=== PATIENT | male | born 1960 | race Caucasian/White ===

== ENCOUNTER → 2017-03-10 | Outpatient (CLI) | payer OTHER ==
--- NOTE | 2017-03-10 09:05 | MR ---
EXAMINATION TYPE: MR shoulder RT wo con DATE OF EXAM: 03/10/2017 COMPARISON: Outside right shoulder x-ray February 19, 2017. HISTORY: Pain in right shoulder per order. Pain with difficulty raising overhead, rotator cuff issues for 3 years per patient. TECHNIQUE: Multiplanar, multisequence imaging of the right shoulder is performed without contrast. FINDINGS: Rotator Cuff: There is high-grade bursal tear of distal supraspinatus tendon seen best paracoronal im age 11 . On paracoronal images appears there appears could be full-thickness defect at this level but this is not confirmed on sagittal images. Infraspinatus tendon remains intact. There is increased si gnal and distal thickening with surrounding fluid noted in subscapularis tendon. Though few fibers ap pear possibly intact on axial image 11 there is suspected full-thickness tear. Atrophy of muscle bulk is noted. There is presumed full-thickness defect as noted definitive attachment and lesser tuberosi ty is seen on parasagittal images. Acromioclavicular Joint: There is joint space loss and capsular hypertrophy. Distal acromion morpholo gy is unremarkable. Underlying fat plane is maintained. Glenohumeral Joint: There is moderate to large glenohumeral joint effusion. Joint space loss is prese nt. Mild inferior spurring is noted. Labrum: Degenerative signal superior labrum is present. No labral cyst is noted. Biceps Tendon: The long head of biceps is slightly perched within bicipital groove. There is focus of central increased signal extra-articular portion seen best on axial image 9. Intermediate signal and thickening is noted intra-articular portion parasagittal image 15. Tendon remains intact to the labr al anchor. Bone marrow signal: Subchondral cystic change superior lateral humeral head is present. Other: No additional significant abnormality is appreciated. IMPRESSION: 1. Chronic full-thickness tear subscapularis tendon as detailed above. 2. High-grade bursal tear supraspinatus tendon. 3. Background moderate degenerative changes acromioclavicular and glenohumeral joints. 4. Moderate to severe tendinosis long head of biceps tendon.
== END | disposition home or self-care (01) ==
LOC: RADMRIMAIN 07:03
PROVIDERS: ATTEND Orthopaedic Surgery
DX: M75.121 Complete rotator cuff tear or rupture of right shoulder, not specified as traumatic (principal); M25.811 Other specified joint disorders, right shoulder

== ENCOUNTER 2017-11-16 19:51 | Inpatient (IN) | payer OTHER ==
[2017-11-16] MEDS ORDERED: SODIUM CHLORIDE 0.9% 2,000 ML IV ONE (20:00)
[2017-11-16] MEDS ORDERED: PIPERACILLIN-TAZOBACTAM 3.375 GM in DEXTROSE/WATER 1 50ML.BAG IVPB STA (20:08)
[2017-11-16] MEDS ORDERED: VANCOMYCIN IV PER PHARMACY 1 EACH MISC MISCELLANE PRN (20:09)
[2017-11-16] MEDS ORDERED: VANCOMYCIN 2,000 MG in SODIUM CHLORIDE 0.9% 500 ML IVPB STA (20:11)
[2017-11-16] MEDS ORDERED: ACETAMINOPHEN TAB 325 MG TAB PO STA (20:26)
--- NOTE | 2017-11-16 20:27 | ED ---
Wound/Laceration HPI - General Source: patient, RN notes reviewed Mode of arrival: ambulatory Limitations: no limitations <Alex Grove - Last Filed: 11/16/17 21:28> <Boubacar Webber - Last Filed: 11/16/17 22:31> - General Chief Complaint: Wound/Laceration Stated Complaint: Cellulitis Time Seen by Provider: 11/16/17 19:59 - History of Present Illness Initial Comments: This a 57-year-old male presents emergency Department chief complaint infection to his left foot, leg. Patient states he stepped on a nail last week he did see his primary care physician who placed him on Bactrim. Patient states that it has been getting worse she states there is open sores, drainage, redness. 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 Patient states that he does go the wound center regular basis. Patient has chronic wounds to his leg, right foot. Patient reports no fever at home. Though patient is febrile in the emergency department. (Alex Grove) - Related Data Home Medications Medication Instructions Recorded Confirmed Gabapentin [Neurontin] 900 mg PO TID 03/13/14 11/27/16 Lisinopril 5 mg PO DAILY 03/13/14 11/27/16 Simvastatin [Zocor] 40 mg PO HS 03/13/14 11/27/16 Ascorbic Acid [Vitamin C] 500 mg PO DAILY 02/03/15 11/27/16 Cholecalciferol [Vitamin D3] 1,000 unit PO DAILY 02/03/15 11/27/16 HYDROcodone/APAP 10-325MG [[place] 1 each PO Q4HR PRN 02/03/15 11/27/16 10] Mirtazapine 30 mg PO HS 02/03/15 11/27/16 Multivitamin [Men's Multi-Vitamin] 1 each PO DAILY 02/03/15 11/27/16 Phentermine HCl 37.5 mg PO DAILY 02/03/15 11/27/16 Vitamin B Complex 1 each PO DAILY 02/03/15 11/27/16 metFORMIN HCL [Glucophage] 1,000 mg PO BID 02/03/15 11/27/16 Aspirin [Adult Low Dose Aspirin EC] 81 mg PO DAILY 11/27/16 11/27/16 Repaglinide [Prandin] 1 mg PO AC-TID 11/27/16 11/27/16 Allergies Allergy/AdvReac Type Severity Reaction Status Date / Time cefuroxime [From Ceftin] Allergy Rash/Hives Verified 11/16/17 19:56 Review of Systems ROS Other: All systems not noted in ROS Statement are negative. <Alex Grove - Last Filed: 11/16/17 21:28> ROS Other: All systems not noted in ROS Statement are negative. <Boubacar Webber - Last Filed: 11/16/17 22:31> ROS Statement: Those systems with pertinent positive or pertinent negative responses have been documented in the HPI. Past Medical History Past Medical History: Diabetes Mellitus, Hyperlipidemia, Hypertension Additional Past Medical History / Comment(s): wound L Leg History of Any Multi-Drug Resistant Organisms: None Reported, MRSA Date of last positivie culture/infection: 2012 MDRO Source:: L Leg Past Surgical History: Orthopedic Surgery Additional Past Surgical History / Comment(s): carpel tunnel Past Anesthesia/Blood Transfusion Reactions: No Reported Reaction Past Psychological History: No Psychological Hx Reported Smoking Status: Former smoker Past Alcohol Use History: None Reported Past Drug Use History: None Reported - Past Family History Mother Family Medical History: No Reported History <Alex Grove - Last Filed: 11/16/17 21:28> General Exam Limitations: no limitations General appearance: alert, in no apparent distress Head exam: Present: atraumatic, normocephalic, normal inspection Respiratory exam: Present: normal lung sounds bilaterally. Absent: respiratory distress, wheezes, rales, rhonchi, stridor Cardiovascular Exam: Present: normal rhythm, tachycardia, normal heart sounds. Absent: systolic murmur, diastolic murmur, rubs, gallop, clicks Extremities exam: Present: other (Left lower extremity, there is no open wound which is bruising on his left anterior vila with erythema, left foot there is sloughing of the skin noted to the lateral portion over the third through fifth digit there is a puncture wound on the ball of the foot there is severe erythema , warmth pulses are faint in the left foot) Skin exam: Present: warm, dry <Alex Grove - Last Filed: 11/16/17 21:28> Vital Signs 11/16/17 11/16/1711/16/18 19:52 21:11 21:45 Temperature 101.6 F H 102.2 F H Pulse Rate 139 H 120 H Pulse Rate [ 119 H Pulse Oximetery ] Respiratory 18 15 16 Rate Blood Pressure 128/88 143/86 Blood Pressure 144/85 [Right Arm] O2 Sat by Pulse 94 L 93 L Oximetry 11/16/17 22:10 Temperature 101.1 F H Pulse Rate 89 Pulse Rate [ Pulse Oximetery ] Respiratory 16 Rate Blood Pressure 136/93 Blood Pressure [Right Arm] O2 Sat by Pulse 93 L Oximetry Medical Decision Making - Lab Data Result diagrams: 11/16/17 20:13 11/16/17 20:13 <Alex Grove - Last Filed: 11/16/17 21:28> - Lab Data Result diagrams: 11/16/17 20:13 11/16/17 20:13 <Boubacar Webber - Last Filed: 11/16/17 22:31> - Medical Decision Making I saw this patient in conjunction with the physician [employer] assistant manager. I performed independent history and physical exam. Agree with case management. (Boubacar Webber) - Lab Data Lab Results 11/16/17 11/16/17 11/16/17 Range/Units 20:13 20:13 20:13 WBC 13.5 H (3.8-10.6) k/uL RBC 4.64 (4.30-5.90) m/uL Hgb 14.2 (13.0-17.5) gm/dL Hct 42.0 (39.0-53.0) % MCV 90.4 (80.0-100.0) fL MCH 30.5 (25.0-35.0) pg MCHC 33.8 (31.0-37.0) g/dL RDW 12.4 (11.5-15.5) % Plt Count 265 (150-450) k/uL Neutrophils % 84 % Lymphocytes % 7 % Monocytes % 6 % Eosinophils % 1 % Basophils % 0 % Neutrophils # 11.3 H (1.3-7.7) k/uL Lymphocytes # 1.0 (1.0-4.8) k/uL Monocytes # 0.8 (0-1.0) k/uL Eosinophils # 0.1 (0-0.7) k/uL Basophils # 0.0 (0-0.2) k/uL PT (9.0-12.0) sec INR (<1.2) APTT (22.0-30.0) sec Sodium 135 L (137-145) mmol/L Potassium 4.6 (3.5-5.1) mmol/L Chloride 101 (98-107) mmol/L Carbon Dioxide 19 L (22-30) mmol/L Anion Gap 15 mmol/L BUN 22 H (9-20) mg/dL Creatinine 0.90 (0.66-1.25) mg/dL Est GFR (CKD-EPI)AfAm >90 (>60 ml/min/1.73 sqM) Est GFR (CKD-EPI)NonAf >90 (>60 ml/min/1.73 sqM) Glucose 353 H (74-99) mg/dL Plasma Lactic Acid Miky 1.8 (0.7-2.0) mmol/L Calcium 9.0 (8.4-10.2) mg/dL Total Bilirubin 1.1 (0.2-1.3) mg/dL AST 120 H (17-59) U/L ALT 108 H (21-72) U/L Alkaline Phosphatase 278 H (38-126) U/L Total Protein 6.2 L (6.3-8.2) g/dL Albumin 3.3 L (3.5-5.0) g/dL 11/16/17 Range/Units 20:13 WBC (3.8-10.6) k/uL RBC (4.30-5.90) m/uL Hgb (13.0-17.5) gm/dL Hct (39.0-53.0) % MCV (80.0-100.0) fL MCH (25.0-35.0) pg MCHC (31.0-37.0) g/dL RDW (11.5-15.5) % Plt Count (150-450) k/uL Neutrophils % % Lymphocytes % % Monocytes % % Eosinophils % % Basophils % % Neutrophils # (1.3-7.7) k/uL Lymphocytes # (1.0-4.8) k/uL Monocytes # (0-1.0) k/uL Eosinophils # (0-0.7) k/uL Basophils # (0-0.2) k/uL PT 10.7 (9.0-12.0) sec INR 1.1 (<1.2) APTT 26.8 (22.0-30.0) sec Sodium (137-145) mmol/L Potassium (3.5-5.1) mmol/L Chloride (98-107) mmol/L Carbon Dioxide (22-30) mmol/L Anion Gap mmol/L BUN (9-20) mg/dL Creatinine (0.66-1.25) mg/dL Est GFR (CKD-EPI)AfAm (>60 ml/min/1.73 sqM) Est GFR (CKD-EPI)NonAf (>60 ml/min/1.73 sqM) Glucose (74-99) mg/dL Plasma Lactic Acid Miky (0.7-2.0) mmol/L Calcium (8.4-10.2) mg/dL Total Bilirubin (0.2-1.3) mg/dL AST (17-59) U/L ALT (21-72) U/L Alkaline Phosphatase (38-126) U/L Total Protein (6.3-8.2) g/dL Albumin (3.5-5.0) g/dL 11/16/17 21:29 EKG performed at 21:06 sinus tachycardia with a rate of 119. Her 154 QRS 102 QT /QTC 3:30/469 (Alex Grove) Disposition <Alex Grove - Last Filed: 11/16/17 21:28> <Boubacar Webber - Last Filed: 11/16/17 22:31> Clinical Impression: Cellulitis of left foot, Gangrene of foot, Leg ulcer, left, Sepsis, Uncontrolled diabetes mellitus Disposition: ADMITTED IP TO THIS HOSP Condition: Fair Referrals: Tre Garrido MD [Primary Care Provider] - 1-2 days Addendum entered and electronically signed by Alex Grove, PAMarieC 11/16/17 22: 05: Patient was admitted medically with antibiotic treatment, consultation to orthopedics and infectious disease rather than to orthopedics as this is not a new trauma. Trauma the patient's foot happened over a week old. Patient was started on Zosyn, vancomycin.
[2017-11-16] MEDS ORDERED: HYDROcodone/APAP 10-325MG 1 EACH TAB PO ONE (20:29)
[2017-11-16 21:05] LABS: ALT 108 U/L (21-72); AST 120 U/L (17-59); Albumin 3.3 g/dL (3.5-5.0); Alkaline Phosphatase 278 U/L (38-126); Anion Gap 15 mmol/L; Blood Urea Nitrogen 22 mg/dL (9-20); Carbon Dioxide 19 mmol/L (22-30); Chloride 101 mmol/L (98-107); Glucose 353 mg/dL (74-99); Potassium 4.6 mmol/L (3.5-5.1); Sodium 135 mmol/L (137-145); Total Bilirubin 1.1 mg/dL (0.2-1.3); Total Protein 6.2 g/dL (6.3-8.2)
--- NOTE | 2017-11-16 21:08 | XR ---
EXAMINATION TYPE: XR foot complete LT DATE OF EXAM: 11/16/2017 COMPARISON: NONE HISTORY: 57-year-old male with left foot pain/cellulitis, nonhealing wound TECHNIQUE: 3 views FINDINGS: Soft tissue swelling along the lateral aspect of the forefoot. There is soft tissue air/along the duy mary aspect in this region. No osseous erosions are identified. Small plantar calcaneal spur. No acute fracture or dislocation. IMPRESSION: Soft tissue swelling and dorsal medial sided forefoot soft tissue wound. There is soft tissue air her e suggesting infection with gas-forming organism. No underlying acute osseous abnormality seen.
[2017-11-16 21:10] LABS: Basophils % (A) 0 %; Eosinophils # (A) 0.1 k/uL (0-0.7); Eosinophils % (A) 1 %; HGB 14.2 gm/dL (13.0-17.5); INR 1.1 (<1.2); Lymphocytes % (A) 7 %; MCH 30.5 pg (25.0-35.0); MCHC 33.8 g/dL (31.0-37.0); MCV 90.4 fL (80.0-100.0); Mean Platelet Volume 7.9; Monocytes # (A) 0.8 k/uL (0-1.0); Monocytes % (A) 6 %; Neutrophils # (A) 11.3 k/uL (1.3-7.7); Neutrophils % (A) 84 %; Partial Thromboplastin Time 26.8 sec (22.0-30.0); Platelet Count 265 k/uL (150-450); Prothrombin Time 10.7 sec (9.0-12.0); RBC 4.64 m/uL (4.30-5.90); RDW 12.4 % (11.5-15.5); WBC 13.5 k/uL (3.8-10.6)
[2017-11-16] MEDS ORDERED: MORPHINE SULFATE 4 MG/ML SYRINGE IV PRN (21:37)
[2017-11-16] MEDS ORDERED: NALOXONE 0.4 MG/ML 1 ML VIAL IV PRN (21:37)
[2017-11-16] MEDS ORDERED: ONDANSETRON 4 MG/2 ML VIAL IVP PRN (21:37)
[2017-11-16 23:31] VITALS: BMI 36.3
[2017-11-16] MEDS: SODIUM CHLORIDE 0.9% 1,000 ML IV SCH (23:40)
[2017-11-16] MEDS: GABAPENTIN 300 MG CAP PO SCH (23:40)
[2017-11-16] MEDS: MIRTAZAPINE 15 MG TAB PO SCH (23:41)
[2017-11-17] MEDS: HYDROcodone/APAP 10-325MG 1 EACH TAB PO PRN ×4 (04:09→21:07)
[2017-11-17 07:07] LABS: Glucose,Whole Blood 192 mg/dL (75-99)
[2017-11-17] MEDS: PHENTERMINE HCL 37.5 MG PO SCH (07:45)
[2017-11-17] MEDS: ASPIRIN 81 MG PO SCH (07:45)
[2017-11-17] MEDS: GABAPENTIN 300 MG CAP PO SCH ×3 (07:45→21:06)
[2017-11-17] MEDS: LISINOPRIL 5 MG TAB PO SCH (07:45)
[2017-11-17] MEDS: INSULIN ASPART 100 UNIT/ML 1 ML 10 ML VIAL SQ SCH ×4 (07:46→21:07)
[2017-11-17] MEDS: SODIUM CHLORIDE 0.9% 1,000 ML IV SCH ×2 (07:47→15:21)
[2017-11-17] MEDS: VANCOMYCIN 2,000 MG in SODIUM CHLORIDE 0.9% 500 ML IVPB SCH ×2 (08:23→21:05)
[2017-11-17] MEDS ORDERED: NON-FORMULARY DRUG (Vitamin B Complex [Vitamin B Complex] 1 EACH) PO SCH (09:00)
[2017-11-17] MEDS ORDERED: DIPH,PERTUS(ACELL)TETVAC-LF 0.5 ML VIAL IM ONE (10:19)
--- NOTE | 2017-11-17 10:45 | P.CONS ---
History of Present Illness - Reason for Consult Consult date: 11/17/17 Diabetic foot wound, gangrenous foot - History of Present Illness This is a 57-year-old male who is known to ID service as [facility] to the left lower extremity. He was discharged in February 2015 and was under the care of Dr. Santana at that time. Patient states that he has most recently at the wound Center at [facility] under the care of Dr. Leyva. Patient is requesting care with Dr. Das. Last week he stepped on a drywall screw while working and later saw his primary care doctor on Friday and he was told he had cellulitis. He had IM antibiotics given and started on Bactrim. Patient denies having any fever or chills although he had a temperature 102.2. He does complain of nausea. He also complains of pain in the left foot with increased redness, swelling and drainage. Patient also has a wound to the mid pretibial which is the ulcer he is currently under care at [facility]. There is also a small wound on the left heel, posterior tibial area and distal tip of the right great toe. He is not sure if he had a tetanus updated at Dr. Garrido's office. Patient presented with temperature 102.2, elevated heart rate, pulse ox 94% on room air, leukocytosis of 13.5. Blood sugar was 353 and patient states that blood sugars have been running high at home. Creatinine 0.9. AST 120, ALT 102 and alkaline phosphatase 278. Lactic acid was 1.8 and albumin 3.3. He does have blood culture obtained that is showing gram-positive cocci. X-ray of the left foot shows soft tissue swelling and dorsal medial soft tissue wound. Soft tissue air suggesting gas-forming organism. No associated osseous abnormality. Patient was given 1 dose of Zosyn and started on vancom[facility] There is a consult in place with orthopedics. Patient did have laser surgery with Dr. Brian in May for his left lower leg. Review of Systems All systems: negative Constitutional: Reports fatigue, Reports poor appetite, Reports weakness, Denies chills, Denies fever Eyes: denies blurred vision, denies pain Ears, nose, mouth and throat: Denies dental pain, Denies headache, Denies mouth pain, Denies sore throat, Denies vertigo Cardiovascular: Reports leg edema, Denies chest pain, Denies lightheadedness, Denies shortness of breath, Denies syncope Respiratory: Denies cough, Denies cough with sputum, Denies dyspnea, Denies excessive sputum, Denies hemoptysis, Denies home oxygen, Denies wheezing Gastrointestinal: Reports nausea, Denies abdominal pain, Denies diarrhea, Denies vomiting Genitourinary: Denies dysuria Musculoskeletal: Denies myalgias Integumentary: Reports as per HPI, Reports color changes, Reports foot/leg ulcers, Reports onychomycosis, Reports wounds, Denies pruritus, Denies rash Neurological: Denies numbness, Denies weakness Psychiatric: Denies anxiety, Denies depression Endocrine: Denies fatigue, Denies weight change Past Medical History Past Medical History: Diabetes Mellitus, Hyperlipidemia, Hypertension Additional Past Medical History / Comment(s): wound L Leg History of Any Multi-Drug Resistant Organisms: MRSA Year Discovered:: 2012 MDRO Source:: L Leg Past Surgical History: Orthopedic Surgery Additional Past Surgical History / Comment(s): carpel tunnel Past Anesthesia/Blood Transfusion Reactions: No Reported Reaction Past Psychological History: No Psychological Hx Reported Smoking Status: Former smoker Past Alcohol Use History: None Reported Additional Past Alcohol Use History / Comment(s): Patient was a smoker 3 packs per day on and off for 20 years and quit 15 years ago. He denies any recent marijuana or street drug use. 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 Past Drug Use History: None Reported Additional Drug Use History / Comment(s): rare - Past Family History Mother Family Medical History: No Reported History Medications and Allergies Home Medications Medication Instructions Recorded Confirmed Type Gabapentin [Neurontin] 300 mg PO TID 03/13/14 11/17/17 History Lisinopril 5 mg PO HS 03/13/14 11/17/17 History Simvastatin [Zocor] 40 mg PO PC-SUPPER 03/13/14 11/17/17 History Ascorbic Acid [Vitamin C] 1,000 mg PO PC-LUNCH 02/03/15 11/17/17 History Cholecalciferol [Vitamin D3] 5,000 unit PO PC-LUNCH 02/03/15 11/17/17 History HYDROcodone/APAP 10-325MG [[facility] 1 tab PO QID 02/03/15 11/17/17 History 10] Multivitamin [Men's Multi-Vitamin] 1 tab PO PC-LUNCH 02/03/15 11/17/17 History Phentermine HCl 37.5 mg PO DAILY 02/03/15 11/17/17 History Vitamin B Complex 1 cap PO PC-LUNCH 02/03/15 11/17/17 History Aspirin [Adult Low Dose Aspirin EC] 81 mg PO HS 11/27/16 11/17/17 History Repaglinide [Prandin] 1 mg PO AC-TID 11/27/16 11/17/17 History Canagliflozin [Invokana] 300 mg PO DAILY 11/17/17 11/17/17 History Mirtazapine 45 mg PO HS 11/17/17 11/17/17 History metFORMIN HCL 1,000 mg PO AC-BID 11/17/17 11/17/17 History Allergies Allergy/AdvReac Type Severity Reaction Status Date / Time cefuroxime [From Ceftin] Allergy Rash/Hives Verified 11/17/17 08:34 Physical Exam Vitals: Vital Signs Temp Pulse Pulse Resp BP BP Pulse Ox 11/17/17 05:00 100.7 F H 98 16 130/77 94 L 11/17/17 00:00 107 H 17 11/16/17 23:01 100.4 F H 11/16/17 23:00 100.4 F H 107 H 17 116/71 96 11/16/17 22:10 101.1 F H 89 16 136/93 93 L 11/16/17 21:45 120 H 16 143/86 93 L 11/16/17 21:11 102.2 F H 119 H 15 144/85 11/16/17 19:52 101.6 F H 139 H 18 128/88 94 L Intake and Output 11/16/17 11/17/17 11/17/17 22:59 06:59 14:59 Intake Total 1630 Output Total 1375 Balance 255 Intake: Intake, IV Titration 1150 Amount Piperacillin-Tazobactam 3 50 .375 gm In Dextrose/Water 1 50ml.bag @ 12.5 mls/hr IVPB ONCE STA Rx#: [id number] Sodium Chloride 0.9% 1, 600 000 ml @ 100 mls/hr IV . Q10H KASSY Rx#:[id number] Vancomycin 2,000 mg In 500 Sodium Chloride 0.9% 500 ml @ 167 mls/hr IVPB 0800 ,2000 KASSY Rx#:[id number] Oral 480 Output: Urine 1375 Other: Voiding Method Urinal # Voids 750 Weight 128.367 kg 128.367 kg Gen: This is a 57-year-old male. He is sitting up in bed and appears to be comfortable. He appears to be in no acute distress. He is complaining of pain in the left leg. HEENT: Head is atraumatic, normocephalic. Pupils equal, round. Sclerae is anicteric. Patient is edentulous. Mucous members of the mouth are moist. NECK: Supple. No JVD. No lymphadenopathy. No thyromegaly. LUNGS: Clear to auscultation. No wheezes or rhonchi. No intercostal retractions. HEART: Regular rate and rhythm. No murmur. ABDOMEN: Obese. Soft. Bowel sounds are present. No masses. No tenderness. EXTREMITIES: The left lower extremity there is significant redness surrounding the ulcer in the mid pretibial area along with edema. There is ulcer actively draining with serous fluid to the dorsal surface over the fourth and fifth digits. Patient is a puncture wound on the plantar surface at the mid fifth metatarsal. There is a small wound on the posterior left calf and left heel. On the right foot patient has a black eschar ulcer on the distal great toe. Dorsalis pedis is +2 bilaterally. NEUROLOGICAL: Patient is awake, alert and oriented x3. Cranial nerves 2 through 12 are grossly intact. Results Results: Laboratory Results WBC 13.5 k/uL (3.8-10.6) H 11/16/17 20:13 RBC 4.64 m/uL (4.30-5.90) 11/16/17 20:13 Hgb 14.2 gm/dL (13.0-17.5) 11/16/17 20:13 Hct 42.0 % (39.0-53.0) 11/16/17 20:13 MCV 90.4 fL (80.0-100.0) 11/16/17 20:13 MCH 30.5 pg (25.0-35.0) 11/16/17 20:13 MCHC 33.8 g/dL (31.0-37.0) 11/16/17 20:13 RDW 12.4 % (11.5-15.5) 11/16/17 20:13 Plt Count 265 k/uL (150-450) 11/16/17 20:13 Neutrophils % 84 % 11/16/17 20:13 Lymphocytes % 7 % 11/16/17 20:13 Monocytes % 6 % 11/16/17 20:13 Eosinophils % 1 % 11/16/17 20:13 Basophils % 0 % 11/16/17 20:13 Neutrophils # 11.3 k/uL (1.3-7.7) H 11/16/17 20:13 Lymphocytes # 1.0 k/uL (1.0-4.8) 11/16/17 20:13 Monocytes # 0.8 k/uL (0-1.0) 11/16/17 20:13 Eosinophils # 0.1 k/uL (0-0.7) 11/16/17 20:13 Basophils # 0.0 k/uL (0-0.2) 11/16/17 20:13 PT 10.7 sec (9.0-12.0) 11/16/17 20:13 INR 1.1 (<1.2) 11/16/17 20:13 APTT 26.8 sec (22.0-30.0) 11/16/17 20:13 Sodium 135 mmol/L (137-145) L 11/16/17 20:13 Potassium 4.6 mmol/L (3.5-5.1) 11/16/17 20:13 Chloride 101 mmol/L (98-107) 11/16/17 20:13 Carbon Dioxide 19 mmol/L (22-30) L 11/16/17 20:13 Anion Gap 15 mmol/L 11/16/17 20:13 BUN 22 mg/dL (9-20) H 11/16/17 20:13 Creatinine 0.90 mg/dL (0.66-1.25) 11/16/17 20:13 Est GFR (CKD-EPI)AfAm >90 (>60 ml/min/1.73 sqM) 11/16/17 20:13 Est GFR (CKD-EPI)NonAf >90 (>60 ml/min/1.73 sqM) 11/16/17 20:13 Glucose 353 mg/dL (74-99) H 11/16/17 20:13 POC Glucose (mg/dL) 172 mg/dL (75-99) H 11/17/17 11:56 POC Glu Chyron Operator ID Femi Ventura 11/17/17 11:56 Plasma Lactic Acid Miky 1.8 mmol/L (0.7-2.0) 11/16/17 20:13 Calcium 9.0 mg/dL (8.4-10.2) 11/16/17 20:13 Total Bilirubin 1.1 mg/dL (0.2-1.3) 11/16/17 20:13 AST 120 U/L (17-59) H 11/16/17 20:13 ALT 108 U/L (21-72) H 11/16/17 20:13 Alkaline Phosphatase 278 U/L (38-126) H 11/16/17 20:13 Total Protein 6.2 g/dL (6.3-8.2) L 11/16/17 20:13 Albumin 3.3 g/dL (3.5-5.0) L 11/16/17 20:13 CBC & Chem 7: 11/16/17 20:13 11/16/17 20:13 Labs: Abnormal Lab Results - Last 24 Hours (Table) 11/16/17 11/16/17 11/17/17 Range/Units 20:13 20:13 07:06 WBC 13.5 H (3.8-10.6) k/uL Neutrophils # 11.3 H (1.3-7.7) k/uL Sodium 135 L (137-145) mmol/L Carbon Dioxide 19 L (22-30) mmol/L BUN 22 H (9-20) mg/dL Glucose 353 H (74-99) mg/dL POC Glucose (mg/dL) 192 H (75-99) mg/dL AST 120 H (17-59) U/L ALT 108 H (21-72) U/L Alkaline Phosphatase 278 H (38-126) U/L Total Protein 6.2 L (6.3-8.2) g/dL Albumin 3.3 L (3.5-5.0) g/dL Microbiology - Last 24 Hours (Table) 11/16/17 20:13 Blood Culture Gram Stain - Preliminary Blood 11/16/17 20:13 Blood Culture - Final Blood Assessment and Plan Plan: This is a 57-year-old male patient who presents to the hospital with signs of sepsis with fever, tachycardia and leukocytosis secondary to the left lower extremity ulcers and wounds. Patient is currently on vancomycin and Zosyn will be added. Bone scan will be ordered. Wound culture ordered. Tetanus status will be updated this was not done a Dr. Garrido's office on Friday. The patient has been seen by Dr. Bacon with plan for debridement tomorrow. Noted the patient's liver enzymes are elevated and hepatitis panel ordered. Blood sugars have been elevated and patient will require tight glucose control to aid in healing. Multivitamin ordered. Continue supportive care. Further recommendations as patient progresses. The above dictated assessment and findings were discussed with Dr. Das. The impression and plan of care have been directed as dictated. Janice Lindo nurse practitioner acting as scribe for Dr. Das.
[2017-11-17 11:57] LABS: Glucose,Whole Blood 172 mg/dL (75-99)
[2017-11-17] MEDS: PIPERACILLIN-TAZOBACTAM 3.375 GM in DEXTROSE/WATER 1 50ML.BAG IVPB SCH ×2 (12:35→17:15)
[2017-11-17] MEDS: metFORMIN 500 MG TAB PO SCH ×2 (12:35→17:39)
[2017-11-17] MEDS: REPAGLINIDE 1 MG TAB PO SCH ×3 (12:36→17:39)
[2017-11-17] MEDS: ENOXAPARIN 40 MG/0.4 ML SYRINGE SQ SCH (12:36)
--- NOTE | 2017-11-17 13:22 | P.CNOR ---
History of Present Illness - [facility] Consult date: 11/17/17 Consult reason: joint pain History of present illness: This 57-year-old male who was recently admitted to [facility] with regards to her left foot infection. Patient is a uncontrolled diabetic and has had many wounds involving the left lower extremity. He has been evaluated and does follow up in the wound care center, he has also had some vascular surgery done on the left lower extremity. Patient states that last week he stepped on a nail which punctured the bottom of his foot. Patient was unaware that he had punctured the foot due to the neuropathy in his foot. Later in the week she started noticing increasing swelling and pain. He states the pain and swelling along with drainage over the dorsum of the left foot has gotten worse yesterday, he reported to the hospital. Upon arrival to the hospital, imaging and labs were taken on the patient. Patient was admitted under internal medicine, consults were placed for infectious disease and orthopedics. Patient was evaluated today at bedside, he is resting comfortably. He notes some discomfort on the dorsum of the foot. He denies any fevers or chills at this time. Review of Systems Constitutional: Reports as per HPI Past Medical History Past Medical History: Diabetes Mellitus, Hyperlipidemia, Hypertension Additional Past Medical History / Comment(s): wound L Leg History of Any Multi-Drug Resistant Organisms: MRSA Year Discovered:: 2012 MDRO Source:: L Leg Past Surgical History: Orthopedic Surgery Additional Past Surgical History / Comment(s): carpel tunnel Past Anesthesia/Blood Transfusion Reactions: No Reported Reaction Past Psychological History: No Psychological Hx Reported Smoking Status: Former smoker Past Alcohol Use History: None Reported Additional Past Alcohol Use History / Comment(s): Patient was a smoker 3 packs per day on and off for 20 years and quit 15 years ago. He denies any recent marijuana or street drug use. 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 Past Drug Use History: None Reported Additional Drug Use History / Comment(s): rare - Past Family History Mother Family Medical History: No Reported History Medications and Allergies Home Medications Medication Instructions Recorded Confirmed Type Gabapentin [Neurontin] 300 mg PO TID 03/13/14 11/17/17 History Lisinopril 5 mg PO HS 03/13/14 11/17/17 History Simvastatin [Zocor] 40 mg PO PC-SUPPER 03/13/14 11/17/17 History Ascorbic Acid [Vitamin C] 1,000 mg PO PC-LUNCH 02/03/15 11/17/17 History Cholecalciferol [Vitamin D3] 5,000 unit PO PC-LUNCH 02/03/15 11/17/17 History HYDROcodone/APAP 10-325MG [[place] 1 tab PO QID 02/03/15 11/17/17 History 10] Multivitamin [Men's Multi-Vitamin] 1 tab PO PC-LUNCH 02/03/15 11/17/17 History Phentermine HCl 37.5 mg PO DAILY 02/03/15 11/17/17 History Vitamin B Complex 1 cap PO PC-LUNCH 02/03/15 11/17/17 History Aspirin [Adult Low Dose Aspirin EC] 81 mg PO HS 11/27/16 11/17/17 History Repaglinide [Prandin] 1 mg PO AC-TID 11/27/16 11/17/17 History Canagliflozin [Invokana] 300 mg PO DAILY 11/17/17 11/17/17 History Mirtazapine 45 mg PO HS 11/17/17 11/17/17 History metFORMIN HCL 1,000 mg PO AC-BID 11/17/17 11/17/17 History Allergies Allergy/AdvReac Type Severity Reaction Status Date / Time cefuroxime [From Ceftin] Allergy Rash/Hives Verified 11/17/17 08:34 Physical Examination Left lower extremity: Significant soft tissue swelling and erythema noted over the dorsum of the foot , mainly located between the fourth and fifth digit. There is serosanguineous drainage present throughout most of the area, the skin is excoriated and most of the region also. There are a few separate lesions in between the fourth and fifth digit in the webspace. Erythema also noted throughout most of the foot and vila. Mid tibia region, there is a healing ulcer present. Dorsal pedis pulses 2+ Sensation to light touch on the dorsum of the foot is intact, on the plantar aspect many areas of decrease sensation to light touch He is able to plantarflex and dorsiflex the ankle minimal discomfort Calf is soft no tenderness with palpation Results - Labs Labs: Abnormal Lab Results - Last 24 Hours (Table) 11/16/17 11/16/17 11/17/17 Range/Units 20:13 20:13 07:06 WBC 13.5 H (3.8-10.6) k/uL Neutrophils # 11.3 H (1.3-7.7) k/uL Sodium 135 L (137-145) mmol/L Carbon Dioxide 19 L (22-30) mmol/L BUN 22 H (9-20) mg/dL Glucose 353 H (74-99) mg/dL POC Glucose (mg/dL) 192 H (75-99) mg/dL AST 120 H (17-59) U/L ALT 108 H (21-72) U/L Alkaline Phosphatase 278 H (38-126) U/L Total Protein 6.2 L (6.3-8.2) g/dL Albumin 3.3 L (3.5-5.0) g/dL 11/17/17 Range/Units 11:56 WBC (3.8-10.6) k/uL Neutrophils # (1.3-7.7) k/uL Sodium (137-145) mmol/L Carbon Dioxide (22-30) mmol/L BUN (9-20) mg/dL Glucose (74-99) mg/dL POC Glucose (mg/dL) 172 H (75-99) mg/dL AST (17-59) U/L ALT (21-72) U/L Alkaline Phosphatase (38-126) U/L Total Protein (6.3-8.2) g/dL Albumin (3.5-5.0) g/dL Microbiology - Last 24 Hours (Table) 11/16/17 20:13 Blood Culture Gram Stain - Preliminary Blood 11/16/17 20:13 Blood Culture - Final Blood H & H 11/16/17 Range/Units 20:13 Hgb 14.2 (13.0-17.5) gm/dL Hct 42.0 (39.0-53.0) % Coagulation 11/16/17 Range/Units 20:13 INR 1.1 (<1.2) Result Diagrams: 11/16/17 20:13 11/16/17 20:13 - Diagnostic results Ankle/Foot x-ray: report reviewed, image reviewed Assessment and Plan Plan: Imaging: Multiple views left foot were obtained. Images demonstrated no acute fractures or dislocations. Obvious soft tissue injury present. Assessment: 1. Left foot abscess 2. Left foot puncture wound 3. Uncontrolled diabetes 4. Other medical comorbidities Plan: I was able to discuss the case, including physical exam findings and imaging studies with my attending Dr. Bacon. This patient will need surgical intervention, more specifically incision and drainage along with irrigation and debridement of the foot. This will be scheduled for 11/18/2014. Obtain consent Nothing by mouth after midnight pain control other medical collections representative recommendations Further recommendations to follow Time with Patient: Less than 30
--- NOTE | 2017-11-17 15:08 | NM ---
EXAMINATION TYPE: NM bone 3 phase DATE OF EXAM: 11/17/2017 COMPARISON: 11/16/2017 HISTORY: Left foot pain for one week. Osteomyelitis. Triple phase bone scintigraphy was performed following the injection of 25.9 mCi Tc 99m MDP. Immedia te images and 3.25 hours post injection images acquired. FINDINGS: There is diffusely abnormal perfusion and blood pool to the left lower extremity involving the ankle and foot. On delayed imaging there is multifocal abnormal uptake within the tibiotalar join t, midfoot, and multifocally with the forefoot involving the first metatarsophalangeal joint, fourth phalanx and fifth phalanx. IMPRESSION: Diffuse abnormal perfusion and blood pool to the left lower extremity with focal delayed uptake of the tibiotalar joint, midfoot, first metatarsal phalangeal joint, fourth phalanx and fifth phalanx. Findings can be seen in multifocal osteomyelitis, reflex sympathetic dystrophy, or less like ly neoplasm. Considering the air seen on the prior radiographs of 11/16/2017 consideration should also again be given to gas forming organism.
[2017-11-17 16:29] LABS: Glucose,Whole Blood 266 mg/dL (75-99)
[2017-11-17 16:48] LABS: Hepatitis A Antibody IgM Non-Reactive (Non-Reactive); Hepatitis B Core IgM Non-Reactive (Non-Reactive)
--- NOTE | 2017-11-17 16:50 | HP ---
HISTORY AND PHYSICAL DATE OF ADMISSION: 11/16/17. DATE OF SERVICE: 11/17/17. PRESENTING COMPLAINT: Abscess, right foot. HISTORY OF PRESENTING COMPLAINT: This is a pleasant 57-year-old patient of Dr. Eloy Garrido. Chronic stable medical conditions include diabetes, hypertension, hyperlipidemia, and peripheral neuropathy. The patient about 8 days ago stepped on a nail on a piece of drywall and did not notice that until yesterday. It progressed to get worse and started hurting. The patient has decreased sensation in the feet, started draining pus and decided to come down to the ER. Consultation from the ER was made to Orthopedics and Infectious Disease and the patient was started on IV vancomycin and Zosyn. Denies pain. The patient does feel weak and tired and also had a fever up to 102.2. REVIEW OF SYSTEMS: CONSTITUTIONAL: Tired. HEENT: None. RESPIRATORY: None. CARDIOVASCULAR: None. GASTROINTESTINAL: None. GENITOURINARY: None. MUSCULOSKELETAL: As above. DERMATOLOGICAL: As above. LYMPHATICS: None. PSYCHIATRY: None. NEUROLOGICAL: Numbness and tingling in the feet. PAST MEDICAL HISTORY: Diabetes mellitus type 2, hyperlipidemia, hypertension, wound of the left leg with MRSA. PAST SURGICAL HISTORY: Orthopedic surgery, carpal tunnel. SOCIAL HISTORY: The patient has smoked 3 packs on and off for 20 years and stopped 15 years ago. He did work in the past as a operator and truck driver, was currently working doing [employer]. FAMILY HISTORY: Reviewed noncontributory to presentation. HOME MEDICATIONS: 1. Invokana 300 mg a day. 2. Vitamin C 1000 mg with lunch. 3. Mirtazapine 45 mg q.h.s. 4. Aspirin 81 mg q.h.s. 5. Vitamin B complex. 6. Multivitamin 1 tablet p.o. after lunch. 7. Lisinopril 5 mg q.h.s. 8. Vitamin D3 5000 units p.c. lunch. 9. Zocor 40 mg p.c. supper. 10.Phentermine 37.5 p.o. daily. 11.Metformin 1000 mg p.o. a.c. b.i.d. 12.Neurontin 300 mg p.o. t.i.d. 13.Prandin 1 mg p.o. a.c. t.i.d. 14.[place] 10 1 tablet p.o. q.i.d. ALLERGIES: To CEFTIN. PHYSICAL EXAMINATION: Vital signs on presentation: Temp 102.2, pulse 139, respiration 15, blood pressure 120/88, pulse ox 94% on room air. GENERAL APPEARANCE: Well built, BMI 36.3. Sitting up, not in distress. EYES: Pupils equal. Conjunctivae normal. HEENT: External appearance of nose and ears normal. Oral cavity normal. NECK: JVD not raised. Mass not palpable. RESPIRATORY: Effort normal. Lungs, slightly decreased breath sounds. CARDIOVASCULAR: 1st and 2nd sounds normal. No edema. ABDOMEN: Soft, nontender. Liver and spleen not palpable. LYMPHATIC: No lymph nodes palpable in neck or axillae. PSYCHIATRY: Alert and oriented x3. Mood and affect normal. NEUROLOGICAL: Decreased sensation in the feet. MUSCULOSKELETAL: Patient has got a wound on the right foot. Picture in the chart. INVESTIGATIONS: Labs and radiology were reviewed in context of the assessment and plan below. White count 13.5, hemoglobin 14.2, potassium 4.6, BUN 22, creatinine 0.90. Accu-Cheks 353, 192, 172. Foot x-ray: Soft tissue swelling in dorsal medial forefoot. There is some gas- forming organism. EKG tracing interpreted by me shows sinus tachycardia. Nuclear bone scan shows diffuse abnormal perfusion, blood pool to the lower extremity. It is nonspecific for osteomyelitis but that remains in the differential. ASSESSMENT: 1. Acute severe right foot abscess in a patient who has got poor sensation from diabetes resulting in abscess of the foot following a nail driven from the drywall about a week ago and patient has formed an abscess. 2. Diabetes mellitus type 2, uncontrolled with hyperglycemia on oral hypoglycemic. 3. Metabolic acidosis. Bicarb is 19. 4. Acute right foot abscess causing severe sepsis, present on admission. 5. Essential hypertension. 6. Hyperlipidemia. PLAN: The patient is on IV vancomycin, Zosyn. Orthopedic and Infectious Disease was consulted. The patient will be probably need to go down to the OR. Blood cultures were ordered and growing Gram-positive cocci. Care was discussed in detail with the patient. MMODL / IJN: [id number] /
--- NOTE | 2017-11-17 19:19 | P.CON ---
Consult Note - . Consult date: 11/17/17 Assessment/Plan:: This is a 57-year-old male who is known to ID service as [facility] to the left lower extremity. He was discharged in February 2015 and was under the care of Dr. Santana at that time. Patient states that he has most recently at the wound Center at [facility] under the care of Dr. Leyva. Patient is requesting care with Dr. Das. Last week he stepped on a drywall screw while working and later saw his primary care doctor on Friday and he was told he had cellulitis. He had IM antibiotics given and started on Bactrim. Patient denies having any fever or chills although he had a temperature 102.2. He does complain of nausea. He also complains of pain in the left foot with increased redness, swelling and drainage. Patient also has a wound to the mid pretibial which is the ulcer he is currently under care at [facility]. There is also a small wound on the left heel, posterior tibial area and distal tip of the right great toe. He is not sure if he had a tetanus updated at Dr. Garrido's office. Patient presented with temperature 102.2, elevated heart rate, pulse ox 94% on room air, leukocytosis of 13.5. Blood sugar was 353 and patient states that blood sugars have been running high at home. Creatinine 0.9. AST 120, ALT 102 and alkaline phosphatase 278. Lactic acid was 1.8 and albumin 3.3. He does have blood culture obtained that is showing gram-positive cocci. X-ray of the left foot shows soft tissue swelling and dorsal medial soft tissue wound. Soft tissue air suggesting gas-forming organism. No associated osseous abnormality. Patient was given 1 dose of Zosyn and started on vancomycin and admitted to the [facility] floor. There is a consult in place with orthopedics. Patient did have laser surgery with Dr. Brian in May for his left lower leg. Please see the consult note as dictated by CHEMISTRY PHYSICS TEACHER Krista Janice Lindo. Physical the patient relates that he was at a job site and apparently stepped on a drywall screw. He was quite unaware this was occurring, but after he noticed some swelling and drainage from his foot he examined his shoe and the drywall screw was still present through the sole of the shoe penetrating into the fifth metatarsal area. The patient now presents with the extensive swelling and infection to the dorsum of the foot and will have incision and drainage from orthopedics soon. We'll continue antibiotic therapy with Zosyn and vancomycin until we have further data. It is unclear if he'll require any surgical amputation the near future regarding the extensive nature of this infection. Goals establishes much of the foot as possible. Tetanus is updated and local wound care as a nonstick dressing until surgical intervention has occurred. Cultures were further help direct antibiotic therapy and he could require outpatient antibiotic therapy depending on the findings at surgery. Despite specific difficulties he is wondering when he gets to go back to work. I agree with the evaluation assessment and plan as dictated by CHEMISTRY PHYSICS TEACHER Mrs. Janice Lindo.
[2017-11-17 20:12] LABS: Glucose,Whole Blood 299 mg/dL (75-99)
[2017-11-17] MEDS: MIRTAZAPINE 15 MG TAB PO SCH (21:06)
[2017-11-17] MEDS: ATORVASTATIN 20 MG TAB PO SCH (21:07)
[2017-11-18] MEDS: PIPERACILLIN-TAZOBACTAM 3.375 GM in DEXTROSE/WATER 1 50ML.BAG IVPB SCH ×3 (00:58→17:16)
[2017-11-18] MEDS: SODIUM CHLORIDE 0.9% 1,000 ML IV SCH ×2 (06:16→12:58)
[2017-11-18 06:53] LABS: Glucose,Whole Blood 274 mg/dL (75-99)
[2017-11-18] MEDS: metFORMIN 500 MG TAB PO SCH ×2 (07:38→17:53)
[2017-11-18] MEDS: REPAGLINIDE 1 MG TAB PO SCH ×3 (07:38→17:53)
[2017-11-18] MEDS: VANCOMYCIN 2,000 MG in SODIUM CHLORIDE 0.9% 500 ML IVPB SCH ×2 (07:47→19:57)
[2017-11-18] MEDS: INSULIN ASPART 100 UNIT/ML 1 ML 10 ML VIAL SQ SCH ×4 (07:48→20:20)
[2017-11-18] MEDS: GABAPENTIN 300 MG CAP PO SCH ×3 (07:48→21:54)
[2017-11-18] MEDS: ASPIRIN 81 MG PO SCH (07:48)
[2017-11-18] MEDS: PHENTERMINE HCL 37.5 MG PO SCH (07:53)
[2017-11-18 07:59] LABS: Anion Gap 10 mmol/L; Blood Urea Nitrogen 21 mg/dL (9-20); Calcium 8.8 mg/dL (8.4-10.2); Carbon Dioxide 24 mmol/L (22-30); Chloride 102 mmol/L (98-107); Glucose 247 mg/dL (74-99); Sodium 136 mmol/L (137-145)
[2017-11-18] MEDS ORDERED: MIDAZOLAM 2 MG/2 ML VIAL ONE ×2 (09:22→10:24)
[2017-11-18] MEDS ORDERED: IV FLUID CONTINUATION 900 ML IV ONE (09:31)
[2017-11-18 09:49] LABS: Glucose,Whole Blood 210 mg/dL (75-99)
[2017-11-18] MEDS ORDERED: LACTATED RINGERS 1,000 ML IV ONE (10:20)
[2017-11-18] MEDS ORDERED: ePHEDrine SULFATE/0.9% NACL/PF 50 MG/5 ML SYRINGE IV ONE (10:24)
[2017-11-18] MEDS ORDERED: SUCCINYLCHOLINE CHLORIDE 100 MG/5 ML SYR IV ONE (10:24)
[2017-11-18] MEDS ORDERED: fentaNYL (PF) 50 MCG/ML 2 ML AMP ONE (10:24)
[2017-11-18] MEDS ORDERED: PROPOFOL 10 MG/ML 20 ML VIAL IV ONE (10:24)
[2017-11-18] MEDS ORDERED: LIDOCAINE 1% INJ 10MG/ML (20 ML MDV) ONE (10:24)
[2017-11-18] MEDS ORDERED: ceFAZolin 1,000 MG in SODIUM CHLORIDE 0.9% 1,000 ML IRRIGATION ONE (10:26)
[2017-11-18] MEDS ORDERED: ceFAZolin 3,000 MG in SODIUM CHLORIDE 0.9% IRRIGATIO 3,000 ML IRRIGATION ONE (10:54)
--- NOTE | 2017-11-18 11:28 | P.OP ---
Date of Procedure: 11/18/17 Preoperative Diagnosis: Left foot cellulitis/abscess, left grade 1 heel cubitus ulcer Postoperative Diagnosis: Same Procedure(s) Performed: Incision and drainage with irrigation and debridement left forefoot abscess/ debridement left stage I heel ulcer Anesthesia: JERRI Surgeon: Tear Bacon Plasterer Apprentice #1: Immanuel Lamas Estimated Blood Loss (ml): 10 Pathology: other (Deep cultures) Condition: stable Disposition: PACU Indications for Procedure: The patient is a 57-year-old male who presents after stepping on a wall screw through his shoe last week with progressive left foot swelling, erythema, and drainage. Clinically he was noted to have evidence of an abscess with possible gas forming bacteria. He discussion of the risks and benefits of operative intervention was made with the patient. He opted to proceed. Operative risks to include persistence of infection, and possible need for subsequent surgery to include amputation was discussed. Informed consent was obtained. Operative Findings: As below Description of Procedure: The patient was brought to the operating room, and after induction of general anesthesia the left lower extremity was prepped and draped in normal fashion. The tourniquet was inflated to 270 mmHg. The left forefoot was then examined. A plantar puncture wound was noted proximal to the fifth metatarsal head. This wound was opened to approximately 1/2 cm. The wound edges were sharply debrided with a scalpel and the necrotic tissue removed. Blunt dissection was then made to the dorsal aspect of the foot. There was significant necrosis of the dorsal skin in the fourth interspace. This was extended approximately 3 cm with a scalpel. The wound edges were sharply debrided with a scalpel. Significant necrotic tissue to include the extensor tendon to the fourth digit was present. This was debrided sharply with a scalpel down to a bony surface. There was loss of skin tissue in the fourth webspace. The wound was then copiously irrigated with saline. Prior to this deep cultures were obtained. The dorsal wound edges were loosely reapproximated with simple 3-0 nylon suture. A plantar wound was reapproximated in a similar fashion. A grade 1 decubitus ulcer over the heel was noted measuring 2 x 2 centimeters. This was debrided back to a bleeding tissue base with a scalpel. A sterile dressing was applied. The tourniquet was deflated less than 45 minutes total tourniquet time. The patient was then awoken from general anesthesia and transferred to recovery room in fair condition. Blood loss was estimated at 10 mL. No complications were incurred. Sponge and needle counts were correct at the end the case. My senior sales assistant, Kj OLSEN, assisted during the major components of this case due to its complexity.
[2017-11-18 11:32] LABS: Glucose,Whole Blood 198 mg/dL (75-99)
--- NOTE | 2017-11-18 11:35 | CDI ---
Last Revision, March 2017 Documentation Clarification Form Date: 11/18/17 From: Rachael Brownlee RN Admit Date: 11/16/2017 10:00:00 PM Patient Name: Maynor Jain Visit Number: [id number] ATTENTION: The Clinical Documentation Specialists (CDI) and [facility] Coding Staff appreciate your assistance in clarifying documentation. Please respond to the clarification below the line at the bottom and electronically sign. The CDI & [facility] Coding staff will review the response and follow-up if needed. Please note: Queries are made part of the Legal Health Record. If you have any questions, please contact the author of this message via ITS. Dr. Gideon Mclean MD, Clarification is sought regarding laterality of wound, due to conflicting documentation. Left foot wound is documented by the ED, foot x-ray, consult 11/17, and bone scan. H&P states it is the right foot. History/Risk Factors: DM 2, HTN, hyperlipidemia, peripheral neuropathy, MRSA, smoker Clinical Indicators: Bone Scan preformed on left foot 11/17, finding suggestive of multifocal osteomyelitis Foot x-ray Left: soft tissue swelling, soft tissue air suggesting infection with gas forming organism. Wound culture: rare gram positive cocci, rare polymorphonuclear leukocytes Treatment: I&D preformed on 11/18 Antibiotics: Cefazolin IVPB, Vanco. IVPB, Piperacillian IVPB In your opinion what is the most clinically appropriate diagnosis for this patient? Left foot wound/abscess Right foot wound/abscess Right and Left wound/abscess Other explanation of clinical findings Unable to determine (no explanation for clinical findings) Please continue to document in your progress notes, under the line below and/or in the discharge summary in order to capture severity of illness and risk of mortality. Include clinical findings that support your diagnosis. __ see progress notes MTDD
[2017-11-18] MEDS: ENOXAPARIN 40 MG/0.4 ML SYRINGE SQ SCH (12:45)
[2017-11-18] MEDS: MULTIVITAMINS, THERA 1 EACH TAB PO SCH (12:50)
[2017-11-18] MEDS: LISINOPRIL 5 MG TAB PO SCH (12:50)
[2017-11-18 16:49] LABS: Glucose,Whole Blood 281 mg/dL (75-99)
[2017-11-18] MEDS: HYDROcodone/APAP 10-325MG 1 EACH TAB PO PRN (20:01)
[2017-11-18 20:05] LABS: Glucose,Whole Blood 214 mg/dL (75-99)
[2017-11-18] MEDS: ATORVASTATIN 20 MG TAB PO SCH (20:20)
[2017-11-18] MEDS: MIRTAZAPINE 15 MG TAB PO SCH (20:20)
--- NOTE | 2017-11-18 22:43 | P.PN ---
Subjective Progress Note Date: 11/18/17 This is a 57-year-old male who is known to ID service as [facility] to the left lower extremity. He was discharged in February 2015 and was under the care of Dr. Santana at that time. Patient states that he has most recently at the wound Center at [facility] under the care of Dr. Leyva. Patient is requesting care with Dr. Das. Last week he stepped on a drywall screw while working and later saw his primary care doctor on Friday and he was told he had cellulitis. He had IM antibiotics given and started on Bactrim. Patient denies having any fever or chills although he had a temperature 102.2. He does complain of nausea. He also complains of pain in the left foot with increased redness, swelling and drainage. Patient also has a wound to the mid pretibial which is the ulcer he is currently under care at [facility]. There is also a small wound on the left heel, posterior tibial area and distal tip of the right great toe. He is not sure if he had a tetanus updated at Dr. Garrido's office. Patient presented with temperature 102.2, elevated heart rate, pulse ox 94% on room air, leukocytosis of 13.5. Blood sugar was 353 and patient states that blood sugars have been running high at home. Creatinine 0.9. AST 120, ALT 102 and alkaline phosphatase 278. Lactic acid was 1.8 and albumin 3.3. He does have blood culture obtained that is showing gram-positive cocci. X-ray of the left foot shows soft tissue swelling and dorsal medial soft tissue wound. Soft tissue air suggesting gas-forming organism. No associated osseous abnormality. Patient was given 1 dose of Zosyn and started on vancomycin and admitted to the [facility] floor. There is a consult in place with orthopedics. Patient did have laser surgery with Dr. Brian in May for his left lower leg. the patient will go to operating room today for debridement and potential amputation Objective - Vital Signs Vital signs: Vital Signs Temp 98 F 11/18/17 20:00 Pulse 96 11/18/17 20:00 Resp 18 11/18/17 20:00 BP 123/65 11/18/17 20:00 Pulse Ox 95 11/18/17 20:00 Intake & Output 11/18/17 11/18/17 11/19/17 06:59 18:59 06:59 Intake Total 725 195 50 Output Total 10 Balance 725 194 50 Intake: IV 725 1951 50 Piperacillin-Tazobactam 3 25 50 50 .375 gm In Dextrose/Water 1 50ml.bag @ 12.5 mls/hr IVPB Q8HR [facility] Rx#: [id number] Sodium Chloride 0.9% 1, 200 800 000 ml @ 100 mls/hr IV . Q10H [facility] Rx#:[id number] Vancomycin 2,000 mg In 500 500 Sodium Chloride 0.9% 500 ml @ 167 mls/hr IVPB 0800 ,2000 [facility]Y Rx#:[id number] Output: Estimated Blood Loss 10 Other: Voiding Method Toilet Urinal # Voids 2 3 - Exam Gen: This is a 57-year-old male. He is sitting up in bed and appears to be comfortable. He appears to be in no acute distress. He is complaining of pain in the left leg. HEENT: Head is atraumatic, normocephalic. Pupils equal, round. Sclerae is anicteric. Patient is edentulous. Mucous members of the mouth are moist. NECK: Supple. No JVD. No lymphadenopathy. No thyromegaly. LUNGS: Clear to auscultation. No wheezes or rhonchi. No intercostal retractions. HEART: Regular rate and rhythm. No murmur. ABDOMEN: Obese. Soft. Bowel sounds are present. No masses. No tenderness. EXTREMITIES: The left lower extremity there is significant redness surrounding the ulcer in the mid pretibial area along with edema. There is ulcer actively draining with serous fluid to the dorsal surface over the fourth and fifth digits. Patient is a puncture wound on the plantar surface at the mid fifth metatarsal. There is a small wound on the posterior left calf and left heel. On the right foot patient has a black eschar ulcer on the distal great toe. Dorsalis pedis is +2 bilaterally. NEUROLOGICAL: Patient is awake, alert and oriented x3. - Labs CBC & Chem 7: 11/16/17 20:13 11/18/17 06:53 Labs: Abnormal Lab Results - Last 24 Hours (Table) 08/10/2911/18/17 11/18/17 Range/Units 06:52 06:53 09:22 Sodium 136 L (137-145) mmol/L BUN 21 H (9-20) mg/dL Glucose 247 H (74-99) mg/dL POC Glucose (mg/dL) 274 H 210 H (75-99) mg/dL 11/18/17 11/18/17 11/18/17 Range/Units 11:30 16:47 20:03 Sodium (137-145) mmol/L BUN (9-20) mg/dL Glucose (74-99) mg/dL POC Glucose (mg/dL) 198 H 281 H 214 H (75-99) mg/dL Microbiology - Last 24 Hours (Table) 11/18/17 10:48 Gram Stain - Preliminary Foot - Left Wound Culture - Preliminary 11/18/17 10:48 Anaerobic Culture - Preliminary Foot - Left 11/17/17 10:39 Blood Culture - Preliminary Blood No Growth after 24 hours 11/17/17 11:10 Gram Stain - Preliminary Foot - Left Wound Culture - Preliminary Laboratory Results WBC 13.5 k/uL (3.8-10.6) H 11/16/17 20:13 RBC 4.64 m/uL (4.30-5.90) 11/16/17 20:13 Hgb 14.2 gm/dL (13.0-17.5) 11/16/17 20:13 Hct 42.0 % (39.0-53.0) 11/16/17 20:13 MCV 90.4 fL (80.0-100.0) 11/16/17 20:13 MCH 30.5 pg (25.0-35.0) 11/16/17 20:13 MCHC 33.8 g/dL (31.0-37.0) 11/16/17 20:13 RDW 12.4 % (11.5-15.5) 11/16/17 20:13 Plt Count 265 k/uL (150-450) 11/16/17 20:13 Neutrophils % 84 % 11/16/17 20:13 Lymphocytes % 7 % 11/16/17 20:13 Monocytes % 6 % 11/16/17 20:13 Eosinophils % 1 % 11/16/17 20:13 Basophils % 0 % 11/16/17 20:13 Neutrophils # 11.3 k/uL (1.3-7.7) H 11/16/17 20:13 Lymphocytes # 1.0 k/uL (1.0-4.8) 11/16/17 20:13 Monocytes # 0.8 k/uL (0-1.0) 11/16/17 20:13 Eosinophils # 0.1 k/uL (0-0.7) 11/16/17 20:13 Basophils # 0.0 k/uL (0-0.2) 11/16/17 20:13 PT 10.7 sec (9.0-12.0) 11/16/17 20:13 INR 1.1 (<1.2) 11/16/17 20:13 APTT 26.8 sec (22.0-30.0) 11/16/17 20:13 Sodium 136 mmol/L (137-145) L 11/18/17 06:53 Potassium 4.0 mmol/L (3.5-5.1) 11/18/17 06:53 Chloride 102 mmol/L (98-107) 11/18/17 06:53 Carbon Dioxide 24 mmol/L (22-30) 11/18/17 06:53 Anion Gap 10 mmol/L 11/18/17 06:53 BUN 21 mg/dL (9-20) H 11/18/17 06:53 Creatinine 0.98 mg/dL (0.66-1.25) 11/18/17 06:53 Est GFR (CKD-EPI)AfAm >90 (>60 ml/min/1.73 sqM) 11/18/17 06:53 Est GFR (CKD-EPI)NonAf 85 (>60 ml/min/1.73 sqM) 11/18/17 06:53 Glucose 247 mg/dL (74-99) H 11/18/17 06:53 POC Glucose (mg/dL) 214 mg/dL (75-99) H 11/18/17 20:03 POC Glu [employer] Adjuster ID Caryn Cho 11/18/17 20:03 Plasma Lactic Acid Miky 1.8 mmol/L (0.7-2.0) 11/16/17 20:13 Calcium 8.8 mg/dL (8.4-10.2) 11/18/17 06:53 Total Bilirubin 1.1 mg/dL (0.2-1.3) 11/16/17 20:13 AST 120 U/L (17-59) H 11/16/17 20:13 ALT 108 U/L (21-72) H 11/16/17 20:13 Alkaline Phosphatase 278 U/L (38-126) H 11/16/17 20:13 Total Protein 6.2 g/dL (6.3-8.2) L 11/16/17 20:13 Albumin 3.3 g/dL (3.5-5.0) L 11/16/17 20:13 Hepatitis A IgM Ab Non-Reactive (Non-Reactive) 11/17/17 10:39 Hep Bs Antigen Non-Reactive (Non-Reactive) 11/17/17 10:39 Hep B Core IgM Ab Non-Reactive (Non-Reactive) 11/17/17 10:39 Hep C IgG Ab Non-Reactive (Non-Reactive) 11/17/17 10:39 Microbiology 11/18/17 10:48 Foot - Left Gram Stain - Preliminary 11/18/17 10:48 Foot - Left Wound Culture - Preliminary 11/18/17 10:48 Foot - Left Anaerobic Culture - Preliminary 11/17/17 10:39 Blood Blood Culture - Preliminary No Growth after 24 hours 11/17/17 11:10 Foot - Left Gram Stain - Preliminary 11/17/17 11:10 Foot - Left Wound Culture - Preliminary 11/16/17 20:13 Blood Blood Culture - Final 11/16/17 20:13 Blood Blood Culture Gram Stain - Preliminary Assessment and Plan (1) Cellulitis of left foot Narrative/Plan: the patient relates that he was at a job site and apparently stepped on a drywall screw. He was quite unaware this was occurring, but after he noticed some swelling and drainage from his foot he examined his shoe and the drywall screw was still present through the sole of the shoe penetrating into the fifth metatarsal area. The patient now presents with the extensive swelling and infection to the dorsum of the foot and will have incision and drainage from orthopedics soon. We'll continue antibiotic therapy with Zosyn and vancomycin until we have further data. It is unclear if he'll require any surgical amputation the near future regarding the extensive nature of this infection. Goals establishes much of the foot as possible. Tetanus is updated and local wound care as a nonstick dressing until surgical intervention has occurred. Cultures were further help direct antibiotic therapy and he could require outpatient antibiotic therapy depending on the findings at surgery , the patient is to go to the operating room today for debridement and potential amputation of toes Surgical cultures will direct antibiotic therapy. Current Visit: Yes Status: Acute Code(s): L03.116 - CELLULITIS OF LEFT LOWER LIMB SNOMED Code(s): 786770077 (2) Uncontrolled diabetes mellitus Current Visit: Yes Status: Acute Code(s): E11.65 - TYPE 2 DIABETES MELLITUS WITH HYPERGLYCEMIA SNOMED Code(s): 047045516 (3) Sepsis Current Visit: Yes Status: Acute Code(s): A41.9 - SEPSIS, UNSPECIFIED ORGANISM SNOMED Code(s): 30137128
--- NOTE | 2017-11-19 00:06 | PN ---
PROGRESS NOTE DATE OF SERVICE: 11/18/2017 PRESENTING COMPLAINT: Abscess of the left foot. INTERVAL HISTORY: This is a patient who presented with stepping on a nail 8 days ago. Now presented with abscess of the left foot. This morning he went to the OR and I and D was carried out. Dressing in place. Some pain is present postoperatively. The patient is on antibiotics. REVIEW OF SYSTEMS: Done for constitutional, cardiovascular, GI, pulmonary; relevant findings as above. CURRENT MEDICATIONS: Reviewed that include IV Zosyn and vancomycin. PHYSICAL EXAMINATION: VITAL SIGNS: Temperature 97.3, pulse 72, respiratory rate 22, blood pressure 143/75, pulse 97% on 3 L. GENERAL APPEARANCE: Sitting at the edge of the bed, awake. EYES: Pupils equal. Conjunctivae normal. HEENT: External appearance of nose and ears normal. Oral cavity normal. NECK: JVD not raised. Mass not palpable. RESPIRATORY: Effort normal. LUNGS: Slightly decreased breath sounds. CARDIOVASCULAR: 1st and 2nd sounds normal. No edema. ABDOMEN: Soft, nontender. Liver and spleen not palpable. MUSCULOSKELETAL: Dressing over the left foot. INVESTIGATIONS: Potassium 4, BUN 21, creatinine 0.98. Accu-Cheks are noted. Wound cultures pending. ASSESSMENT: 1. Acute severe left foot abscess in a patient who has got peripheral neuropathy, forming an abscess, status post I and D today. 2. Diabetes mellitus type 2, uncontrolled with hyperglycemia on oral hypoglycemics. 3. Metabolic acidosis. 4. Acute left foot abscess causing sepsis present on admission. 5. Essential hypertension. 6. Hyperlipidemia. PLAN: Continue current antibiotics. Await cultures. Per the patient, Dr. Bacon did tell him he may have to go back to the OR again. The patient also being followed by Infectious Disease. The repeat blood culture report came back showing there was no organisms were seen. MMODL / IJN: [id number] /
--- NOTE | 2017-11-19 00:15 | HP ---
HISTORY AND PHYSICAL ADDENDUM: Date of history and physical and date of service 11/18/2027. CORRECTION: My whole H and P whenever it says, right foot abscess, should be corrected to indicate left foot abscess/wound. MMODL / IJN: [id number] /
[2017-11-19] MEDS: SODIUM CHLORIDE 0.9% 1,000 ML IV SCH ×2 (00:39→14:27)
[2017-11-19] MEDS: PIPERACILLIN-TAZOBACTAM 3.375 GM in DEXTROSE/WATER 1 50ML.BAG IVPB SCH ×3 (00:39→17:07)
[2017-11-19 06:52] LABS: Glucose,Whole Blood 185 mg/dL (75-99)
[2017-11-19] MEDS ORDERED: VANCOMYCIN TROUGH DUE 1 EACH MISC MISCELLANE ONE (07:00)
[2017-11-19 07:56] LABS: Basophils % (A) 1 %; Eosinophils # (A) 0.2 k/uL (0-0.7); Eosinophils % (A) 3 %; HCT 35.4 % (39.0-53.0); HGB 11.6 gm/dL (13.0-17.5); Lymphocytes # (A) 0.8 k/uL (1.0-4.8); Lymphocytes % (A) 12 %; MCH 30.7 pg (25.0-35.0); MCHC 32.7 g/dL (31.0-37.0); MCV 93.7 fL (80.0-100.0); Mean Platelet Volume 7.1; Monocytes # (A) 0.4 k/uL (0-1.0); Monocytes % (A) 6 %; Neutrophils # (A) 4.8 k/uL (1.3-7.7); Neutrophils % (A) 76 %; Platelet Count 220 k/uL (150-450); RBC 3.77 m/uL (4.30-5.90); RDW 12.7 % (11.5-15.5); WBC 6.4 k/uL (3.8-10.6)
[2017-11-19 08:03] LABS: Anion Gap 7 mmol/L; Blood Urea Nitrogen 17 mg/dL (9-20); Calcium 8.3 mg/dL (8.4-10.2); Carbon Dioxide 26 mmol/L (22-30); Chloride 107 mmol/L (98-107); Glucose 195 mg/dL (74-99); Potassium 4.2 mmol/L (3.5-5.1); Sodium 140 mmol/L (137-145)
[2017-11-19] MEDS: metFORMIN 500 MG TAB PO SCH ×2 (08:31→17:42)
[2017-11-19] MEDS: VANCOMYCIN 2,000 MG in SODIUM CHLORIDE 0.9% 500 ML IVPB SCH ×3 (08:31→21:01)
[2017-11-19] MEDS: REPAGLINIDE 1 MG TAB PO SCH ×3 (08:32→17:42)
[2017-11-19] MEDS: ENOXAPARIN 40 MG/0.4 ML SYRINGE SQ SCH (08:32)
[2017-11-19] MEDS: ASPIRIN 81 MG PO SCH (08:32)
[2017-11-19] MEDS: GABAPENTIN 300 MG CAP PO SCH ×3 (08:32→21:01)
[2017-11-19] MEDS: LISINOPRIL 5 MG TAB PO SCH (08:33)
[2017-11-19] MEDS: INSULIN ASPART 100 UNIT/ML 1 ML 10 ML VIAL SQ SCH ×4 (08:33→20:43)
[2017-11-19] MEDS: PHENTERMINE HCL 37.5 MG PO SCH (08:33)
[2017-11-19 11:09] LABS: Glucose,Whole Blood 312 mg/dL (75-99)
[2017-11-19] MEDS: MULTIVITAMINS, THERA 1 EACH TAB PO SCH (12:28)
[2017-11-19] MEDS: HYDROcodone/APAP 10-325MG 1 EACH TAB PO PRN ×2 (14:35→20:42)
[2017-11-19 17:03] LABS: Glucose,Whole Blood 154 mg/dL (75-99)
[2017-11-19 20:39] LABS: Glucose,Whole Blood 155 mg/dL (75-99)
[2017-11-19] MEDS: MIRTAZAPINE 15 MG TAB PO SCH (20:43)
[2017-11-19] MEDS: ATORVASTATIN 20 MG TAB PO SCH (20:43)
--- NOTE | 2017-11-19 22:07 | PN ---
PROGRESS NOTE DATE OF SERVICE: 11/19/2017 PRESENTING COMPLAINT: Abscess of left foot. INTERVAL HISTORY: Patient who stepped on nail. No present abscess in left foot, status post I and D x1. Dressing in place. Slight pain is present. No nausea, vomiting, tolerating his diet. Cultures are pending. REVIEW OF SYSTEMS: Done for constitutional, cardiovascular, GI, pulmonary; relevant findings as above. CURRENT MEDICATIONS: Reviewed that include: 1. IV Zosyn and. 2. Vancomycin. EXAMINATION: Temperature 98.5, pulse 94, respirations 18, blood pressure 168/93, pulse ox 97% on room air. GENERAL APPEARANCE: Sitting up, awake. EYES: Pupils equal. Conjunctivae normal. HEENT: External nose and ears normal. Oral cavity normal. NECK: JVD not raised. Mass not palpable. RESPIRATORY: Effort normal. LUNGS: Slightly decreased breath sounds. CARDIOVASCULAR: First and second sounds normal. No edema. ABDOMEN: Soft, nontender. Liver and spleen not palpable. MUSCULOSKELETAL: Dressing on the left foot. INVESTIGATIONS: White count 6.2, hemoglobin 11.6. Potassium 4.2. Accu-Cheks noted 195, 312, 154, 155. Wound cultures growing group B enterococcus and presumptive Staph aureus. Blood cultures until now have been negative. ASSESSMENT: 1. Acute severe left foot abscess in a patient who had a peripheral neuropathy forming an abscess secondary to a nail, status post I and D, cultures growing enterococcus and Staphylococcus aureus. 2. Diabetes mellitus type 2, uncontrolled, with hyperglycemia on oral hypoglycemics. 3. Metabolic acidosis. 4. Acute left foot abscess causing sepsis, present on admission, status post I and D. 5. Essential hypertension. 6. Hyperlipidemia. PLAN: Continue with current antibiotics which is coordinated by Dr. Das. Care was discussed with the patient. The patient may need to go back to the OR. Will await further input from Orthopedics and go from there. We will also add Amaryl because of the high sugars. MMODL / IJN: [id number] /
[2017-11-19] MEDS: GLIMEPIRIDE 2 MG TAB PO SCH (22:42)
--- NOTE | 2017-11-19 23:27 | P.PN ---
Subjective Progress Note Date: 11/19/17 This is a 57-year-old male who is known to ID service as [facility] ulcer to the left lower extremity. He was discharged in February 2015 and was under the care of Dr. Santana at that time. Patient states that he has most recently at the wound Center at [facility] under the care of Dr. Leyva. Patient is requesting care with Dr. Das. Last week he stepped on a drywall screw while working and later saw his primary care doctor on Friday and he was told he had cellulitis. He had IM antibiotics given and started on Bactrim. Patient denies having any fever or chills although he had a temperature 102.2. He does complain of nausea. He also complains of pain in the left foot with increased redness, swelling and drainage. Patient also has a wound to the mid pretibial which is the ulcer he is currently under care at [facility]. There is also a small wound on the left heel, posterior tibial area and distal tip of the right great toe. He is not sure if he had a tetanus updated at Dr. Garrido's office. Patient presented with temperature 102.2, elevated heart rate, pulse ox 94% on room air, leukocytosis of 13.5. Blood sugar was 353 and patient states that blood sugars have been running high at home. Creatinine 0.9. AST 120, ALT 102 and alkaline phosphatase 278. Lactic acid was 1.8 and albumin 3.3. He does have blood culture obtained that is showing gram-positive cocci. X-ray of the left foot shows soft tissue swelling and dorsal medial soft tissue wound. Soft tissue air suggesting gas-forming organism. No associated osseous abnormality. Patient was given 1 dose of Zosyn and started on vancomycin and admitted to the [facility] floor. There is a consult in place with orthopedics. Patient did have laser surgery with Dr. Brian in May for his left lower leg. the patient will go to operating room today for debridement and potential amputation 11/19/2017 the patient is now status post a surgical incision and drainage, at least one suture is coming loose and surgery is following with possible need for further debridement to the foot given a significant infectious process. The patient does have evidence of the positive bone scan with multifocal osteomyelitis. The patient's pain is under better control today Objective - Vital Signs Vital signs: Vital Signs Temp 99.3 F 11/19/17 23:00 Pulse 83 11/19/17 23:00 Resp 16 11/19/17 23:00 BP 145/70 11/19/17 23:00 Pulse Ox 95 11/19/17 23:00 Intake & Output 11/19/17 11/19/17 11/20/17 06:59 18:59 06:59 Intake Total 1400 1150 Output Total 1200 Balance 1400 -50 Intake: IV 1400 1150 Piperacillin-Tazobactam 3 50 50 .375 gm In Dextrose/Water 1 50ml.bag @ 12.5 mls/hr IVPB Q8HR [facility] Rx#: [id number] Sodium Chloride 0.9% 1, 850 600 000 ml @ 100 mls/hr IV . Q10H [facility] Rx#:[id number] Vancomycin 2,000 mg In 500 500 Sodium Chloride 0.9% 500 ml @ 167 mls/hr IVPB 0800 ,2000 [facility] Rx#:[id number] Output: Urine 1200 Other: Voiding Method Toilet Urinal - Exam Gen: This is a 57-year-old male. He is sitting up in bed and appears to be comfortable. He appears to be in no acute distress. He is complaining of pain in the left leg. HEENT: Head is atraumatic, normocephalic. Pupils equal, round. Sclerae is anicteric. Patient is edentulous. Mucous members of the mouth are moist. NECK: Supple. No JVD. No lymphadenopathy. No thyromegaly. LUNGS: Clear to auscultation. No wheezes or rhonchi. No intercostal retractions. HEART: Regular rate and rhythm. No murmur. ABDOMEN: Obese. Soft. Bowel sounds are present. No masses. No tenderness. EXTREMITIES: The left lower extremity there is significant redness surrounding the ulcer in the mid pretibial area along with edema. There is ulcer actively draining with serous fluid to the dorsal surface over the fourth and fifth digits. Patient is a puncture wound on the plantar surface at the mid fifth metatarsal. There is a small wound on the posterior left calf and left heel. The right foot ulceration status post surgery if improved but there is still significant swelling and some drainage. NEUROLOGICAL: Patient is awake, alert and oriented x3. - Labs CBC & Chem 7: 11/19/17 07:00 11/19/17 07:00 Labs: Abnormal Lab Results - Last 24 Hours (Table) 11/19/17 11/19/17 11/19/17 Range/Units 06:50 07:00 07:00 RBC 3.77 L (4.30-5.90) m/uL Hgb 11.6 L (13.0-17.5) gm/dL Hct 35.4 L (39.0-53.0) % Lymphocytes # 0.8 L (1.0-4.8) k/uL Glucose 195 H (74-99) mg/dL POC Glucose (mg/dL) 185 H (75-99) mg/dL Calcium 8.3 L (8.4-10.2) mg/dL 11/19/17 11/19/17 11/19/17 Range/Units 11:07 17:01 20:19 RBC (4.30-5.90) m/uL Hgb (13.0-17.5) gm/dL Hct (39.0-53.0) % Lymphocytes # (1.0-4.8) k/uL Glucose (74-99) mg/dL POC Glucose (mg/dL) 312 H 154 H 155 H (75-99) mg/dL Calcium (8.4-10.2) mg/dL Microbiology - Last 24 Hours (Table) 11/17/17 10:39 Blood Culture - Preliminary Blood No Growth after 48 hours 11/17/17 11:10 Gram Stain - Preliminary Foot - Left Wound Culture - Preliminary Presumptive Staph aureus Group D Enterococcus 11/18/17 10:48 Gram Stain - Preliminary Foot - Left Wound Culture - Preliminary Group D Enterococcus Laboratory Results WBC 6.4 k/uL (3.8-10.6) 11/19/17 07:00 RBC 3.77 m/uL (4.30-5.90) L 11/19/17 07:00 Hgb 11.6 gm/dL (13.0-17.5) L 11/19/17 07:00 Hct 35.4 % (39.0-53.0) L 11/19/17 07:00 MCV 93.7 fL (80.0-100.0) 11/19/17 07:00 MCH 30.7 pg (25.0-35.0) 11/19/17 07:00 MCHC 32.7 g/dL (31.0-37.0) 11/19/17 07:00 RDW 12.7 % (11.5-15.5) 11/19/17 07:00 Plt Count 220 k/uL (150-450) 11/19/17 07:00 Neutrophils % 76 % 11/19/17 07:00 Lymphocytes % 12 % 11/19/17 07:00 Monocytes % 6 % 11/19/17 07:00 Eosinophils % 3 % 11/19/17 07:00 Basophils % 1 % 11/19/17 07:00 Neutrophils # 4.8 k/uL (1.3-7.7) 11/19/17 07:00 Lymphocytes # 0.8 k/uL (1.0-4.8) L 11/19/17 07:00 Monocytes # 0.4 k/uL (0-1.0) 11/19/17 07:00 Eosinophils # 0.2 k/uL (0-0.7) 11/19/17 07:00 Basophils # 0.0 k/uL (0-0.2) 11/19/17 07:00 PT 10.7 sec (9.0-12.0) 11/16/17 20:13 INR 1.1 (<1.2) 11/16/17 20:13 APTT 26.8 sec (22.0-30.0) 11/16/17 20:13 Sodium 140 mmol/L (137-145) 11/19/17 07:00 Potassium 4.2 mmol/L (3.5-5.1) 11/19/17 07:00 Chloride 107 mmol/L (98-107) 11/19/17 07:00 Carbon Dioxide 26 mmol/L (22-30) 11/19/17 07:00 Anion Gap 7 mmol/L 11/19/17 07:00 BUN 17 mg/dL (9-20) 11/19/17 07:00 Creatinine 0.93 mg/dL (0.66-1.25) 11/19/17 07:00 Est GFR (CKD-EPI)AfAm >90 (>60 ml/min/1.73 sqM) 11/19/17 07:00 Est GFR (CKD-EPI)NonAf >90 (>60 ml/min/1.73 sqM) 11/19/17 07:00 Glucose 195 mg/dL (74-99) H 11/19/17 07:00 POC Glucose (mg/dL) 155 mg/dL (75-99) H 11/19/17 20:19 POC Glu [employer] Specialist ID 11/19/17 20:19 Plasma Lactic Acid Miky 1.8 mmol/L (0.7-2.0) 11/16/17 20:13 Calcium 8.3 mg/dL (8.4-10.2) L 11/19/17 07:00 Total Bilirubin 1.1 mg/dL (0.2-1.3) 11/16/17 20:13 AST 120 U/L (17-59) H 11/16/17 20:13 ALT 108 U/L (21-72) H 11/16/17 20:13 Alkaline Phosphatase 278 U/L (38-126) H 11/16/17 20:13 Total Protein 6.2 g/dL (6.3-8.2) L 11/16/17 20:13 Albumin 3.3 g/dL (3.5-5.0) L 11/16/17 20:13 Vancomycin Trough 13.6 ug/mL 11/19/17 07:00 Hepatitis A IgM Ab Non-Reactive (Non-Reactive) 11/17/17 10:39 Hep Bs Antigen Non-Reactive (Non-Reactive) 11/17/17 10:39 Hep B Core IgM Ab Non-Reactive (Non-Reactive) 11/17/17 10:39 Hep C IgG Ab Non-Reactive (Non-Reactive) 11/17/17 10:39 Microbiology 11/17/17 10:39 Blood Blood Culture - Preliminary No Growth after 48 hours 11/17/17 11:10 Foot - Left Gram Stain - Preliminary 11/17/17 11:10 Foot - Left Wound Culture - Preliminary Presumptive Staph aureus Group D Enterococcus 11/18/17 10:48 Foot - Left Gram Stain - Preliminary 11/18/17 10:48 Foot - Left Wound Culture - Preliminary Group D Enterococcus 11/18/17 10:48 Foot - Left Anaerobic Culture - Preliminary 11/16/17 20:13 Blood Blood Culture - Final 11/16/17 20:13 Blood Blood Culture Gram Stain - Preliminary Assessment and Plan (1) Cellulitis of left foot Narrative/Plan: the patient relates that he was at a job site and apparently stepped on a drywall screw. He was quite unaware this was occurring, but after he noticed some swelling and drainage from his foot he examined his shoe and the drywall screw was still present through the sole of the shoe penetrating into the fifth metatarsal area. The patient now presents with the extensive swelling and infection to the dorsum of the foot and will have incision and drainage from orthopedics soon. We'll continue antibiotic therapy with Zosyn and vancomycin until we have further data. It is unclear if he'll require any surgical amputation the near future regarding the extensive nature of this infection. Goals establishes much of the foot as possible. Tetanus is updated and local wound care as a nonstick dressing until surgical intervention has occurred. Cultures were further help direct antibiotic therapy and he could require outpatient antibiotic therapy depending on the findings at surgery , the patient is to go to the operating room today for debridement and potential amputation of toes Surgical cultures will direct antibiotic therapy. 11/19/2017 the patient is status post surgery and does seem to be more comfortable. May need further debridement. Cultures are in process and fortunately no significant resistant gram negatives are being seen so far. We' ll continue Zosyn and vancomycin for now and likely will be discharged on vancomycin therapy and has had further improvement. With surgical plans have completed with a be able to further address wound care also for the outpatient setting. Once the patient is more stable will need IV access for long-term antibiotic therapy. Current Visit: Yes Status: Acute Code(s): L03.116 - CELLULITIS OF LEFT LOWER LIMB SNOMED Code(s): 462243288 (2) Uncontrolled diabetes mellitus Current Visit: Yes Status: Acute Code(s): E11.65 - TYPE 2 DIABETES MELLITUS WITH HYPERGLYCEMIA SNOMED Code(s): 073612732 (3) Sepsis Current Visit: Yes Status: Acute Code(s): A41.9 - SEPSIS, UNSPECIFIED ORGANISM SNOMED Code(s): 21110231
[2017-11-20] MEDS: PIPERACILLIN-TAZOBACTAM 3.375 GM in DEXTROSE/WATER 1 50ML.BAG IVPB SCH ×3 (00:07→17:18)
[2017-11-20] MEDS: SODIUM CHLORIDE 0.9% 1,000 ML IV SCH ×4 (05:59→20:09)
[2017-11-20 06:50] LABS: Glucose,Whole Blood 219 mg/dL (75-99)
[2017-11-20 07:55] LABS: Anion Gap 4 mmol/L; Blood Urea Nitrogen 13 mg/dL (9-20); Calcium 8.2 mg/dL (8.4-10.2); Carbon Dioxide 26 mmol/L (22-30); Chloride 108 mmol/L (98-107); Glucose 214 mg/dL (74-99); Sodium 138 mmol/L (137-145)
[2017-11-20] MEDS: VANCOMYCIN 2,000 MG in SODIUM CHLORIDE 0.9% 500 ML IVPB SCH ×2 (07:59→20:09)
[2017-11-20] MEDS: INSULIN ASPART 100 UNIT/ML 1 ML 10 ML VIAL SQ SCH ×4 (08:00→21:14)
[2017-11-20] MEDS: GLIMEPIRIDE 2 MG TAB PO SCH (08:01)
[2017-11-20] MEDS: REPAGLINIDE 1 MG TAB PO SCH ×3 (08:01→18:05)
[2017-11-20] MEDS: LISINOPRIL 5 MG TAB PO SCH (08:01)
[2017-11-20] MEDS: PHENTERMINE HCL 37.5 MG PO SCH (08:02)
[2017-11-20] MEDS: metFORMIN 500 MG TAB PO SCH ×2 (08:02→18:05)
[2017-11-20] MEDS: ENOXAPARIN 40 MG/0.4 ML SYRINGE SQ SCH (08:02)
[2017-11-20] MEDS: GABAPENTIN 300 MG CAP PO SCH ×3 (08:02→21:14)
[2017-11-20] MEDS: ASPIRIN 81 MG PO SCH (08:02)
[2017-11-20 11:38] LABS: Glucose,Whole Blood 194 mg/dL (75-99)
--- NOTE | 2017-11-20 12:40 | P.PN ---
Subjective Progress Note Date: 11/20/17 Principal diagnosis: s/p I&D left foot Patient resting in hospital bed, he is no acute distress. Pain is controlled. Denies fever or chills Objective - Vital Signs Vital signs: Vital Signs Temp 98.6 F 11/20/17 05:00 Pulse 82 11/20/17 05:00 Resp 16 11/20/17 05:00 BP 140/80 11/20/17 05:00 Pulse Ox 96 11/20/17 05:00 Intake & Output 11/19/17 11/20/17 11/20/17 18:59 06:59 18:59 Intake Total 1150 1350 Output Total 1200 Balance -50 1350 Intake: IV 1150 1350 Piperacillin-Tazobactam 3 50 50 .375 gm In Dextrose/Water 1 50ml.bag @ 12.5 mls/hr IVPB Q8HR [facility] Rx#: [id number] Sodium Chloride 0.9% 1, 600 800 000 ml @ 100 mls/hr IV . Q10H [facility] Rx#:[id number] Vancomycin 2,000 mg In 500 500 Sodium Chloride 0.9% 500 ml @ 167 mls/hr IVPB 0800 ,2000 [facility] Rx#:[id number] Output: Urine 1200 Other: Voiding Method Toilet Urinal - Exam Left foot: Bandage removed at bedside. 2 stitches remain intact, others were removed. Serosanginus drainage present. Granulation tissue present over wound. Erythema hasn't worsened over dorsal hindfoot and midfoot. Wound on heel and anterior vila are unchanged, no worsening of skin breakdown - Labs CBC & Chem 7: 11/19/17 07:00 11/20/17 07:00 Labs: Abnormal Lab Results - Last 24 Hours (Table) 11/19/17 11/19/17 11/20/17 Range/Units 17:01 20:19 06:48 Chloride (98-107) mmol/L Glucose (74-99) mg/dL POC Glucose (mg/dL) 154 H 155 H 219 H (75-99) mg/dL Calcium (8.4-10.2) mg/dL 11/20/17 11/20/17 Range/Units 07:00 11:36 Chloride 108 H (98-107) mmol/L Glucose 214 H (74-99) mg/dL POC Glucose (mg/dL) 194 H (75-99) mg/dL Calcium 8.2 L (8.4-10.2) mg/dL Microbiology - Last 24 Hours (Table) 11/16/17 20:13 Blood Culture Gram Stain - Preliminary Blood Blood Culture - Preliminary 11/18/17 10:48 Gram Stain - Preliminary Foot - Left Wound Culture - Preliminary Group D Enterococcus Presumptive Staph aureus 11/17/17 10:39 Blood Culture - Preliminary Blood No Growth after 48 hours 11/17/17 11:10 Gram Stain - Preliminary Foot - Left Wound Culture - Preliminary Presumptive Staph aureus Group D Enterococcus Assessment and Plan Plan: Assessment: 1. Post op day #2 s/p I&D left foot Plan: Awaiting culture and sensitivity results, patient will have PICC line and IV antibiotics Pain control Daily dressing changes Other medical specialty recommendations Patient will need home wound care for daily dressing changes Continue to follow while patient is inpatient Time with Patient: Less than 30
[2017-11-20] MEDS: MULTIVITAMINS, THERA 1 EACH TAB PO SCH (13:07)
[2017-11-20 16:48] LABS: Glucose,Whole Blood 154 mg/dL (75-99)
[2017-11-20 20:06] LABS: Glucose,Whole Blood 196 mg/dL (75-99)
[2017-11-20] MEDS: HYDROcodone/APAP 10-325MG 1 EACH TAB PO PRN (20:12)
[2017-11-20] MEDS: ATORVASTATIN 20 MG TAB PO SCH (20:12)
[2017-11-20] MEDS: MIRTAZAPINE 15 MG TAB PO SCH (20:12)
--- NOTE | 2017-11-20 22:14 | PN ---
PROGRESS NOTE DATE OF SERVICE: 11/20/2017 PRESENTING COMPLAINT: Abscess, left foot. INTERVAL HISTORY: This patient stepped on a nail, now has abscess on the left foot, status post I and D. Cultures are growing multiple organisms. Pain is controlled. Tolerating his diet. No nausea, vomiting. REVIEW OF SYSTEMS: Done for constitutional, cardiovascular, GI, pulmonary, dermatological; relevant findings as above. CURRENT MEDICATIONS: Reviewed that include: 1. IV Zosyn and. 2. Vancomycin. EXAMINATION: Temperature 98.5, pulse 92, respirations 16, blood pressure 113/78, pulse 96% on room air. GENERAL APPEARANCE: Sitting up, comfortable. EYES: Pupils equal. Conjunctivae normal. HEENT: External nose and ears normal. Oral cavity normal. NECK: JVD not raised. Mass not palpable. RESPIRATORY: Effort normal. LUNGS: Slightly decreased breath sounds. CARDIOVASCULAR: First and second sounds normal. No edema. ABDOMEN: Soft, nontender. Liver and spleen not palpable. MUSCULOSKELETAL: Left foot wound. INVESTIGATIONS: Potassium 4, BUN and creatinine are normal. Accu-Cheks are noted. ASSESSMENT: 1. Acute severe left foot abscess in a patient who has had peripheral neuropathy, forming an abscess secondary to nail status, post I and D, cultures growing enterococcus and Staphylococcus aureus. 2. Diabetes mellitus type 2, uncontrolled with hypoglycemia on oral hypoglycemics. 3. Metabolic acidosis. 4. Sepsis due to #1. 5. Essential hypertension. 6. Hyperlipidemia. PLAN: Care was discussed with the patient. At this point, it does not look like Orthopedics will plan to take him back to the OR. Antibiotics are to be coordinated by Dr. Das. The patient was started on Amaryl last night. Sugars are starting to come down. MMODL / IJN: [id number] /
--- NOTE | 2017-11-20 23:15 | P.PN ---
Subjective Progress Note Date: 11/20/17 This is a 57-year-old male who is known to ID service as [facility] ulcer to the left lower extremity. He was discharged in February 2015 and was under the care of Dr. Santana at that time. Patient states that he has most recently at the wound Center at [facility] under the care of Dr. Leyva. Patient is requesting care with Dr. Das. Last week he stepped on a drywall screw while working and later saw his primary care doctor on Friday and he was told he had cellulitis. He had IM antibiotics given and started on Bactrim. Patient denies having any fever or chills although he had a temperature 102.2. He does complain of nausea. He also complains of pain in the left foot with increased redness, swelling and drainage. Patient also has a wound to the mid pretibial which is the ulcer he is currently under care at [facility]. There is also a small wound on the left heel, posterior tibial area and distal tip of the right great toe. He is not sure if he had a tetanus updated at Dr. Garrido's office. Patient presented with temperature 102.2, elevated heart rate, pulse ox 94% on room air, leukocytosis of 13.5. Blood sugar was 353 and patient states that blood sugars have been running high at home. Creatinine 0.9. AST 120, ALT 102 and alkaline phosphatase 278. Lactic acid was 1.8 and albumin 3.3. He does have blood culture obtained that is showing gram-positive cocci. X-ray of the left foot shows soft tissue swelling and dorsal medial soft tissue wound. Soft tissue air suggesting gas-forming organism. No associated osseous abnormality. Patient was given 1 dose of Zosyn and started on vancomycin and admitted to the [facility] floor. There is a consult in place with orthopedics. Patient did have laser surgery with Dr. Brian in May for his left lower leg. the patient will go to operating room today for debridement and potential amputation 11/19/2017 the patient is now status post a surgical incision and drainage, at least one suture is coming loose and surgery is following with possible need for further debridement to the foot given a significant infectious process. The patient does have evidence of the positive bone scan with multifocal osteomyelitis. The patient's pain is under better control today. 12/21/2017 patient is feeling somewhat better today. Has been evaluated by orthopedics and await further vascular surgery evaluation for the need for further debridement or even amputation. The patient is tolerating antibiotic therapy well. Is complaining of significant discomfort to his buttocks and back. Objective - Vital Signs Vital signs: Vital Signs Temp 98.5 F 11/20/17 15:23 Pulse 92 11/20/17 16:00 Resp 16 11/20/17 16:00 BP 131/78 11/20/17 15:23 Pulse Ox 96 11/20/17 15:23 Intake & Output 11/20/17 11/20/17 11/21/17 06:59 18:59 06:59 Intake Total 1350 360 Balance 1350 360 Intake: IV 1350 Piperacillin-Tazobactam 3 50 .375 gm In Dextrose/Water 1 50ml.bag @ 12.5 mls/hr IVPB Q8HR [facility] Rx#: [id number] Sodium Chloride 0.9% 1, 800 000 ml @ 100 mls/hr IV . Q10H [facility] Rx#:[id number] Vancomycin 2,000 mg In 500 Sodium Chloride 0.9% 500 ml @ 167 mls/hr IVPB 0800 ,2000 [facility] Rx#:[id number] Oral 360 Other: Voiding Method Toilet Toilet Urinal Urinal # Voids 3 - Exam Gen: This is a 57-year-old male. He is sitting up in bed and appears to be comfortable. He appears to be in no acute distress. He is complaining of pain in the left leg. HEENT: Head is atraumatic, normocephalic. Pupils equal, round. Sclerae is anicteric. Patient is edentulous. Mucous members of the mouth are moist. NECK: Supple. No JVD. No lymphadenopathy. No thyromegaly. LUNGS: Clear to auscultation. No wheezes or rhonchi. No intercostal retractions. HEART: Regular rate and rhythm. No murmur. ABDOMEN: Obese. Soft. Bowel sounds are present. No masses. No tenderness. EXTREMITIES: The left lower extremity there is significant redness surrounding the ulcer in the mid pretibial area along with edema. There is ulcer actively draining with serous fluid to the dorsal surface over the fourth and fifth digits. Patient is a puncture wound on the plantar surface at the mid fifth metatarsal. There is a small wound on the posterior left calf and left heel. The right foot ulceration status post surgery if improved but there is still significant swelling and some drainage. NEUROLOGICAL: Patient is awake, alert and oriented x3. - Labs CBC & Chem 7: 11/19/17 07:00 11/20/17 07:00 Labs: Abnormal Lab Results - Last 24 Hours (Table) 11/20/17 11/20/17 11/20/17 Range/Units 06:48 07:00 11:36 Chloride 108 H (98-107) mmol/L Glucose 214 H (74-99) mg/dL POC Glucose (mg/dL) 219 H 194 H (75-99) mg/dL Calcium 8.2 L (8.4-10.2) mg/dL 11/20/17 11/20/17 Range/Units 16:46 20:05 Chloride (98-107) mmol/L Glucose (74-99) mg/dL POC Glucose (mg/dL) 154 H 196 H (75-99) mg/dL Calcium (8.4-10.2) mg/dL Microbiology - Last 24 Hours (Table) 11/17/17 11:10 Gram Stain - Preliminary Foot - Left Wound Culture - Final Staphylococcus aureus Enterococcus faecalis 11/17/17 10:39 Blood Culture - Preliminary Blood No Growth after 72 hours 11/16/17 20:13 Blood Culture Gram Stain - Preliminary Blood Blood Culture - Preliminary 11/18/17 10:48 Gram Stain - Preliminary Foot - Left Wound Culture - Preliminary Group D Enterococcus Presumptive Staph aureus Laboratory Results WBC 6.4 k/uL (3.8-10.6) 11/19/17 07:00 RBC 3.77 m/uL (4.30-5.90) L 11/19/17 07:00 Hgb 11.6 gm/dL (13.0-17.5) L 11/19/17 07:00 Hct 35.4 % (39.0-53.0) L 11/19/17 07:00 MCV 93.7 fL (80.0-100.0) 11/19/17 07:00 MCH 30.7 pg (25.0-35.0) 11/19/17 07:00 MCHC 32.7 g/dL (31.0-37.0) 11/19/17 07:00 RDW 12.7 % (11.5-15.5) 11/19/17 07:00 Plt Count 220 k/uL (150-450) 11/19/17 07:00 Neutrophils % 76 % 11/19/17 07:00 Lymphocytes % 12 % 11/19/17 07:00 Monocytes % 6 % 11/19/17 07:00 Eosinophils % 3 % 11/19/17 07:00 Basophils % 1 % 11/19/17 07:00 Neutrophils # 4.8 k/uL (1.3-7.7) 11/19/17 07:00 Lymphocytes # 0.8 k/uL (1.0-4.8) L 11/19/17 07:00 Monocytes # 0.4 k/uL (0-1.0) 11/19/17 07:00 Eosinophils # 0.2 k/uL (0-0.7) 11/19/17 07:00 Basophils # 0.0 k/uL (0-0.2) 11/19/17 07:00 PT 10.7 sec (9.0-12.0) 11/16/17 20:13 INR 1.1 (<1.2) 11/16/17 20:13 APTT 26.8 sec (22.0-30.0) 11/16/17 20:13 Sodium 138 mmol/L (137-145) 11/20/17 07:00 Potassium 4.0 mmol/L (3.5-5.1) 11/20/17 07:00 Chloride 108 mmol/L (98-107) H 11/20/17 07:00 Carbon Dioxide 26 mmol/L (22-30) 11/20/17 07:00 Anion Gap 4 mmol/L 11/20/17 07:00 BUN 13 mg/dL (9-20) 11/20/17 07:00 Creatinine 0.76 mg/dL (0.66-1.25) 11/20/17 07:00 Est GFR (CKD-EPI)AfAm >90 (>60 ml/min/1.73 sqM) 11/20/17 07:00 Est GFR (CKD-EPI)NonAf >90 (>60 ml/min/1.73 sqM) 11/20/17 07:00 Glucose 214 mg/dL (74-99) H 11/20/17 07:00 POC Glucose (mg/dL) 196 mg/dL (75-99) H 11/20/17 20:05 POC Glu Trim Carpenter ID Daysi He 11/20/17 20:05 Plasma Lactic Acid Miky 1.8 mmol/L (0.7-2.0) 11/16/17 20:13 Calcium 8.2 mg/dL (8.4-10.2) L 11/20/17 07:00 Total Bilirubin 1.1 mg/dL (0.2-1.3) 11/16/17 20:13 AST 120 U/L (17-59) H 11/16/17 20:13 ALT 108 U/L (21-72) H 11/16/17 20:13 Alkaline Phosphatase 278 U/L (38-126) H 11/16/17 20:13 Total Protein 6.2 g/dL (6.3-8.2) L 11/16/17 20:13 Albumin 3.3 g/dL (3.5-5.0) L 11/16/17 20:13 Vancomycin Trough 13.6 ug/mL 11/19/17 07:00 Hepatitis A IgM Ab Non-Reactive (Non-Reactive) 11/17/17 10:39 Hep Bs Antigen Non-Reactive (Non-Reactive) 11/17/17 10:39 Hep B Core IgM Ab Non-Reactive (Non-Reactive) 11/17/17 10:39 Hep C IgG Ab Non-Reactive (Non-Reactive) 11/17/17 10:39 Microbiology 11/17/17 11:10 Foot - Left Gram Stain - Preliminary 11/17/17 11:10 Foot - Left Wound Culture - Final Staphylococcus aureus Enterococcus faecalis 11/17/17 10:39 Blood Blood Culture - Preliminary No Growth after 72 hours 11/16/17 20:13 Blood Blood Culture Gram Stain - Preliminary 11/16/17 20:13 Blood Blood Culture - Preliminary 11/18/17 10:48 Foot - Left Gram Stain - Preliminary 11/18/17 10:48 Foot - Left Wound Culture - Preliminary Group D Enterococcus Presumptive Staph aureus 11/18/17 10:48 Foot - Left Anaerobic Culture - Preliminary 11/16/17 20:13 Blood Blood Culture - Final Assessment and Plan (1) Cellulitis of left foot Narrative/Plan: the patient relates that he was at a job site and apparently stepped on a drywall screw. He was quite unaware this was occurring, but after he noticed some swelling and drainage from his foot he examined his shoe and the drywall screw was still present through the sole of the shoe penetrating into the fifth metatarsal area. The patient now presents with the extensive swelling and infection to the dorsum of the foot and will have incision and drainage from orthopedics soon. We'll continue antibiotic therapy with Zosyn and vancomycin until we have further data. It is unclear if he'll require any surgical amputation the near future regarding the extensive nature of this infection. Goals establishes much of the foot as possible. Tetanus is updated and local wound care as a nonstick dressing until surgical intervention has occurred. Cultures were further help direct antibiotic therapy and he could require outpatient antibiotic therapy depending on the findings at surgery , the patient is to go to the operating room today for debridement and potential amputation of toes Surgical cultures will direct antibiotic therapy. 11/19/2017 the patient is status post surgery and does seem to be more comfortable. May need further debridement. Cultures are in process and fortunately no significant resistant gram negatives are being seen so far. We' ll continue Zosyn and vancomycin for now and likely will be discharged on vancomycin therapy and has had further improvement. With surgical plans have completed with a be able to further address wound care also for the outpatient setting. Once the patient is more stable will need IV access for long-term antibiotic therapy. 11/20/2017 patient is more comfortable today [employer] as a stabbing discomfort to his buttocks area. The observer goes to the store room and does find a air cushion it is placed beneath him which gives him significant relief of his discomforts. Current antibiotic therapy continues with current Zosyn and Vanco until cultures are finalized, however preliminarily the staff is not MRSA. Current Visit: Yes Status: Acute Code(s): L03.116 - CELLULITIS OF LEFT LOWER LIMB SNOMED Code(s): 026154792 (2) Uncontrolled diabetes mellitus Current Visit: Yes Status: Acute Code(s): E11.65 - TYPE 2 DIABETES MELLITUS WITH HYPERGLYCEMIA SNOMED Code(s): 521539884 (3) Sepsis Current Visit: Yes Status: Acute Code(s): A41.9 - SEPSIS, UNSPECIFIED ORGANISM SNOMED Code(s): 37267514
[2017-11-21] MEDS: PIPERACILLIN-TAZOBACTAM 3.375 GM in DEXTROSE/WATER 1 50ML.BAG IVPB SCH ×3 (00:50→15:20)
[2017-11-21 06:56] LABS: Glucose,Whole Blood 207 mg/dL (75-99)
[2017-11-21] MEDS ORDERED: LIDOCAINE 1% INJ 10MG/ML (20 ML MDV) SQ ONE (07:30)
[2017-11-21 08:19] LABS: Anion Gap 4 mmol/L; Blood Urea Nitrogen 12 mg/dL (9-20); Calcium 8.4 mg/dL (8.4-10.2); Carbon Dioxide 30 mmol/L (22-30); Chloride 106 mmol/L (98-107); Glucose 178 mg/dL (74-99); Potassium 4.5 mmol/L (3.5-5.1); Sodium 140 mmol/L (137-145)
[2017-11-21] MEDS: INSULIN ASPART 100 UNIT/ML 1 ML 10 ML VIAL SQ SCH ×4 (08:26→21:48)
[2017-11-21] MEDS: ASPIRIN 81 MG PO SCH (08:26)
[2017-11-21] MEDS: GABAPENTIN 300 MG CAP PO SCH ×3 (08:26→21:47)
[2017-11-21] MEDS: ENOXAPARIN 40 MG/0.4 ML SYRINGE SQ SCH (08:26)
[2017-11-21] MEDS: LISINOPRIL 5 MG TAB PO SCH (08:26)
[2017-11-21] MEDS: GLIMEPIRIDE 2 MG TAB PO SCH (08:26)
[2017-11-21] MEDS: REPAGLINIDE 1 MG TAB PO SCH ×3 (08:26→17:29)
[2017-11-21] MEDS: metFORMIN 500 MG TAB PO SCH ×2 (08:26→17:28)
[2017-11-21] MEDS: VANCOMYCIN 2,000 MG in SODIUM CHLORIDE 0.9% 500 ML IVPB SCH ×2 (08:30→19:49)
[2017-11-21] MEDS: PHENTERMINE HCL 37.5 MG PO SCH (08:32)
--- NOTE | 2017-11-21 09:00 | CONS ---
CONSULTATION This is a 57-year-old diabetic male who I was consulted for infected wound left foot between the 4th and 5th toe web space. This patient has a history of stepping on a wall screw through his shoes last week with progressive left foot swelling, erythema and drainage. The patient was seen by orthopedic, Dr. Bacon and patient was taken to the operating room and under anesthesia patient wound was debrided down to subcutaneous fat and all the devitalized tissue was removed and wound was approximated with nylon. The patient is under care of Infectious Disease with IV antibiotic. MEDICAL HISTORY: History of diabetes, hyperlipidemia, hypertension. PHYSICAL EXAMINATION: Patient was seen in his room. NECK: Supple. Trachea central. Chest: Clear on auscultation. ABDOMEN: Soft. Femoral pulses present. Left foot wrapped 4th and 5th toe web space. There is a wound dehiscence after the surgical intervention as there is devitalized tissue present between the 4th and 5th web space. There is some redness noted on the dorsal aspect of the foot. PLAN: Debridement of the wound. Risks and complications discussed. Prognosis guarded. MMODL / IJN: [id number] /
--- NOTE | 2017-11-21 09:33 | OP ---
OPERATIVE REPORT SURGEON: Roberto Brian MD. PREOPERATIVE DIAGNOSIS: Infected wound left foot between 4th and 5th toe web space. PROCEDURE: Debridement of the wound and excision of the devitalized tissue. PROCEDURE: This patient's left foot was prepped and draped in the usual sterile manner and 1% lidocaine . This patient had wound debridement done previously and developed the wound dehiscence. The skin edges were necrotic and subcutaneous tissue there was fat necrosis and devitalized tissue noted. Using a sharp knife, we excised all the necrotic and devitalized tissue. No active bleeding was noted. The wound was irrigated with saline and Aquacel were applied. We keep the wound open. We will continue with local wound care and continue with the same antibiotic. We may use VAC therapy or I have discussed in case he may need some toe amputation. We will follow with you. The length of the wound is 3 x 2 x 1 cm. MMODL / IJN: [id number] /
[2017-11-21 11:05] LABS: Glucose,Whole Blood 245 mg/dL (75-99)
[2017-11-21] MEDS: MULTIVITAMINS, THERA 1 EACH TAB PO SCH (12:45)
[2017-11-21] MEDS: SODIUM CHLORIDE 0.9% 1,000 ML IV SCH (12:45)
--- NOTE | 2017-11-21 14:15 | PN ---
PROGRESS NOTE DATE OF SERVICE: 11/21/17. PRESENTING COMPLAINT: Abscess, left foot. INTERVAL HISTORY: This is a patient stepped on a nail and developed an abscess of the left foot with peripheral neuropathy. Had some pain. Patient was taken to the OR by Dr. Bacon, I and D was carried out. The wound is growing multiple organisms. There is no fever and chills. The patient's wound care was continuing but the wound dehisced. The patient is taken to the OR today by Dr. Roberto Brian from vascular surgery and further intervention was carried out. No fever. No chills. Pain is limited to the foot. The patient is growing enterococcus faecalis and possibly MSSA. REVIEW OF SYSTEMS: Done for constitutional, cardiovascular, GI, pulmonary, dermatological; relevant findings as above. CURRENT MEDICATIONS: Reviewed that include IV Zosyn and vancomycin. PHYSICAL EXAMINATION: Temperature 97.9, pulse 96, respirations 18, blood pressure 140/72, pulse 96% on room air. GENERAL APPEARANCE: Sitting up awake. EYES: Pupils equal. Conjunctivae normal. HEENT: External appearance of nose and ears normal. Oral cavity normal. NECK: JVD not raised. Mass not palpable. RESPIRATORY: Effort normal. Lungs, decreased breath sounds. CARDIOVASCULAR: First and second sounds normal, no edema. ABDOMEN: Soft, nontender. Liver and spleen not palpable. PSYCHIATRY: Alert and oriented x3. Mood and affect normal. MUSCULOSKELETAL: Left foot wound is present. INVESTIGATIONS: Potassium 4.5, BUN and creatinine are normal. Accu-Cheks are noted. ASSESSMENT: 1. Acute severe left foot abscess in a patient who has peripheral neuropathy and growing enterococcus and what appears to be MSSA. Has had I and D x1 by Dr. Bacon and then had a wound dehiscence and Dr. Brian took him back to the operating room today. He is definitely slow to respond. 2. Diabetes mellitus type 2 uncontrolled with hyperglycemia. 3. Metabolic acidosis. 4. Sepsis due to #1, currently stable. 5. Essential hypertension. 6. Hyperlipidemia. PLAN: Did have a long talk with Dr. Brian. Will continue with daily wound changes and follow and decide if patient needs to go back to the OR. Discussed with the patient. Antibiotics are to continue per Dr. Das. Total time spent today was about 40 minutes with over 25 minutes of discussion. MMODL / IJN: [id number] /
[2017-11-21 17:11] LABS: Glucose,Whole Blood 267 mg/dL (75-99)
[2017-11-21 19:51] LABS: Glucose,Whole Blood 276 mg/dL (75-99)
[2017-11-21] MEDS: HYDROcodone/APAP 10-325MG 1 EACH TAB PO PRN (19:53)
[2017-11-21] MEDS: ATORVASTATIN 20 MG TAB PO SCH (21:47)
[2017-11-21] MEDS: MIRTAZAPINE 15 MG TAB PO SCH (21:47)
--- NOTE | 2017-11-21 22:52 | P.PN ---
Subjective Progress Note Date: 11/21/17 This is a 57-year-old male who is known to ID service as [facility] to the left lower extremity. He was discharged in February 2015 and was under the care of Dr. Santana at that time. Patient states that he has most recently at the wound Center at [facility] under the care of Dr. Leyva. Patient is requesting care with Dr. Das. Last week he stepped on a drywall screw while working and later saw his primary care doctor on Friday and he was told he had cellulitis. He had IM antibiotics given and started on Bactrim. Patient denies having any fever or chills although he had a temperature 102.2. He does complain of nausea. He also complains of pain in the left foot with increased redness, swelling and drainage. Patient also has a wound to the mid pretibial which is the ulcer he is currently under care at [facility]. There is also a small wound on the left heel, posterior tibial area and distal tip of the right great toe. He is not sure if he had a tetanus updated at Dr. Garrido's office. Patient presented with temperature 102.2, elevated heart rate, pulse ox 94% on room air, leukocytosis of 13.5. Blood sugar was 353 and patient states that blood sugars have been running high at home. Creatinine 0.9. AST 120, ALT 102 and alkaline phosphatase 278. Lactic acid was 1.8 and albumin 3.3. He does have blood culture obtained that is showing gram-positive cocci. X-ray of the left foot shows soft tissue swelling and dorsal medial soft tissue wound. Soft tissue air suggesting gas-forming organism. No associated osseous abnormality. Patient was given 1 dose of Zosyn and started on vancomycin and admitted to the [facility] floor. There is a consult in place with orthopedics. Patient did have laser surgery with Dr. Brian in May for his left lower leg. the patient will go to operating room today for debridement and potential amputation 11/19/2017 the patient is now status post a surgical incision and drainage, at least one suture is coming loose and surgery is following with possible need for further debridement to the foot given a significant infectious process. The patient does have evidence of the positive bone scan with multifocal osteomyelitis. The patient's pain is under better control today. 11/20/2017 patient is feeling somewhat better today. Has been evaluated by orthopedics and await further vascular surgery evaluation for the need for further debridement or even amputation. The patient is tolerating antibiotic therapy well. Is complaining of significant discomfort to his buttocks and back. 11/21/2017 the patient has had further surgery debridement to the toes earlier today. Dressings are in place. There are some drainage on the dressing. With his neuropathy is not having much pain into the foot. In with a cushion his buttocks pain is markedly improved. He is denying fevers or chills. We discussed further surgical plans and he understands that evaluation by the surgeon the morning will help determine if further surgery or amputations might be needed. Objective - Vital Signs Vital signs: Vital Signs Temp 97.1 F L 11/21/17 22:00 Pulse 88 11/21/17 22:00 Resp 16 11/21/17 22:00 BP 136/66 11/21/17 22:00 Pulse Ox 97 11/21/17 22:00 Intake & Output 11/21/17 11/21/17 11/22/17 06:59 18:59 06:59 Intake Total 3050 3510 590 Balance 3050 3510 590 Weight 128.367 kg 128.367 kg Intake: IV 1800 1350 Piperacillin-Tazobactam 3 100 50 .375 gm In Dextrose/Water 1 50ml.bag @ 12.5 mls/hr IVPB Q8HR [facility] Rx#: [id number] Sodium Chloride 0.9% 1, 1200 800 000 ml @ 100 mls/hr IV . Q10H [facility] Rx#:[id number] Vancomycin 2,000 mg In 500 500 Sodium Chloride 0.9% 500 ml @ 167 mls/hr IVPB 0800 ,2000 [facility] Rx#:[id number] Oral 1250 2160 590 Other: Voiding Method Toilet Toilet Urinal Urinal # Voids 3 4 2 - Exam Gen: This is a 57-year-old male. He is sitting up in bed and appears to be comfortable. He appears to be in no acute distress. He is complaining of pain in the left leg. HEENT: Head is atraumatic, normocephalic. Pupils equal, round. Sclerae is anicteric. Patient is edentulous. Mucous members of the mouth are moist. NECK: Supple. No JVD. No lymphadenopathy. No thyromegaly. LUNGS: Clear to auscultation. No wheezes or rhonchi. No intercostal retractions. HEART: Regular rate and rhythm. No murmur. ABDOMEN: Obese. Soft. Bowel sounds are present. No masses. No tenderness. EXTREMITIES: The left lower extremity there is significant redness surrounding the ulcer in the mid pretibial area along with edema. There is ulcer actively draining with serous fluid to the dorsal surface over the fourth and fifth digits. wound on the plantar surface at the mid fifth metatarsal. There is a small wound on the anterior left calf much improved and left heel. The right foot ulceration status post surgery if improved but there is still significant swelling and some drainage. NEUROLOGICAL: Patient is awake, alert and oriented x3. - Labs CBC & Chem 7: 11/19/17 07:00 11/21/17 06:47 Labs: Abnormal Lab Results - Last 24 Hours (Table) 11/21/17 11/21/17 11/21/17 Range/Units 06:47 06:54 11:03 Glucose 178 H (74-99) mg/dL POC Glucose (mg/dL) 207 H 245 H (75-99) mg/dL 11/21/17 11/21/17 Range/Units 17:06 19:50 Glucose (74-99) mg/dL POC Glucose (mg/dL) 267 H 276 H (75-99) mg/dL Microbiology - Last 24 Hours (Table) 11/18/17 10:48 Gram Stain - Final Foot - Left Wound Culture - Final Enterococcus faecalis Staphylococcus aureus 11/17/17 10:39 Blood Culture - Preliminary Blood No Growth after 96 hours 11/16/17 20:13 Blood Culture Gram Stain - Preliminary Blood Blood Culture - Preliminary Laboratory Results WBC 6.4 k/uL (3.8-10.6) 11/19/17 07:00 RBC 3.77 m/uL (4.30-5.90) L 11/19/17 07:00 Hgb 11.6 gm/dL (13.0-17.5) L 11/19/17 07:00 Hct 35.4 % (39.0-53.0) L 11/19/17 07:00 MCV 93.7 fL (80.0-100.0) 11/19/17 07:00 MCH 30.7 pg (25.0-35.0) 11/19/17 07:00 MCHC 32.7 g/dL (31.0-37.0) 11/19/17 07:00 RDW 12.7 % (11.5-15.5) 11/19/17 07:00 Plt Count 220 k/uL (150-450) 11/19/17 07:00 Neutrophils % 76 % 11/19/17 07:00 Lymphocytes % 12 % 11/19/17 07:00 Monocytes % 6 % 11/19/17 07:00 Eosinophils % 3 % 11/19/17 07:00 Basophils % 1 % 11/19/17 07:00 Neutrophils # 4.8 k/uL (1.3-7.7) 11/19/17 07:00 Lymphocytes # 0.8 k/uL (1.0-4.8) L 11/19/17 07:00 Monocytes # 0.4 k/uL (0-1.0) 11/19/17 07:00 Eosinophils # 0.2 k/uL (0-0.7) 11/19/17 07:00 Basophils # 0.0 k/uL (0-0.2) 11/19/17 07:00 PT 10.7 sec (9.0-12.0) 11/16/17 20:13 INR 1.1 (<1.2) 11/16/17 20:13 APTT 26.8 sec (22.0-30.0) 11/16/17 20:13 Sodium 140 mmol/L (137-145) 11/21/17 06:47 Potassium 4.5 mmol/L (3.5-5.1) 11/21/17 06:47 Chloride 106 mmol/L (98-107) 11/21/17 06:47 Carbon Dioxide 30 mmol/L (22-30) 11/21/17 06:47 Anion Gap 4 mmol/L 11/21/17 06:47 BUN 12 mg/dL (9-20) 11/21/17 06:47 Creatinine 0.91 mg/dL (0.66-1.25) 11/21/17 06:47 Est GFR (CKD-EPI)AfAm >90 (>60 ml/min/1.73 sqM) 11/21/17 06:47 Est GFR (CKD-EPI)NonAf >90 (>60 ml/min/1.73 sqM) 11/21/17 06:47 Glucose 178 mg/dL (74-99) H 11/21/17 06:47 POC Glucose (mg/dL) 276 mg/dL (75-99) H 11/21/17 19:50 POC Glu [employer] Daysi Landry 11/21/17 19:50 Plasma Lactic Acid Miky 1.8 mmol/L (0.7-2.0) 11/16/17 20:13 Calcium 8.4 mg/dL (8.4-10.2) 11/21/17 06:47 Total Bilirubin 1.1 mg/dL (0.2-1.3) 11/16/17 20:13 AST 120 U/L (17-59) H 11/16/17 20:13 ALT 108 U/L (21-72) H 11/16/17 20:13 Alkaline Phosphatase 278 U/L (38-126) H 11/16/17 20:13 Total Protein 6.2 g/dL (6.3-8.2) L 11/16/17 20:13 Albumin 3.3 g/dL (3.5-5.0) L 11/16/17 20:13 Vancomycin Trough 14.3 ug/mL 11/21/17 19:22 Hepatitis A IgM Ab Non-Reactive (Non-Reactive) 11/17/17 10:39 Hep Bs Antigen Non-Reactive (Non-Reactive) 11/17/17 10:39 Hep B Core IgM Ab Non-Reactive (Non-Reactive) 11/17/17 10:39 Hep C IgG Ab Non-Reactive (Non-Reactive) 11/17/17 10:39 Microbiology 11/18/17 10:48 Foot - Left Gram Stain - Final 11/18/17 10:48 Foot - Left Wound Culture - Final Enterococcus faecalis Staphylococcus aureus 11/17/17 10:39 Blood Blood Culture - Preliminary No Growth after 96 hours 11/16/17 20:13 Blood Blood Culture Gram Stain - Preliminary 11/16/17 20:13 Blood Blood Culture - Preliminary 11/17/17 11:10 Foot - Left Gram Stain - Preliminary 11/17/17 11:10 Foot - Left Wound Culture - Final Staphylococcus aureus Enterococcus faecalis 11/18/17 10:48 Foot - Left Anaerobic Culture - Preliminary 11/16/17 20:13 Blood Blood Culture - Final Assessment and Plan (1) Cellulitis of left foot Narrative/Plan: the patient relates that he was at a job site and apparently stepped on a drywall screw. He was quite unaware this was occurring, but after he noticed some swelling and drainage from his foot he examined his shoe and the drywall screw was still present through the sole of the shoe penetrating into the fifth metatarsal area. The patient now presents with the extensive swelling and infection to the dorsum of the foot and will have incision and drainage from orthopedics soon. We'll continue antibiotic therapy with Zosyn and vancomycin until we have further data. It is unclear if he'll require any surgical amputation the near future regarding the extensive nature of this infection. Goals establishes much of the foot as possible. Tetanus is updated and local wound care as a nonstick dressing until surgical intervention has occurred. Cultures were further help direct antibiotic therapy and he could require outpatient antibiotic therapy depending on the findings at surgery , the patient is to go to the operating room today for debridement and potential amputation of toes Surgical cultures will direct antibiotic therapy. 11/19/2017 the patient is status post surgery and does seem to be more comfortable. May need further debridement. Cultures are in process and fortunately no significant resistant gram negatives are being seen so far. We' ll continue Zosyn and vancomycin for now and likely will be discharged on vancomycin therapy and has had further improvement. With surgical plans have completed with a be able to further address wound care also for the outpatient setting. Once the patient is more stable will need IV access for long-term antibiotic therapy. 11/20/2017 patient is more comfortable today has ongoing discomfort to his buttocks area. The observer goes to the store room and does find a air cushion it is placed beneath him which gives him significant relief of his discomforts. Current antibiotic therapy continues with current Zosyn and Vanco until cultures are finalized, however preliminarily the staff is not MRSA. 11/21/2017 patient is status post surgical debridement of the foot. Surgery will be following the morning to determine response to this intervention and potential need for amputation of some toes. The blood culture appears to be contamination in counseling vancomycin can be discontinued. The enterococcus and staph aureus are susceptible to several agents we can continue Zosyn for now until further data is surgical plans have been made. Current Visit: Yes Status: Acute Code(s): L03.116 - CELLULITIS OF LEFT LOWER LIMB SNOMED Code(s): 891384999 (2) Uncontrolled diabetes mellitus Current Visit: Yes Status: Acute Code(s): E11.65 - TYPE 2 DIABETES MELLITUS WITH HYPERGLYCEMIA SNOMED Code(s): 500587133 (3) Sepsis Current Visit: Yes Status: Acute Code(s): A41.9 - SEPSIS, UNSPECIFIED ORGANISM SNOMED Code(s): 81947377
[2017-11-22] MEDS: PIPERACILLIN-TAZOBACTAM 3.375 GM in DEXTROSE/WATER 1 50ML.BAG IVPB SCH ×4 (00:26→23:35)
[2017-11-22] MEDS: SODIUM CHLORIDE 0.9% 1,000 ML IV SCH ×4 (00:27→20:27)
[2017-11-22] MEDS: HYDROcodone/APAP 10-325MG 1 EACH TAB PO PRN ×2 (05:26→20:16)
[2017-11-22] MEDS: metFORMIN 500 MG TAB PO SCH ×2 (07:22→16:56)
[2017-11-22] MEDS: REPAGLINIDE 1 MG TAB PO SCH ×3 (07:23→16:57)
[2017-11-22] MEDS: GLIMEPIRIDE 2 MG TAB PO SCH (07:23)
[2017-11-22 07:25] LABS: Anion Gap 4 mmol/L; Blood Urea Nitrogen 11 mg/dL (9-20); Calcium 8.4 mg/dL (8.4-10.2); Carbon Dioxide 28 mmol/L (22-30); Chloride 106 mmol/L (98-107); Glucose 194 mg/dL (74-99); Potassium 4.2 mmol/L (3.5-5.1); Sodium 138 mmol/L (137-145)
[2017-11-22 07:26] LABS: Glucose,Whole Blood 191 mg/dL (75-99)
[2017-11-22] MEDS: INSULIN ASPART 100 UNIT/ML 1 ML 10 ML VIAL SQ SCH ×4 (07:37→20:25)
[2017-11-22] MEDS ORDERED: VANCOMYCIN 2,250 MG in SODIUM CHLORIDE 0.9% 500 ML IVPB SCH (08:00)
[2017-11-22] MEDS: ENOXAPARIN 40 MG/0.4 ML SYRINGE SQ SCH (08:37)
[2017-11-22] MEDS: ASPIRIN 81 MG PO SCH (08:37)
[2017-11-22] MEDS: LISINOPRIL 5 MG TAB PO SCH (08:38)
[2017-11-22] MEDS: GABAPENTIN 300 MG CAP PO SCH ×3 (08:38→21:48)
[2017-11-22] MEDS: PHENTERMINE HCL 37.5 MG PO SCH (08:42)
--- NOTE | 2017-11-22 10:46 | PN ---
PROGRESS NOTE This gentleman had an abscess and wound in the left foot. The patient had his surgical intervention by Orthopedic and closed the wound. Patient developed wound dehiscence, we did the debridement yesterday. Today I have changed the dressing. No discharge noted. Aquacel silver rope was applied and we will continue with local wound care and IV antibiotic. MMODL / IJN: [id number] /
[2017-11-22 11:52] LABS: Glucose,Whole Blood 169 mg/dL (75-99)
[2017-11-22] MEDS: MULTIVITAMINS, THERA 1 EACH TAB PO SCH (12:11)
[2017-11-22 17:24] LABS: Glucose,Whole Blood 222 mg/dL (75-99)
[2017-11-22 20:12] LABS: Glucose,Whole Blood 236 mg/dL (75-99)
[2017-11-22] MEDS: MIRTAZAPINE 15 MG TAB PO SCH (20:25)
[2017-11-22] MEDS: ATORVASTATIN 20 MG TAB PO SCH (20:25)
--- NOTE | 2017-11-22 21:09 | P.PN ---
Subjective EMMONAK: This is a 57-year-old male with pmh of nonhealing ulcer to the left lower extremity., DM , HLP , HTN, , He was discharged in February 2015 and was under the care of Dr. Santana at that time. Patient states that he has most recently at the wound Center at [facility] under the care of Dr. Leyva. Patient is requesting care with Dr. Das. Last week he stepped on a drywall screw while working and later saw his primary care doctor on Friday and he was told he had cellulitis. He had IM antibiotics given and started on Bactrim. Patient denies having any fever or chills although he had a temperature 102.2. He does complain of nausea. He also complains of pain in the left foot with increased redness, swelling and drainage. Patient also has a wound to the mid pretibial which is the ulcer he is currently under care at [facility]. There is also a small wound on the left heel, posterior tibial area and distal tip of the right great toe. He is not sure if he had a tetanus updated at Dr. Garrido's office. Patient presented with temperature 102.2, elevated heart rate, pulse ox 94% on room air, leukocytosis of 13.5. Blood sugar was 353 and patient states that blood sugars have been running high at home. Creatinine 0.9. AST 120, ALT 102 and alkaline phosphatase 278. Lactic acid was 1.8 and albumin 3.3. He does have blood culture obtained that is showing gram-positive cocci. X-ray of the left foot shows soft tissue swelling and dorsal medial soft tissue wound. Soft tissue air suggesting gas-forming organism. No associated osseous abnormality. Patient was given 1 dose of Zosyn and started on vancomycin and admitted to the [facility] floor. There is a consult in place with orthopedics. Patient did have laser surgery with Dr. Brian in May for his left lower leg. the patient will go to operating room today for debridement and potential amputation subjective : pt was lying in bed not in distress, pt was telling me he got tetanus shot at his pcp office, ID are following the pt on antibiotic , he is s/p wound debridement on , pt refused me examined his leg wound. Objective - Vital Signs Vital signs: Vital Signs Temp 99.2 F 11/22/17 15:47 Pulse 81 11/22/17 15:47 Resp 16 11/22/17 15:47 BP 143/86 11/22/17 15:47 Pulse Ox 96 11/22/17 15:47 Intake & Output 11/21/17 11/22/17 11/22/17 18:59 06:59 18:59 Intake Total 3510 2240 2840 Balance 3510 2240 2840 Weight 128.367 kg 128.367 kg Intake: IV 1350 1650 1250 Piperacillin-Tazobactam 3 50 50 50 .375 gm In Dextrose/Water 1 50ml.bag @ 12.5 mls/hr IVPB Q8HR [facility] Rx#: [id number] Sodium Chloride 0.9% 1, 800 1100 700 000 ml @ 100 mls/hr IV . Q10H [facility] Rx#:[id number] Vancomycin 2,000 mg In 500 500 500 Sodium Chloride 0.9% 500 ml @ 167 mls/hr IVPB 0800 ,2000 [facility] Rx#:[id number] Oral 2160 590 1590 Other: Voiding Method Toilet Toilet Toilet Urinal Urinal # Voids 4 2 - Labs CBC & Chem 7: 11/19/17 07:00 11/22/17 06:30 Labs: Abnormal Lab Results - Last 24 Hours (Table) 11/21/17 11/22/17 11/22/17 Range/Units 19:50 06:30 07:25 Glucose 194 H (74-99) mg/dL POC Glucose (mg/dL) 276 H 191 H (75-99) mg/dL 11/22/17 11/22/17 Range/Units 11:51 17:23 Glucose (74-99) mg/dL POC Glucose (mg/dL) 169 H 222 H (75-99) mg/dL Microbiology - Last 24 Hours (Table) 11/18/17 10:48 Anaerobic Culture - Final Foot - Left Anaerobic Gm Negative Bacilli 11/17/17 10:39 Blood Culture - Preliminary Blood No Growth after 120 hours 11/16/17 20:13 Blood Culture Gram Stain - Preliminary Blood Blood Culture - Final 11/18/17 10:48 Gram Stain - Final Foot - Left Wound Culture - Final Enterococcus faecalis Staphylococcus aureus Assessment and Plan Assessment: acute left foot abscess, secondary to trauma and stepping on a screw, on antibiotic and ID on the case Diabetes Mellitus , type 2 Hypertension Hyperlipidemia Plan: continue with the same treatment , continue with symptomatic treatment , resume home medication , monitor lytes and vitals including glucose , c/w iv, infectious disease consult is appreciated . c/w same antibioitc . GI and DVT prophylaxis , further recommendation based upon pt progress
--- NOTE | 2017-11-22 23:08 | P.PN ---
Subjective Progress Note Date: 11/22/17 This is a 57-year-old male who is known to ID service as [facility] to the left lower extremity. He was discharged in February 2015 and was under the care of Dr. Santana at that time. Patient states that he has most recently at the wound Center at [facility] under the care of Dr. Leyva. Patient is requesting care with Dr. Das. Last week he stepped on a drywall screw while working and later saw his primary care doctor on Friday and he was told he had cellulitis. He had IM antibiotics given and started on Bactrim. Patient denies having any fever or chills although he had a temperature 102.2. He does complain of nausea. He also complains of pain in the left foot with increased redness, swelling and drainage. Patient also has a wound to the mid pretibial which is the ulcer he is currently under care at [facility]. There is also a small wound on the left heel, posterior tibial area and distal tip of the right great toe. He is not sure if he had a tetanus updated at Dr. Garrido's office. Patient presented with temperature 102.2, elevated heart rate, pulse ox 94% on room air, leukocytosis of 13.5. Blood sugar was 353 and patient states that blood sugars have been running high at home. Creatinine 0.9. AST 120, ALT 102 and alkaline phosphatase 278. Lactic acid was 1.8 and albumin 3.3. He does have blood culture obtained that is showing gram-positive cocci. X-ray of the left foot shows soft tissue swelling and dorsal medial soft tissue wound. Soft tissue air suggesting gas-forming organism. No associated osseous abnormality. Patient was given 1 dose of Zosyn and started on vancomycin and admitted to the [facility] floor. There is a consult in place with orthopedics. Patient did have laser surgery with Dr. Brian in May for his left lower leg. the patient will go to operating room today for debridement and potential amputation 11/19/2017 the patient is now status post a surgical incision and drainage, at least one suture is coming loose and surgery is following with possible need for further debridement to the foot given a significant infectious process. The patient does have evidence of the positive bone scan with multifocal osteomyelitis. The patient's pain is under better control today. 11/20/2017 patient is feeling somewhat better today. Has been evaluated by orthopedics and await further vascular surgery evaluation for the need for further debridement or even amputation. The patient is tolerating antibiotic therapy well. Is complaining of significant discomfort to his buttocks and back. 11/21/2017 the patient has had further surgery debridement to the toes earlier today. Dressings are in place. There are some drainage on the dressing. With his neuropathy is not having much pain into the foot. In with a cushion his buttocks pain is markedly improved. He is denying fevers or chills. We discussed further surgical plans and he understands that evaluation by the surgeon the morning will help determine if further surgery or amputations might be needed. 11/22/2017 cases been discussed with the vascular surgeon. There are no plans for amputation at this time, we'll continue with local wound care with the silver product the surgeon is content with current level of improvement. Objective - Vital Signs Vital signs: Vital Signs Temp 99.2 F 11/22/17 20:46 Pulse 101 H 11/22/17 20:46 Resp 18 11/22/17 20:46 BP 157/84 11/22/17 20:46 Pulse Ox 97 11/22/17 20:46 Intake & Output 11/22/17 11/22/17 11/23/17 06:59 18:59 06:59 Intake Total 2240 2840 Balance 2240 2840 Weight 128.367 kg Intake: IV 1650 1250 Piperacillin-Tazobactam 3 50 50 .375 gm In Dextrose/Water 1 50ml.bag @ 12.5 mls/hr IVPB Q8HR [facility] Rx#: [id number] Sodium Chloride 0.9% 1, 1100 700 000 ml @ 100 mls/hr IV . Q10H [facility] Rx#:[id number] Vancomycin 2,000 mg In 500 500 Sodium Chloride 0.9% 500 ml @ 167 mls/hr IVPB 0800 ,2000 [facility] Rx#:[id number] Oral 590 1590 Other: Voiding Method Toilet Toilet Toilet Urinal # Voids 2 1 - Exam Gen: This is a 57-year-old male. He is sitting up in bed and appears to be comfortable. He appears to be in no acute distress. He is complaining of pain in the left leg. HEENT: Head is atraumatic, normocephalic. Pupils equal, round. Sclerae is anicteric. Patient is edentulous. Mucous members of the mouth are moist. NECK: Supple. No JVD. No lymphadenopathy. No thyromegaly. LUNGS: Clear to auscultation. No wheezes or rhonchi. No intercostal retractions. HEART: Regular rate and rhythm. No murmur. ABDOMEN: Obese. Soft. Bowel sounds are present. No masses. No tenderness. EXTREMITIES: The left lower extremity there is significant redness surrounding the ulcer in the mid pretibial area along with edema. There is ulcer actively draining with serous fluid to the dorsal surface over the fourth and fifth digits. wound on the plantar surface at the mid fifth metatarsal. There is a small wound on the anterior left calf much improved and left heel. The right foot ulceration status post surgery if improved but there is still significant swelling and some drainage. NEUROLOGICAL: Patient is awake, alert and oriented x3. - Labs CBC & Chem 7: 11/19/17 07:00 11/22/17 06:30 Labs: Abnormal Lab Results - Last 24 Hours (Table) 11/22/17 11/22/17 11/22/17 Range/Units 06:30 07:25 11:51 Glucose 194 H (74-99) mg/dL POC Glucose (mg/dL) 191 H 169 H (75-99) mg/dL 11/22/17 11/22/17 Range/Units 17:23 20:11 Glucose (74-99) mg/dL POC Glucose (mg/dL) 222 H 236 H (75-99) mg/dL Microbiology - Last 24 Hours (Table) 11/18/17 10:48 Anaerobic Culture - Final Foot - Left Anaerobic Gm Negative Bacilli 11/17/17 10:39 Blood Culture - Preliminary Blood No Growth after 120 hours 11/16/17 20:13 Blood Culture Gram Stain - Preliminary Blood Blood Culture - Final Laboratory Results WBC 6.4 k/uL (3.8-10.6) 11/19/17 07:00 RBC 3.77 m/uL (4.30-5.90) L 11/19/17 07:00 Hgb 11.6 gm/dL (13.0-17.5) L 11/19/17 07:00 Hct 35.4 % (39.0-53.0) L 11/19/17 07:00 MCV 93.7 fL (80.0-100.0) 11/19/17 07:00 MCH 30.7 pg (25.0-35.0) 11/19/17 07:00 MCHC 32.7 g/dL (31.0-37.0) 11/19/17 07:00 RDW 12.7 % (11.5-15.5) 11/19/17 07:00 Plt Count 220 k/uL (150-450) 11/19/17 07:00 Neutrophils % 76 % 11/19/17 07:00 Lymphocytes % 12 % 11/19/17 07:00 Monocytes % 6 % 11/19/17 07:00 Eosinophils % 3 % 11/19/17 07:00 Basophils % 1 % 11/19/17 07:00 Neutrophils # 4.8 k/uL (1.3-7.7) 11/19/17 07:00 Lymphocytes # 0.8 k/uL (1.0-4.8) L 11/19/17 07:00 Monocytes # 0.4 k/uL (0-1.0) 11/19/17 07:00 Eosinophils # 0.2 k/uL (0-0.7) 11/19/17 07:00 Basophils # 0.0 k/uL (0-0.2) 11/19/17 07:00 PT 10.7 sec (9.0-12.0) 11/16/17 20:13 INR 1.1 (<1.2) 11/16/17 20:13 APTT 26.8 sec (22.0-30.0) 11/16/17 20:13 Sodium 138 mmol/L (137-145) 11/22/17 06:30 Potassium 4.2 mmol/L (3.5-5.1) 11/22/17 06:30 Chloride 106 mmol/L (98-107) 11/22/17 06:30 Carbon Dioxide 28 mmol/L (22-30) 11/22/17 06:30 Anion Gap 4 mmol/L 11/22/17 06:30 BUN 11 mg/dL (9-20) 11/22/17 06:30 Creatinine 0.78 mg/dL (0.66-1.25) 11/22/17 06:30 Est GFR (CKD-EPI)AfAm >90 (>60 ml/min/1.73 sqM) 11/22/17 06:30 Est GFR (CKD-EPI)NonAf >90 (>60 ml/min/1.73 sqM) 11/22/17 06:30 Glucose 194 mg/dL (74-99) H 11/22/17 06:30 POC Glucose (mg/dL) 236 mg/dL (75-99) H 11/22/17 20:11 POC Glu Machine Presser ID Caryn Cho 11/22/17 20:11 Plasma Lactic Acid Miky 1.8 mmol/L (0.7-2.0) 11/16/17 20:13 Calcium 8.4 mg/dL (8.4-10.2) 11/22/17 06:30 Total Bilirubin 1.1 mg/dL (0.2-1.3) 11/16/17 20:13 AST 120 U/L (17-59) H 11/16/17 20:13 ALT 108 U/L (21-72) H 11/16/17 20:13 Alkaline Phosphatase 278 U/L (38-126) H 11/16/17 20:13 Total Protein 6.2 g/dL (6.3-8.2) L 11/16/17 20:13 Albumin 3.3 g/dL (3.5-5.0) L 11/16/17 20:13 Vancomycin Trough 14.3 ug/mL 11/21/17 19:22 Hepatitis A IgM Ab Non-Reactive (Non-Reactive) 11/17/17 10:39 Hep Bs Antigen Non-Reactive (Non-Reactive) 11/17/17 10:39 Hep B Core IgM Ab Non-Reactive (Non-Reactive) 11/17/17 10:39 Hep C IgG Ab Non-Reactive (Non-Reactive) 11/17/17 10:39 Microbiology 11/18/17 10:48 Foot - Left Anaerobic Culture - Final Anaerobic Gm Negative Bacilli 11/17/17 10:39 Blood Blood Culture - Preliminary No Growth after 120 hours 11/16/17 20:13 Blood Blood Culture Gram Stain - Preliminary 11/16/17 20:13 Blood Blood Culture - Final 11/18/17 10:48 Foot - Left Gram Stain - Final 11/18/17 10:48 Foot - Left Wound Culture - Final Enterococcus faecalis Staphylococcus aureus 11/17/17 11:10 Foot - Left Gram Stain - Preliminary 11/17/17 11:10 Foot - Left Wound Culture - Final Staphylococcus aureus Enterococcus faecalis 11/16/17 20:13 Blood Blood Culture - Final Assessment and Plan (1) Cellulitis of left foot Narrative/Plan: the patient relates that he was at a job site and apparently stepped on a drywall screw. He was quite unaware this was occurring, but after he noticed some swelling and drainage from his foot he examined his shoe and the drywall screw was still present through the sole of the shoe penetrating into the fifth metatarsal area. The patient now presents with the extensive swelling and infection to the dorsum of the foot and will have incision and drainage from orthopedics soon. We'll continue antibiotic therapy with Zosyn and vancomycin until we have further data. It is unclear if he'll require any surgical amputation the near future regarding the extensive nature of this infection. Goals establishes much of the foot as possible. Tetanus is updated and local wound care as a nonstick dressing until surgical intervention has occurred. Cultures were further help direct antibiotic therapy and he could require outpatient antibiotic therapy depending on the findings at surgery , the patient is to go to the operating room today for debridement and potential amputation of toes Surgical cultures will direct antibiotic therapy. 11/19/2017 the patient is status post surgery and does seem to be more comfortable. May need further debridement. Cultures are in process and fortunately no significant resistant gram negatives are being seen so far. We' ll continue Zosyn and vancomycin for now and likely will be discharged on vancomycin therapy and has had further improvement. With surgical plans have completed with a be able to further address wound care also for the outpatient setting. Once the patient is more stable will need IV access for long-term antibiotic therapy. 11/20/2017 patient is more comfortable today has ongoing discomfort to his buttocks area. The observer goes to the store room and does find a air cushion it is placed beneath him which gives him significant relief of his discomforts. Current antibiotic therapy continues with current Zosyn and Vanco until cultures are finalized, however preliminarily the staff is not MRSA. 11/21/2017 patient is status post surgical debridement of the foot. Surgery will be following the morning to determine response to this intervention and potential need for amputation of some toes. The blood culture appears to be contamination in counseling vancomycin can be discontinued. The enterococcus and staph aureus are susceptible to several agents we can continue Zosyn for now until further data is surgical plans have been made. 11/22/2017 patient is content this morning after seen by the surgeon with no plans for amputation at this time. We'll continue antibiotic therapy and working to see what our options will be with antibiotic at discharge Current Visit: Yes Status: Acute Code(s): L03.116 - CELLULITIS OF LEFT LOWER LIMB SNOMED Code(s): 757324484 (2) Uncontrolled diabetes mellitus Current Visit: Yes Status: Acute Code(s): E11.65 - TYPE 2 DIABETES MELLITUS WITH HYPERGLYCEMIA SNOMED Code(s): 425610432 (3) Sepsis Current Visit: Yes Status: Acute Code(s): A41.9 - SEPSIS, UNSPECIFIED ORGANISM SNOMED Code(s): 32831552
[2017-11-23 07:10] LABS: Glucose,Whole Blood 201 mg/dL (75-99)
[2017-11-23] MEDS: GLIMEPIRIDE 2 MG TAB PO SCH (07:21)
[2017-11-23] MEDS: REPAGLINIDE 1 MG TAB PO SCH ×3 (07:22→17:19)
[2017-11-23] MEDS: metFORMIN 500 MG TAB PO SCH ×2 (07:22→17:18)
[2017-11-23] MEDS: GABAPENTIN 300 MG CAP PO SCH ×3 (07:23→21:03)
[2017-11-23] MEDS: LISINOPRIL 5 MG TAB PO SCH (07:23)
[2017-11-23] MEDS: ASPIRIN 81 MG PO SCH (07:24)
[2017-11-23] MEDS: ENOXAPARIN 40 MG/0.4 ML SYRINGE SQ SCH (07:24)
[2017-11-23] MEDS: INSULIN ASPART 100 UNIT/ML 1 ML 10 ML VIAL SQ SCH ×4 (07:24→21:03)
[2017-11-23] MEDS: PIPERACILLIN-TAZOBACTAM 3.375 GM in DEXTROSE/WATER 1 50ML.BAG IVPB SCH ×3 (07:24→23:39)
[2017-11-23] MEDS: PHENTERMINE HCL 37.5 MG PO SCH (07:25)
[2017-11-23 08:04] LABS: Anion Gap 5 mmol/L; Blood Urea Nitrogen 12 mg/dL (9-20); Calcium 8.3 mg/dL (8.4-10.2); Carbon Dioxide 29 mmol/L (22-30); Chloride 104 mmol/L (98-107); Glucose 224 mg/dL (74-99); Potassium 4.4 mmol/L (3.5-5.1); Sodium 138 mmol/L (137-145)
[2017-11-23 11:59] LABS: Glucose,Whole Blood 239 mg/dL (75-99)
[2017-11-23] MEDS: MULTIVITAMINS, THERA 1 EACH TAB PO SCH (12:12)
--- NOTE | 2017-11-23 13:24 | P.PN ---
Subjective KLAMATH: This is a 57-year-old male with pmh of nonhealing ulcer to the left lower extremity., DM , HLP , HTN, , He was discharged in February 2015 and was under the care of Dr. Santana at that time. Patient states that he has most recently at the wound Center at [facility] under the care of Dr. Leyva. Patient is requesting care with Dr. Das. Last week he stepped on a drywall screw while working and later saw his primary care doctor on Friday and he was told he had cellulitis. He had IM antibiotics given and started on Bactrim. Patient denies having any fever or chills although he had a temperature 102.2. He does complain of nausea. He also complains of pain in the left foot with increased redness, swelling and drainage. Patient also has a wound to the mid pretibial which is the ulcer he is currently under care at [facility]. There is also a small wound on the left heel, posterior tibial area and distal tip of the right great toe. He is not sure if he had a tetanus updated at Dr. Garrido's office. Patient presented with temperature 102.2, elevated heart rate, pulse ox 94% on room air, leukocytosis of 13.5. Blood sugar was 353 and patient states that blood sugars have been running high at home. Creatinine 0.9. AST 120, ALT 102 and alkaline phosphatase 278. Lactic acid was 1.8 and albumin 3.3. He does have blood culture obtained that is showing gram-positive cocci. X-ray of the left foot shows soft tissue swelling and dorsal medial soft tissue wound. Soft tissue air suggesting gas-forming organism. No associated osseous abnormality. Patient was given 1 dose of Zosyn and started on vancomycin and admitted to the [facility] floor. There is a consult in place with orthopedics. Patient did have laser surgery with Dr. Brian in May for his left lower leg. the patient will go to operating room today for debridement and potential amputation subjective : 11/22/2017 pt was lying in bed not in distress, pt was telling me he got tetanus shot at his pcp office, ID are following the pt on antibiotic , he is s/p wound debridement on , pt refused me examined his leg wound. 11/23/2017 Patient was lying in bed not in distress. He had a fever of 100.9 on 11/22. Patient is still on broad-spectrum antibiotics as per ID recommendation. Sugar is running high, increase glimepiride from 2, to 3 mg daily Wound culture is growing staph aureus, enterococcus. With gram-negative bacilli in the unaerobic culture Objective - Vital Signs Vital signs: Vital Signs Temp 98.5 F 11/23/17 05:27 Pulse 81 11/23/17 08:24 Resp 18 11/23/17 08:24 BP 136/79 11/23/17 05:27 Pulse Ox 95 11/23/17 05:27 Intake & Output 11/22/17 11/23/17 11/23/17 18:59 06:59 18:59 Intake Total 2840 1180 Balance 2840 1180 Weight 128.367 kg Intake: IV 1250 700 Piperacillin-Tazobactam 3 50 .375 gm In Dextrose/Water 1 50ml.bag @ 12.5 mls/hr IVPB Q8HR [facility] Rx#: [id number] Sodium Chloride 0.9% 1, 700 700 000 ml @ 100 mls/hr IV . Q10H [facility] Rx#:[id number] Vancomycin 2,000 mg In 500 Sodium Chloride 0.9% 500 ml @ 167 mls/hr IVPB 0800 ,2000 [facility] Rx#:[id number] Oral 1590 480 Other: Voiding Method Toilet Toilet Toilet # Voids 1 - Exam GENERAL: The patient is alert and oriented x3, not in any acute distress. Well developed, well nourished. HEENT: Pupils are round and equally reacting to light. EOMI. No scleral icterus. No conjunctival pallor. Normocephalic, atraumatic. No pharyngeal erythema. No thyromegaly. CARDIOVASCULAR: S1 and S2 present. No murmurs, rubs, or gallops. PULMONARY: Chest is clear to auscultation, no wheezing or crackles. ABDOMEN: Soft, nontender, nondistended, normoactive bowel sounds. No palpable organomegaly. MUSCULOSKELETAL: No joint swelling or deformity. EXTREMITIES: No cyanosis, clubbing, or pedal edema. NEUROLOGICAL: Gross neurological examination did not reveal any focal deficits. SKIN: No rashes. - Labs CBC & Chem 7: 11/19/17 07:00 11/23/17 06:54 Labs: Abnormal Lab Results - Last 24 Hours (Table) 11/22/17 11/22/17 11/23/17 Range/Units 17:23 20:11 06:54 Glucose 224 H (74-99) mg/dL POC Glucose (mg/dL) 222 H 236 H (75-99) mg/dL Calcium 8.3 L (8.4-10.2) mg/dL 11/23/17 11/23/17 Range/Units 07:09 11:58 Glucose (74-99) mg/dL POC Glucose (mg/dL) 201 H 239 H (75-99) mg/dL Calcium (8.4-10.2) mg/dL Microbiology - Last 24 Hours (Table) 11/16/17 20:13 Blood Culture Gram Stain - Final Blood Blood Culture - Final 11/18/17 10:48 Anaerobic Culture - Final Foot - Left Anaerobic Gm Negative Bacilli 11/17/17 10:39 Blood Culture - Preliminary Blood No Growth after 120 hours Assessment and Plan Assessment: acute left foot abscess, secondary to trauma and stepping on a screw, on antibiotic and ID on the case Diabetes Mellitus , type 2 Hypertension Hyperlipidemia Plan: continue with the same treatment , continue with symptomatic treatment , resume home medication , monitor lytes and vitals including glucose , c/w iv fluids , infectious disease consult is appreciated . Patient status post debridement by the surgical team, no plans for application currently. Orthopedic consult is appreciated. c/w same antibioitc . GI and DVT prophylaxis , further recommendation based upon pt progress and clinical course DVT prophylaxis, Lovenox 40 mg daily GI prophylaxis: Pepcid Patient is less mobile currently Prognosis is guarded
[2017-11-23] MEDS: SODIUM CHLORIDE 0.9% 1,000 ML IV SCH ×2 (15:41→21:02)
--- NOTE | 2017-11-23 17:03 | P.PN ---
Subjective Progress Note Date: 11/23/17 This is a 57-year-old male who is known to ID service as [facility] to the left lower extremity. He was discharged in February 2015 and was under the care of Dr. Santana at that time. Patient states that he has most recently at the wound Center at [facility] under the care of Dr. Leyva. Patient is requesting care with Dr. Das. Last week he stepped on a drywall screw while working and later saw his primary care doctor on Friday and he was told he had cellulitis. He had IM antibiotics given and started on Bactrim. Patient denies having any fever or chills although he had a temperature 102.2. He does complain of nausea. He also complains of pain in the left foot with increased redness, swelling and drainage. Patient also has a wound to the mid pretibial which is the ulcer he is currently under care at [facility]. There is also a small wound on the left heel, posterior tibial area and distal tip of the right great toe. He is not sure if he had a tetanus updated at Dr. Garrido's office. Patient presented with temperature 102.2, elevated heart rate, pulse ox 94% on room air, leukocytosis of 13.5. Blood sugar was 353 and patient states that blood sugars have been running high at home. Creatinine 0.9. AST 120, ALT 102 and alkaline phosphatase 278. Lactic acid was 1.8 and albumin 3.3. He does have blood culture obtained that is showing gram-positive cocci. X-ray of the left foot shows soft tissue swelling and dorsal medial soft tissue wound. Soft tissue air suggesting gas-forming organism. No associated osseous abnormality. Patient was given 1 dose of Zosyn and started on vancomycin and admitted to the [facility] floor. There is a consult in place with orthopedics. Patient did have laser surgery with Dr. Brian in May for his left lower leg. the patient will go to operating room today for debridement and potential amputation 11/19/2017 the patient is now status post a surgical incision and drainage, at least one suture is coming loose and surgery is following with possible need for further debridement to the foot given a significant infectious process. The patient does have evidence of the positive bone scan with multifocal osteomyelitis. The patient's pain is under better control today. 11/20/2017 patient is feeling somewhat better today. Has been evaluated by orthopedics and await further vascular surgery evaluation for the need for further debridement or even amputation. The patient is tolerating antibiotic therapy well. Is complaining of significant discomfort to his buttocks and back. 11/21/2017 the patient has had further surgery debridement to the toes earlier today. Dressings are in place. There are some drainage on the dressing. With his neuropathy is not having much pain into the foot. In with a cushion his buttocks pain is markedly improved. He is denying fevers or chills. We discussed further surgical plans and he understands that evaluation by the surgeon the morning will help determine if further surgery or amputations might be needed. 11/22/2017 cases been discussed with the vascular surgeon. There are no plans for amputation at this time, we'll continue with local wound care with the silver product the surgeon is content with current level of improvement. 11/23/2017 the patient has been seen by the surgeons morning and photography is available the evidence of the improvement to the swelling to the foot and recovery of some of the tissue, surgeon has no plans for amputation. Objective - Vital Signs Vital signs: Vital Signs Temp 99.4 F 11/23/17 15:00 Pulse 81 11/23/17 16:00 Resp 18 11/23/17 16:00 BP 125/71 11/23/17 15:00 Pulse Ox 95 11/23/17 15:00 Intake & Output 11/22/17 11/23/17 11/23/17 18:59 06:59 18:59 Intake Total 2840 1180 Output Total 1200 Balance 2840 -20 Weight 128.367 kg 128.367 kg Intake: IV 1250 700 Piperacillin-Tazobactam 3 50 .375 gm In Dextrose/Water 1 50ml.bag @ 12.5 mls/hr IVPB Q8HR KASSY Rx#: [id number] Sodium Chloride 0.9% 1, 700 700 000 ml @ 100 mls/hr IV . Q10H KASSY Rx#:[id number] Vancomycin 2,000 mg In 500 Sodium Chloride 0.9% 500 ml @ 167 mls/hr IVPB 0800 ,2000 KASSY Rx#:[id number] Oral 1590 480 Output: Urine 1200 Other: Voiding Method Toilet Toilet Toilet # Voids 1 1 - Exam Gen: This is a 57-year-old male. He is sitting up in bed and appears to be comfortable. He appears to be in no acute distress. He is complaining of pain in the left leg. HEENT: Head is atraumatic, normocephalic. Pupils equal, round. Sclerae is anicteric. Patient is edentulous. Mucous members of the mouth are moist. NECK: Supple. No JVD. No lymphadenopathy. No thyromegaly. LUNGS: Clear to auscultation. No wheezes or rhonchi. No intercostal retractions. HEART: Regular rate and rhythm. No murmur. ABDOMEN: Obese. Soft. Bowel sounds are present. No masses. No tenderness. EXTREMITIES: The left lower extremity there is significant redness surrounding the ulcer in the mid pretibial area along with edema. There is ulcer actively draining with serous fluid to the dorsal surface over the fourth and fifth digits. wound on the plantar surface at the mid fifth metatarsal. There is a small wound on the anterior left calf much improved and left heel. The right foot ulceration status post surgery if improved but there is still some swelling drainage has improved and is noted the necrosis has been debrided away and there is now some granulation forming. Swelling to the foot is improved. NEUROLOGICAL: Patient is awake, alert and oriented x3. - Labs CBC & Chem 7: 11/19/17 07:00 11/23/17 06:54 Labs: Abnormal Lab Results - Last 24 Hours (Table) 11/22/17 11/22/17 11/23/17 Range/Units 17:23 20:11 06:54 Glucose 224 H (74-99) mg/dL POC Glucose (mg/dL) 222 H 236 H (75-99) mg/dL Calcium 8.3 L (8.4-10.2) mg/dL 11/23/17 11/23/17 Range/Units 07:09 11:58 Glucose (74-99) mg/dL POC Glucose (mg/dL) 201 H 239 H (75-99) mg/dL Calcium (8.4-10.2) mg/dL Microbiology - Last 24 Hours (Table) 11/17/17 10:39 Blood Culture - Final Blood No Growth after 144 hours 11/16/17 20:13 Blood Culture Gram Stain - Final Blood Blood Culture - Final 11/18/17 10:48 Anaerobic Culture - Final Foot - Left Anaerobic Gm Negative Bacilli Laboratory Results WBC 6.4 k/uL (3.8-10.6) 11/19/17 07:00 RBC 3.77 m/uL (4.30-5.90) L 11/19/17 07:00 Hgb 11.6 gm/dL (13.0-17.5) L 11/19/17 07:00 Hct 35.4 % (39.0-53.0) L 11/19/17 07:00 MCV 93.7 fL (80.0-100.0) 11/19/17 07:00 MCH 30.7 pg (25.0-35.0) 11/19/17 07:00 MCHC 32.7 g/dL (31.0-37.0) 11/19/17 07:00 RDW 12.7 % (11.5-15.5) 11/19/17 07:00 Plt Count 220 k/uL (150-450) 11/19/17 07:00 Neutrophils % 76 % 11/19/17 07:00 Lymphocytes % 12 % 11/19/17 07:00 Monocytes % 6 % 11/19/17 07:00 Eosinophils % 3 % 11/19/17 07:00 Basophils % 1 % 11/19/17 07:00 Neutrophils # 4.8 k/uL (1.3-7.7) 11/19/17 07:00 Lymphocytes # 0.8 k/uL (1.0-4.8) L 11/19/17 07:00 Monocytes # 0.4 k/uL (0-1.0) 11/19/17 07:00 Eosinophils # 0.2 k/uL (0-0.7) 11/19/17 07:00 Basophils # 0.0 k/uL (0-0.2) 11/19/17 07:00 PT 10.7 sec (9.0-12.0) 11/16/17 20:13 INR 1.1 (<1.2) 11/16/17 20:13 APTT 26.8 sec (22.0-30.0) 11/16/17 20:13 Sodium 138 mmol/L (137-145) 11/23/17 06:54 Potassium 4.4 mmol/L (3.5-5.1) 11/23/17 06:54 Chloride 104 mmol/L (98-107) 11/23/17 06:54 Carbon Dioxide 29 mmol/L (22-30) 11/23/17 06:54 Anion Gap 5 mmol/L 11/23/17 06:54 BUN 12 mg/dL (9-20) 11/23/17 06:54 Creatinine 0.84 mg/dL (0.66-1.25) 11/23/17 06:54 Est GFR (CKD-EPI)AfAm >90 (>60 ml/min/1.73 sqM) 11/23/17 06:54 Est GFR (CKD-EPI)NonAf >90 (>60 ml/min/1.73 sqM) 11/23/17 06:54 Glucose 224 mg/dL (74-99) H 11/23/17 06:54 POC Glucose (mg/dL) 239 mg/dL (75-99) H 11/23/17 11:58 POC Glu Labor Relations Consultant ID Malinda Das 11/23/17 11:58 Plasma Lactic Acid Miky 1.8 mmol/L (0.7-2.0) 11/16/17 20:13 Calcium 8.3 mg/dL (8.4-10.2) L 11/23/17 06:54 Total Bilirubin 1.1 mg/dL (0.2-1.3) 11/16/17 20:13 AST 120 U/L (17-59) H 11/16/17 20:13 ALT 108 U/L (21-72) H 11/16/17 20:13 Alkaline Phosphatase 278 U/L (38-126) H 11/16/17 20:13 Total Protein 6.2 g/dL (6.3-8.2) L 11/16/17 20:13 Albumin 3.3 g/dL (3.5-5.0) L 11/16/17 20:13 Vancomycin Trough 14.3 ug/mL 11/21/17 19:22 Hepatitis A IgM Ab Non-Reactive (Non-Reactive) 11/17/17 10:39 Hep Bs Antigen Non-Reactive (Non-Reactive) 11/17/17 10:39 Hep B Core IgM Ab Non-Reactive (Non-Reactive) 11/17/17 10:39 Hep C IgG Ab Non-Reactive (Non-Reactive) 11/17/17 10:39 Microbiology 11/17/17 10:39 Blood Blood Culture - Final No Growth after 144 hours 11/16/17 20:13 Blood Blood Culture Gram Stain - Final 11/16/17 20:13 Blood Blood Culture - Final 11/18/17 10:48 Foot - Left Anaerobic Culture - Final Anaerobic Gm Negative Bacilli 11/18/17 10:48 Foot - Left Gram Stain - Final 11/18/17 10:48 Foot - Left Wound Culture - Final Enterococcus faecalis Staphylococcus aureus 11/17/17 11:10 Foot - Left Gram Stain - Preliminary 11/17/17 11:10 Foot - Left Wound Culture - Final Staphylococcus aureus Enterococcus faecalis 11/16/17 20:13 Blood Blood Culture - Final Assessment and Plan (1) Cellulitis of left foot Narrative/Plan: the patient relates that he was at a job site and apparently stepped on a drywall screw. He was quite unaware this was occurring, but after he noticed some swelling and drainage from his foot he examined his shoe and the drywall screw was still present through the sole of the shoe penetrating into the fifth metatarsal area. The patient now presents with the extensive swelling and infection to the dorsum of the foot and will have incision and drainage from orthopedics soon. We'll continue antibiotic therapy with Zosyn and vancomycin until we have further data. It is unclear if he'll require any surgical amputation the near future regarding the extensive nature of this infection. Goals establishes much of the foot as possible. Tetanus is updated and local wound care as a nonstick dressing until surgical intervention has occurred. Cultures were further help direct antibiotic therapy and he could require outpatient antibiotic therapy depending on the findings at surgery , the patient is to go to the operating room today for debridement and potential amputation of toes Surgical cultures will direct antibiotic therapy. 11/19/2017 the patient is status post surgery and does seem to be more comfortable. May need further debridement. Cultures are in process and fortunately no significant resistant gram negatives are being seen so far. We' ll continue Zosyn and vancomycin for now and likely will be discharged on vancomycin therapy and has had further improvement. With surgical plans have completed with a be able to further address wound care also for the outpatient setting. Once the patient is more stable will need IV access for long-term antibiotic therapy. 11/20/2017 patient is more comfortable today has ongoing discomfort to his buttocks area. The observer goes to the store room and does find a air cushion it is placed beneath him which gives him significant relief of his discomforts. Current antibiotic therapy continues with current Zosyn and Vanco until cultures are finalized, however preliminarily the staff is not MRSA. 11/21/2017 patient is status post surgical debridement of the foot. Surgery will be following the morning to determine response to this intervention and potential need for amputation of some toes. The blood culture appears to be contamination in counseling vancomycin can be discontinued. The enterococcus and staph aureus are susceptible to several agents we can continue Zosyn for now until further data is surgical plans have been made. 11/22/2017 patient is content this morning after seen by the surgeon with no plans for amputation at this time. We'll continue antibiotic therapy and working to see what our options will be with antibiotic at discharge 11/23/2017 there is further improvement we'll ask for a PICC line for outpatient intravenous antibiotic therapy for this complex infection to his foot. We'll work with the discharge planners as far as his options. Needs enhance glucose control. Current Visit: Yes Status: Acute Code(s): L03.116 - CELLULITIS OF LEFT LOWER LIMB SNOMED Code(s): 691561597 (2) Uncontrolled diabetes mellitus Current Visit: Yes Status: Acute Code(s): E11.65 - TYPE 2 DIABETES MELLITUS WITH HYPERGLYCEMIA SNOMED Code(s): 205560456 (3) Sepsis Current Visit: Yes Status: Acute Code(s): A41.9 - SEPSIS, UNSPECIFIED ORGANISM SNOMED Code(s): 81081971
[2017-11-23 17:19] LABS: Glucose,Whole Blood 164 mg/dL (75-99)
[2017-11-23 20:48] LABS: Glucose,Whole Blood 181 mg/dL (75-99)
[2017-11-23] MEDS: ATORVASTATIN 20 MG TAB PO SCH (21:01)
[2017-11-23] MEDS: FAMOTIDINE 20 MG TAB PO SCH (21:02)
[2017-11-23] MEDS: MIRTAZAPINE 15 MG TAB PO SCH (21:03)
[2017-11-23] MEDS: HYDROcodone/APAP 10-325MG 1 EACH TAB PO PRN (23:39)
[2017-11-24 06:51] LABS: Glucose,Whole Blood 212 mg/dL (75-99)
[2017-11-24] MEDS: PHENTERMINE HCL 37.5 MG PO SCH (07:59)
[2017-11-24] MEDS: GABAPENTIN 300 MG CAP PO SCH ×2 (08:01→16:04)
[2017-11-24] MEDS: REPAGLINIDE 1 MG TAB PO SCH ×3 (08:01→18:08)
[2017-11-24] MEDS: LISINOPRIL 5 MG TAB PO SCH (08:01)
[2017-11-24] MEDS: FAMOTIDINE 20 MG TAB PO SCH ×2 (08:01→20:25)
[2017-11-24] MEDS: metFORMIN 500 MG TAB PO SCH ×2 (08:02→18:08)
[2017-11-24] MEDS: GLIMEPIRIDE 2 MG TAB PO SCH (08:02)
[2017-11-24] MEDS: INSULIN ASPART 100 UNIT/ML 1 ML 10 ML VIAL SQ SCH ×4 (08:02→20:26)
[2017-11-24] MEDS: PIPERACILLIN-TAZOBACTAM 3.375 GM in DEXTROSE/WATER 1 50ML.BAG IVPB SCH ×2 (08:03→16:04)
[2017-11-24 08:30] LABS: ALT 39 U/L (21-72); AST 20 U/L (17-59); Albumin 2.6 g/dL (3.5-5.0); Alkaline Phosphatase 143 U/L (38-126); Anion Gap 4 mmol/L; Bilirubin, Delta 0.1 mg/dL (0.0-0.2); Bilirubin,Unconjugated 0.3 mg/dL (0.0-1.1); Blood Urea Nitrogen 15 mg/dL (9-20); Calcium 8.5 mg/dL (8.4-10.2); Carbon Dioxide 30 mmol/L (22-30); Chloride 105 mmol/L (98-107); Glucose 205 mg/dL (74-99); Potassium 4.6 mmol/L (3.5-5.1); Sodium 139 mmol/L (137-145); Total Bilirubin 0.4 mg/dL (0.2-1.3); Total Protein 5.4 g/dL (6.3-8.2)
[2017-11-24 09:13] LABS: Basophils % (A) 1 %; Eosinophils # (A) 0.1 k/uL (0-0.7); Eosinophils % (A) 3 %; HCT 36.9 % (39.0-53.0); HGB 12.4 gm/dL (13.0-17.5); Lymphocytes % (A) 22 %; MCH 30.9 pg (25.0-35.0); MCHC 33.6 g/dL (31.0-37.0); MCV 91.9 fL (80.0-100.0); Mean Platelet Volume 6.9; Monocytes # (A) 0.4 k/uL (0-1.0); Monocytes % (A) 9 %; Neutrophils # (A) 2.9 k/uL (1.3-7.7); Neutrophils % (A) 64 %; Platelet Count 287 k/uL (150-450); Poikilocytosis Slight; RBC 4.02 m/uL (4.30-5.90); WBC 4.5 k/uL (3.8-10.6)
[2017-11-24] MEDS ORDERED: LIDOCAINE 2% SYG (PF) 100 MG/5 ML MISCELLANE ONE (09:32)
--- NOTE | 2017-11-24 10:12 | IR ---
PICC LINE PLACEMENT: HISTORY: Infection requiring long-term antibiotic therapy PROCEDURE: Ultrasound and fluoroscopic guidance of PICC line placement. COMPLICATIONS: None ANESTHESIA: 1. 1% Lidocaine locally. FINDINGS/TECHNIQUE: The procedure was explained to the patient. The risks, complications, benefits and alternatives were discussed and any questions were answered. Informed consent was obtained. The patient was placed supine on the fluoroscopic table and prepped and draped in the usual sterile formerly [facility] ion. Utilizing a 21 gauge needle and sonographic and fluoroscopic guidance, access in the vein was achieved and there is placement of a 0.018 guidewire. The vein is patent. A 4-F sheath was placed o kayley the guidewire. The guidewire and dilator were removed and a 4-F. PICC line was placed through th e sheath with the tip at the level of the SVC. The sheath was removed, the catheter was flushed and sutured into position. The patient was stable throughout the procedure and remained stable upon disc harge from the Department of Radiology. The vein puncture was patent under ultrasound. A nj scale image was obtained to document patency of the vein punctured. All elements of the maximal barrier technique were utilized. FLUOROSCOPY TIME: 0.1 minute, one image submitted IMPRESSION: Successful PICC line placement under ultrasound and fluoroscopic guidance.
[2017-11-24 11:00] LABS: Glucose,Whole Blood 259 mg/dL (75-99)
[2017-11-24] MEDS: SODIUM CHLORIDE 0.9% 1,000 ML IV SCH ×2 (12:30→18:08)
[2017-11-24] MEDS: ASPIRIN 81 MG PO SCH (12:31)
[2017-11-24] MEDS: MULTIVITAMINS, THERA 1 EACH TAB PO SCH (12:31)
[2017-11-24] MEDS: ENOXAPARIN 40 MG/0.4 ML SYRINGE SQ SCH (12:31)
--- NOTE | 2017-11-24 14:06 | PN ---
PROGRESS NOTE This gentleman had a wound dehiscence post surgical surgery for infected wound. I did the debridement. We have been treating with local wound care with Aquacel silver. Today we examined the wound. No discharge noted. No redness noted. PLAN: Patient going home. The patient had a PICC line for long-term antibiotic. We will follow in my wound clinic next week. Continue with Aquacel Silver and local wound care. MMODL / IJN: [id number] /
[2017-11-24 17:10] LABS: Glucose,Whole Blood 202 mg/dL (75-99)
--- NOTE | 2017-11-24 19:33 | P.PN ---
Subjective [place]: This is a 57-year-old male with pmh of nonhealing ulcer to the left lower extremity., DM , HLP , HTN, , He was discharged in February 2015 and was under the care of Dr. Santana at that time. Patient states that he has most recently at the wound Center at [facility] under the care of Dr. Leyva. Patient is requesting care with Dr. Das. Last week he stepped on a drywall screw while working and later saw his primary care doctor on Friday and he was told he had cellulitis. He had IM antibiotics given and started on Bactrim. Patient denies having any fever or chills although he had a temperature 102.2. He does complain of nausea. He also complains of pain in the left foot with increased redness, swelling and drainage. Patient also has a wound to the mid pretibial which is the ulcer he is currently under care at [facility]. There is also a small wound on the left heel, posterior tibial area and distal tip of the right great toe. He is not sure if he had a tetanus updated at Dr. Garrido's office. Patient presented with temperature 102.2, elevated heart rate, pulse ox 94% on room air, leukocytosis of 13.5. Blood sugar was 353 and patient states that blood sugars have been running high at home. Creatinine 0.9. AST 120, ALT 102 and alkaline phosphatase 278. Lactic acid was 1.8 and albumin 3.3. He does have blood culture obtained that is showing gram-positive cocci. X-ray of the left foot shows soft tissue swelling and dorsal medial soft tissue wound. Soft tissue air suggesting gas-forming organism. No associated osseous abnormality. Patient was given 1 dose of Zosyn and started on vancomycin and admitted to the [facility] floor. There is a consult in place with orthopedics. Patient did have laser surgery with Dr. Brian in May for his left lower leg. the patient will go to operating room today for debridement and potential amputation subjective : 11/22/2017 pt was lying in bed not in distress, pt was telling me he got tetanus shot at his pcp office, ID are following the pt on antibiotic , he is s/p wound debridement on , pt refused me examined his leg wound. 11/23/2017 Patient was lying in bed not in distress. He had a fever of 100.9 on 11/22 and 100.3 on 11/24. Patient is still on broad-spectrum antibiotics as per ID recommendation. Sugar is running high, increase glimepiride from 2, to 3 mg daily Wound culture is growing staph aureus, enterococcus. With gram-negative bacilli in the unaerobic culture wound is examined: s/p amputation in the forefote between the first and second twos, wound is open with no surrounding cellulitis , and no abnormal discharge pt has picc line today discussed the case with Dr. Brian today, he is cleared for discharge from his perspective and to f/u with him as outpt Objective - Vital Signs Vital signs: Vital Signs Temp 99.0 F 11/24/17 14:12 Pulse 94 11/24/17 14:12 Resp 18 11/24/17 14:12 BP 146/79 11/24/17 14:12 Pulse Ox 96 11/24/17 14:12 Intake & Output 11/24/17 11/24/17 11/25/17 06:59 18:59 06:59 Intake Total 1540 480 Balance 1540 480 Weight 128.367 kg Intake: Oral 1540 480 Other: Voiding Method Toilet # Voids 2 3 - Exam GENERAL: The patient is alert and oriented x3, not in any acute distress. Well developed, well nourished. HEENT: Pupils are round and equally reacting to light. EOMI. No scleral icterus. No conjunctival pallor. Normocephalic, atraumatic. No pharyngeal erythema. No thyromegaly. CARDIOVASCULAR: S1 and S2 present. No murmurs, rubs, or gallops. PULMONARY: Chest is clear to auscultation, no wheezing or crackles. ABDOMEN: Soft, nontender, nondistended, normoactive bowel sounds. No palpable organomegaly. MUSCULOSKELETAL: No joint swelling or deformity. EXTREMITIES: No cyanosis, clubbing, or pedal edema. -s/p amputation in the forefote between the first and second twos, wound is open with no surrounding cellulitis , and no abnormal discharge NEUROLOGICAL: Gross neurological examination did not reveal any focal deficits. SKIN: No rashes. - Labs CBC & Chem 7: 11/24/17 07:21 11/24/17 07:21 Labs: Abnormal Lab Results - Last 24 Hours (Table) 11/23/17 11/24/17 11/24/17 Range/Units 20:41 06:49 07:21 RBC 4.02 L (4.30-5.90) m/uL Hgb 12.4 L (13.0-17.5) gm/dL Hct 36.9 L (39.0-53.0) % Glucose (74-99) mg/dL POC Glucose (mg/dL) 181 H 212 H (75-99) mg/dL Alkaline Phosphatase (38-126) U/L Total Protein (6.3-8.2) g/dL Albumin (3.5-5.0) g/dL 11/24/17 11/24/17 11/24/17 Range/Units 07:21 10:56 17:08 RBC (4.30-5.90) m/uL Hgb (13.0-17.5) gm/dL Hct (39.0-53.0) % Glucose 205 H (74-99) mg/dL POC Glucose (mg/dL) 259 H 202 H (75-99) mg/dL Alkaline Phosphatase 143 H (38-126) U/L Total Protein 5.4 L (6.3-8.2) g/dL Albumin 2.6 L (3.5-5.0) g/dL Assessment and Plan Assessment: acute left foot abscess, secondary to trauma and stepping on a screw, on antibiotic and ID on the case Diabetes Mellitus , type 2 Hypertension Hyperlipidemia Plan: continue with the same treatment , continue with symptomatic treatment , resume home medication , monitor lytes and vitals including glucose , c/w iv fluids , infectious disease consult is appreciated . Patient status post debridement by the surgical team, no plans for application currently. Orthopedic consult is appreciated. c/w same antibioitc . GI and DVT prophylaxis , further recommendation based upon pt progress and clinical course DVT prophylaxis, Lovenox 40 mg daily GI prophylaxis: Pepcid Patient is less mobile currently Prognosis is guarded
[2017-11-24 19:53] LABS: Glucose,Whole Blood 222 mg/dL (75-99)
[2017-11-24] MEDS: MIRTAZAPINE 15 MG TAB PO SCH (20:25)
[2017-11-24] MEDS: ATORVASTATIN 20 MG TAB PO SCH (20:25)
[2017-11-24] MEDS: HYDROcodone/APAP 10-325MG 1 EACH TAB PO PRN (20:27)
--- NOTE | 2017-11-24 22:43 | P.PN ---
Subjective Progress Note Date: 11/24/17 This is a 57-year-old male who is known to ID service as [facility] to the left lower extremity. He was discharged in February 2015 and was under the care of Dr. Santana at that time. Patient states that he has most recently at the wound Center at [facility] under the care of Dr. Leyva. Patient is requesting care with Dr. Das. Last week he stepped on a drywall screw while working and later saw his primary care doctor on Friday and he was told he had cellulitis. He had IM antibiotics given and started on Bactrim. Patient denies having any fever or chills although he had a temperature 102.2. He does complain of nausea. He also complains of pain in the left foot with increased redness, swelling and drainage. Patient also has a wound to the mid pretibial which is the ulcer he is currently under care at [facility]. There is also a small wound on the left heel, posterior tibial area and distal tip of the right great toe. He is not sure if he had a tetanus updated at Dr. Garrido's office. Patient presented with temperature 102.2, elevated heart rate, pulse ox 94% on room air, leukocytosis of 13.5. Blood sugar was 353 and patient states that blood sugars have been running high at home. Creatinine 0.9. AST 120, ALT 102 and alkaline phosphatase 278. Lactic acid was 1.8 and albumin 3.3. He does have blood culture obtained that is showing gram-positive cocci. X-ray of the left foot shows soft tissue swelling and dorsal medial soft tissue wound. Soft tissue air suggesting gas-forming organism. No associated osseous abnormality. Patient was given 1 dose of Zosyn and started on vancomycin and admitted to the [facility] floor. There is a consult in place with orthopedics. Patient did have laser surgery with Dr. Brian in May for his left lower leg. the patient will go to operating room today for debridement and potential amputation 11/19/2017 the patient is now status post a surgical incision and drainage, at least one suture is coming loose and surgery is following with possible need for further debridement to the foot given a significant infectious process. The patient does have evidence of the positive bone scan with multifocal osteomyelitis. The patient's pain is under better control today. 11/20/2017 patient is feeling somewhat better today. Has been evaluated by orthopedics and await further vascular surgery evaluation for the need for further debridement or even amputation. The patient is tolerating antibiotic therapy well. Is complaining of significant discomfort to his buttocks and back. 11/21/2017 the patient has had further surgery debridement to the toes earlier today. Dressings are in place. There are some drainage on the dressing. With his neuropathy is not having much pain into the foot. In with a cushion his buttocks pain is markedly improved. He is denying fevers or chills. We discussed further surgical plans and he understands that evaluation by the surgeon the morning will help determine if further surgery or amputations might be needed. 11/22/2017 cases been discussed with the vascular surgeon. There are no plans for amputation at this time, we'll continue with local wound care with the silver product the surgeon is content with current level of improvement. 11/23/2017 the patient has been seen by the surgeons morning and photography is available the evidence of the improvement to the swelling to the foot and recovery of some of the tissue, surgeon has no plans for amputation. 11/24/2017 no other significant changes are noted. The foot is continuing to improve. The case is discussed with the vascular surgeon there are no plans for further debridement or amputation at this time. Objective - Vital Signs Vital signs: Vital Signs Temp 99.0 F 11/24/17 14:12 Pulse 94 11/24/17 14:12 Resp 18 11/24/17 14:12 BP 146/79 11/24/17 14:12 Pulse Ox 96 11/24/17 14:12 Intake & Output 11/24/17 11/24/17 11/25/17 06:59 18:59 06:59 Intake Total 1540 480 Balance 1540 480 Weight 128.367 kg Intake: Oral 1540 480 Other: Voiding Method Toilet # Voids 2 3 - Exam Gen: This is a 57-year-old male. He is sitting up in bed and appears to be comfortable. He appears to be in no acute distress. He is complaining of pain in the left leg. HEENT: Head is atraumatic, normocephalic. Pupils equal, round. Sclerae is anicteric. Patient is edentulous. Mucous members of the mouth are moist. NECK: Supple. No JVD. No lymphadenopathy. No thyromegaly. LUNGS: Clear to auscultation. No wheezes or rhonchi. No intercostal retractions. HEART: Regular rate and rhythm. No murmur. ABDOMEN: Obese. Soft. Bowel sounds are present. No masses. No tenderness. EXTREMITIES: The left lower extremity there is significant redness surrounding the ulcer in the mid pretibial area along with edema. There is ulcer actively draining with serous fluid to the dorsal surface over the fourth and fifth digits. wound on the plantar surface at the mid fifth metatarsal. There is a small wound on the anterior left calf much improved and left heel. The right foot ulceration status post surgery if improved but there is still some swelling drainage has improved and is noted the necrosis has been debrided away and there is now some granulation forming. Swelling to the foot is improved. NEUROLOGICAL: Patient is awake, alert and oriented x3. - Labs CBC & Chem 7: 11/24/17 07:21 11/24/17 07:21 Labs: Abnormal Lab Results - Last 24 Hours (Table) 11/24/17 11/24/17 11/24/17 Range/Units 06:49 07:21 07:21 RBC 4.02 L (4.30-5.90) m/uL Hgb 12.4 L (13.0-17.5) gm/dL Hct 36.9 L (39.0-53.0) % Glucose 205 H (74-99) mg/dL POC Glucose (mg/dL) 212 H (75-99) mg/dL Alkaline Phosphatase 143 H (38-126) U/L Total Protein 5.4 L (6.3-8.2) g/dL Albumin 2.6 L (3.5-5.0) g/dL 11/24/17 11/24/17 11/24/17 Range/Units 10:56 17:08 19:51 RBC (4.30-5.90) m/uL Hgb (13.0-17.5) gm/dL Hct (39.0-53.0) % Glucose (74-99) mg/dL POC Glucose (mg/dL) 259 H 202 H 222 H (75-99) mg/dL Alkaline Phosphatase (38-126) U/L Total Protein (6.3-8.2) g/dL Albumin (3.5-5.0) g/dL Laboratory Results WBC 4.5 k/uL (3.8-10.6) 11/24/17 07:21 RBC 4.02 m/uL (4.30-5.90) L 11/24/17 07:21 Hgb 12.4 gm/dL (13.0-17.5) L 11/24/17 07:21 Hct 36.9 % (39.0-53.0) L 11/24/17 07:21 MCV 91.9 fL (80.0-100.0) 11/24/17 07:21 MCH 30.9 pg (25.0-35.0) 11/24/17 07: MCHC 33.6 g/dL (31.0-37.0) 11/24/17 07: RDW 13.0 % (11.5-15.5) 11/24/17 07:21 Plt Count 287 k/uL (150-450) 11/24/17 07:21 Neutrophils % 64 % 11/24/17 07:21 Lymphocytes % 22 % 11/24/17 07:21 Monocytes % 9 % 11/24/17 07:21 Eosinophils % 3 % 11/24/17 07: Basophils % 1 % 11/24/17 07:21 Neutrophils # 2.9 k/uL (1.3-7.7) 11/24/17 07:21 Lymphocytes # 1.0 k/uL (1.0-4.8) 11/24/17 07:21 Monocytes # 0.4 k/uL (0-1.0) 11/24/17 07:21 Eosinophils # 0.1 k/uL (0-0.7) 11/24/17 07:21 Basophils # 0.0 k/uL (0-0.2) 11/24/17 07:21 Poikilocytosis Slight 11/24/17 07:21 PT 10.7 sec (9.0-12.0) 11/16/17 20:13 INR 1.1 (<1.2) 11/16/17 20:13 APTT 26.8 sec (22.0-30.0) 11/16/17 20:13 Sodium 139 mmol/L (137-145) 11/24/17 07:21 Potassium 4.6 mmol/L (3.5-5.1) 11/24/17 07:21 Chloride 105 mmol/L (98-107) 11/24/17 07:21 Carbon Dioxide 30 mmol/L (22-30) 11/24/17 07:21 Anion Gap 4 mmol/L 11/24/17 07:21 BUN 15 mg/dL (9-20) 11/24/17 07:21 Creatinine 0.91 mg/dL (0.66-1.25) 11/24/17 07:21 Est GFR (CKD-EPI)AfAm >90 (>60 ml/min/1.73 sqM) 11/24/17 07:21 Est GFR (CKD-EPI)NonAf >90 (>60 ml/min/1.73 sqM) 11/24/17 07:21 Glucose 205 mg/dL (74-99) H 11/24/17 07:21 POC Glucose (mg/dL) 222 mg/dL (75-99) H 11/24/17 19:51 POC Glu Content Analyst OLIVIA Daysi He 11/24/17 19:51 Plasma Lactic Acid Miky 1.8 mmol/L (0.7-2.0) 11/16/17 20:13 Calcium 8.5 mg/dL (8.4-10.2) 11/24/17 07:21 Total Bilirubin 0.4 mg/dL (0.2-1.3) 11/24/17 07:21 Conjugated Bilirubin 0.0 mg/dL (0.0-0.3) 11/24/17 07:21 Unconjugated Bilirubin 0.3 mg/dL (0.0-1.1) 11/24/17 07:21 Delta Bilirubin 0.1 mg/dL (0.0-0.2) 11/24/17 07:21 AST 20 U/L (17-59) 11/24/17 07:21 ALT 39 U/L (21-72) 11/24/17 07:21 Alkaline Phosphatase 143 U/L (38-126) H 11/24/17 07:21 Total Protein 5.4 g/dL (6.3-8.2) L 11/24/17 07:21 Albumin 2.6 g/dL (3.5-5.0) L 11/24/17 07:21 Vancomycin Trough 14.3 ug/mL 11/21/17 19:22 Hepatitis A IgM Ab Non-Reactive (Non-Reactive) 11/17/17 10:39 Hep Bs Antigen Non-Reactive (Non-Reactive) 11/17/17 10:39 Hep B Core IgM Ab Non-Reactive (Non-Reactive) 11/17/17 10:39 Hep C IgG Ab Non-Reactive (Non-Reactive) 11/17/17 10:39 Microbiology 11/17/17 10:39 Blood Blood Culture - Final No Growth after 144 hours 11/16/17 20:13 Blood Blood Culture Gram Stain - Final 11/16/17 20:13 Blood Blood Culture - Final 11/18/17 10:48 Foot - Left Anaerobic Culture - Final Anaerobic Gm Negative Bacilli 11/18/17 10:48 Foot - Left Gram Stain - Final 11/18/17 10:48 Foot - Left Wound Culture - Final Enterococcus faecalis Staphylococcus aureus 11/17/17 11:10 Foot - Left Gram Stain - Preliminary 11/17/17 11:10 Foot - Left Wound Culture - Final Staphylococcus aureus Enterococcus faecalis 11/16/17 20:13 Blood Blood Culture - Final Assessment and Plan (1) Cellulitis of left foot Narrative/Plan: the patient relates that he was at a job site and apparently stepped on a drywall screw. He was quite unaware this was occurring, but after he noticed some swelling and drainage from his foot he examined his shoe and the drywall screw was still present through the sole of the shoe penetrating into the fifth metatarsal area. The patient now presents with the extensive swelling and infection to the dorsum of the foot and will have incision and drainage from orthopedics soon. We'll continue antibiotic therapy with Zosyn and vancomycin until we have further data. It is unclear if he'll require any surgical amputation the near future regarding the extensive nature of this infection. Goals establishes much of the foot as possible. Tetanus is updated and local wound care as a nonstick dressing until surgical intervention has occurred. Cultures were further help direct antibiotic therapy and he could require outpatient antibiotic therapy depending on the findings at surgery , the patient is to go to the operating room today for debridement and potential amputation of toes Surgical cultures will direct antibiotic therapy. 11/19/2017 the patient is status post surgery and does seem to be more comfortable. May need further debridement. Cultures are in process and fortunately no significant resistant gram negatives are being seen so far. We' ll continue Zosyn and vancomycin for now and likely will be discharged on vancomycin therapy and has had further improvement. With surgical plans have completed with a be able to further address wound care also for the outpatient setting. Once the patient is more stable will need IV access for long-term antibiotic therapy. 11/20/2017 patient is more comfortable today has ongoing discomfort to his buttocks area. The observer goes to the store room and does find a air cushion it is placed beneath him which gives him significant relief of his discomforts. Current antibiotic therapy continues with current Zosyn and Vanco until cultures are finalized, however preliminarily the staff is not MRSA. 11/21/2017 patient is status post surgical debridement of the foot. Surgery will be following the morning to determine response to this intervention and potential need for amputation of some toes. The blood culture appears to be contamination in counseling vancomycin can be discontinued. The enterococcus and staph aureus are susceptible to several agents we can continue Zosyn for now until further data is surgical plans have been made. 11/22/2017 patient is content this morning after seen by the surgeon with no plans for amputation at this time. We'll continue antibiotic therapy and working to see what our options will be with antibiotic at discharge 11/23/2017 there is further improvement we'll ask for a PICC line for outpatient intravenous antibiotic therapy for this complex infection to his foot. We'll work with the discharge planners as far as his options. Needs enhance glucose control. 11/24/2017 there is been some further improvement. The cultures are available and currently working on a transition plan to the outpatient setting. With the MSSA, anaerobic gram-negative bacilli and enterococcus ertapenem should be an adequate choice and will be arranged for the outpatient setting. Current Visit: Yes Status: Acute Code(s): L03.116 - CELLULITIS OF LEFT LOWER LIMB SNOMED Code(s): 420639718 (2) Uncontrolled diabetes mellitus Current Visit: Yes Status: Acute Code(s): E11.65 - TYPE 2 DIABETES MELLITUS WITH HYPERGLYCEMIA SNOMED Code(s): 784529521 (3) Sepsis Current Visit: Yes Status: Acute Code(s): A41.9 - SEPSIS, UNSPECIFIED ORGANISM SNOMED Code(s): 24124530
[2017-11-25] MEDS: PIPERACILLIN-TAZOBACTAM 3.375 GM in DEXTROSE/WATER 1 50ML.BAG IVPB SCH ×2 (00:28→07:52)
[2017-11-25] MEDS: GABAPENTIN 300 MG CAP PO SCH ×4 (00:28→21:07)
[2017-11-25 06:56] LABS: Glucose,Whole Blood 204 mg/dL (75-99)
[2017-11-25] MEDS: SODIUM CHLORIDE 0.9% 1,000 ML IV SCH ×2 (07:44→15:36)
[2017-11-25 07:45] LABS: Basophils # (A) 0.1 k/uL (0-0.2); Basophils % (A) 1 %; Eosinophils # (A) 0.2 k/uL (0-0.7); Eosinophils % (A) 3 %; HCT 38.9 % (39.0-53.0); HGB 12.6 gm/dL (13.0-17.5); Lymphocytes # (A) 1.2 k/uL (1.0-4.8); Lymphocytes % (A) 22 %; MCH 29.5 pg (25.0-35.0); MCHC 32.5 g/dL (31.0-37.0); MCV 90.8 fL (80.0-100.0); Mean Platelet Volume 7.5; Monocytes # (A) 0.4 k/uL (0-1.0); Monocytes % (A) 8 %; Neutrophils # (A) 3.5 k/uL (1.3-7.7); Neutrophils % (A) 64 %; Platelet Count 358 k/uL (150-450); Poikilocytosis Slight; RBC 4.29 m/uL (4.30-5.90); RDW 13.1 % (11.5-15.5); WBC 5.4 k/uL (3.8-10.6)
[2017-11-25] MEDS: PHENTERMINE HCL 37.5 MG PO SCH (07:48)
[2017-11-25] MEDS: GLIMEPIRIDE 2 MG TAB PO SCH (07:50)
[2017-11-25] MEDS: INSULIN ASPART 100 UNIT/ML 1 ML 10 ML VIAL SQ SCH ×4 (07:51→21:06)
[2017-11-25] MEDS: REPAGLINIDE 1 MG TAB PO SCH ×3 (07:51→17:07)
[2017-11-25] MEDS: ENOXAPARIN 40 MG/0.4 ML SYRINGE SQ SCH (07:52)
[2017-11-25] MEDS: ASPIRIN 81 MG PO SCH (07:52)
[2017-11-25] MEDS: LISINOPRIL 5 MG TAB PO SCH (07:53)
[2017-11-25] MEDS: FAMOTIDINE 20 MG TAB PO SCH ×2 (07:53→21:06)
[2017-11-25 07:56] LABS: ALT 36 U/L (21-72); AST 21 U/L (17-59); Alkaline Phosphatase 148 U/L (38-126); Anion Gap 6 mmol/L; Bilirubin, Delta 0.2 mg/dL (0.0-0.2); Bilirubin,Unconjugated 0.4 mg/dL (0.0-1.1); Blood Urea Nitrogen 17 mg/dL (9-20); Calcium 8.8 mg/dL (8.4-10.2); Carbon Dioxide 30 mmol/L (22-30); Chloride 103 mmol/L (98-107); Glucose 218 mg/dL (74-99); Potassium 4.5 mmol/L (3.5-5.1); Sodium 139 mmol/L (137-145); Total Bilirubin 0.6 mg/dL (0.2-1.3); Total Protein 6.1 g/dL (6.3-8.2)
[2017-11-25] MEDS: metFORMIN 500 MG TAB PO SCH ×2 (08:26→17:07)
[2017-11-25 11:53] LABS: Glucose,Whole Blood 230 mg/dL (75-99)
[2017-11-25] MEDS: MULTIVITAMINS, THERA 1 EACH TAB PO SCH (12:54)
--- NOTE | 2017-11-25 15:47 | P.PN ---
Subjective KENAITZE: This is a 57-year-old male with pmh of nonhealing ulcer to the left lower extremity., DM , HLP , HTN, , He was discharged in February 2015 and was under the care of Dr. Santana at that time. Patient states that he has most recently at the wound Center at [facility] under the care of Dr. Leyva. Patient is requesting care with Dr. Das. Last week he stepped on a drywall screw while working and later saw his primary care doctor on Friday and he was told he had cellulitis. He had IM antibiotics given and started on Bactrim. Patient denies having any fever or chills although he had a temperature 102.2. He does complain of nausea. He also complains of pain in the left foot with increased redness, swelling and drainage. Patient also has a wound to the mid pretibial which is the ulcer he is currently under care at [facility]. There is also a small wound on the left heel, posterior tibial area and distal tip of the right great toe. He is not sure if he had a tetanus updated at Dr. Garrido's office. Patient presented with temperature 102.2, elevated heart rate, pulse ox 94% on room air, leukocytosis of 13.5. Blood sugar was 353 and patient states that blood sugars have been running high at home. Creatinine 0.9. AST 120, ALT 102 and alkaline phosphatase 278. Lactic acid was 1.8 and albumin 3.3. He does have blood culture obtained that is showing gram-positive cocci. X-ray of the left foot shows soft tissue swelling and dorsal medial soft tissue wound. Soft tissue air suggesting gas-forming organism. No associated osseous abnormality. Patient was given 1 dose of Zosyn and started on vancomycin and admitted to the [facility] floor. There is a consult in place with orthopedics. Patient did have laser surgery with Dr. Brian in May for his left lower leg. the patient will go to operating room today for debridement and potential amputation subjective : 11/22/2017 pt was lying in bed not in distress, pt was telling me he got tetanus shot at his pcp office, ID are following the pt on antibiotic , he is s/p wound debridement on , pt refused me examined his leg wound. 11/23/2017 Patient was lying in bed not in distress. He had a fever of 100.9 on 11/22 and 100.3 on 11/24. Patient is still on broad-spectrum antibiotics as per ID recommendation. Sugar is running high, increase glimepiride from 2, to 3 mg daily Wound culture is growing staph aureus, enterococcus. With gram-negative bacilli in the unaerobic culture wound is examined: s/p amputation in the forefote between the first and second twos, wound is open with no surrounding cellulitis , and no abnormal discharge pt has picc line today discussed the case with Dr. Brian today, he is cleared for discharge from his perspective and to f/u with him as outpt 11/24/2017 pt is with no distress. no more fever in the last 24 hrs. last fever was on at 100.3. Patient did well with physical therapy. Patient was cleared by surgery and ID team for discharge. Patient is pending prior authorization for his IV antibiotics. Discussed with the liaison planner/case manager specialist: No authorization until tomorrow. Possible discharge tomorrow. Patient informed and he agrees Objective - Vital Signs Vital signs: Vital Signs Temp 97.1 F L 11/25/17 15:06 Pulse 94 11/25/17 15:06 Resp 15 11/25/17 15:06 BP 159/98 11/25/17 15:06 Pulse Ox 97 11/25/17 15:06 Intake & Output 11/24/17 11/25/17 11/25/17 18:59 06:59 18:59 Intake Total 480 1700 Balance 480 1700 Intake: IV 100 Piperacillin-Tazobactam 3 100 .375 gm In Dextrose/Water 1 50ml.bag @ 12.5 mls/hr IVPB Q8HR [facility] Rx#: [id number] Oral 480 1600 Other: Voiding Method Toilet Toilet # Voids 3 3 2 - Exam GENERAL: The patient is alert and oriented x3, not in any acute distress. Well developed, well nourished. HEENT: Pupils are round and equally reacting to light. EOMI. No scleral icterus. No conjunctival pallor. Normocephalic, atraumatic. No pharyngeal erythema. No thyromegaly. CARDIOVASCULAR: S1 and S2 present. No murmurs, rubs, or gallops. PULMONARY: Chest is clear to auscultation, no wheezing or crackles. ABDOMEN: Soft, nontender, nondistended, normoactive bowel sounds. No palpable organomegaly. MUSCULOSKELETAL: No joint swelling or deformity. EXTREMITIES: No cyanosis, clubbing, or pedal edema. -s/p amputation in the forefote between the first and second twos, wound is open with no surrounding cellulitis , and no abnormal discharge NEUROLOGICAL: Gross neurological examination did not reveal any focal deficits. SKIN: No rashes. - Labs CBC & Chem 7: 11/25/17 07:21 11/25/17 07:21 Labs: Abnormal Lab Results - Last 24 Hours (Table) 11/24/17 11/24/17 11/25/17 Range/Units 17:08 19:51 06:55 RBC (4.30-5.90) m/uL Hgb (13.0-17.5) gm/dL Hct (39.0-53.0) % Glucose (74-99) mg/dL POC Glucose (mg/dL) 202 H 222 H 204 H (75-99) mg/dL Alkaline Phosphatase (38-126) U/L Total Protein (6.3-8.2) g/dL Albumin (3.5-5.0) g/dL 11/25/17 11/25/17 11/25/17 Range/Units 07:21 07:21 11:51 RBC 4.29 L (4.30-5.90) m/uL Hgb 12.6 L (13.0-17.5) gm/dL Hct 38.9 L (39.0-53.0) % Glucose 218 H (74-99) mg/dL POC Glucose (mg/dL) 230 H (75-99) mg/dL Alkaline Phosphatase 148 H (38-126) U/L Total Protein 6.1 L (6.3-8.2) g/dL Albumin 3.0 L (3.5-5.0) g/dL Assessment and Plan Assessment: acute left foot abscess, secondary to trauma and stepping on a screw, on antibiotic and ID on the case Diabetes Mellitus , type 2 Hypertension Hyperlipidemia Plan: continue with the same treatment , continue with symptomatic treatment , resume home medication , monitor lytes and vitals including glucose , c/w iv fluids , infectious disease consult is appreciated . Patient status post debridement by the surgical team, no plans for application currently. Orthopedic consult is appreciated. c/w same antibioitc . GI and DVT prophylaxis , further recommendation based upon pt progress and clinical course DVT prophylaxis, Lovenox 40 mg daily GI prophylaxis: Pepcid Patient is less mobile currently Prognosis is guarded Discharge planning and progress
[2017-11-25 16:46] LABS: Glucose,Whole Blood 188 mg/dL (75-99)
[2017-11-25] MEDS: HYDROcodone/APAP 10-325MG 1 EACH TAB PO PRN (19:35)
[2017-11-25 20:29] LABS: Glucose,Whole Blood 252 mg/dL (75-99)
[2017-11-25] MEDS: ATORVASTATIN 20 MG TAB PO SCH (21:06)
[2017-11-25] MEDS: ERTAPENEM 1 GM in SODIUM CHLORIDE 0.9% 50 ML IVPB SCH (21:06)
[2017-11-25] MEDS: MIRTAZAPINE 15 MG TAB PO SCH (21:07)
--- NOTE | 2017-11-25 23:23 | P.PN ---
Subjective Progress Note Date: 11/25/17 This is a 57-year-old male who is known to ID service as [facility] to the left lower extremity. He was discharged in February 2015 and was under the care of Dr. Santana at that time. Patient states that he has most recently at the wound Center at [facility] under the care of Dr. Leyva. Patient is requesting care with Dr. Das. Last week he stepped on a drywall screw while working and later saw his primary care doctor on Friday and he was told he had cellulitis. He had IM antibiotics given and started on Bactrim. Patient denies having any fever or chills although he had a temperature 102.2. He does complain of nausea. He also complains of pain in the left foot with increased redness, swelling and drainage. Patient also has a wound to the mid pretibial which is the ulcer he is currently under care at [facility]. There is also a small wound on the left heel, posterior tibial area and distal tip of the right great toe. He is not sure if he had a tetanus updated at Dr. Garrido's office. Patient presented with temperature 102.2, elevated heart rate, pulse ox 94% on room air, leukocytosis of 13.5. Blood sugar was 353 and patient states that blood sugars have been running high at home. Creatinine 0.9. AST 120, ALT 102 and alkaline phosphatase 278. Lactic acid was 1.8 and albumin 3.3. He does have blood culture obtained that is showing gram-positive cocci. X-ray of the left foot shows soft tissue swelling and dorsal medial soft tissue wound. Soft tissue air suggesting gas-forming organism. No associated osseous abnormality. Patient was given 1 dose of Zosyn and started on vancomycin and admitted to the [facility] floor. There is a consult in place with orthopedics. Patient did have laser surgery with Dr. Brian in May for his left lower leg. the patient will go to operating room today for debridement and potential amputation 11/19/2017 the patient is now status post a surgical incision and drainage, at least one suture is coming loose and surgery is following with possible need for further debridement to the foot given a significant infectious process. The patient does have evidence of the positive bone scan with multifocal osteomyelitis. The patient's pain is under better control today. 11/20/2017 patient is feeling somewhat better today. Has been evaluated by orthopedics and await further vascular surgery evaluation for the need for further debridement or even amputation. The patient is tolerating antibiotic therapy well. Is complaining of significant discomfort to his buttocks and back. 11/21/2017 the patient has had further surgery debridement to the toes earlier today. Dressings are in place. There are some drainage on the dressing. With his neuropathy is not having much pain into the foot. In with a cushion his buttocks pain is markedly improved. He is denying fevers or chills. We discussed further surgical plans and he understands that evaluation by the surgeon the morning will help determine if further surgery or amputations might be needed. 11/22/2017 cases been discussed with the vascular surgeon. There are no plans for amputation at this time, we'll continue with local wound care with the silver product the surgeon is content with current level of improvement. 11/23/2017 the patient has been seen by the surgeons morning and photography is available the evidence of the improvement to the swelling to the foot and recovery of some of the tissue, surgeon has no plans for amputation. 11/24/2017 no other significant changes are noted. The foot is continuing to improve. The case is discussed with the vascular surgeon there are no plans for further debridement or amputation at this time. 11/25/2017 the patient has had further improvement. The ulceration is reviewed personally and repacked with the Aquac[employer] silver rope. There is marked improvement since last evaluation. Responding to antibiotic therapy. Plans for outpatient intravenous antibiotic in place. Objective - Vital Signs Vital signs: Vital Signs Temp 97.1 F L 11/25/17 15:06 Pulse 94 11/25/17 15:06 Resp 15 11/25/17 15:06 BP 159/98 11/25/17 15:06 Pulse Ox 97 11/25/17 15:06 Intake & Output 11/25/17 11/25/17 11/26/17 06:59 18:59 06:59 Intake Total 1700 Balance 1700 Intake: IV 100 Piperacillin-Tazobactam 3 100 .375 gm In Dextrose/Water 1 50ml.bag @ 12.5 mls/hr IVPB Q8HR [facility] Rx#: [id number] Oral 1600 Other: Voiding Method Toilet Toilet # Voids 3 2 - Exam Gen: This is a 57-year-old male. He is sitting up in bed and appears to be comfortable. He appears to be in no acute distress. He is complaining of pain in the left leg. HEENT: Head is atraumatic, normocephalic. Pupils equal, round. Sclerae is anicteric. Patient is edentulous. Mucous members of the mouth are moist. NECK: Supple. No JVD. No lymphadenopathy. No thyromegaly. LUNGS: Clear to auscultation. No wheezes or rhonchi. No intercostal retractions. HEART: Regular rate and rhythm. No murmur. ABDOMEN: Obese. Soft. Bowel sounds are present. No masses. No tenderness. EXTREMITIES: The left lower extremity there is significant redness surrounding the ulcer in the mid pretibial area along with edema. There is ulcer actively draining with serous fluid to the dorsal surface over the fourth and fifth digits. wound on the plantar surface at the mid fifth metatarsal. There is a small wound on the anterior left calf much improved and left heel. The right foot ulceration status post surgery if improved but there is still some swelling drainage has improved and is noted the necrosis has been debrided away and there is now some granulation forming. Swelling to the foot is improved. NEUROLOGICAL: Patient is awake, alert and oriented x3. - Labs CBC & Chem 7: 11/25/17 07:21 11/25/17 07:21 Labs: Abnormal Lab Results - Last 24 Hours (Table) 11/25/17 11/25/17 11/25/17 Range/Units 06:55 07:21 07:21 RBC 4.29 L (4.30-5.90) m/uL Hgb 12.6 L (13.0-17.5) gm/dL Hct 38.9 L (39.0-53.0) % Glucose 218 H (74-99) mg/dL POC Glucose (mg/dL) 204 H (75-99) mg/dL Alkaline Phosphatase 148 H (38-126) U/L Total Protein 6.1 L (6.3-8.2) g/dL Albumin 3.0 L (3.5-5.0) g/dL 11/25/17 11/25/17 11/25/17 Range/Units 11:51 16:44 20:26 RBC (4.30-5.90) m/uL Hgb (13.0-17.5) gm/dL Hct (39.0-53.0) % Glucose (74-99) mg/dL POC Glucose (mg/dL) 230 H 188 H 252 H (75-99) mg/dL Alkaline Phosphatase (38-126) U/L Total Protein (6.3-8.2) g/dL Albumin (3.5-5.0) g/dL Laboratory Results WBC 5.4 k/uL (3.8-10.6) 11/25/17 07:21 RBC 4.29 m/uL (4.30-5.90) L 11/25/17 07:21 Hgb 12.6 gm/dL (13.0-17.5) L 11/25/17 07:21 Hct 38.9 % (39.0-53.0) L 11/25/17 07:21 MCV 90.8 fL (80.0-100.0) 11/25/17 07:21 MCH 29.5 pg (25.0-35.0) 11/25/17 07:21 MCHC 32.5 g/dL (31.0-37.0) 11/25/17 07:21 RDW 13.1 % (11.5-15.5) 11/25/17 07:21 Plt Count 358 k/uL (150-450) 11/25/17 07:21 Neutrophils % 64 % 11/25/17 07:21 Lymphocytes % 22 % 11/25/17 07:21 Monocytes % 8 % 11/25/17 07:21 Eosinophils % 3 % 11/25/17 07:21 Basophils % 1 % 11/25/17 07:21 Neutrophils # 3.5 k/uL (1.3-7.7) 11/25/17 07:21 Lymphocytes # 1.2 k/uL (1.0-4.8) 11/25/17 07:21 Monocytes # 0.4 k/uL (0-1.0) 11/25/17 07:21 Eosinophils # 0.2 k/uL (0-0.7) 11/25/17 07:21 Basophils # 0.1 k/uL (0-0.2) 11/25/17 07:21 Poikilocytosis Slight 11/25/17 07:21 PT 10.7 sec (9.0-12.0) 11/16/17 20:13 INR 1.1 (<1.2) 11/16/17 20:13 APTT 26.8 sec (22.0-30.0) 11/16/17 20:13 Sodium 139 mmol/L (137-145) 11/25/17 07:21 Potassium 4.5 mmol/L (3.5-5.1) 11/25/17 07:21 Chloride 103 mmol/L (98-107) 11/25/17 07:21 Carbon Dioxide 30 mmol/L (22-30) 11/25/17 07:21 Anion Gap 6 mmol/L 11/25/17 07:21 BUN 17 mg/dL (9-20) 11/25/17 07:21 Creatinine 0.90 mg/dL (0.66-1.25) 11/25/17 07:21 Est GFR (CKD-EPI)AfAm >90 (>60 ml/min/1.73 sqM) 11/25/17 07:21 Est GFR (CKD-EPI)NonAf >90 (>60 ml/min/1.73 sqM) 11/25/17 07:21 Glucose 218 mg/dL (74-99) H 11/25/17 07:21 POC Glucose (mg/dL) 252 mg/dL (75-99) H 11/25/17 20:26 POC Glu Facilitator ID Peggy Morrow 11/25/17 20:26 Plasma Lactic Acid Miky 1.8 mmol/L (0.7-2.0) 11/16/17 20:13 Calcium 8.8 mg/dL (8.4-10.2) 11/25/17 07:21 Total Bilirubin 0.6 mg/dL (0.2-1.3) 11/25/17 07:21 Conjugated Bilirubin 0.0 mg/dL (0.0-0.3) 11/25/17 07:21 Unconjugated Bilirubin 0.4 mg/dL (0.0-1.1) 11/25/17 07:21 Delta Bilirubin 0.2 mg/dL (0.0-0.2) 11/25/17 07:21 AST 21 U/L (17-59) 11/25/17 07:21 ALT 36 U/L (21-72) 11/25/17 07:21 Alkaline Phosphatase 148 U/L (38-126) H 11/25/17 07:21 Total Protein 6.1 g/dL (6.3-8.2) L 11/25/17 07:21 Albumin 3.0 g/dL (3.5-5.0) L 11/25/17 07:21 Vancomycin Trough 14.3 ug/mL 11/21/17 19:22 Hepatitis A IgM Ab Non-Reactive (Non-Reactive) 11/17/17 10:39 Hep Bs Antigen Non-Reactive (Non-Reactive) 11/17/17 10:39 Hep B Core IgM Ab Non-Reactive (Non-Reactive) 11/17/17 10:39 Hep C IgG Ab Non-Reactive (Non-Reactive) 11/17/17 10:39 Microbiology 11/17/17 10:39 Blood Blood Culture - Final No Growth after 144 hours 11/16/17 20:13 Blood Blood Culture Gram Stain - Final 11/16/17 20:13 Blood Blood Culture - Final 11/18/17 10:48 Foot - Left Anaerobic Culture - Final Anaerobic Gm Negative Bacilli 11/18/17 10:48 Foot - Left Gram Stain - Final 11/18/17 10:48 Foot - Left Wound Culture - Final Enterococcus faecalis Staphylococcus aureus 11/17/17 11:10 Foot - Left Gram Stain - Preliminary 11/17/17 11:10 Foot - Left Wound Culture - Final Staphylococcus aureus Enterococcus faecalis 11/16/17 20:13 Blood Blood Culture - Final Assessment and Plan (1) Cellulitis of left foot Narrative/Plan: the patient relates that he was at a job site and apparently stepped on a drywall screw. He was quite unaware this was occurring, but after he noticed some swelling and drainage from his foot he examined his shoe and the drywall screw was still present through the sole of the shoe penetrating into the fifth metatarsal area. The patient now presents with the extensive swelling and infection to the dorsum of the foot and will have incision and drainage from orthopedics soon. We'll continue antibiotic therapy with Zosyn and vancomycin until we have further data. It is unclear if he'll require any surgical amputation the near future regarding the extensive nature of this infection. Goals establishes much of the foot as possible. Tetanus is updated and local wound care as a nonstick dressing until surgical intervention has occurred. Cultures were further help direct antibiotic therapy and he could require outpatient antibiotic therapy depending on the findings at surgery , the patient is to go to the operating room today for debridement and potential amputation of toes Surgical cultures will direct antibiotic therapy. 11/19/2017 the patient is status post surgery and does seem to be more comfortable. May need further debridement. Cultures are in process and fortunately no significant resistant gram negatives are being seen so far. We' ll continue Zosyn and vancomycin for now and likely will be discharged on vancomycin therapy and has had further improvement. With surgical plans have completed with a be able to further address wound care also for the outpatient setting. Once the patient is more stable will need IV access for long-term antibiotic therapy. 11/20/2017 patient is more comfortable today has ongoing discomfort to his buttocks area. The observer goes to the store room and does find a air cushion it is placed beneath him which gives him significant relief of his discomforts. Current antibiotic therapy continues with current Zosyn and Vanco until cultures are finalized, however preliminarily the staff is not MRSA. 11/21/2017 patient is status post surgical debridement of the foot. Surgery will be following the morning to determine response to this intervention and potential need for amputation of some toes. The blood culture appears to be contamination in counseling vancomycin can be discontinued. The enterococcus and staph aureus are susceptible to several agents we can continue Zosyn for now until further data is surgical plans have been made. 11/22/2017 patient is content this morning after seen by the surgeon with no plans for amputation at this time. We'll continue antibiotic therapy and working to see what our options will be with antibiotic at discharge 11/23/2017 there is further improvement we'll ask for a PICC line for outpatient intravenous antibiotic therapy for this complex infection to his foot. We'll work with the discharge planners as far as his options. Needs enhance glucose control. 11/24/2017 there is been some further improvement. The cultures are available and currently working on a transition plan to the outpatient setting. With the MSSA, anaerobic gram-negative bacilli and enterococcus ertapenem should be an adequate choice and will be arranged for the outpatient setting. 11/25/2017 patient has further improvement. No plans for further surgical intervention. Pain is under excellent control. No fevers or chills. Antibiotics with Invanz have been requested in the outpatient setting awaiting authorization and then is discharged to home. Current Visit: Yes Status: Acute Code(s): L03.116 - CELLULITIS OF LEFT LOWER LIMB SNOMED Code(s): 007198582 (2) Uncontrolled diabetes mellitus Current Visit: Yes Status: Acute Code(s): E11.65 - TYPE 2 DIABETES MELLITUS WITH HYPERGLYCEMIA SNOMED Code(s): 979542672 (3) Sepsis Current Visit: Yes Status: Acute Code(s): A41.9 - SEPSIS, UNSPECIFIED ORGANISM SNOMED Code(s): 13982397
[2017-11-26 07:04] LABS: Glucose,Whole Blood 201 mg/dL (75-99)
[2017-11-26] MEDS: SODIUM CHLORIDE 0.9% 1,000 ML IV SCH ×3 (07:34→21:50)
[2017-11-26] MEDS: PHENTERMINE HCL 37.5 MG PO SCH (07:34)
[2017-11-26] MEDS: INSULIN ASPART 100 UNIT/ML 1 ML 10 ML VIAL SQ SCH ×4 (07:35→21:49)
[2017-11-26] MEDS: metFORMIN 500 MG TAB PO SCH ×2 (07:35→17:23)
[2017-11-26] MEDS: GLIMEPIRIDE 2 MG TAB PO SCH (07:36)
[2017-11-26] MEDS: GABAPENTIN 300 MG CAP PO SCH ×3 (07:36→21:50)
[2017-11-26] MEDS: REPAGLINIDE 1 MG TAB PO SCH ×3 (07:36→17:23)
[2017-11-26] MEDS: FAMOTIDINE 20 MG TAB PO SCH ×2 (07:36→21:49)
[2017-11-26] MEDS: LISINOPRIL 5 MG TAB PO SCH (07:36)
[2017-11-26] MEDS: ASPIRIN 81 MG PO SCH (07:37)
[2017-11-26] MEDS: ENOXAPARIN 40 MG/0.4 ML SYRINGE SQ SCH (07:37)
[2017-11-26 11:51] LABS: Glucose,Whole Blood 193 mg/dL (75-99)
[2017-11-26] MEDS: MULTIVITAMINS, THERA 1 EACH TAB PO SCH (12:48)
[2017-11-26 16:52] LABS: Glucose,Whole Blood 220 mg/dL (75-99)
[2017-11-26] MEDS: HYDROcodone/APAP 10-325MG 1 EACH TAB PO PRN ×2 (19:17→23:29)
--- NOTE | 2017-11-26 19:40 | P.PN ---
Subjective TETLIN: This is a 57-year-old male with pmh of nonhealing ulcer to the left lower extremity., DM , HLP , HTN, , He was discharged in February 2015 and was under the care of Dr. Santana at that time. Patient states that he has most recently at the wound Center at [facility] under the care of Dr. Leyva. Patient is requesting care with Dr. Das. Last week he stepped on a drywall screw while working and later saw his primary care doctor on Friday and he was told he had cellulitis. He had IM antibiotics given and started on Bactrim. Patient denies having any fever or chills although he had a temperature 102.2. He does complain of nausea. He also complains of pain in the left foot with increased redness, swelling and drainage. Patient also has a wound to the mid pretibial which is the ulcer he is currently under care at [facility]. There is also a small wound on the left heel, posterior tibial area and distal tip of the right great toe. He is not sure if he had a tetanus updated at Dr. Garrido's office. Patient presented with temperature 102.2, elevated heart rate, pulse ox 94% on room air, leukocytosis of 13.5. Blood sugar was 353 and patient states that blood sugars have been running high at home. Creatinine 0.9. AST 120, ALT 102 and alkaline phosphatase 278. Lactic acid was 1.8 and albumin 3.3. He does have blood culture obtained that is showing gram-positive cocci. X-ray of the left foot shows soft tissue swelling and dorsal medial soft tissue wound. Soft tissue air suggesting gas-forming organism. No associated osseous abnormality. Patient was given 1 dose of Zosyn and started on vancomycin and admitted to the [facility] floor. There is a consult in place with orthopedics. Patient did have laser surgery with Dr. Brian in May for his left lower leg. the patient will go to operating room today for debridement and potential amputation subjective : 11/22/2017 pt was lying in bed not in distress, pt was telling me he got tetanus shot at his pcp office, ID are following the pt on antibiotic , he is s/p wound debridement on , pt refused me examined his leg wound. 11/23/2017 Patient was lying in bed not in distress. He had a fever of 100.9 on 11/22 and 100.3 on 11/24. Patient is still on broad-spectrum antibiotics as per ID recommendation. Sugar is running high, increase glimepiride from 2, to 3 mg daily Wound culture is growing staph aureus, enterococcus. With gram-negative bacilli in the unaerobic culture wound is examined: s/p amputation in the forefote between the first and second twos, wound is open with no surrounding cellulitis , and no abnormal discharge pt has picc line today discussed the case with Dr. Brian today, he is cleared for discharge from his perspective and to f/u with him as outpt 11/24/2017 pt is with no distress. no more fever in the last 24 hrs. last fever was on at 100.3. Patient did well with physical therapy. Patient was cleared by surgery and ID team for discharge. Patient is pending prior authorization for his IV Discussed with the neighborhood planner/telephonic case manager: No authorization until tomorrow. Possible discharge tomorrow. Patient informed and he agrees 11/26/2017 pt is clinically stable for discharge from the medical stand point, pending authorization for his outpt antibiotic since yesterday Objective - Vital Signs Vital signs: Vital Signs Temp 97.7 F 11/26/17 15:16 Pulse 83 11/26/17 16:13 Resp 16 11/26/17 16:13 BP 136/80 11/26/17 15:16 Pulse Ox 95 11/26/17 15:16 Intake & Output 11/26/17 11/26/17 11/27/17 06:59 18:59 06:59 Intake Total 1300 1080 Balance 1300 1080 Weight 128.367 kg Intake: Intake, IV Titration 100 Amount Ertapenem 1 gm In Sodium 100 Chloride 0.9% 50 ml @ 100 mls/hr IVPB [facility] Rx#: [id number] Oral 1200 1080 Other: Voiding Method Toilet Toilet # Voids 2 - Exam GENERAL: The patient is alert and oriented x3, not in any acute distress. Well developed, well nourished. HEENT: Pupils are round and equally reacting to light. EOMI. No scleral icterus. No conjunctival pallor. Normocephalic, atraumatic. No pharyngeal erythema. No thyromegaly. CARDIOVASCULAR: S1 and S2 present. No murmurs, rubs, or gallops. PULMONARY: Chest is clear to auscultation, no wheezing or crackles. ABDOMEN: Soft, nontender, nondistended, normoactive bowel sounds. No palpable organomegaly. MUSCULOSKELETAL: No joint swelling or deformity. EXTREMITIES: No cyanosis, clubbing, or pedal edema. -s/p amputation in the forefote between the first and second twos, wound is open with no surrounding cellulitis , and no abnormal discharge NEUROLOGICAL: Gross neurological examination did not reveal any focal deficits. SKIN: No rashes. - Labs CBC & Chem 7: 11/25/17 07:21 11/25/17 07:21 Labs: Abnormal Lab Results - Last 24 Hours (Table) 11/25/17 11/26/17 11/26/17 Range/Units 20:26 07:03 11:50 POC Glucose (mg/dL) 252 H 201 H 193 H (75-99) mg/dL 11/26/17 Range/Units 16:48 POC Glucose (mg/dL) 220 H (75-99) mg/dL Assessment and Plan Assessment: acute left foot abscess, secondary to trauma and stepping on a screw, on antibiotic and ID on the case Diabetes Mellitus , type 2 Hypertension Hyperlipidemia Plan: continue with the same treatment , continue with symptomatic treatment , resume home medication , monitor lytes and vitals including glucose , c/w iv fluids , infectious disease consult is appreciated . Patient status post debridement by the surgical team, no plans for application currently. Orthopedic consult is appreciated. c/w same antibioitc . GI and DVT prophylaxis , further recommendation based upon pt progress and clinical course DVT prophylaxis, Lovenox 40 mg daily GI prophylaxis: Pepcid Patient is less mobile currently Prognosis is guarded Discharge planning and progress
[2017-11-26 20:10] LABS: Glucose,Whole Blood 183 mg/dL (75-99)
[2017-11-26] MEDS: ERTAPENEM 1 GM in SODIUM CHLORIDE 0.9% 50 ML IVPB SCH (21:49)
[2017-11-26] MEDS: ATORVASTATIN 20 MG TAB PO SCH (21:49)
[2017-11-26] MEDS: MIRTAZAPINE 15 MG TAB PO SCH (21:50)
[2017-11-27 06:53] LABS: Glucose,Whole Blood 168 mg/dL (75-99)
[2017-11-27] MEDS: INSULIN ASPART 100 UNIT/ML 1 ML 10 ML VIAL SQ SCH ×2 (07:25→12:05)
[2017-11-27] MEDS: LISINOPRIL 5 MG TAB PO SCH (07:31)
[2017-11-27] MEDS: REPAGLINIDE 1 MG TAB PO SCH ×3 (07:31→15:56)
[2017-11-27] MEDS: metFORMIN 500 MG TAB PO SCH ×2 (07:31→15:56)
[2017-11-27] MEDS: GLIMEPIRIDE 2 MG TAB PO SCH (07:32)
[2017-11-27] MEDS: FAMOTIDINE 20 MG TAB PO SCH (07:32)
[2017-11-27] MEDS: ASPIRIN 81 MG PO SCH (07:32)
[2017-11-27] MEDS: ENOXAPARIN 40 MG/0.4 ML SYRINGE SQ SCH (07:36)
[2017-11-27] MEDS: GABAPENTIN 300 MG CAP PO SCH ×2 (08:07→15:55)
[2017-11-27] MEDS: PHENTERMINE HCL 37.5 MG PO SCH (08:08)
[2017-11-27] MEDS: SODIUM CHLORIDE 0.9% 1,000 ML IV SCH (08:10)
[2017-11-27 10:59] LABS: Glucose,Whole Blood 225 mg/dL (75-99)
[2017-11-27] MEDS: MULTIVITAMINS, THERA 1 EACH TAB PO SCH (12:06)
[2017-11-27 15:00] VITALS: BP 134/80; PULSE 78; RESP 18; TEMP 98
[2017-11-27] MEDS: ERTAPENEM 1 GM in SODIUM CHLORIDE 0.9% 50 ML IVPB SCH (15:49)
--- NOTE | 2017-11-27 22:40 | P.DS ---
Providers Date of admission: 11/16/17 22:00 Attending physician: Gideon Mclean Consults: 11/16/17 21:37 Consult Physician Stat Consulting Provider: Tim Das Consult Reason/Comments: Diabetic foot wound, gangrenous foot Do you want consulting provider notified?: Yes 11/16/17 22:57 Consult Physician Routine Consulting Provider: Tera Bacon Consult Reason/Comments: left foot infection Do you want consulting provider notified?: Yes 11/20/17 13:39 Consult Physician Routine Consulting Provider: Roberto Brian Consult Reason/Comments: Re-do radical debridement of left foot vs. amputation Do you want consulting provider notified?: Yes Primary care physician: [facility] Course: This is a 57-year-old male with pmh of nonhealing ulcer to the left lower extremity., DM , HLP , HTN, , He was discharged in February 2015 and was under the care of Dr. Santana at that time. Patient states that he has most recently at the wound Center at [facility] under the care of Dr. Leyva. Patient is requesting care with Dr. Das. one week prior to admission he stepped on a drywall screw while working and later saw his primary care doctor on Friday and he was told he had cellulitis. He had IM antibiotics given and started on Bactrim. Patient denies having any fever or chills although he had a temperature 102.2. He does complain of nausea. He also complains of pain in the left foot with increased redness, swelling and drainage. Patient also has a wound to the mid pretibial which is the ulcer he is currently under care at [facility]. There is also a small wound on the left heel, posterior tibial area and distal tip of the right great toe. He does have blood culture obtained that is showing gram-positive cocci. X -ray of the left foot shows soft tissue swelling and dorsal medial soft tissue wound. Patient has been evaluated by the surgical team for local infection, he underwent surgical debridement. Also patient's seen infectious diseases specialist while in house, he was treated with antibiotics and local wound care. Patient showed interval improvement. He was cleared by surgery and infectious disease for discharge. Prescription for Invanz was provided for the patient and the wound center, the patient informed me today that the wound center called him and asked him to follow up with their office tomorrow which she agrees with for the revision of IV antibiotics. Patient already had a PICC line inserted in house. Patient was cleared by surgery and ID team for discharge, problems and management plan were discussed with the patient, patient was found stable and can be discharged home however he needs follow-up as an outpatient. Patient was discharged with home health care. GENERAL: The patient is alert and oriented x3, not in any acute distress. Well developed, well nourished. CARDIOVASCULAR: S1 and S2 present. No murmurs, rubs, or gallops. PULMONARY: Chest is clear to auscultation, no wheezing or crackles. ABDOMEN: Soft, nontender, nondistended, normoactive bowel sounds. No palpable organomegaly. EXTREMITIES: No cyanosis, clubbing, or pedal edema. -s/p wound debridement in the forefoot between the first and second toes, wound is open with no surrounding cellulitis , and no abnormal discharge NEUROLOGICAL: Gross neurological examination did not reveal any focal deficits. SKIN: No rashes. Time spent more than 35 minutes Patient Condition at Discharge: Fair Plan - Discharge Summary Discharge Rx Participant: No New Discharge Prescriptions: New Ertapenem [INVanz] 1 gm IM DAILY #42 vial Famotidine [Pepcid] 20 mg PO BID 15 Days #30 tab Glimepiride [Amaryl] 3 mg PO W/BRKFST #30 tab metFORMIN HCL [Glucophage] 1,000 mg PO BID-W/MEALS #60 tab Continue Gabapentin [Neurontin] 300 mg PO TID Simvastatin [Zocor] 40 mg PO PC-SUPPER Lisinopril 5 mg PO HS Ascorbic Acid [Vitamin C] 1,000 mg PO PC-LUNCH HYDROcodone/APAP 10-325MG [Alverda 10-325] 1 tab PO QID Cholecalciferol [Vitamin D3] 5,000 unit PO PC-LUNCH Phentermine HCl 37.5 mg PO DAILY Vitamin B Complex 1 cap PO PC-LUNCH Multivitamin [Men's Multi-Vitamin] 1 tab PO PC-LUNCH Repaglinide [Prandin] 1 mg PO AC-TID Aspirin [Adult Low Dose Aspirin EC] 81 mg PO HS Mirtazapine 45 mg PO HS metFORMIN HCL 1,000 mg PO AC-BID Canagliflozin [Invokana] 300 mg PO DAILY Discharge Medication List Gabapentin [Neurontin] 300 mg PO TID 03/13/14 [History] Lisinopril 5 mg PO HS 03/13/14 [History] Simvastatin [Zocor] 40 mg PO PC-SUPPER 03/13/14 [History] Ascorbic Acid [Vitamin C] 1,000 mg PO PC-LUNCH 02/03/15 [History] Cholecalciferol [Vitamin D3] 5,000 unit PO PC-LUNCH 02/03/15 [History] HYDROcodone/APAP 10-325MG [Alverda 10-325] 1 tab PO QID 02/03/15 [History] Multivitamin [Men's Multi-Vitamin] 1 tab PO PC-LUNCH 02/03/15 [History] Phentermine HCl 37.5 mg PO DAILY 02/03/15 [History] Vitamin B Complex 1 cap PO PC-LUNCH 02/03/15 [History] Aspirin [Adult Low Dose Aspirin EC] 81 mg PO HS 11/27/16 [History] Repaglinide [Prandin] 1 mg PO AC-TID 11/27/16 [History] Canagliflozin [Invokana] 300 mg PO DAILY 11/17/17 [History] Mirtazapine 45 mg PO HS 11/17/17 [History] metFORMIN HCL 1,000 mg PO AC-BID 11/17/17 [History] Ertapenem [INVanz] 1 gm IM DAILY #42 vial 11/24/17 [Rx] Famotidine [Pepcid] 20 mg PO BID 15 Days #30 tab 11/27/17 [Rx] Glimepiride [Amaryl] 3 mg PO W/BRKFST #30 tab 11/27/17 [Rx] metFORMIN HCL [Glucophage] 1,000 mg PO BID-W/MEALS #60 tab 11/27/17 [Rx] Follow up Appointment(s)/Referral(s): David Chino MD [REFERRING] - 12/11/17 9:00 am (please bring drivers license and ins card for first visit) Tim Das MD [STAFF PHYSICIAN] - 12/02/17 12:45 pm (patient will see in the wound center) [facility], [NON-STAFF] - 1 Week Tre Garrido MD [Primary Care Provider] - 12/04/17 3:00 pm Roberto Brian MD [STAFF PHYSICIAN] - 12/04/17 9:30 am Tera Bacon MD [STAFF PHYSICIAN] - 1 Week (follow up if needed) Ambulatory/Diagnostic Orders: Basic Metabolic Panel [LAB.AMB] Location: None Selected Complete Blood Count w/diff [LAB.AMB] Location: None Selected C Reactive Protein [LAB.AMB] Location: None Selected Erythrocyte Sedimentation Rate [LAB.AMB] Location: None Selected Patient Instructions/Handouts: Ertapenem (By injection), Cellulitis (DC), Foot Care for People with Diabetes (DC), Sepsis (GEN), Diabetic Foot Ulcers (DC) Activity/Diet/Wound Care/Special Instructions: Healthy Living for diabetic supplies - your supplies were shipped out on Friday in the mail - you should be getting them Friday or . [facility] infusion office phone number - you can show up at dr das office anytime between 8:30-4pm tomorrow. diet: diabetic diet , 1800 Kcal per day -activity is limited till you see your doctor Discharge Disposition: HOME WITH HOME HEALTH SERVICES
--- NOTE | 2017-11-28 13:46 | P.PN ---
Subjective Progress Note Date: 11/27/17 This is a 57-year-old male who is known to ID service as he has been previously seen at [facility] for nonhealing ulcer to the left lower extremity. He was discharged in February 2015 and was under the care of Dr. Santana at that time. Patient states that he has most recently at the wound Center at [facility] under the care of Dr. Leyva. Patient is requesting care with Dr. Das. Last week he stepped on a drywall screw while working and later saw his primary care doctor on Friday and he was told he had cellulitis. He had IM antibiotics given and started on Bactrim. Patient denies having any fever or chills although he had a temperature 102.2. He does complain of nausea. He also complains of pain in the left foot with increased redness, swelling and drainage. Patient also has a wound to the mid pretibial which is the ulcer he is currently under care at [facility]. There is also a small wound on the left heel, posterior tibial area and distal tip of the right great toe. He is not sure if he had a tetanus updated at Dr. Garrido's office. Patient presented with temperature 102.2, elevated heart rate, pulse ox 94% on room air, leukocytosis of 13.5. Blood sugar was 353 and patient states that blood sugars have been running high at home. Creatinine 0.9. AST 120, ALT 102 and alkaline phosphatase 278. Lactic acid was 1.8 and albumin 3.3. He does have blood culture obtained that is showing gram-positive cocci. X-ray of the left foot shows soft tissue swelling and dorsal medial soft tissue wound. Soft tissue air suggesting gas-forming organism. No associated osseous abnormality. Patient was given 1 dose of Zosyn and started on vancomycin and admitted to the [facility] floor. There is a consult in place with orthopedics. Patient did have laser surgery with Dr. Brian in May for his left lower leg. the patient will go to operating room today for debridement and potential amputation 11/19/2017 the patient is now status post a surgical incision and drainage, at least one suture is coming loose and surgery is following with possible need for further debridement to the foot given a significant infectious process. The patient does have evidence of the positive bone scan with multifocal osteomyelitis. The patient's pain is under better control today. 11/20/2017 patient is feeling somewhat better today. Has been evaluated by orthopedics and await further vascular surgery evaluation for the need for further debridement or even amputation. The patient is tolerating antibiotic therapy well. Is complaining of significant discomfort to his buttocks and back. 11/21/2017 the patient has had further surgery debridement to the toes earlier today. Dressings are in place. There are some drainage on the dressing. With his neuropathy is not having much pain into the foot. In with a cushion his buttocks pain is markedly improved. He is denying fevers or chills. We discussed further surgical plans and he understands that evaluation by the surgeon the morning will help determine if further surgery or amputations might be needed. 11/22/2017 cases been discussed with the vascular surgeon. There are no plans for amputation at this time, we'll continue with local wound care with the silver product the surgeon is content with current level of improvement. 11/23/2017 the patient has been seen by the surgeons morning and photography is available the evidence of the improvement to the swelling to the foot and recovery of some of the tissue, surgeon has no plans for amputation. 11/24/2017 no other significant changes are noted. The foot is continuing to improve. The case is discussed with the vascular surgeon there are no plans for further debridement or amputation at this time. 11/25/2017 the patient has had further improvement. The ulceration is reviewed personally and repacked with the Aquacel silver rope. There is marked improvement since last evaluation. Responding to antibiotic therapy. Plans for outpatient intravenous antibiotic in place. November 27, 2017 patient is feeling considerably better looks forward to discharge home. Objective - Vital Signs Vital signs: Vital Signs Temp 98.0 F 11/27/17 14:51 Pulse 78 11/27/17 14:51 Resp 18 11/27/17 14:51 BP 134/80 11/27/17 14:51 Pulse Ox 96 11/27/17 14:51 Intake & Output 11/27/17 11/28/17 11/28/17 18:59 06:59 18:59 Weight 128.367 kg Other: # Voids 3 - Exam Gen: This is a 57-year-old male. He is sitting up in bed and appears to be comfortable. He appears to be in no acute distress. He is complaining of pain in the left leg. HEENT: Head is atraumatic, normocephalic. Pupils equal, round. Sclerae is anicteric. Patient is edentulous. Mucous members of the mouth are moist. NECK: Supple. No JVD. No lymphadenopathy. No thyromegaly. LUNGS: Clear to auscultation. No wheezes or rhonchi. No intercostal retractions. HEART: Regular rate and rhythm. No murmur. ABDOMEN: Obese. Soft. Bowel sounds are present. No masses. No tenderness. EXTREMITIES: The left lower extremity there is significant redness surrounding the ulcer in the mid pretibial area along with edema. There is ulcer actively draining with serous fluid to the dorsal surface over the fourth and fifth digits. wound on the plantar surface at the mid fifth metatarsal. There is a small wound on the anterior left calf much improved and left heel. The right foot ulceration status post surgery if improved but there is still some swelling drainage has improved and is noted the necrosis has been debrided away and there is now some granulation forming. Swelling to the foot is improved. NEUROLOGICAL: Patient is awake, alert and oriented x3. - Labs CBC & Chem 7: 11/25/17 07:21 11/25/17 07:21 Labs: Laboratory Results WBC 5.4 k/uL (3.8-10.6) 11/25/17 07:21 RBC 4.29 m/uL (4.30-5.90) L 11/25/17 07:21 Hgb 12.6 gm/dL (13.0-17.5) L 11/25/17 07:21 Hct 38.9 % (39.0-53.0) L 11/25/17 07:21 MCV 90.8 fL (80.0-100.0) 11/25/17 07:21 MCH 29.5 pg (25.0-35.0) 11/25/17 07:21 MCHC 32.5 g/dL (31.0-37.0) 11/25/17 07:21 RDW 13.1 % (11.5-15.5) 11/25/17 07:21 Plt Count 358 k/uL (150-450) 11/25/17 07:21 Neutrophils % 64 % 11/25/17 07:21 Lymphocytes % 22 % 11/25/17 07:21 Monocytes % 8 % 11/25/17 07:21 Eosinophils % 3 % 11/25/17 07:21 Basophils % 1 % 11/25/17 07:21 Neutrophils # 3.5 k/uL (1.3-7.7) 11/25/17 07:21 Lymphocytes # 1.2 k/uL (1.0-4.8) 11/25/17 07:21 Monocytes # 0.4 k/uL (0-1.0) 11/25/17 07:21 Eosinophils # 0.2 k/uL (0-0.7) 11/25/17 07:21 Basophils # 0.1 k/uL (0-0.2) 11/25/17 07:21 Poikilocytosis Slight 11/25/17 07:21 PT 10.7 sec (9.0-12.0) 11/16/17 20:13 INR 1.1 (<1.2) 11/16/17 20:13 APTT 26.8 sec (22.0-30.0) 11/16/17 20:13 Sodium 139 mmol/L (137-145) 11/25/17 07:21 Potassium 4.5 mmol/L (3.5-5.1) 11/25/17 07:21 Chloride 103 mmol/L (98-107) 11/25/17 07:21 Carbon Dioxide 30 mmol/L (22-30) 11/25/17 07:21 Anion Gap 6 mmol/L 11/25/17 07:21 BUN 17 mg/dL (9-20) 11/25/17 07:21 Creatinine 0.90 mg/dL (0.66-1.25) 11/25/17 07:21 Est GFR (CKD-EPI)AfAm >90 (>60 ml/min/1.73 sqM) 11/25/17 07:21 Est GFR (CKD-EPI)NonAf >90 (>60 ml/min/1.73 sqM) 11/25/17 07:21 Glucose 218 mg/dL (74-99) H 11/25/17 07:21 POC Glucose (mg/dL) 225 mg/dL (75-99) H 11/27/17 10:58 POC Glu [place] Clerk Kaela Lindquist 11/27/17 10:58 Plasma Lactic Acid Miky 1.8 mmol/L (0.7-2.0) 11/16/17 20:13 Calcium 8.8 mg/dL (8.4-10.2) 11/25/17 07:21 Total Bilirubin 0.6 mg/dL (0.2-1.3) 11/25/17 07:21 Conjugated Bilirubin 0.0 mg/dL (0.0-0.3) 11/25/17 07:21 Unconjugated Bilirubin 0.4 mg/dL (0.0-1.1) 11/25/17 07:21 Delta Bilirubin 0.2 mg/dL (0.0-0.2) 11/25/17 07:21 AST 21 U/L (17-59) 11/25/17 07:21 ALT 36 U/L (21-72) 11/25/17 07:21 Alkaline Phosphatase 148 U/L (38-126) H 11/25/17 07:21 Total Protein 6.1 g/dL (6.3-8.2) L 11/25/17 07:21 Albumin 3.0 g/dL (3.5-5.0) L 11/25/17 07:21 Vancomycin Trough 14.3 ug/mL 11/21/17 19:22 Hepatitis A IgM Ab Non-Reactive (Non-Reactive) 11/17/17 10:39 Hep Bs Antigen Non-Reactive (Non-Reactive) 11/17/17 10:39 Hep B Core IgM Ab Non-Reactive (Non-Reactive) 11/17/17 10:39 Hep C IgG Ab Non-Reactive (Non-Reactive) 11/17/17 10:39 Assessment and Plan (1) Cellulitis of left foot Narrative/Plan: the patient relates that he was at a job site and apparently stepped on a drywall screw. He was quite unaware this was occurring, but after he noticed some swelling and drainage from his foot he examined his shoe and the drywall screw was still present through the sole of the shoe penetrating into the fifth metatarsal area. The patient now presents with the extensive swelling and infection to the dorsum of the foot and will have incision and drainage from orthopedics soon. We'll continue antibiotic therapy with Zosyn and vancomycin until we have further data. It is unclear if he'll require any surgical amputation the near future regarding the extensive nature of this infection. Goals establishes much of the foot as possible. Tetanus is updated and local wound care as a nonstick dressing until surgical intervention has occurred. Cultures were further help direct antibiotic therapy and he could require outpatient antibiotic therapy depending on the findings at surgery , the patient is to go to the operating room today for debridement and potential amputation of toes Surgical cultures will direct antibiotic therapy. 11/19/2017 the patient is status post surgery and does seem to be more comfortable. May need further debridement. Cultures are in process and fortunately no significant resistant gram negatives are being seen so far. We' ll continue Zosyn and vancomycin for now and likely will be discharged on vancomycin therapy and has had further improvement. With surgical plans have completed with a be able to further address wound care also for the outpatient setting. Once the patient is more stable will need IV access for long-term antibiotic therapy. 11/20/2017 patient is more comfortable today has ongoing discomfort to his buttocks area. The observer goes to the store room and does find a air cushion it is placed beneath him which gives him significant relief of his discomforts. Current antibiotic therapy continues with current Zosyn and Vanco until cultures are finalized, however preliminarily the staff is not MRSA. 11/21/2017 patient is status post surgical debridement of the foot. Surgery will be following the morning to determine response to this intervention and potential need for amputation of some toes. The blood culture appears to be contamination in counseling vancomycin can be discontinued. The enterococcus and staph aureus are susceptible to several agents we can continue Zosyn for now until further data is surgical plans have been made. 11/22/2017 patient is content this morning after seen by the surgeon with no plans for amputation at this time. We'll continue antibiotic therapy and working to see what our options will be with antibiotic at discharge 11/23/2017 there is further improvement we'll ask for a PICC line for outpatient intravenous antibiotic therapy for this complex infection to his foot. We'll work with the discharge planners as far as his options. Needs enhance glucose control. 11/24/2017 there is been some further improvement. The cultures are available and currently working on a transition plan to the outpatient setting. With the MSSA, anaerobic gram-negative bacilli and enterococcus ertapenem should be an adequate choice and will be arranged for the outpatient setting. 11/25/2017 patient has further improvement. No plans for further surgical intervention. Pain is under excellent control. No fevers or chills. Antibiotics with Invanz have been requested in the outpatient setting awaiting authorization and then is discharged to home. November 27, 2017 reveals further improvement. Patient has received authorization will be discharged home today on his outpatient intravenous antibiotic therapy. Follow-up in office. Status: Acute Code(s): L03.116 - CELLULITIS OF LEFT LOWER LIMB SNOMED Code(s ): 573940173 (2) Uncontrolled diabetes mellitus Status: Acute Code(s): E11.65 - TYPE 2 DIABETES MELLITUS WITH HYPERGLYCEMIA SNOMED Code(s): 656120454 (3) Sepsis Status: Acute Code(s): A41.9 - SEPSIS, UNSPECIFIED ORGANISM SNOMED Code(s): 33958534
--- NOTE | 2017-12-01 10:21 | CDI ---
Last Revision, March 2017 Documentation Clarification Form Date: 12/01/17 From: China Vladimir Phone: Admit Date: 11/16/2017 10:00:00 PM Patient Name: Maynor Jain Visit Number: [id number] Discharge Date: 11/27/17 ATTENTION: The Clinical Documentation Specialists (CDI) and [facility] Coding Staff appreciate your assistance in clarifying documentation. Please respond to the clarification below the line at the bottom and electronically sign. The CDI & [facility] Coding staff will review the response and follow-up if needed. Please note: Queries are made part of the Legal Health Record. If you have any questions, please contact the author of this message via ITS. Dr. Barajas, Sepsis was documented in the ED note, H&P, consult and multiple progress notes. However,The discharge summary does not include the diagnosis of sepsis. History/Risk Factors: DM with left foot abscess, neuropathy, hyperglycemia WBC/Left Shift: 13.5/11.3 Lactic acid: 1.8 Blood cultures: no growth Vitals signs on admission: T-101.6, P-139, R-18, bp-128/88 ID Consult: confirms sepsis Antibiotics: IV Vancomycin, IV Zosyn, IV Invanz; IV Bolus: yes In your professional opinion, please clarify if these findings signify one of the following conditions, whether the condition is POA, and cause, if known: Sepsis ruled out SIRS, without underlying infectious process Sepsis Severe Sepsis Other, please specify Unable to determine MTDD
== END 2017-11-27 17:36 | disposition home health service (06) | DRG 854 ==
LOC: EC 19:51 → 5MS5E 22:00
PROVIDERS: ADMIT Hospitalist; ATTEND Hospitalist
PROC: 3E0234Z Introduction of Serum, Toxoid and Vaccine into Muscle, Percutaneous Approach (ICD-10-PCS; 2017-11-17)
PROC: 0LBW0ZZ Excision of Left Foot Tendon, Open Approach (ICD-10-PCS; 2017-11-18)
PROC: 0JBR0ZZ Excision of Left Foot Subcutaneous Tissue and Fascia, Open Approach (ICD-10-PCS; principal; 2017-11-21)
PROC: 02HV33Z Insertion of Infusion Device into Superior Vena Cava, Percutaneous Approach (ICD-10-PCS; 2017-11-24 09:20)
DX: A41.9 Sepsis, unspecified organism (principal); L02.612 Cutaneous abscess of left foot; E87.2 Acidosis; M86.9 Osteomyelitis, unspecified; L97.421 Non-pressure chronic ulcer of left heel and midfoot limited to breakdown of skin; E11.52 Type 2 diabetes mellitus with diabetic peripheral angiopathy with gangrene; T81.31XA Disruption of external operation (surgical) wound, not elsewhere classified, initial encounter; R65.20 Severe sepsis without septic shock; E11.42 Type 2 diabetes mellitus with diabetic polyneuropathy; E11.622 Type 2 diabetes mellitus with other skin ulcer; E11.621 Type 2 diabetes mellitus with foot ulcer; E11.69 Type 2 diabetes mellitus with other specified complication; E11.65 Type 2 diabetes mellitus with hyperglycemia; S91.332A Puncture wound without foreign body, left foot, initial encounter; Z23 Encounter for immunization; I10 Essential (primary) hypertension; E78.5 Hyperlipidemia, unspecified; Z79.82 Long term (current) use of aspirin; Z79.84 Long term (current) use of oral hypoglycemic drugs; Z79.899 Other long term (current) drug therapy; Z88.1 Allergy status to other antibiotic agents; Z86.14 Personal history of Methicillin resistant Staphylococcus aureus infection; Z87.891 Personal history of nicotine dependence; W45.0XXA Nail entering through skin, initial encounter
CPT/HCPCS: 36415; 36569; 76937; 77001; 78315; 80048; 80053; 80074; 80076; 80202; 83605; 85025; 85610; 85730; 87040; 87070; 87075; 87077; 87186; 87205; 90715; 93005; 96365; 96366; 99284

== ENCOUNTER → 2018-01-27 | Outpatient (CLI) | payer OTHER ==
[2018-01-27 14:33] LABS: Calcium 9.9 mg/dL (8.4-10.2); Potassium 4.9 mmol/L (3.5-5.1); Total Bilirubin 0.8 mg/dL (0.2-1.3); Total Protein 7.2 g/dL (6.3-8.2)
[2018-01-27 23:30] LABS: Hemoglobin A1C 6.4 % (4.0-6.0)
== END | disposition home or self-care (01) ==
LOC: LABWHC1 13:14
PROVIDERS: ATTEND Internal Medicine
DX: E11.65 Type 2 diabetes mellitus with hyperglycemia (principal)
CPT/HCPCS: 36415; 80053; 80061; 82043; 82570; 83036

== ENCOUNTER → 2018-05-08 | Outpatient (CLI) | payer OTHER ==
[2018-05-08 18:46] LABS: Anion Gap 4.8 mmol/L (4.00-12.00); Carbon Dioxide 30.2 mmol/L (21.6-31.8); LDL Cholesterol,Calculated 54.2 mg/dL (0.0-131.0); Potassium 4.6 mmol/L (3.5-5.5); VLDL Calculation 10.8 mg/dL (5.00-40.00)
[2018-05-09 00:02] LABS: Hemoglobin A1C 5.7 % (4.0-6.0)
== END | disposition home or self-care (01) ==
LOC: LABWHC1 10:49
PROVIDERS: ATTEND Internal Medicine
DX: E11.65 Type 2 diabetes mellitus with hyperglycemia (principal)
CPT/HCPCS: 36415; 80048; 80061; 82043; 82570; 83036

== ENCOUNTER 2018-08-03 22:03 | Emergency (ER) | payer OTHER ==
[2018-08-03 22:14] VITALS: RESP 18
[2018-08-03] MEDS ORDERED: CIPROFLOXACIN HCL 250 MG TAB PO STA (22:54)
--- NOTE | 2018-08-03 23:44 | XR ---
EXAM: XR Left Foot Complete, 3 or More Views CLINICAL HISTORY: ITS.REASON XR Reason: Pain TECHNIQUE: Frontal, lateral and oblique views of the left foot. COMPARISON: No relevant prior studies available. FINDINGS: Bones/joints: Unremarkable. No acute fracture. No dislocation. Soft tissues: Unremarkable. No radiopaque foreign body. IMPRESSION: Normal left foot x-rays.
[2018-08-03 23:59] LABS: Basophils # (A) 0.1 k/uL (0-0.2); Basophils % (A) 1 %; Eosinophils # (A) 0.1 k/uL (0-0.7); Eosinophils % (A) 1 %; HCT 42.7 % (39.0-53.0); HGB 14.9 gm/dL (13.0-17.5); Lymphocytes # (A) 1.8 k/uL (1.0-4.8); Lymphocytes % (A) 23 %; MCH 32.3 pg (25.0-35.0); MCHC 34.9 g/dL (31.0-37.0); MCV 92.5 fL (80.0-100.0); Mean Platelet Volume 7.9; Monocytes # (A) 0.6 k/uL (0-1.0); Monocytes % (A) 7 %; Neutrophils # (A) 5.3 k/uL (1.3-7.7); Neutrophils % (A) 66 %; Platelet Count 192 k/uL (150-450); RBC 4.62 m/uL (4.30-5.90); RDW 13.4 % (11.5-15.5); WBC 8.1 k/uL (3.8-10.6)
[2018-08-04 00:09] LABS: Anion Gap 10 mmol/L; Blood Urea Nitrogen 21 mg/dL (9-20); C Reactive Protein 7.1 mg/L (<10.0); Calcium 9.9 mg/dL (8.4-10.2); Carbon Dioxide 25 mmol/L (22-30); Chloride 104 mmol/L (98-107); Glucose 236 mg/dL (74-99); Potassium 4.5 mmol/L (3.5-5.1); Sodium 139 mmol/L (137-145)
--- NOTE | 2018-08-04 00:25 | ED ---
Lower Extremity Injury HPI - General Chief Complaint: Extremity Injury, Lower Stated Complaint: Stepped on a screw Time Seen by Provider: 08/03/18 22:18 Source: patient Mode of arrival: ambulatory - History of Present Illness Initial Comments: The patient is a 58-year-old male who presents to the emergency department with complaint of a puncture wound to his left foot. The patient stepped on a screw and was unaware until several hours later he arrived home and took off his shoe. He did have blood on the bottom of his foot. States that the screw went into his foot for a depth of half a centimeter. He denies any pain at the site as he does have neuropathy. His tetanus was last updated last year. He had a similar episode where he stepped on a nail and had to be hospitalized because he developed gangrene in his foot. States that he did not want to wait that long to start antibiotics and be evaluated therefore he presented today to the emergency room. Upon inspection of the patient's lower extremity it is noted that he has a wound to his left anterior vila. He states that he frequently gets these. States that he has very thin skin and his skin tears easily. He denies pustular drainage from the site. He states that it does look improved from what it looked like several days ago. He denies any calf pain or swelling. He has been performing local dressing changes. He has seen wound care before in the past for his lower extremities. He denies any fevers or chills, nausea or vomiting. He denies any chest pain or shortness of breath. There are no o ther alleviating, precipitating or modifying factors - Related Data Home Medications Medication Instructions Recorded Confirmed Gabapentin [Neurontin] 300 mg PO TID 03/13/14 08/03/18 Lisinopril 5 mg PO HS 03/13/14 08/03/18 Simvastatin [Zocor] 40 mg PO PC-SUPPER 03/13/14 08/03/18 Ascorbic Acid [Vitamin C] 1,000 mg PO PC-LUNCH 02/03/15 08/03/18 Cholecalciferol [Vitamin D3] 5,000 unit PO PC-LUNCH 02/03/15 08/03/18 HYDROcodone/APAP 10-325MG [[place] 1 tab PO QID PRN 02/03/15 08/03/18 10-325] Multivitamin [Men's Multi-Vitamin] 1 tab PO PC-LUNCH 02/03/15 08/03/18 Phentermine HCl 37.5 mg PO DAILY 02/03/15 08/03/18 Vitamin B Complex 1 cap PO PC-LUNCH 02/03/15 08/03/18 Aspirin [Adult Low Dose Aspirin EC] 81 mg PO HS 11/27/16 08/03/18 Repaglinide [Prandin] 1 mg PO AC-TID 11/27/16 08/03/18 Mirtazapine 45 mg PO HS 11/17/17 08/03/18 metFORMIN HCL 1,000 mg PO AC-BID 11/17/17 08/03/18 Insulin Glargine,Hum.rec.anlog 20 units SQ DAILY 12/23/17 08/03/18 [Lantus Solostar] Pioglitazone [Actos] 15 mg PO DAILY 08/03/18 08/03/18 sitaGLIPtin [Januvia] 100 mg PO DAILY 08/03/18 08/03/18 Previous Rx's Medication Instructions Recorded Famotidine [Pepcid] 20 mg PO BID 15 Days #30 tab 11/27/17 Ciprofloxacin HCl [Cipro] 750 mg PO BID 7 Days #14 tablet 08/04/18 Mupirocin 2% Oint [Bactroban 2% 1 applic TOPICAL TID #60 gm 08/04/18 Oint] Allergies Allergy/AdvReac Type Severity Reaction Status Date / Time cefuroxime [From Ceftin] Allergy Rash/Hives Verified 08/03/18 22:47 Review of Systems ROS Statement: Those systems with pertinent positive or pertinent negative responses have been documented in the HPI. ROS Other: All systems not noted in ROS Statement are negative. Past Medical History Past Medical History: Diabetes Mellitus, Osteoarthritis (OA), Skin Disorder Additional Past Medical History / Comment(s): wound L foot(has wound vac), varicose veins, arthritis left knee, diabetic neuropathy History of Any Multi-Drug Resistant Organisms: MRSA Date of last positivie culture/infection: 2012 MDRO Source:: L Leg Past Surgical History: Orthopedic Surgery Additional Past Surgical History / Comment(s): julio carpel tunnel, left knee arthroscopy, PICC, debridement left foot, laser surgery left leg Past Anesthesia/Blood Transfusion Reactions: No Reported Reaction Past Psychological History: No Psychological Hx Reported Smoking Status: Former smoker Past Alcohol Use History: None Reported Past Drug Use History: Marijuana - Past Family History Mother Family Medical History: No Reported History General Exam General appearance: alert, in no apparent distress Head exam: Present: atraumatic, normocephalic, normal inspection Eye exam: Present: normal appearance, PERRL, EOMI. Absent: scleral icterus, conjunctival injection, periorbital swelling ENT exam: Present: normal exam, mucous membranes moist Neck exam: Present: normal inspection. Absent: tenderness, meningismus, lymphadenopathy Respiratory exam: Present: normal lung sounds bilaterally. Absent: respiratory distress, wheezes, rales, rhonchi, stridor Cardiovascular Exam: Present: regular rate, normal rhythm, normal heart sounds. Absent: systolic murmur, diastolic murmur, rubs, gallop, clicks GI/Abdominal exam: Present: soft, normal bowel sounds. Absent: distended, tenderness, guarding, rebound, rigid Extremities exam: Present: other (Examination of the patient's left foot does reveal a puncture site on his left heel. There is no active bleeding at this time. No retained foreign bodies. He continues to have full normal range of motion his bilateral lower extremity's. Examination of the patient's left anterior vila reveals a 3 x 2 cm open area of ulceration. No pustular drainage noted. There is red chronic discoloration to his extremity. No active signs of cellulitis. Negative Homans sign. No calf swelling). Absent: tenderness, pedal edema, joint swelling, calf tenderness Back exam: Present: normal inspection Neurological exam: Present: alert, oriented X3, CN II-XII intact Psychiatric exam: Present: normal affect, normal mood Skin exam: Present: warm, dry, intact, normal color. Absent: rash Course Vital Signs 08/03/18 08/04/18 22:08 00:48 Temperature 97.4 F L 97.8 F Pulse Rate 113 H 96 Respiratory 18 18 Rate Blood Pressure 138/84 124/85 O2 Sat by Pulse 97 Oximetry Medical Decision Making - Medical Decision Making The patient was placed into room 19 upon arrival. I did discuss the diagnosis, differential and treatment options. I did recommend laboratory studies to evaluate for cellulitis of the patient's left anterior vila. The patient did agree to this. He is also sent over for an x-ray of his left foot because of his puncture wound. I did provide him with Cipro 750 mg by mouth. His tetanus is up to date. On return of the results I did discuss them with the patient. The patient has no leukocytosis or elevation in his inflammatory markers at this time. At this time he will be discharged home and is to follow up with his primary care physician within 2 days. He will be prescribed Cipro to take for 7 days. I also prescribed bacitracin to apply locally to his left anterior vila. He must perform frequent inspections of his feet and shins. I did recommend that he follow up with wound care. If the patient has any worsening symptoms to include increase drainage, fevers or worsening pain that he return to the emergency department. The patient was in agreement with the treatment plan and discharged home in stable condition. - Differential Diagnosis Puncture wound, diabetic ulcer, chronic venous insufficiency - Lab Data Result diagrams: 08/03/18 23:15 08/03/18 23:15 Lab Results 08/03/18 08/03/18 Range/Units 23:15 23:15 WBC 8.1 (3.8-10.6) k/uL RBC 4.62 (4.30-5.90) m/uL Hgb 14.9 (13.0-17.5) gm/dL Hct 42.7 (39.0-53.0) % MCV 92.5 (80.0-100.0) fL MCH 32.3 (25.0-35.0) pg MCHC 34.9 (31.0-37.0) g/dL RDW 13.4 (11.5-15.5) % Plt Count 192 (150-450) k/uL Neutrophils % 66 % Lymphocytes % 23 % Monocytes % 7 % Eosinophils % 1 % Basophils % 1 % Neutrophils # 5.3 (1.3-7.7) k/uL Lymphocytes # 1.8 (1.0-4.8) k/uL Monocytes # 0.6 (0-1.0) k/uL Eosinophils # 0.1 (0-0.7) k/uL Basophils # 0.1 (0-0.2) k/uL ESR 11 (0-15) mm/hr Sodium 139 (137-145) mmol/L Potassium 4.5 (3.5-5.1) mmol/L Chloride 104 (98-107) mmol/L Carbon Dioxide 25 (22-30) mmol/L Anion Gap 10 mmol/L BUN 21 H (9-20) mg/dL Creatinine 0.96 (0.66-1.25) mg/dL Est GFR (CKD-EPI)AfAm >90 (>60 ml/min/1.73 sqM) Est GFR (CKD-EPI)NonAf 87 (>60 ml/min/1.73 sqM) Glucose 236 H (74-99) mg/dL Calcium 9.9 (8.4-10.2) mg/dL C-Reactive Protein 7.1 (<10.0) mg/L - Radiology Data Radiology results: report reviewed Left foot x-ray demonstrates no acute findings. No retained foreign bodies Disposition Clinical Impression: Puncture wound of foot, Cellulitis and abscess of left leg Disposition: HOME SELF-CARE Condition: Stable Instructions (If sedation given, give patient instructions): Puncture Wound (ED), Cellulitis (ED) Prescriptions: Mupirocin 2% Oint [Bactroban 2% Oint] 1 applic TOPICAL TID #60 gm Ciprofloxacin HCl [Cipro] 750 mg PO BID 7 Days #14 tablet Is patient prescribed a controlled substance at d/c from ED?: No Referrals: Tre Garrido MD [Primary Care Provider] - 1-2 days Time of Disposition: 00:24
[2018-08-04 00:49] VITALS: BP 124/85; PULSE 96; TEMP 97.8
[2018-08-04 00:50] LABS: Erythrocyte Sedimentation Rate 11 mm/hr (0-15)
== END 2018-08-04 00:48 | disposition home or self-care (01) ==
LOC: EC 22:03
DX: S91.332A Puncture wound without foreign body, left foot, initial encounter (principal); E11.622 Type 2 diabetes mellitus with other skin ulcer; L97.229 Non-pressure chronic ulcer of left calf with unspecified severity; L03.116 Cellulitis of left lower limb; L02.416 Cutaneous abscess of left lower limb; E11.40 Type 2 diabetes mellitus with diabetic neuropathy, unspecified; Z79.4 Long term (current) use of insulin; Z79.82 Long term (current) use of aspirin; Z79.899 Other long term (current) drug therapy; Z88.1 Allergy status to other antibiotic agents; Z87.891 Personal history of nicotine dependence; W45.0XXA Nail entering through skin, initial encounter; Y92.69 Other specified industrial and construction area as the place of occurrence of the external cause; Y99.0 Civilian activity done for income or pay
CPT/HCPCS: 36415; 80048; 85025; 85652; 86140; 99283

== ENCOUNTER → 2018-08-21 | Outpatient (CLI) | payer OTHER ==
[2018-08-21 19:49] LABS: Hemoglobin A1C 6.8 % (4.0-6.0)
== END ==
LOC: LABWHC1 08:35
PROVIDERS: ATTEND Internal Medicine
DX: E11.65 Type 2 diabetes mellitus with hyperglycemia (principal)
CPT/HCPCS: 36415; 83036

== ENCOUNTER 2018-10-28 23:42 | Emergency (ER) | payer OTHER ==
[2018-10-28 23:51] VITALS: TEMP 97.8
--- NOTE | 2018-10-28 23:58 | ED ---
General Adult HPI - General Chief complaint: Extremity Injury, Upper Stated complaint: RT hand injury Time Seen by Provider: 10/28/18 23:52 Source: patient Mode of arrival: ambulatory - History of Present Illness Initial comments: Dictation was produced using Yext dictation software. please excuse any grammatical, word or spelling errors. Chief Complaint: 58-year-old male presents with right wrist pain. History of Present Illness: Is 58-year-old male he has past history of diabetes arthritis. He presents today with right wrist pain. Patient was using a pulsatile daycare. States that his machine got stuck in the ground however the head SPINNING. Patient states his right hand was repeatedly struck by the handlebar of a spinning machine. Patient states the event happened approximately 3-4 hours prior to arrival. Patient complains of significant tenderness over the base of the right thumb, the dorsal aspect of the metacarpals and the wrist. Patient denies any numbness or paresthesias. The ROS documented in this emergency department record has been reviewed and confirmed by me. Those systems with pertinent positive or negative responses have been documented in the HPI. All other systems are other negative and/or noncontributory. PHYSICAL EXAM: General Impression: Alert and oriented x3, not in acute distress HEENT: Normocephalic atraumatic, extra-ocular movements intact, pupils equal and reactive to light bilaterally, mucous membranes moist. Cardiovascular: Heart regular rate and rhythm, S1&S2 audible, no murmurs, rubs or gallops Chest: Lungs clear to auscultation bilaterally, no rhonchi, no wheeze, no rales Abdomen: Bowel sounds present, abdomen soft, non-tender, non-distended, no organomegaly Musculoskeletal: Pulses present and equal in all extremities, no peripheral edema Motor: no focal deficits noted Neurological: CN II-XII grossly intact, no focal motor or sensory deficits noted Skin: Intact with no visualized rashes Psych: Normal affect and mood Right hand: No gross deformities, pain over the snuffbox, diffuse tenderness to palpation over the dorsum of the hand. There is significant pain with flexion and extension of the wrist.X-ray obtained showing a nondisplaced fracture of the medial aspect of the base of the right first proximal phalanx intra-articular extension. Patient placed in a thumb spica splint. Patient given referral to hand surgery. Told to follow-up tomorrow or early next week. ED course: 58-year-old male presents with right hand pain and right wrist pain status post trauma to the right hand. Vital signs upon arrival are within acceptable limits. - Related Data Home Medications Medication Instructions Recorded Confirmed Gabapentin [Neurontin] 300 mg PO TID 03/13/14 08/03/18 Lisinopril 5 mg PO HS 03/13/14 08/03/18 Simvastatin [Zocor] 40 mg PO PC-SUPPER 03/13/14 08/03/18 Ascorbic Acid [Vitamin C] 1,000 mg PO PC-LUNCH 02/03/15 08/03/18 Cholecalciferol [Vitamin D3 (25 5,000 unit PO PC-LUNCH 02/03/15 08/03/18 Mcg = 1000 Iu)] HYDROcodone/APAP 10-325MG [[place] 1 tab PO QID PRN 02/03/15 08/03/18 10-325] Multivitamin [Men's Multi-Vitamin] 1 tab PO PC-LUNCH 02/03/15 08/03/18 Phentermine HCl 37.5 mg PO DAILY 02/03/15 08/03/18 Vitamin B Complex 1 cap PO PC-LUNCH 02/03/15 08/03/18 Aspirin [Adult Low Dose Aspirin EC] 81 mg PO HS 11/27/16 08/03/18 Repaglinide [Prandin] 1 mg PO AC-TID 11/27/16 08/03/18 Mirtazapine 45 mg PO HS 11/17/17 08/03/18 metFORMIN HCL 1,000 mg PO AC-BID 11/17/17 08/03/18 Insulin Glargine,Hum.rec.anlog 20 units SQ DAILY 12/23/17 08/03/18 [Lantus Solostar] Pioglitazone [Actos] 15 mg PO DAILY 08/03/18 08/03/18 sitaGLIPtin [Januvia] 100 mg PO DAILY 08/03/18 08/03/18 Previous Rx's Medication Instructions Recorded Famotidine [Pepcid] 20 mg PO BID 15 Days #30 tab 11/27/17 Ciprofloxacin HCl [Cipro] 750 mg PO BID 7 Days #14 tablet 08/04/18 Mupirocin 2% Oint [Bactroban 2% 1 applic TOPICAL TID #60 gm 08/04/18 Oint] HYDROcodone/APAP 5-325MG [[place] 1 tab PO Q6HR PRN 3 Days #12 tab 10/29/18 5-325] Allergies Allergy/AdvReac Type Severity Reaction Status Date / Time cefuroxime [From Ceftin] Allergy Rash/Hives Verified 08/03/18 22:47 Review of Systems ROS Statement: Those systems with pertinent positive or pertinent negative responses have been documented in the HPI. ROS Other: All systems not noted in ROS Statement are negative. Past Medical History Past Medical History: Diabetes Mellitus, Osteoarthritis (OA), Skin Disorder Additional Past Medical History / Comment(s): wound L foot(has wound vac), varicose veins, arthritis left knee, diabetic neuropathy History of Any Multi-Drug Resistant Organisms: MRSA Date of last positivie culture/infection: 2012 MDRO Source:: L Leg Past Surgical History: Orthopedic Surgery Additional Past Surgical History / Comment(s): julio carpel tunnel, left knee arthroscopy, PICC, debridement left foot, laser surgery left leg Past Anesthesia/Blood Transfusion Reactions: No Reported Reaction Past Psychological History: No Psychological Hx Reported Smoking Status: Former smoker Past Alcohol Use History: None Reported Past Drug Use History: Marijuana - Past Family History Mother Family Medical History: No Reported History Course Vital Signs 10/28/18 23:46 Temperature 97.8 F Pulse Rate 87 Respiratory 18 Rate Blood Pressure 169/98 O2 Sat by Pulse 98 Oximetry Procedures - Orthopedic Splinting/Casting Injury #1 Side: right Upper Extremity Injury Location: hand Upper Extremity Immobilizer: thumb spica Disposition Clinical Impression: Thumb fracture Disposition: HOME SELF-CARE Condition: Good Instructions (If sedation given, give patient instructions): Hand Fracture (ED) Prescriptions: HYDROcodone/APAP 5-325MG [[place] 5-325] 1 tab PO Q6HR PRN 3 Days #12 tab PRN Reason: Severe Pain Is patient prescribed a controlled substance at d/c from ED?: Yes If prescribed controlled substance>3 days was MAPS reviewed?: Prescribed <3 Days Referrals: Kamari Rios DO [Medical Doctor] - 1-2 days Time of Disposition: 01:09
--- NOTE | 2018-10-29 00:39 | XR ---
EXAM: XR Right Hand Complete, 3 or More Views CLINICAL HISTORY: ITS.REASON XR Reason: Pain TECHNIQUE: Frontal, lateral and oblique views of the right hand. COMPARISON: None FINDINGS: Bones/joints: Nondisplaced fracture of the medial aspect of the base of the right first proximal phalanx. Intra-articular extension. No dislocation. Soft tissues: Vascular calcifications. Mild soft tissue swelling in the dorsal right hand. IMPRESSION: Nondisplaced fracture of the medial aspect of the base of the right first proximal phalanx.
--- NOTE | 2018-10-29 00:40 | XR ---
EXAM: XR Right Wrist, 2 Views CLINICAL HISTORY: ITS.REASON XR Reason: Pain TECHNIQUE: Frontal and lateral views of the right wrist. COMPARISON: None FINDINGS: Bones/joints: Nondisplaced fracture of the medial aspect of the base of the right first proximal phalanx intra-articular extension. No dislocation. No other fracture identified. Soft tissues: Vascular calcifications. Mild soft tissue swelling about the wrist and in the dorsal right hand. IMPRESSION: Nondisplaced fracture of the medial aspect of the base of the right first proximal phalanx intra-articular extension.
[2018-10-29 01:32] VITALS: BP 136/92; PULSE 70; RESP 16
== END 2018-10-29 01:32 | disposition home or self-care (01) ==
LOC: EC 23:42
DX: S62.514A Nondisplaced fracture of proximal phalanx of right thumb, initial encounter for closed fracture (principal); E11.40 Type 2 diabetes mellitus with diabetic neuropathy, unspecified; M17.12 Unilateral primary osteoarthritis, left knee; Z87.891 Personal history of nicotine dependence; Z88.1 Allergy status to other antibiotic agents; Z79.4 Long term (current) use of insulin; Z79.82 Long term (current) use of aspirin; Z79.899 Other long term (current) drug therapy; Z86.14 Personal history of Methicillin resistant Staphylococcus aureus infection; Z87.2 Personal history of diseases of the skin and subcutaneous tissue; Z98.890 Other specified postprocedural states; W22.8XXA Striking against or struck by other objects, initial encounter; Y93.89 Activity, other specified
CPT/HCPCS: 29125; 99283

== ENCOUNTER → 2019-01-23 | Outpatient (CLI) | payer OTHER ==
[2019-01-23 16:49] LABS: Chol/HDL Ratio 2.82; LDL Cholesterol,Calculated 51.8 mg/dL (0.0-131.0); VLDL Calculation 17.2 mg/dL (5.00-40.00)
[2019-01-23 18:10] LABS: Hemoglobin A1C 7.1 % (4.0-6.0)
== END | disposition home or self-care (01) ==
LOC: LABWHC1 08:06
PROVIDERS: ATTEND Internal Medicine
DX: E11.65 Type 2 diabetes mellitus with hyperglycemia (principal)
CPT/HCPCS: 36415; 80061; 82043; 82570; 83036

== ENCOUNTER → 2019-07-07 | Outpatient (CLI) | payer OTHER ==
[2019-07-07 19:23] LABS: Chol/HDL Ratio 2.75; LDL Cholesterol,Calculated 44.2 mg/dL (0.0-131.0); VLDL Calculation 18.8 mg/dL (5.00-40.00)
[2019-07-07 20:15] LABS: Urine Creatinine 70.7 mg/dL
[2019-07-07 23:13] LABS: Hemoglobin A1C 4.9 % (4.0-6.0)
== END | disposition home or self-care (01) ==
LOC: LABWHC1 10:38
PROVIDERS: ATTEND Internal Medicine
DX: E11.65 Type 2 diabetes mellitus with hyperglycemia (principal)
CPT/HCPCS: 36415; 80061; 82043; 82570; 83036

== ENCOUNTER 2019-09-22 21:15 | Emergency (ER) | payer OTHER ==
[2019-09-22 21:37] VITALS: BP 114/74; PULSE 82; RESP 18; TEMP 98.7
--- NOTE | 2019-09-22 22:26 | XR ---
EXAMINATION TYPE: XR foot complete LT DATE OF EXAM: 09/22/2019 COMPARISON: NONE HISTORY: Stepped on glass. Pain. TECHNIQUE: 3 views FINDINGS: I see no definite fracture nor dislocation. There is no evidence of a radiopaque foreign britt dy. There is plantar and Achilles calcaneal spur formation. There is some mild extension deformity of the fourth MP joint. Metatarsals are intact. I see no focal bone destruction. There is varus deformi ty of the fourth MP joint. IMPRESSION: No fracture seen. No sign of a foreign body.
[2019-09-22] MEDS ORDERED: SULFAMETH-TMP DS STARTER PACK 2 TAB BTL PO STA (22:30)
--- NOTE | 2019-09-22 22:38 | ED ---
Lower Extremity Injury HPI - General Chief Complaint: Extremity Injury, Lower Stated Complaint: L Foot Injury Source: patient Mode of arrival: ambulatory Limitations: no limitations - History of Present Illness Initial Comments: 59-year-old male presenting today for chief complaint of laceration to left foot just prior to arrival. Patient states he thinks he stepped on glass he saw it on the ground in his basement and noticed bleeding coming from the left foot. Patient states it is not the glasses in the foot any longer but cannot visualize the laceration to present to the emergency department for further evaluation. States that he has no additional complaints. Tdap up to date. - Related Data Home Medications Medication Instructions Recorded Confirmed Gabapentin [Neurontin] 300 mg PO TID 03/13/14 08/03/18 Lisinopril 5 mg PO HS 03/13/14 08/03/18 Simvastatin [Zocor] 40 mg PO PC-SUPPER 03/13/14 08/03/18 Ascorbic Acid [Vitamin C] 1,000 mg PO PC-LUNCH 02/03/15 08/03/18 Cholecalciferol [Vitamin D3 (25 5,000 unit PO PC-LUNCH 02/03/15 08/03/18 Mcg = 1000 Iu)] HYDROcodone/APAP 10-325MG [[place] 1 tab PO QID PRN 02/03/15 08/03/18 10-325] Multivitamin [Men's Multi-Vitamin] 1 tab PO PC-LUNCH 02/03/15 08/03/18 Phentermine HCl 37.5 mg PO DAILY 02/03/15 08/03/18 Vitamin B Complex 1 cap PO PC-LUNCH 02/03/15 08/03/18 Aspirin [Adult Low Dose Aspirin EC] 81 mg PO HS 11/27/16 08/03/18 Repaglinide [Prandin] 1 mg PO AC-TID 11/27/16 08/03/18 Mirtazapine 45 mg PO HS 11/17/17 08/03/18 metFORMIN HCL 1,000 mg PO AC-BID 11/17/17 08/03/18 Insulin Glargine,Hum.rec.anlog 20 units SQ DAILY 12/23/17 08/03/18 [Lantus Solostar] Pioglitazone [Actos] 15 mg PO DAILY 08/03/18 08/03/18 sitaGLIPtin [Januvia] 100 mg PO DAILY 08/03/18 08/03/18 Previous Rx's Medication Instructions Recorded Famotidine [Pepcid] 20 mg PO BID 15 Days #30 tab 11/27/17 Ciprofloxacin HCl [Cipro] 750 mg PO BID 7 Days #14 tablet 08/04/18 Mupirocin 2% Oint [Bactroban 2% 1 applic TOPICAL TID #60 gm 08/04/18 Oint] HYDROcodone/APAP 5-325MG [[place] 1 tab PO Q6HR PRN 3 Days #12 tab 10/29/18 5-325] Sulfamethox-Tmp 800-160Mg [Bactrim 1 tab PO Q12HR 7 Days #14 tab 09/22/19 DS 800-160 mg] Allergies Allergy/AdvReac Type Severity Reaction Status Date / Time cefuroxime [From Ceftin] Allergy Rash/Hives Verified 09/22/19 22:03 Review of Systems ROS Statement: Those systems with pertinent positive or pertinent negative responses have been documented in the HPI. ROS Other: All systems not noted in ROS Statement are negative. Past Medical History Past Medical History: Diabetes Mellitus, Osteoarthritis (OA), Skin Disorder Additional Past Medical History / Comment(s): wound L foot(has wound vac), varicose veins, arthritis left knee, diabetic neuropathy History of Any Multi-Drug Resistant Organisms: MRSA Date of last positivie culture/infection: 2012 MDRO Source:: L Leg Past Surgical History: Orthopedic Surgery Additional Past Surgical History / Comment(s): julio carpel tunnel, left knee arth roscopy, PICC, debridement left foot, laser surgery left leg Past Anesthesia/Blood Transfusion Reactions: No Reported Reaction Past Psychological History: No Psychological Hx Reported Smoking Status: Former smoker Past Alcohol Use History: Occasional Past Drug Use History: Marijuana - Past Family History Mother Family Medical History: No Reported History General Exam - General Exam Comments Initial Comments: General: The patient is awake and alert, in no distress, and does not appear acutely ill. Eye: +3 mm pupils are equal, round and reactive to light, extra-ocular movements are intact. No nystagmus. There is normal conjunctiva bilaterally. No signs of icterus. Ears, nose, mouth and throat: There are moist mucous membranes and no oral lesions. Neck: The neck is supple, there is no tenderness or JVD. Cardiovascular: There is a regular rate and rhythm. No murmur, rub or gallop is appreciated. Respiratory: Lungs are clear to auscultation, respirations are non-labored, breath sounds are equal. No wheezes, stridor, rales, or rhonchi. Gastrointestinal: Soft, non-distended, non-tender abdomen without masses or organomegaly noted. There is no rebound or guarding present. Musculoskeletal: Normal ROM, no tenderness. Strength 5/5. Sensation intact. Radial and DP pulses equal bilaterally 2+. Neurological: A&O x 3. CN II-XII intact grossly, There are no obvious motor or sensory deficits. Coordination appears grossly intact. Speech is normal. Skin: Skin is warm and dry and no rashes. Measured with ruler 1.5 cm superficial laceration that wound edges approximately tightly on the left foot medial aspect. Psychiatric: Cooperative, appropriate mood & affect, normal judgment. Limitations: no limitations Course Vital Signs 09/22/19 21:29 Temperature 98.7 F Pulse Rate 82 Respiratory 18 Rate Blood Pressure 114/74 O2 Sat by Pulse 96 Oximetry Medical Decision Making - Medical Decision Making 59 male presenting for laceration wound edges approximate well superficial. Tetanus is up-to-date. There was cleansed and bandaged. No sutures are needed at this time the patient is diabetic as history of wounds patient is placed on prophylactic antibiotics and instructed to follow-up with primary care physician 2 days for wound check. Patient is agreeable to this care plan as well as discharge at this time. Discussed case with attending Dr. Moreira. Disposition Clinical Impression: Laceration of left foot Disposition: HOME SELF-CARE Condition: Good Instructions (If sedation given, give patient instructions): Laceration (ED) Additional Instructions: Please use medication as discussed. Please follow-up with family doctor in the next 2 days for wound check. Please return to emergency room if the symptoms increase or worsen or for any other concerns. Prescriptions: Sulfamethox-Tmp 800-160Mg [Bactrim DS 800-160 mg] 1 tab PO Q12HR 7 Days #14 tab Is patient prescribed a controlled substance at d/c from ED?: No Referrals: Tre Garrido MD [Primary Care Provider] - 1-2 days Time of Disposition: 22:37
== END 2019-09-22 22:59 | disposition home or self-care (01) ==
LOC: EC 21:15
DX: S91.312A Laceration without foreign body, left foot, initial encounter (principal); E11.40 Type 2 diabetes mellitus with diabetic neuropathy, unspecified; M17.12 Unilateral primary osteoarthritis, left knee; Z79.4 Long term (current) use of insulin; Z79.82 Long term (current) use of aspirin; Z79.899 Other long term (current) drug therapy; Z87.891 Personal history of nicotine dependence; Z88.1 Allergy status to other antibiotic agents; Z86.14 Personal history of Methicillin resistant Staphylococcus aureus infection; W25.XXXA Contact with sharp glass, initial encounter; Y93.01 Activity, walking, marching and hiking
CPT/HCPCS: 99283

== ENCOUNTER → 2019-12-28 | Outpatient (CLI) | payer OTHER ==
[2019-12-28 20:05] LABS: African American GFR (CKD) 75.7 (60.0-200.0); Anion Gap 9.5 mmol/L (4.00-12.00); Calcium 9.5 mg/dL (8.7-10.3); Carbon Dioxide 21.5 mmol/L (21.6-31.8); Non-African American GFR(CKD) 65.3 (60.0-200.0); Potassium 4.3 mmol/L (3.5-5.5)
[2019-12-28 22:19] LABS: Hemoglobin A1C 8.2 % (4.0-6.0)
== END | disposition home or self-care (01) ==
LOC: LABWHC1 11:44
PROVIDERS: ATTEND Internal Medicine
DX: E11.65 Type 2 diabetes mellitus with hyperglycemia (principal)
CPT/HCPCS: 36415; 80048; 83036

== ENCOUNTER → 2020-02-23 | Outpatient (CLI) | payer OTHER | END | disposition home or self-care (01) | LOC: RADUSWWP 12:21 | PROVIDERS: ATTEND Thoracic Surgery (Cardiothoracic Vascular Surgery) | DX: E08.621 Diabetes mellitus due to underlying condition with foot ulcer (principal); L97.422 Non-pressure chronic ulcer of left heel and midfoot with fat layer exposed; L97.522 Non-pressure chronic ulcer of other part of left foot with fat layer exposed; E66.01 Morbid (severe) obesity due to excess calories; Z88.1 Allergy status to other antibiotic agents | CPT/HCPCS: 93922 ==

== ENCOUNTER → 2020-06-08 | Outpatient (CLI) | payer MEDICARE ==
[2020-06-08 21:19] LABS: Hemoglobin A1C 6.7 % (4.0-6.0)
[2020-06-09 00:15] LABS: African American GFR (CKD) 83.5 (60.0-200.0); Anion Gap 7.9 mmol/L (4.00-12.00); BUN/Creat Ratio 13.64 Ratio (12.00-20.00); Calcium 9.7 mg/dL (8.7-10.3); Carbon Dioxide 27.1 mmol/L (21.6-31.8); Non-African American GFR(CKD) 72.1 (60.0-200.0); Potassium 4.3 mmol/L (3.5-5.5)
[2020-06-09 00:16] LABS: Chol/HDL Ratio 2.74; LDL Cholesterol,Calculated 56.2 mg/dL (0.0-131.0); VLDL Calculation 16.8 mg/dL (5.00-40.00)
[2020-06-09 00:44] LABS: Urine Creatinine 107.8 mg/dL
== END | disposition home or self-care (01) ==
LOC: LABWHC1 13:02
PROVIDERS: ATTEND Internal Medicine
DX: E11.65 Type 2 diabetes mellitus with hyperglycemia (principal)
CPT/HCPCS: 36415; 80048; 80061; 82043; 82570; 83036

== ENCOUNTER → 2021-04-13 | Outpatient (CLI) | payer MEDICARE ==
[2021-04-13 14:42] LABS: Basophils # (A) 0.07 X 10*3/uL (0.00-0.10); Eosinophils # (A) 0.18 X 10*3/uL (0.04-0.35); Eosinophils % (A) 2.6 %; HGB 14.7 g/dL (13.0-17.0); Lymphocytes # (A) 2.28 X 10*3/uL (0.90-5.00); Lymphocytes % (A) 32.7 %; MCH 31.1 pg (27.0-32.0); MCHC 32.7 g/dL (32.0-37.0); MCV 95.3 fL (80.0-97.0); Mean Platelet Volume 10.9 fL (9.5-12.2); Monocytes # (A) 0.69 X 10*3/uL (0.20-1.00); Monocytes % (A) 9.9 %; Neutrophils # (A) 3.73 X 10*3/uL (1.80-7.70); Neutrophils % (A) 53.5 %; Platelet Count 204 X 10*3/uL (140-440); RBC 4.72 X 10*6/uL (4.40-5.60); WBC 6.97 X 10*3/uL (4.50-10.00)
[2021-04-13 16:33] LABS: ALT 17 U/L (10-49); AST 13 U/L (14-35); African American GFR (CKD) 87.7 (60.0-200.0); Albumin 4.1 g/dL (3.8-4.9); Alkaline Phosphatase 101 U/L (41-126); Blood Urea Nitrogen 18.8 mg/dL (9.0-27.0); Calcium 9.6 mg/dL (8.7-10.3); Chloride 101 mmol/L (96-109); Chol/HDL Ratio 3.15 Ratio; Globulin 2.5 g/dL (1.6-3.3); Glucose 136 mg/dL (70-110); LDL Cholesterol,Calculated 56.8 mg/dL (0.0-131.0); Non-African American GFR(CKD) 75.7 (60.0-200.0); Potassium 4.3 mmol/L (3.5-5.5); Sodium 141 mmol/L (135-145); Total Protein 6.6 g/dL (6.2-8.2)
[2021-04-13 17:45] LABS: Microalbumin Creatinine Ratio <30 mg/g Creat (0-30); Urine Creatinine 68.2 mg/dL (39.0-259.0)
== END | disposition home or self-care (01) ==
LOC: LABWHC1 11:14
PROVIDERS: ATTEND Family Medicine
DX: Z00.00 Encounter for general adult medical examination without abnormal findings (principal); I10 Essential (primary) hypertension; E11.65 Type 2 diabetes mellitus with hyperglycemia
CPT/HCPCS: 36415; 80053; 80061; 82043; 82306; 82570; 83036; 84153; 84439; 84443; 85025

== ENCOUNTER → 2022-02-05 | Outpatient (CLI) | payer MEDICARE ==
[2022-02-05 23:36] LABS: Basophils # (A) 0.05 X 10*3/uL (0.00-0.10); Basophils % (A) 0.7 %; Eosinophils # (A) 0.09 X 10*3/uL (0.04-0.35); Eosinophils % (A) 1.3 %; HCT 41.9 % (39.6-50.0); HGB 14.3 g/dL (13.0-17.0); Immature Grans, Automated 0.4 %; Lymphocytes # (A) 1.88 X 10*3/uL (0.90-5.00); Lymphocytes % (A) 26.5 %; MCH 32.5 pg (27.0-32.0); MCHC 34.1 g/dL (32.0-37.0); MCV 95.2 fL (80.0-97.0); Mean Platelet Volume 11.4 fL (9.5-12.2); Monocytes # (A) 0.66 X 10*3/uL (0.20-1.00); Monocytes % (A) 9.3 %; NRBC Per 100 WBC 0 /100 WBCS (0.0-0.0); Neutrophils # (A) 4.39 X 10*3/uL (1.80-7.70); Neutrophils % (A) 61.8 %; Platelet Count 182 X 10*3/uL (140-440); RDW 13.1 % (11.5-14.5)
[2022-02-06 04:01] LABS: ALT 15 U/L (10-49); AST 17 U/L (14-35); African American GFR (CKD) 104.2 (60.0-200.0); Albumin 3.9 g/dL (3.8-4.9); Alkaline Phosphatase 92 U/L (41-126); BUN/Creat Ratio 12.07 Ratio (12.00-20.00); Calcium 8.9 mg/dL (8.7-10.3); Carbon Dioxide 25.4 mmol/L (20.0-27.5); Chloride 103 mmol/L (96-109); Chol/HDL Ratio 2.91 Ratio; Globulin 2.4 g/dL (1.6-3.3); Glucose 124 mg/dL (70-110); Non-African American GFR(CKD) 89.9 (60.0-200.0); Potassium 3.9 mmol/L (3.5-5.5); Sodium 141 mmol/L (135-145); Total Protein 6.3 g/dL (6.2-8.2)
== END | disposition home or self-care (01) ==
LOC: LABWHC1 14:24
PROVIDERS: ATTEND Internal Medicine
DX: Z11.59 Encounter for screening for other viral diseases (principal); Z12.5 Encounter for screening for malignant neoplasm of prostate; E11.40 Type 2 diabetes mellitus with diabetic neuropathy, unspecified; E11.65 Type 2 diabetes mellitus with hyperglycemia
CPT/HCPCS: 36415; 80053; 80061; 83036; 84153; 84443; 85025; 86803

== ENCOUNTER 2022-09-12 01:49 | Emergency (ER) | payer MEDICARE ==
[2022-09-12 02:01] VITALS: TEMP 98.9
--- NOTE | 2022-09-12 03:33 | XR ---
EXAM: XR Left Forearm, 2 Views CLINICAL HISTORY: XR Reason: pain TECHNIQUE: Frontal and lateral views of the left forearm. COMPARISON: No relevant prior studies available. FINDINGS: Bones/joints: Unremarkable. No acute fracture. No dislocation. Soft tissues: Unremarkable. IMPRESSION: Normal left forearm x-rays.
--- NOTE | 2022-09-12 03:35 | XR ---
EXAM: XR Left Wrist Complete, 3 or More Views CLINICAL HISTORY: XR Reason: pain TECHNIQUE: Frontal, lateral and oblique views of the left wrist. COMPARISON: No relevant prior studies available. FINDINGS: Bones/joints: Unremarkable. No acute fracture. No dislocation. Soft tissues: Unremarkable. No radiopaque foreign body. Vasculature: Mild diffuse arterial calcification is present. IMPRESSION: No acute findings in the left wrist.
[2022-09-12] MEDS ORDERED: KETOROLAC 15 MG/ML 1 ML VIAL IM STA (04:50)
[2022-09-12] MEDS ORDERED: predniSONE 20 MG TAB PO STA (04:50)
--- NOTE | 2022-09-12 05:13 | ED ---
General Adult HPI - General Chief complaint: Extremity Problem,Nontraumatic Stated complaint: Left wrist pain Time Seen by Provider: 09/12/22 04:27 Source: patient Mode of arrival: ambulatory Limitations: no limitations - History of Present Illness Initial comments: This is a 62-year-old male with a past medical history including diabetes presents emergency department for left wrist swelling and pain. The patient noted that he did fall on his left wrist approximately one and half weeks ago but noted that he had increased swelling of the left wrist with difficulty in clenching his fist. The patient denied any history of gout but stated he did have a history of significant arthritis. The patient denied any other acute pain or complaints at this time and was resting in bed comfortably. - Related Data Home Medications Medication Instructions Recorded Confirmed Gabapentin [Neurontin] 300 mg PO TID 03/13/14 08/03/18 Simvastatin [Zocor] 40 mg PO PC-SUPPER 03/13/14 08/03/18 lisinopriL 5 mg PO HS 03/13/14 08/03/18 Ascorbic Acid [Vitamin C] 1,000 mg PO PC-LUNCH 02/03/15 08/03/18 Cholecalciferol [Vitamin D3 (25 5,000 unit PO PC-LUNCH 02/03/15 08/03/18 Mcg = 1000 Iu)] HYDROcodone/APAP 10-325MG [[place] 1 tab PO QID PRN 02/03/15 08/03/18 10-325] Multivitamin [Men's Multi-Vitamin] 1 tab PO PC-LUNCH 02/03/15 08/03/18 Phentermine HCl 37.5 mg PO DAILY 02/03/15 08/03/18 Vitamin B Complex 1 cap PO PC-LUNCH 02/03/15 08/03/18 Aspirin [Adult Low Dose Aspirin EC] 81 mg PO HS 11/27/16 08/03/18 Repaglinide [Prandin] 1 mg PO AC-TID 11/27/16 08/03/18 Mirtazapine 45 mg PO HS 11/17/17 08/03/18 metFORMIN HCL [Glucophage] 1,000 mg PO AC-BID 11/17/17 08/03/18 Insulin Glargine,Hum.rec.anlog 20 units SQ DAILY 12/23/17 08/03/18 [Lantus Solostar] Pioglitazone [Actos] 15 mg PO DAILY 08/03/18 08/03/18 sitaGLIPtin [Januvia] 100 mg PO DAILY 08/03/18 08/03/18 Previous Rx's Medication Instructions Recorded Famotidine [Pepcid] 20 mg PO BID 15 Days #30 tab 11/27/17 Ciprofloxacin HCl [Cipro] 750 mg PO BID 7 Days #14 tablet 08/04/18 Mupirocin 2% Oint [Bactroban 2% 1 applic TOPICAL TID #60 gm 08/04/18 Oint] HYDROcodone/APAP 5-325MG [[place] 1 tab PO Q6HR PRN 3 Days #12 tab 10/29/18 5-325] Sulfamethox-Tmp 800-160Mg [Bactrim 1 tab PO Q12HR 7 Days #14 tab 09/22/19 DS 800-160 mg] predniSONE [Deltasone] 20 mg PO DAILY #4 tab 09/12/22 Allergies Allergy/AdvReac Type Severity Reaction Status Date / Time cefuroxime [From Ceftin] Allergy Rash/Hives Verified 09/12/22 02:01 Review of Systems ROS Statement: Those systems with pertinent positive or pertinent negative responses have been documented in the HPI. ROS Other: All systems not noted in ROS Statement are negative. Past Medical History Past Medical History: Diabetes Mellitus, Osteoarthritis (OA), Skin Disorder Additional Past Medical History / Comment(s): wound L foot(has wound vac), varicose veins, arthritis left knee, diabetic neuropathy History of Any Multi-Drug Resistant Organisms: MRSA Date of last positivie culture/infection: 2012 MDRO Source:: L Leg Past Surgical History: Orthopedic Surgery Additional Past Surgical History / Comment(s): julio carpel tunnel, left knee ar throscopy, PICC, debridement left foot, laser surgery left leg Past Anesthesia/Blood Transfusion Reactions: No Reported Reaction Past Psychological History: No Psychological Hx Reported Smoking Status: Never smoker Past Alcohol Use History: Occasional Past Drug Use History: Marijuana - Past Family History Mother Family Medical History: No Reported History General Exam Limitations: no limitations General appearance: alert, in no apparent distress Head exam: Present: atraumatic, normocephalic, normal inspection Eye exam: Present: normal appearance, PERRL Pupils: Present: normal accommodation ENT exam: Present: normal exam, normal oropharynx, mucous membranes moist Neck exam: Present: normal inspection, full ROM Respiratory exam: Present: normal lung sounds bilaterally Cardiovascular Exam: Present: regular rate, normal rhythm, normal heart sounds GI/Abdominal exam: Present: soft, normal bowel sounds Extremities exam: Present: normal inspection, joint swelling (Joint swelling noted over the left wrist with erythema and warmth noted. There is decreased range of motion secondary to pain) Back exam: Present: normal inspection, full ROM Neurological exam: Present: alert, oriented X3, CN II-XII intact Psychiatric exam: Present: normal affect, normal mood Skin exam: Present: warm, dry Course Vital Signs 09/12/22 01:56 Temperature 98.9 F Pulse Rate 101 H Respiratory 18 Rate Blood Pressure 136/77 O2 Sat by Pulse 96 Oximetry Medical Decision Making - Medical Decision Making Was pt. sent in by a medical professional or institution (, PA, DEVULCANIZER TENDER, urgent care, hospital, or group home...) When possible be specific @ -No Did you speak to anyone other than the patient for history (EMS, parent, family, police, friend...)? What history was obtained from this source @ -No Did you review nursing and triage notes (agree or disagree)? Why? @ -I reviewed and agree with nursing and triage notes Were old charts reviewed (outside hosp., previous admission, EMS record, old EKG, old radiological studies, urgent care reports/EKG's, group home records)? Report findings @ -No old charts were reviewed Differential Diagnosis (chest pain, altered mental status, abdominal pain women, abdominal pain men, vaginal bleeding, weakness, fever, dyspnea, syncope, headache, dizziness, GI bleed, back pain, seizure, CVA, palpatations, mental health)? @ -Left wrist strain, arthritis, gout EKG interpreted by me (3pts min.). @ -As above X-rays interpreted by me (1pt min.). @ -X-ray of the left wrist and left forearm were obtained and were interpreted by myself showing no acute process. CT interpreted by me (1pt min.). @ -None done U/S interpreted by me (1pt. min.). @ -None done What testing was considered but not performed or refused? (CT, X-rays, U/S, la bs)? Why? @ -None What meds were considered but not given or refused? Why? @ -None Did you discuss the management of the patient with other professionals (professionals i.e. , PA, DEVULCANIZER TENDER, lab, RT, psych nurse, director social service, personal lines agent, teacher, information systems security officer, protective services case worker)? Give summary @ -No Was smoking cessation discussed for >3mins.? @ -No Was critical care preformed (if so, how long)? @ -No Were there social determinants of health that impacted care today? How? (Homelessness, low income, unemployed, alcoholism, drug addiction, transportation, low edu. Level, literacy, decrease access to med. care, nursing home, rehab)? @ -No Was there de-escalation of care discussed even if they declined (Discuss DNR or withdrawal of care, Hospice)? DNR status @ -No What co-morbidities impacted this encounter? (DM, HTN, Smoking, COPD, CAD, Cancer, CVA, ARF, Chemo, Hep., AIDS, mental health diagnosis, sleep apnea, morbid obesity)? @ -Diabetes Was patient admitted / discharged? Hospital course, mention meds given and route, prescriptions, significant lab abnormalities, going to OR and other pertinent info. @ -The patient was seen and evaluated emergency department. On physical exam, the patient was resting in bed without any acute distress. Vital signs admission were stable. Physical exam did demonstrate some swelling and warmth over the left wrist with decreased range of motion. This could likely be secondary to arthritis versus gout. The patient does have arthritis medicine at home and he was advised to continue take this. The patient was given a dose of Toradol in the emergency department as well as initial dose of prednisone. The patient was given a prescription for prednisone to be taken at home for the following 4 days and he was advised to follow-up with his regular physician for further workup and evaluation. The patient was agreeable to this and all dis cretions were answered. The patient was discharged home in stable condition. Undiagnosed new problem with uncertain prognosis? @ -No Drug Therapy requiring intensive monitoring for toxicity (Heparin, Nitro, Insulin, Cardizem)? @ -No Were any procedures done? @ -No Diagnosis/symptom? @ -Left wrist swelling possibly secondary to gout Acute, or Chronic, or Acute on Chronic? @ -Acute Uncomplicated (without systemic symptoms) or Complicated (systemic symptoms)? @ -Uncomplicated Side effects of treatment? @ -No Exacerbation, Progression, or Severe Exacerbation? @ -No Poses a threat to life or bodily function? How? (Chest pain, [place], [place], pneumonia, PE, COPD, DKA, ARF, appy, cholecystitis, CVA, Diverticulitis, Homicidal, Suicidal, threat to staff... and all critical care pts) @ -No Disposition Clinical Impression: Swelling of left wrist, Gout Disposition: HOME SELF-CARE Condition: Stable Instructions (If sedation given, give patient instructions): Swollen Joint (ED) Prescriptions: predniSONE [Deltasone] 20 mg PO DAILY #4 tab Is patient prescribed a controlled substance at d/c from ED?: No Referrals: El Carias MD [Primary Care Provider] - 1-2 days Time of Disposition: 04:30
[2022-09-12 06:10] VITALS: BP 135/89; PULSE 87; RESP 17
== END 2022-09-12 06:10 | disposition home or self-care (01) ==
LOC: EC 01:49
DX: M10.9 Gout, unspecified (principal); M25.432 Effusion, left wrist; E11.40 Type 2 diabetes mellitus with diabetic neuropathy, unspecified; M19.90 Unspecified osteoarthritis, unspecified site; Z79.4 Long term (current) use of insulin; Z79.52 Long term (current) use of systemic steroids; Z79.82 Long term (current) use of aspirin; Z79.84 Long term (current) use of oral hypoglycemic drugs; Z79.899 Other long term (current) drug therapy; Z88.1 Allergy status to other antibiotic agents
CPT/HCPCS: 73090; 73110; 99283; 96372; J1885; J7512

== ENCOUNTER 2022-10-02 10:36 | Inpatient (IN) | payer MEDICARE, OTHER ==
[2022-10-02] MEDS ORDERED: VANCOMYCIN IV PER PHARMACY 1 EACH MISC MISCELLANE PRN ×2 (10:56→16:38)
--- NOTE | 2022-10-02 11:05 | ED ---
General Adult HPI - General Chief complaint: Extremity Problem,Nontraumatic Stated complaint: foot infection Time Seen by Provider: 10/02/22 10:46 Source: patient, RN notes reviewed Mode of arrival: wheelchair Limitations: no limitations - History of Present Illness Initial comments: Patient is a pleasant 62-year-old male presenting to the emergency department with concerns for foot infection. Onset of symptoms was a few weeks ago. Patient did step on a piece of glass. Patient did have some removal of foreign body. Patient did follow-up with wound care today and did see Dr. Conrad. Dr. Conrad was concerned regarding necrotic tissue and recommended patient be admitted with IV antibiotics. Patient denies any pain that he attributes to his history of neuropathy. Patient states he has had fevers. Patient has noticed odor Patient does have history of gangrene in this foot previously - Related Data Home Medications Medication Instructions Recorded Confirmed Gabapentin [Neurontin] 300 mg PO TID 03/13/14 08/03/18 Simvastatin [Zocor] 40 mg PO PC-SUPPER 03/13/14 08/03/18 lisinopriL 5 mg PO HS 03/13/14 08/03/18 Ascorbic Acid [Vitamin C] 1,000 mg PO PC-LUNCH 02/03/15 08/03/18 Cholecalciferol [Vitamin D3 (25 5,000 unit PO PC-LUNCH 02/03/15 08/03/18 Mcg = 1000 Iu)] HYDROcodone/APAP 10-325MG [[place] 1 tab PO QID PRN 02/03/15 08/03/18 10-325] Multivitamin [Men's Multi-Vitamin] 1 tab PO PC-LUNCH 02/03/15 08/03/18 Phentermine HCl 37.5 mg PO DAILY 02/03/15 08/03/18 Vitamin B Complex 1 cap PO PC-LUNCH 02/03/15 08/03/18 Aspirin [Adult Low Dose Aspirin EC] 81 mg PO HS 11/27/16 08/03/18 Repaglinide [Prandin] 1 mg PO AC-TID 11/27/16 08/03/18 Mirtazapine 45 mg PO HS 11/17/17 08/03/18 metFORMIN HCL [Glucophage] 1,000 mg PO AC-BID 11/17/17 08/03/18 Insulin Glargine,Hum.rec.anlog 20 units SQ DAILY 12/23/17 08/03/18 [Lantus Solostar] Pioglitazone [Actos] 15 mg PO DAILY 08/03/18 08/03/18 sitaGLIPtin [Januvia] 100 mg PO DAILY 08/03/18 08/03/18 Previous Rx's Medication Instructions Recorded Famotidine [Pepcid] 20 mg PO BID 15 Days #30 tab 11/27/17 Ciprofloxacin HCl [Cipro] 750 mg PO BID 7 Days #14 tablet 08/04/18 Mupirocin 2% Oint [Bactroban 2% 1 applic TOPICAL TID #60 gm 08/04/18 Oint] HYDROcodone/APAP 5-325MG [[place] 1 tab PO Q6HR PRN 3 Days #12 tab 10/29/18 5-325] Sulfamethox-Tmp 800-160Mg [Bactrim 1 tab PO Q12HR 7 Days #14 tab 09/22/19 DS 800-160 mg] predniSONE [Deltasone] 20 mg PO DAILY #4 tab 09/12/22 Allergies Allergy/AdvReac Type Severity Reaction Status Date / Time cefuroxime [From Ceftin] Allergy Rash/Hives Verified 09/12/22 02:01 Review of Systems ROS Statement: Those systems with pertinent positive or pertinent negative responses have been documented in the HPI. ROS Other: All systems not noted in ROS Statement are negative. Constitutional: Reports: as per HPI, fever Eyes: Denies: eye pain ENT: Denies: ear pain Respiratory: Denies: dyspnea Cardiovascular: Denies: chest pain Endocrine: Denies: fatigue Gastrointestinal: Denies: abdominal pain Skin: Reports: as per HPI, rash Past Medical History Past Medical History: Diabetes Mellitus, Osteoarthritis (OA), Skin Disorder Additional Past Medical History / Comment(s): wound L foot(has wound vac), varicose veins, arthritis left knee, diabetic neuropathy History of Any Multi-Drug Resistant Organisms: MRSA Date of last positivie culture/infection: 2012 MDRO Source:: L Leg Past Surgical History: Orthopedic Surgery Additional Past Surgical History / Comment(s): julio carpel tunnel, left knee arthroscopy, PICC, debridement left foot, laser surgery left leg Past Anesthesia/Blood Transfusion Reactions: No Reported Reaction Past Psychological History: No Psychological Hx Reported Smoking Status: Never smoker Past Alcohol Use History: Occasional Past Drug Use History: Marijuana - Past Family History Mother Family Medical History: No Reported History General Exam Limitations: no limitations General appearance: alert, in no apparent distress Head exam: Present: normocephalic Eye exam: Present: normal appearance Neck exam: Present: normal inspection Respiratory exam: Present: normal lung sounds bilaterally Cardiovascular Exam: Present: regular rate, normal rhythm GI/Abdominal exam: Present: soft. Absent: tenderness Extremities exam: Present: other (Left foot dorsal and plantar with ulcer and necrotic tissue and foul odor. There is cellulitic changes extending to the proximal tib-fib region.) Neurological exam: Present: alert Psychiatric exam: Present: normal affect, normal mood Skin exam: Present: erythema (And necrotic tissue) Course Vital Signs 10/02/22 10:42 Temperature 99 F Pulse Rate 111 H Respiratory 20 Rate Blood Pressure 130/67 O2 Sat by Pulse 95 Oximetry - Reevaluation(s) Reevaluation #1: 10/02/22 12:45 There is concern for sepsis diagnosed at 10:45 AM. Blood culture and lactic acid and IV antibiotics were all ordered. Medical Decision Making - Medical Decision Making Was pt. sent in by a medical professional or institution (, PA, NDT INSPECTOR, urgent care, hospital, or usp...) When possible be specific @ -Patient was sent from wound center Did you speak to anyone other than the patient for history (EMS, parent, family, police, friend...)? What history was obtained from this source @ -I did speak with Dr. Conrad who does help provide history including recent problem with stepping on glass as well as history of diabetes and concern regarding patient's Did you review nursing and triage notes (agree or disagree)? Why? @ -I reviewed and agree with nursing and triage notes Were old charts reviewed (outside hosp., previous admission, EMS record, old EKG, old radiological studies, urgent care reports/EKG's, usp records)? Report findings @ -No old charts were reviewed Differential Diagnosis (chest pain, altered mental status, abdominal pain women, abdominal pain men, vaginal bleeding, weakness, fever, dyspnea, syncope, headache, dizziness, GI bleed, back pain, seizure, CVA, palpatations, mental health)? @ -Differential Fever: Pneumonia, viral URI, endocarditis, myocarditis, pericarditis, otitis, sinusitis, peritonsillar Abscess, retropharyngeal Abscess, epiglottitis, peritonitis, appendicitis, [place] cystitis, diverticulitis, hepatitis, colitis, UTI, PID, TOA, pyelonephritis, prostatitis, epididymitis, meningitis, enceph alitis, pulmonary embolism, CVA, thyroid storm, pancreatitis, adrenal crisis, cavernous sinus thrombosis, this is not meant to be an all-inclusive list. EKG interpreted by me (3pts min.). @ -As above X-rays interpreted by me (1pt min.). @ -X-ray left foot shows soft tissue swelling/ulcer. Chronic deformity. CT interpreted by me (1pt min.). @ -None done U/S interpreted by me (1pt. min.). @ -None done What testing was considered but not performed or refused? (CT, X-rays, U/S, labs)? Why? @ -None What meds were considered but not given or refused? Why? @ -None Did you discuss the management of the patient with other professionals (professionals i.e. , PA, NDT INSPECTOR, lab, RT, psych nurse, social worker assistant, office clerk, teacher, chief sales officer, supervisor case loading)? Give summary @ -No Was smoking cessation discussed for >3mins.? @ -No Was critical care preformed (if so, how long)? @ -31 minutes critical care time Were there social determinants of health that impacted care today? How? (Homelessness, low income, unemployed, alcoholism, drug addiction, transportation, low edu. Level, literacy, decrease access to med. care, [place] [facility], rehab)? @ -No Was there de-escalation of care discussed even if they declined (Discuss DNR or withdrawal of care, Hospice)? DNR status @ -No What co-morbidities impacted this encounter? (DM, HTN, Smoking, COPD, CAD, Cancer, CVA, ARF, Chemo, Hep., AIDS, mental health diagnosis, sleep apnea, morbid obesity)? @ -None Was patient admitted / discharged? Hospital course, mention meds given and route, prescriptions, significant lab abnormalities, going to OR and other pertinent info. @ -Patient is made aware of plan. Case was discussed with Dr. Bah, who will admit covering Dr. Ellsworth. Patient will be admitted with IV antibiotics and consult with vascular surgery. There is concern for sepsis and patient has been provided IV antibiotics. Blood culture and lactic acid were ordered. Undiagnosed new problem with uncertain prognosis? @ -No Drug Therapy requiring intensive monitoring for toxicity (Heparin, Nitro, Insulin, Cardizem)? @ -No Were any procedures done? @ -No Diagnosis/symptom? @ -Sepsis, necrotic foot ulcer Acute, or Chronic, or Acute on Chronic? @ -Acute, acute Uncomplicated (without systemic symptoms) or Complicated (systemic symptoms)? @ -Ulcer complicated with sepsis Side effects of treatment? @ -No Exacerbation, Progression, or Severe Exacerbation? @ -No Poses a threat to life or bodily function? How? (Chest pain, [place], [place], pneumonia, PE, COPD, DKA, ARF, appy, cholecystitis, CVA, Diverticulitis, Homicidal, Suic idal, threat to staff... and all critical care pts) @ -Threat to limb necrotic foot ulcer - Lab Data Result diagrams: 10/02/22 11:00 10/02/22 11:00 Lab Results 10/02/22 10/02/22 10/02/22 Range/Units 10:56 11:00 11:00 WBC 12.3 H (3.8-10.6) k/uL RBC 3.97 L (4.30-5.90) m/uL Hgb 12.6 L (13.0-17.5) gm/dL Hct 37.4 L (39.0-53.0) % MCV 94.1 (80.0-100.0) fL MCH 31.8 (25.0-35.0) pg MCHC 33.8 (31.0-37.0) g/dL RDW 13.2 (11.5-15.5) % Plt Count 266 (150-450) k/uL MPV 7.9 Neutrophils % 89 % Lymphocytes % 5 % Monocytes % 5 % Eosinophils % 1 % Basophils % 0 % Neutrophils # 10.9 H (1.3-7.7) k/uL Lymphocytes # 0.6 L (1.0-4.8) k/uL Monocytes # 0.6 (0-1.0) k/uL Eosinophils # 0.1 (0-0.7) k/uL Basophils # 0.0 (0-0.2) k/uL PT 12.2 H (9.0-12.0) sec INR 1.2 H (<1.2) APTT 29.3 (22.0-30.0) sec Sodium (137-145) mmol/L Potassium (3.5-5.1) mmol/L Chloride (98-107) mmol/L Carbon Dioxide (22-30) mmol/L Anion Gap mmol/L BUN (9-20) mg/dL Creatinine (0.66-1.25) mg/dL Est GFR (CKD-EPI)AfAm (>60 ml/min/1.73 sqM) Est GFR (CKD-EPI)NonAf (>60 ml/min/1.73 sqM) Glucose (74-99) mg/dL Plasma Lactic Acid Miky 1.5 (0.7-2.0) mmol/L Calcium (8.4-10.2) mg/dL Total Bilirubin (0.2-1.3) mg/dL AST (17-59) U/L ALT (4-49) U/L Alkaline Phosphatase (38-126) U/L Total Protein (6.3-8.2) g/dL Albumin (3.5-5.0) g/dL 10/02/22 Range/Units 11:00 WBC (3.8-10.6) k/uL RBC (4.30-5.90) m/uL Hgb (13.0-17.5) gm/dL Hct (39.0-53.0) % MCV (80.0-100.0) fL MCH (25.0-35.0) pg MCHC (31.0-37.0) g/dL RDW (11.5-15.5) % Plt Count (150-450) k/uL MPV Neutrophils % % Lymphocytes % % Monocytes % % Eosinophils % % Basophils % % Neutrophils # (1.3-7.7) k/uL Lymphocytes # (1.0-4.8) k/uL Monocytes # (0-1.0) k/uL Eosinophils # (0-0.7) k/uL Basophils # (0-0.2) k/uL PT (9.0-12.0) sec INR (<1.2) APTT (22.0-30.0) sec Sodium 135 L (137-145) mmol/L Potassium 3.6 (3.5-5.1) mmol/L Chloride 101 (98-107) mmol/L Carbon Dioxide 24 (22-30) mmol/L Anion Gap 10 mmol/L BUN 14 (9-20) mg/dL Creatinine 0.85 (0.66-1.25) mg/dL Est GFR (CKD-EPI)AfAm >90 (>60 ml/min/1.73 sqM) Est GFR (CKD-EPI)NonAf >90 (>60 ml/min/1.73 sqM) Glucose 202 H (74-99) mg/dL Plasma Lactic Acid Miky (0.7-2.0) mmol/L Calcium 8.6 (8.4-10.2) mg/dL Total Bilirubin 1.0 (0.2-1.3) mg/dL AST 26 (17-59) U/L ALT 20 (4-49) U/L Alkaline Phosphatase 140 H (38-126) U/L Total Protein 7.1 (6.3-8.2) g/dL Albumin 3.2 L (3.5-5.0) g/dL Critical Care Time Critical Care Time: Yes Total Critical Care Time: 31 Disposition Clinical Impression: Ulcer of foot with necrosis of muscle, Sepsis Disposition: ADMITTED IP TO THIS [facility] Condition: Serious Is patient prescribed a controlled substance at d/c from ED?: No Referrals: El Carias MD [Primary Care Provider] - 1-2 days Time of Disposition: 12:43
[2022-10-02] MEDS ORDERED: PIPERACILLIN-TAZOBACTAM 3.375 GM in SODIUM CHLORIDE 0.9% 100 ML IVPB STA (11:06)
[2022-10-02] MEDS ORDERED: VANCOMYCIN 2,000 MG in SODIUM CHLORIDE 0.9% 500 ML 500 ML IVPB ONE (11:30)
[2022-10-02 11:34] LABS: Basophils % (A) 0 %; Eosinophils # (A) 0.1 k/uL (0-0.7); Eosinophils % (A) 1 %; HCT 37.4 % (39.0-53.0); HGB 12.6 gm/dL (13.0-17.5); Lymphocytes # (A) 0.6 k/uL (1.0-4.8); Lymphocytes % (A) 5 %; MCH 31.8 pg (25.0-35.0); MCHC 33.8 g/dL (31.0-37.0); MCV 94.1 fL (80.0-100.0); Mean Platelet Volume 7.9; Monocytes # (A) 0.6 k/uL (0-1.0); Monocytes % (A) 5 %; Neutrophils # (A) 10.9 k/uL (1.3-7.7); Neutrophils % (A) 89 %; Platelet Count 266 k/uL (150-450); RBC 3.97 m/uL (4.30-5.90); RDW 13.2 % (11.5-15.5); WBC 12.3 k/uL (3.8-10.6)
[2022-10-02 11:39] LABS: INR 1.2 (<1.2); Partial Thromboplastin Time 29.3 sec (22.0-30.0); Prothrombin Time 12.2 sec (9.0-12.0)
--- NOTE | 2022-10-02 12:12 | XR ---
EXAMINATION TYPE: XR foot complete 3 views LT DATE OF EXAM: 10/02/2022 Comparison: 09/22/2019 Clinical History: 62-year-old male infection distal left foot Findings: Diffuse soft tissue swelling. Soft tissue ulcer along the distal ball of the foot. Prominent bony ove rlap on the lateral view limits evaluation. No discrete lytic destruction is identified. Chronic angu lation deformity fourth MTP joint suggesting prior capsular injury. Impression: Large soft tissue ulcer along the distal ball of the foot. Prominent soft tissue swelling throughout. Lateral view limited due to prominent bony overlap. No convincing radiographic evidence for osteomyel itis at this time. If persistent concern, consider MRI.
[2022-10-02 12:17] LABS: ALT 20 U/L (4-49); AST 26 U/L (17-59); African American GFR (CKD) >90 (>60 ml/min/1.73 sqM); Albumin 3.2 g/dL (3.5-5.0); Alkaline Phosphatase 140 U/L (38-126); Anion Gap 10 mmol/L; Blood Urea Nitrogen 14 mg/dL (9-20); Calcium 8.6 mg/dL (8.4-10.2); Carbon Dioxide 24 mmol/L (22-30); Chloride 101 mmol/L (98-107); Glucose 202 mg/dL (74-99); Non-African American GFR(CKD) >90 (>60 ml/min/1.73 sqM); Potassium 3.6 mmol/L (3.5-5.1); Sodium 135 mmol/L (137-145); Total Protein 7.1 g/dL (6.3-8.2)
[2022-10-02] MEDS ORDERED: NALOXONE 0.4 MG/ML 1 ML VIAL IV PRN ×2 (13:26→16:46)
[2022-10-02] MEDS: SODIUM CHLORIDE 0.9% 1,000 ML IV SCH (13:49)
[2022-10-02] MEDS ORDERED: DEXTROSE 50% SYRINGE 50 ML IVP PRN (16:44)
[2022-10-02] MEDS ORDERED: ACETAMINOPHEN TAB 325 MG TAB PO PRN (16:46)
[2022-10-02] MEDS ORDERED: ONDANSETRON 4 MG/2 ML VIAL IVP PRN (16:46)
[2022-10-02] MEDS ORDERED: MELATONIN 3 MG TABLET PO PRN (16:46)
[2022-10-02] MEDS ORDERED: bisacodyL 5 MG TABLET.DR PO PRN (16:46)
[2022-10-02] MEDS ORDERED: MORPHINE SULFATE 4 MG/ML SYRINGE IVP PRN (16:46)
[2022-10-02] MEDS ORDERED: HYDROcodone/APAP 5-325MG 1 EACH TAB PO PRN (16:46)
--- NOTE | 2022-10-02 16:53 | P.HPIM ---
History of Present Illness H&P Date: 10/02/22 Patient is a 62-year-old male with diabetes mellitus insulin requiring, diabetic neuropathy, and arthritis who was sent in from the wound care center due to severity of the wound. In the emergency department he underwent an extensive evaluation. On arrival he was tachycardic with a pulse of 111. Laboratory analysis was remarkable for white blood cell count of 12.3, hemoglobin 12.6, glucose 202, and alkaline phosphatase of 140. Foot x-ray in the ER showed a large soft tissue ulcer on the along the distal ball of the foot with prominent soft tissue swelling. He was given a dose of Zosyn and vancomycin and arrangements were made for admission. Patient seen and examined at bedside. He reports that he noted a wound starting on his left foot about 2 weeks ago. He enough o'clock in clinic and [facility]. He states they found a piece of glass inside of his foot on x-ray and he was placed on an antibiotic which appears to be Bactrim which he completed the course of. He then noticed that his left foot continued to drain and was malodorous. He had been seen at the wound care center previously for blisters with ulcerations and infection and therefore made an appointment with Dr. Conrad. When he went to be seen today Dr. Conrad immediately directed him to the emergency department for further management. He reports that he has no feeling in his legs secondary to neuropathy. He has noticed a significant amount of drainage from the wound. He states he has felt febrile but has not checked his temperature. He denies any other complaints such as nausea, vomiting, diarrhea, constipation. He does report that he has a history of infections in the past and multiple needs for wound care. His diabetes is well controlled and his last A1c was less than 6. He is indenpendent in all ADL and IADLS, he does his own cooking, cleaning, and yard work. He can easily walk up a flight of stairs and down 2 vity blocks. Denies significant cardiac hx no recent chest pain, SOB or syncope. Vital signs reviewed General: nontoxic, no distress, appears at stated age, obese Derm: warm, dry left foot with necrotic tissue on the dorsal aspect from 2-4th metatarsal, malodorous, exposure to the bone with non viable nj/brown muscle exposed at the base of the 2second metatarsal, the ventral aspect of the foot shows thick white skin surgery in appearance (see picture for further deatils). B/l le vehous statsis changes with 1/2 ised unforred blisted to left mid calf with surrounding erythema. Eyes: EOMI, no lid lag, anicteric sclera, pupils equal round reactive to light ENT: Nose and ears atraumatic, no thrush, no pharyngeal erythema Cardiovascular: S1S2 reg, no murmur, no edema, capillary refill less than 2 seconds, 2+ edema b/l LE Lungs: clear to auscultation bilateral, no rhonchi, no rales, no wheeze, no accessory muscle use Abdominal: soft, nontender to palpation, no guarding, no appreciable organomegaly, normal bowel sounds Ext: no gross muscle atrophy, no contractures Neuro: CN II-XII grossly intact, light touch intact all 4 extremities, finger to nose within normal limits, Psych: Alert, oriented, appropriate affect Assessment/Plan: 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 Brian who graciously promptly saw that patient and plan on a TMA tomorrow - D/W Dr. Leyva and vano and zosyn due to possibility of pseudomonas with foreign body. - Vanoc with close monitor of Cr and vanco trough for toxicity - Zosun 3.375 g q 12 hours IVPB - 0.9 NS at 75 cc/hr Risk stratification: - Able to preform greater than 4 mets - NSQIP: Serious complication, your risk 7.3, average is 9.5 Cardiac complication your risk 0.5, average was 1.2 Surgical site infection nearest 2.1, average is 1.4, urinary tract infection, PT, and renal failure patient is at average risk Patient has below average risk for at 0.1% with average being 0.5% DM 2, well controlled in the out patien setting, with neuropathy - levemir 30 units tonight given NPO after midnight - continue wtih jardiance - hold metofrmin, actos, and ozempic (due next Friday) - SSI - follow BS - check A1C - on lisinopril for proteinuria Gout - recently in left wrist, stop colchicine given need for vanco and monitor pt closely On xerlto - patient is unsure of the indication - will hold with need for sugery tomorrow. Obesity class 3 with BMI 40.3 - outpatient weight loss - outpatient ozempic Imaging: As per HPI Data Review: as per HPI The patient is admitted with an anticipated greater than 2 midnight stay for evaluation of left foot wound. Surrogate decision-maker: brother CODE STATUS:Full DVT prophylaxis: SCDs Anticipated discharge date: Pending Clinical Course Anticipated discharge place: Pending Clinical Course This dictation was prepared using [employer] voice recognition software. Though every attempt is made to correct errors during dictation some may still exist. Past Medical History Past Medical History: Diabetes Mellitus, Osteoarthritis (OA), Skin Disorder Additional Past Medical History / Comment(s): wound L foot(has wound vac), varicose veins, arthritis left knee, diabetic neuropathy History of Any Multi-Drug Resistant Organisms: MRSA Date of last positivie culture/infection: 2012 MDRO Source:: L Leg Past Surgical History: Orthopedic Surgery Additional Past Surgical History / Comment(s): julio carpel tunnel, left knee arthroscopy, PICC, debridement left foot, laser surgery left leg Past Anesthesia/Blood Transfusion Reactions: No Reported Reaction Past Psychological History: No Psychological Hx Reported Smoking Status: Never smoker Past Alcohol Use History: Occasional Past Drug Use History: Marijuana - Past Family History Mother Family Medical History: No Reported History Medications and Allergies Home Medications Medication Instructions Recorded Confirmed Type Simvastatin [Zocor] 40 mg PO HS 03/13/14 10/02/22 History Aspirin [Adult Low Dose Aspirin EC] 81 mg PO HS 11/27/16 10/02/22 History metFORMIN HCL [Glucophage] 1,000 mg PO AC-BID 11/17/17 10/02/22 History Insulin Glargine,Hum.rec.anlog 40 units SQ HS 12/23/17 10/02/22 History [Lantus Solostar] Pioglitazone [Actos] 15 mg PO DAILY 08/03/18 10/02/22 History Acetaminophen [Tylenol Arthritis] 1,300 mg PO BID 10/02/22 10/02/22 History Amitriptyline HCl [Elavil] 10 mg PO HS 10/02/22 10/02/22 History Colchicine [Colcrys] 0.6 mg PO HS 10/02/22 10/02/22 History DULoxetine HCL [Cymbalta] 30 mg PO HS 10/02/22 10/02/22 History Empagliflozin [Jardiance] 10 mg PO HS 10/02/22 10/02/22 History Famotidine [Pepcid] 20 mg PO DAILY 10/02/22 10/02/22 History Furosemide [Lasix] 20 mg PO DAILY 10/02/22 10/02/22 History Rivaroxaban [Xarelto] 2.5 mg PO BID 10/02/22 10/02/22 History Semaglutide [Ozempic] 2 mg SQ MO 10/02/22 10/02/22 History lisinopriL [Zestril] 10 mg PO HS 10/02/22 10/02/22 History Allergies Allergy/AdvReac Type Severity Reaction Status Date / Time cefuroxime [From Ceftin] Allergy Rash/Hives Verified 10/02/22 14:41 Physical Exam Osteopathic Statement: *. No significant issues noted on an osteopathic struct ural exam other than those noted in the History and Physical/Consult. Vitals: Vital Signs Temp Pulse Pulse Resp BP BP Pulse Ox 10/02/22 15:22 98.2 F 87 16 126/76 97 10/02/22 13:48 88 18 114/67 98 10/02/22 10:42 99 F 111 H 20 130/67 95 Intake and Output 10/02/22 10/02/22 10/02/22 06:59 14:59 22:59 Other: Weight 134.717 kg Results CBC & Chem 7: 10/02/22 11:00 10/02/22 11:00 Labs: Abnormal Lab Results - Last 24 Hours (Table) 10/02/22 10/02/22 10/02/22 Range/Units 11:00 11:00 11:00 WBC 12.3 H (3.8-10.6) k/uL RBC 3.97 L (4.30-5.90) m/uL Hgb 12.6 L (13.0-17.5) gm/dL Hct 37.4 L (39.0-53.0) % Neutrophils # 10.9 H (1.3-7.7) k/uL Lymphocytes # 0.6 L (1.0-4.8) k/uL PT 12.2 H (9.0-12.0) sec INR 1.2 H (<1.2) Sodium 135 L (137-145) mmol/L Glucose 202 H (74-99) mg/dL Alkaline Phosphatase 140 H (38-126) U/L Albumin 3.2 L (3.5-5.0) g/dL
[2022-10-02 17:04] LABS: Glucose,Whole Blood 140 mg/dL (70-110)
[2022-10-02] MEDS: INSULIN ASPART (NovoLOG) 100 UNIT/ML VIAL SQ SCH ×2 (17:05→22:04)
[2022-10-02] MEDS: PIPERACILLIN-TAZOBACTAM 3.375 GM in SODIUM CHLORIDE 0.9% 100 ML IVPB SCH (17:32)
[2022-10-02 20:24] LABS: Glucose,Whole Blood 149 mg/dL (70-110)
[2022-10-02] MEDS ORDERED: INSULIN DETEMIR (LEVEMIR) 100 UNIT/ML SYR SQ SCH (21:00)
[2022-10-02] MEDS: VANCOMYCIN 2,000 MG in SODIUM CHLORIDE 0.9% 500 ML 500 ML IVPB SCH (22:01)
[2022-10-02] MEDS: AMITRIPTYLINE HCL 10 MG TAB PO SCH (22:03)
[2022-10-02] MEDS: DULoxetine HCL 30 MG CAPSULE.DR PO SCH (22:03)
[2022-10-02] MEDS: ATORVASTATIN 20 MG TAB PO SCH (22:03)
[2022-10-02] MEDS: DAPAGLIFLOZIN PROPANEDIOL 5 MG TABLET PO SCH (22:03)
--- NOTE | 2022-10-02 22:09 | P.CONS ---
History of Present Illness - Reason for Consult Consult date: 10/02/22 - History of Present Illness Patient is a 62-year-old male with a past medical history significant for insulin every dependent diabetes mellitus apparently stopped on something 2 weeks ago patient subsequent developing a wound and was evaluated by his primary care physician apparently found a piece of glass inside of his foot patient was started on Bactrim however patient subsequently noticed to having worsening of the wound swelling and redness to the left foot area patient did have diabetic neuropathy had denies significant pain patient was referred to the wound care center with the patient was evaluated and subsequently sent to the ER for evaluation of fall left diabetic foot infection patient on arrival to the ER did have a low-grade fever of 99 F patient was tachycardic did have elevated white count of 12.3 with a left shift kidney function was normal 11 symptoms are normal patient did have x-ray of the foot with large soft tissue ulcer along the distal ball of the foot prominent soft tissue swelling no radiographic evidence of osteomyelitis or foreign body MRI was suggested by radiologist patient received dose of vancomycin and Zosyn in the ER subsequently continued on vancomycin infectious disease consulted for further management of antibiotic repeat, vascular surgery has been consulted planning for possible transmetatarsal imitation of the left foot Past Medical History Past Medical History: Diabetes Mellitus, Osteoarthritis (OA), Skin Disorder Additional Past Medical History / Comment(s): wound L foot(has wound vac), varicose veins, arthritis left knee, diabetic neuropathy History of Any Multi-Drug Resistant Organisms: MRSA Year Discovered:: 2012 MDRO Source:: L Leg Past Surgical History: Orthopedic Surgery Additional Past Surgical History / Comment(s): julio carpel tunnel, left knee arthroscopy, PICC, debridement left foot, laser surgery left leg Past Anesthesia/Blood Transfusion Reactions: No Reported Reaction Past Psychological History: No Psychological Hx Reported Smoking Status: Former smoker Past Alcohol Use History: Occasional Additional Past Alcohol Use History / Comment(s): Patient was a smoker 3 packs per day on and off for 20 years and quit 25 years ago. workingas a experienced truck driver Past Drug Use History: Marijuana Additional Drug Use History / Comment(s): rare use, has not smoked marijuana in 3 months - Past Family History Mother Family Medical History: No Reported History Medications and Allergies Home Medications Medication Instructions Recorded Confirmed Type Simvastatin [Zocor] 40 mg PO HS 03/13/14 10/02/22 History Aspirin [Adult Low Dose Aspirin EC] 81 mg PO HS 11/27/16 10/02/22 History metFORMIN HCL [Glucophage] 1,000 mg PO AC-BID 11/17/17 10/02/22 History Insulin Glargine,Hum.rec.anlog 40 units SQ HS 12/23/17 10/02/22 History [Lantus Solostar] Pioglitazone [Actos] 15 mg PO DAILY 08/03/18 10/02/22 History Acetaminophen [Tylenol Arthritis] 1,300 mg PO BID 10/02/22 10/02/22 History Amitriptyline HCl [Elavil] 10 mg PO HS 10/02/22 10/02/22 History Colchicine [Colcrys] 0.6 mg PO HS 10/02/22 10/02/22 History DULoxetine HCL [Cymbalta] 30 mg PO HS 10/02/22 10/02/22 History Empagliflozin [Jardiance] 10 mg PO HS 10/02/22 10/02/22 History Famotidine [Pepcid] 20 mg PO DAILY 10/02/22 10/02/22 History Furosemide [Lasix] 20 mg PO DAILY 10/02/22 10/02/22 History Rivaroxaban [Xarelto] 2.5 mg PO BID 10/02/22 10/02/22 History Semaglutide [Ozempic] 2 mg SQ MO 10/02/22 10/02/22 History lisinopriL [Zestril] 10 mg PO HS 10/02/22 10/02/22 History Allergies Allergy/AdvReac Type Severity Reaction Status Date / Time cefuroxime [From Ceftin] Allergy Rash/Hives Verified 10/02/22 14:41 Physical Exam Vitals: Vital Signs Temp Pulse Pulse Resp BP BP Pulse Ox 10/02/22 18:59 100.4 F H 104 H 20 161/71 95 10/02/22 15:22 98.2 F 87 16 126/76 97 10/02/22 13:48 88 18 114/67 98 10/02/22 10:42 99 F 111 H 20 130/67 95 Intake and Output 10/02/22 10/02/22 10/02/22 06:59 14:59 22:59 Other: Weight 134.717 kg 134.717 kg Results CBC & Chem 7: 10/02/22 11:00 10/02/22 11:00 Labs: Abnormal Lab Results - Last 24 Hours (Table) 10/02/22 10/02/22 10/02/22 Range/Units 11:00 11:00 11:00 WBC 12.3 H (3.8-10.6) k/uL RBC 3.97 L (4.30-5.90) m/uL Hgb 12.6 L (13.0-17.5) gm/dL Hct 37.4 L (39.0-53.0) % Neutrophils # 10.9 H (1.3-7.7) k/uL Lymphocytes # 0.6 L (1.0-4.8) k/uL PT 12.2 H (9.0-12.0) sec INR 1.2 H (<1.2) Sodium 135 L (137-145) mmol/L Glucose 202 H (74-99) mg/dL POC Glucose (mg/dL) (70-110) mg/dL Alkaline Phosphatase 140 H (38-126) U/L Albumin 3.2 L (3.5-5.0) g/dL 10/02/22 10/02/22 Range/Units 17:02 20:17 WBC (3.8-10.6) k/uL RBC (4.30-5.90) m/uL Hgb (13.0-17.5) gm/dL Hct (39.0-53.0) % Neutrophils # (1.3-7.7) k/uL Lymphocytes # (1.0-4.8) k/uL PT (9.0-12.0) sec INR (<1.2) Sodium (137-145) mmol/L Glucose (74-99) mg/dL POC Glucose (mg/dL) 140 H 149 H (70-110) mg/dL Alkaline Phosphatase (38-126) U/L Albumin (3.5-5.0) g/dL Assessment and Plan Plan: 1patient with extensive left diabetic foot infection with evidence of right gangrene and necrotic changes foul-smelling drainage failing outpatient Bactrim DS therapy, we will need to cover for the polymicrobial rayna usually associated diabetic foot infection 2-awaiting possible transmetatarsal amputation in the morning along with deep culture 3-vancomycin and Zosyn will provide broader antibiotic coverage in view of his extensive infection while watching his kidney function closely Plan of care were discussed with the admitting team We will follow on clinical condition and cultures to further adjust medication if needed Thank you for this consultation we will follow the patient along with you
--- NOTE | 2022-10-03 00:58 | CONS ---
CONSULTATION HISTORY OF PRESENT ILLNESS: This is a 62-year-old gentleman who is known to me from the past. The patient came to the emergency room. He has history of wound and gangrene changes, left foot big toe due to a foreign body which has been removed. The patient noticed gangrene changes involving all the toes and plantar aspect of the foot with open wound. The patient has a noted. There is some recurrent necrotic tissue noted also on the plantar aspect of the foot. The patient came to the [facility], was sent to the emergency room. The patient had x-ray of the foot suggestive of osteomyelitis. The patient's WBC is 12.3. MEDICAL HISTORY: History of diabetes, hypertension. MEDICATIONS: The patient is on vancomycin and Zosyn. PAST HISTORY: The patient had an endovenous laser ablation of the greater saphenous vein done by me in the past. PERSONAL HISTORY: No known allergies. PHYSICAL EXAMINATION: NECK: Supple. No bruit appreciated. CHEST: Clear. There is good air entry in both lungs. HEART: First and second sounds present. ABDOMEN: Soft, nontender. EXTREMITIES: Vascular femorals are 2+ bilateral PT, DP by the Doppler. The patient has wet gangrene changes noted on the left foot plantar and dorsal aspect of the toes with open wound and also there is open wound on the anterior aspect of the lower leg with marked cellulitis. PLAN: The patient is scheduled for ray amputation of the transmetatarsal of left foot. He is to keep the patient n.p.o. after midnight. Consent for transplant amputation. Risks and complications discussed with the patient. MMODL / IJN: [id number] /
[2022-10-03] MEDS: PIPERACILLIN-TAZOBACTAM 3.375 GM in SODIUM CHLORIDE 0.9% 100 ML IVPB SCH ×4 (01:24→23:38)
[2022-10-03] MEDS: SODIUM CHLORIDE 0.9% 1,000 ML IV SCH ×2 (04:14→21:55)
[2022-10-03 06:56] LABS: HCT 35.1 % (39.0-53.0); HGB 11.7 gm/dL (13.0-17.5); MCH 30.7 pg (25.0-35.0); MCHC 33.4 g/dL (31.0-37.0); Platelet Count 213 k/uL (150-450); RBC 3.81 m/uL (4.30-5.90); RDW 13.4 % (11.5-15.5); WBC 10.2 k/uL (3.8-10.6)
[2022-10-03 07:28] LABS: ALT 17 U/L (4-49); AST 24 U/L (17-59); African American GFR (CKD) >90 (>60 ml/min/1.73 sqM); Albumin 2.7 g/dL (3.5-5.0); Albumin/Globulin Ratio 0.8; Alkaline Phosphatase 125 U/L (38-126); Anion Gap 7 mmol/L; Blood Urea Nitrogen 12 mg/dL (9-20); Calcium 8.3 mg/dL (8.4-10.2); Carbon Dioxide 25 mmol/L (22-30); Chloride 103 mmol/L (98-107); Globulin 3.6 g/dL; Glucose 50 mg/dL (74-99); Magnesium 1.7 mg/dL (1.6-2.3); Non-African American GFR(CKD) >90 (>60 ml/min/1.73 sqM); Sodium 135 mmol/L (137-145); Total Bilirubin 0.8 mg/dL (0.2-1.3); Total Protein 6.3 g/dL (6.3-8.2)
[2022-10-03 07:53] LABS: Glucose,Whole Blood 51 mg/dL (70-110)
[2022-10-03] MEDS: INSULIN ASPART (NovoLOG) 100 UNIT/ML VIAL SQ SCH ×4 (07:56→20:44)
[2022-10-03] MEDS: FAMOTIDINE 20 MG TAB PO SCH (07:56)
[2022-10-03] MEDS: DEXTROSE 50% SYRINGE 50 ML IVP PRN ×3 (07:57→16:21)
[2022-10-03 08:24] LABS: Glucose,Whole Blood 89 mg/dL (70-110)
[2022-10-03] MEDS: VANCOMYCIN 2,000 MG in SODIUM CHLORIDE 0.9% 500 ML 500 ML IVPB SCH ×2 (08:37→20:45)
[2022-10-03] MEDS ORDERED: POTASSIUM CHLORIDE 20 MEQ in WATER FOR INJECTION 1 100ML.BAG IVPB STA (09:49)
[2022-10-03 09:50] LABS: INR 1.2 (<1.2); Prothrombin Time 12.1 sec (9.0-12.0)
[2022-10-03 10:54] LABS: Glucose,Whole Blood 58 mg/dL (70-110)
[2022-10-03 11:22] LABS: Glucose,Whole Blood 108 mg/dL (70-110)
--- NOTE | 2022-10-03 13:30 | CDI ---
Documentation Clarification Form Date: 10/03/2022 01:18:43 PM From: Kiki Cano RN CCDS Phone: [phone] Admit Date: 10/02/2022 01:28:00 PM Patient Name: Maynor Jain Visit Number: [id number] Discharge Date: ATTENTION: The Clinical Documentation Specialists (CDI) and [facility] Coding Staff appreciate your assistance in clarifying documentation. Please respond to the clarification below the line at the bottom and electronically sign. The CDI & [facility] Coding staff will review the response and follow-up if needed. Please note: Queries are made part of the Legal Health Record. If you have any questions, please contact the author of this message via ITS. Dr. Joel Leung Sepsis is documented in the ED note, 10/02, but is not noted in subsequent documentation. Clarification is requested. History/Risk Factors: 62-year-old male presents from wound care due to the severity of foot wound. Medical History: DM , Neuropathy and Gout. H&P, 10/02. Clinical Indicators: VSS, 10/02: B/P 130/67; HR 111; Temp 99 F Tympanic; RR 20; SpO2 95% room air Labs, 10/02: Wbc 12.3; Neutrophils 10.9; Left foot xray, 10/02: Large soft tissue ulcer along the distal ball of the foot. Prominent soft tissue swelling throughout. Lateral view limited due to prominent bony overlap. 10/02, H&P: Infected diabetic wound left foot with osteomyelitis and exposure of bone Treatment: 10/02 Vancomycin ivpb x 1; 10/02 Zosyn ivpb x 1; 10/02 Zosyn ivpb Q8HR; 10/02 Vancomycin ivpb Q12H. Please clarify if the Sepsis is: [ ] Sepsis confirmed, remains under treatment [ ] Sepsis confirmed, resolved [ X ] Sepsis ruled out [ ] Other condition, please specify [ ] Unable to determine (Template Last Revised: June 2020) VITALIYD
--- NOTE | 2022-10-03 14:21 | P.PN ---
Subjective Progress Note Date: 10/03/22 Patient is a 62-year-old male with diabetes mellitus insulin requiring, diabetic neuropathy, and arthritis who was sent in from the wound care center due to severity of the wound. In the emergency department he underwent an extensive evaluation. On arrival he was tachycardic with a pulse of 111. Laboratory analysis was remarkable for white blood cell count of 12.3, hemoglobin 12.6, glucose 202, and alkaline phosphatase of 140. Foot x-ray in the ER showed a large soft tissue ulcer on the along the distal ball of the foot with prominent soft tissue swelling. He was given a dose of Zosyn and vancomycin and arrangements were made for admission. He was urgently seen by Dr. Brian who recommended TMA. He was seen by Dr. Leyva who recommended vanco and zosyn until surgery completed. Patient seen and examined at bedside. He is very withdrawn and our conversation today. He is aware that he is having surgery. He denies any pain, nausea, vomiting. He states he could not tell what his blood sugar was low this morning. 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 Gout, resolved On xerlto - patient is unsure of the indication - resume once srugery is completed Obesity class 3 with BMI 40.3 - outpatient weight loss - outpatient ozempic Imaging: None new Data Review: Vitals reviewed. T-max 102.2, pulse 89, respirations 17, blood pressure 114/63, O2 sat 92% on room air Laboratory analysis reviewed and remarkable for hemoglobin 11.7, INR 1.2, sodium 135, potassium 3, blood sugar 50 this morning DVT prophylaxis: SCDs Anticipated discharge date: Pending Clinical Course Anticipated discharge place: Pending Clinical Course This dictation was prepared using [employer] voice recognition software. Though every attempt is made to correct errors during dictation some may still exist. Objective - Vital Signs Vital signs: Vital Signs Temp 98.2 F 10/03/22 12:37 Pulse 79 10/03/22 12:37 Resp 17 10/03/22 12:37 BP 116/66 10/03/22 12:37 Pulse Ox 96 10/03/22 12:37 FiO2 Intake & Output 10/02/22 10/03/22 10/03/22 18:59 06:59 18:59 Intake Total 400 Balance 400 Weight 134.717 kg Intake: Oral 400 Other: # Voids 1 - Labs CBC & Chem 7: 10/03/22 06:21 10/03/22 06:21 Labs: Abnormal Lab Results - Last 24 Hours (Table) 10/02/22 10/02/22 10/03/22 Range/Units 17:02 20:17 06:21 RBC 3.81 L (4.30-5.90) m/uL Hgb 11.7 L (13.0-17.5) gm/dL Hct 35.1 L (39.0-53.0) % PT (9.0-12.0) sec INR (<1.2) Sodium (137-145) mmol/L Potassium (3.5-5.1) mmol/L Glucose (74-99) mg/dL POC Glucose (mg/dL) 140 H 149 H (70-110) mg/dL Calcium (8.4-10.2) mg/dL Albumin (3.5-5.0) g/dL 10/03/22 10/03/22 10/03/22 Range/Units 06:21 06:21 07:51 RBC (4.30-5.90) m/uL Hgb (13.0-17.5) gm/dL Hct (39.0-53.0) % PT 12.1 H (9.0-12.0) sec INR 1.2 H (<1.2) Sodium 135 L (137-145) mmol/L Potassium 3.0 L (3.5-5.1) mmol/L Glucose 50 L (74-99) mg/dL POC Glucose (mg/dL) 51 L (70-110) mg/dL Calcium 8.3 L (8.4-10.2) mg/dL Albumin 2.7 L (3.5-5.0) g/dL 10/03/22 Range/Units 10:53 RBC (4.30-5.90) m/uL Hgb (13.0-17.5) gm/dL Hct (39.0-53.0) % PT (9.0-12.0) sec INR (<1.2) Sodium (137-145) mmol/L Potassium (3.5-5.1) mmol/L Glucose (74-99) mg/dL POC Glucose (mg/dL) 58 L (70-110) mg/dL Calcium (8.4-10.2) mg/dL Albumin (3.5-5.0) g/dL Microbiology - Last 24 Hours (Table) 10/02/22 11:00 Gram Stain - Preliminary Foot - Left Wound Culture - Preliminary Beta Hemolytic Strep Group G
[2022-10-03 15:31] VITALS: BMI 40.2
[2022-10-03] MEDS ORDERED: LACTATED RINGERS 1,000 ML IV ONE (15:55)
[2022-10-03 16:07] LABS: Glucose,Whole Blood 67 mg/dL (70-110)
[2022-10-03] MEDS ORDERED: ONDANSETRON 4 MG/2 ML VIAL IVP ONE (16:22)
[2022-10-03] MEDS ORDERED: DEXAMETHASONE SOD PHOSPHATE 4 MG/ML 1 ML VIAL IVP ONE (16:23)
[2022-10-03 16:26] LABS: Glucose,Whole Blood 102 mg/dL (70-110)
[2022-10-03] MEDS ORDERED: HYDROmorphone (PF) 1 MG/ML ONE (17:08)
[2022-10-03] MEDS ORDERED: PHENYLEPHRINE-0.9% NACL SYG 1,000 MCG/10 ML SYRINGE ONE (17:08)
[2022-10-03] MEDS ORDERED: fentaNYL (PF) 50 MCG/ML 2 ML AMP ONE (17:08)
[2022-10-03] MEDS ORDERED: PROPOFOL 10 MG/ML 20 ML VIAL IV ONE (17:08)
[2022-10-03] MEDS ORDERED: MIDAZOLAM 2 MG/2 ML VIAL ONE (17:08)
[2022-10-03] MEDS ORDERED: LIDOCAINE 2% INJ 20 MG/ML (2 ML VIAL) ONE (17:08)
[2022-10-03] MEDS ORDERED: SODIUM CHLORIDE 0.9% 1,000 ML IV ONE (18:29)
[2022-10-03 18:53] LABS: Glucose,Whole Blood 87 mg/dL (70-110)
[2022-10-03 20:20] LABS: Glucose,Whole Blood 102 mg/dL (70-110)
[2022-10-03] MEDS: DULoxetine HCL 30 MG CAPSULE.DR PO SCH (20:44)
[2022-10-03] MEDS: AMITRIPTYLINE HCL 10 MG TAB PO SCH (20:44)
[2022-10-03] MEDS: ATORVASTATIN 20 MG TAB PO SCH (20:44)
[2022-10-03] MEDS: DAPAGLIFLOZIN PROPANEDIOL 5 MG TABLET PO SCH (20:44)
[2022-10-03] MEDS ORDERED: INSULIN DETEMIR (LEVEMIR) 100 UNIT/ML SYR SQ SCH (21:00)
[2022-10-04 02:38] LABS: Glucose,Whole Blood 235 mg/dL (70-110)
[2022-10-04 06:12] LABS: HCT 32.2 % (39.0-53.0); HGB 10.5 gm/dL (13.0-17.5); Hypochromasia Slight; MCHC 32.8 g/dL (31.0-37.0); MCV 94.6 fL (80.0-100.0); Platelet Count 229 k/uL (150-450); RDW 13.2 % (11.5-15.5); WBC 5.9 k/uL (3.8-10.6)
[2022-10-04 06:27] LABS: African American GFR (CKD) >90 (>60 ml/min/1.73 sqM); Anion Gap 7 mmol/L; Blood Urea Nitrogen 14 mg/dL (9-20); Carbon Dioxide 26 mmol/L (22-30); Chloride 103 mmol/L (98-107); Glucose 223 mg/dL (74-99); Non-African American GFR(CKD) >90 (>60 ml/min/1.73 sqM); Potassium 3.8 mmol/L (3.5-5.1); Sodium 136 mmol/L (137-145)
[2022-10-04] MEDS: SODIUM CHLORIDE 0.9% 1,000 ML IV SCH ×2 (06:50→17:41)
--- NOTE | 2022-10-04 07:05 | P.PN ---
Subjective Progress Note Date: 10/03/22 Principal diagnosis: L diabetic foot infection Patient is a 62-year-old male with a past medical history significant for diabetes mellitus presenting to the hospital with significant swelling of redness and foul-smelling drainage to the left foot with concern for extensive left diabetic foot infection. On today's evaluation that is 10/03/2022 the patient fever has resolved and the patient is afebrile this morning, the patient is breathing comfortably on room air patient denies having any chest pain or shortness with or cough no nausea vomiting no abdominal pain or pain to the left foot Objective - Vital Signs Vital signs: Vital Signs Temp 98.9 F 10/03/22 07:05 Pulse 89 10/03/22 07:05 Resp 17 10/03/22 07:05 BP 114/63 10/03/22 07:05 Pulse Ox 92 L 10/03/22 07:05 FiO2 Intake & Output 10/02/22 10/03/22 10/03/22 18:59 06:59 18:59 Intake Total 400 Balance 400 Weight 134.717 kg Intake: Oral 400 Other: # Voids 1 - Exam GENERAL DESCRIPTION: Middle-age male lying in bed in no distress RESPIRATORY SYSTEM: Unlabored breathing , decreased breath sounds at bases HEART: S1 S2 regular rate and rhythm ,no loud murmurs ABDOMEN: Soft , no tenderness EXTREMITIES: Left foot with extensive swelling wound on the plantar aspect with necrotic tissue and foul-smelling - Labs CBC & Chem 7: 10/04/22 05:28 10/04/22 05:28 Labs: Abnormal Lab Results - Last 24 Hours (Table) 10/02/22 10/02/22 10/02/22 Range/Units 11:00 17:02 20:17 RBC (4.30-5.90) m/uL Hgb (13.0-17.5) gm/dL Hct (39.0-53.0) % PT (9.0-12.0) sec INR (<1.2) Sodium 135 L (137-145) mmol/L Potassium (3.5-5.1) mmol/L Glucose 202 H (74-99) mg/dL POC Glucose (mg/dL) 140 H 149 H (70-110) mg/dL Calcium (8.4-10.2) mg/dL Alkaline Phosphatase 140 H (38-126) U/L Albumin 3.2 L (3.5-5.0) g/dL 10/03/22 10/03/22 10/03/22 Range/Units 06:21 06:21 06:21 RBC 3.81 L (4.30-5.90) m/uL Hgb 11.7 L (13.0-17.5) gm/dL Hct 35.1 L (39.0-53.0) % PT 12.1 H (9.0-12.0) sec INR 1.2 H (<1.2) Sodium 135 L (137-145) mmol/L Potassium 3.0 L (3.5-5.1) mmol/L Glucose 50 L (74-99) mg/dL POC Glucose (mg/dL) (70-110) mg/dL Calcium 8.3 L (8.4-10.2) mg/dL Alkaline Phosphatase (38-126) U/L Albumin 2.7 L (3.5-5.0) g/dL 10/03/22 10/03/22 Range/Units 07:51 10:53 RBC (4.30-5.90) m/uL Hgb (13.0-17.5) gm/dL Hct (39.0-53.0) % PT (9.0-12.0) sec INR (<1.2) Sodium (137-145) mmol/L Potassium (3.5-5.1) mmol/L Glucose (74-99) mg/dL POC Glucose (mg/dL) 51 L 58 L (70-110) mg/dL Calcium (8.4-10.2) mg/dL Alkaline Phosphatase (38-126) U/L Albumin (3.5-5.0) g/dL Microbiology - Last 24 Hours (Table) 10/02/22 11:00 Gram Stain - Preliminary Foot - Left Assessment and Plan (1) Diabetic foot ulcer Current Visit: No Status: Acute Code(s): E11.621 - TYPE 2 DIABETES MELLITUS WITH FOOT ULCER; L97.509 - NON-PRESSURE CHRONIC ULCER OTH PRT UNSP FOOT W UNSP SEVERITY SNOMED Code(s): 388637038 (2) Ulcer of foot with necrosis of muscle Current Visit: Yes Status: Acute Code(s): L97.503 - NON-PRS CHRONIC ULCER OTH PRT UNSP FOOT W NECROSIS OF MUSCLE SNOMED Code(s): 62050963 (3) Cellulitis of left foot Current Visit: No Status: Acute Code(s): L03.116 - CELLULITIS OF LEFT LOWER LIMB SNOMED Code(s): 870300808 Plan: 1patient with extensive left diabetic foot infection with evidence of right gangrene and necrotic changes foul-smelling drainage failing outpatient Bactrim DS therapy, we will need to cover for the polymicrobial rayna usually associated diabetic foot infection 2-awaiting possible transmetatarsal amputation along with deep culture 3-Pt to continue with vancomycin and Zosyn in view of his extensive infection while watching his kidney function closely Time with Patient: Less than 30
[2022-10-04 07:17] LABS: Glucose,Whole Blood 187 mg/dL (70-110)
[2022-10-04] MEDS: VANCOMYCIN 2,000 MG in SODIUM CHLORIDE 0.9% 500 ML 500 ML IVPB SCH ×2 (08:11→20:16)
[2022-10-04] MEDS: FAMOTIDINE 20 MG TAB PO SCH (08:11)
[2022-10-04] MEDS: PIPERACILLIN-TAZOBACTAM 3.375 GM in SODIUM CHLORIDE 0.9% 100 ML IVPB SCH ×2 (08:12→17:41)
[2022-10-04] MEDS: INSULIN ASPART (NovoLOG) 100 UNIT/ML VIAL SQ SCH ×4 (08:17→20:16)
[2022-10-04 12:31] LABS: Glucose,Whole Blood 196 mg/dL (70-110)
--- NOTE | 2022-10-04 14:13 | OP ---
OPERATIVE REPORT DATE OF SERVICE : PREOPERATIVE DIAGNOSIS: Wet gangrene of the left foot involving all the toes with open wound on the plantar and dorsal aspect with necrotic tissue and drainage of pus and foul odor smell. POSTOPERATIVE DIAGNOSIS: Wet gangrene of the left foot involving all the toes with open wound on the plantar and dorsal aspect with necrotic tissue and drainage of pus and foul odor smell. PROCEDURE PERFORMED: Transmetatarsal amputation of the left foot. DESCRIPTION OF PROCEDURE: This patient was brought to the operating room. Left foot was prepped and drapes were applied in a sterile manner. This patient has a wet gangrene for the past 2 weeks with devitalized and necrotic tissue on the plantar aspect and dorsal aspect of the foot with foul odor smell. The patient is on IV antibiotic. Left foot was prepped and drapes were applied in a sterile manner under general anesthesia. Incision was made on the dorsal aspect of the foot, deepened through skin, fat, and fascia. After that, extensor tendons were divided on the dorsum aspect noting the tip tendons. There was a necrotic tendon noted and debrided. There was extensive infection spreading to the dorsum aspect of the foot with foul odored pus. At this point, dividing the tendons, periosteum elevator was used to elevate the periosteum from the dorsal bone involving the big toe, second toe, third, fourth and fifth toe. After that we used micro sagittal saw and metatarsal bones were divided, which was held within traction with tall clip. Then, attention was paid on the plantar aspect of the foot. Incision was made on the plantar aspect of the foot, deepened through skin, fat, and fascia. Again, we noted extensive infection and necrotic tissue and pus noted on the plantar aspect. There are some digital vessels, which were suture ligated with 3-0 Prolene. The foot was kept in traction and after dividing the tendons, we removed the specimen, which was sent for deep culture. There was marked swelling and edema noted of the tissue including subcutaneous tissue, fat, and necrotic tendons. At this point, the wound was copiously irrigated with hydrogen peroxide and saline. Hemostasis was well controlled because of marked infection and marked swelling and edema of the tissue. It was not possible to control primarily. We approximated the fascia with 0 Vicryl. Skin was kept open. Again, we checked the bleeding point. There was good hemostasis. Excess silver placed on the wound and pressure dressing applied. The patient was transferred to the recovery room in satisfactory condition. LANCE / SANDRO: [id number] /
--- NOTE | 2022-10-04 14:35 | P.PN ---
Progress Note - Text 62-year-old diabetic male history of diabetes patient came with history of wet gangrene left foot patient had a ray amputation the foot Metatarsophalangeal joint patient had a wound with the tendon was infected and a we took the deep culture fascia was approximated the skin is opened because of infection and marked edema of tissue today we have changed her dressing we placed wound VAC today continue with IV antibiotic recommended nonweightbearing patient need bedside commode
[2022-10-04 17:16] LABS: Glucose,Whole Blood 430 mg/dL (70-110)
--- NOTE | 2022-10-04 17:49 | P.PN ---
Subjective Progress Note Date: 10/04/22 (delayed charting seen at 0830) Patient is a 62-year-old male with diabetes mellitus insulin requiring, diabetic neuropathy, and arthritis who was sent in from the wound care center due to severity of the wound. In the emergency department he underwent an extensive evaluation. On arrival he was tachycardic with a pulse of 111. Laboratory analysis was remarkable for white blood cell count of 12.3, hemoglobin 12.6, glucose 202, and alkaline phosphatase of 140. Foot x-ray in the ER showed a large soft tissue ulcer on the along the distal ball of the foot with prominent soft tissue swelling. He was given a dose of Zosyn and vancomycin and arrangements were made for admission. He was urgently seen by Dr. Brian who recommended TMA. He was seen by Dr. Leyva who recommended vanco and zosyn until surgery completed. Patient seen and examined at bedside. His worry about his sugars being so high. He denies any chest pain, shortness breath, nausea, vomiting. 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 - ID not reviewed: Vanco and zosyn until surgery - Vanoc with close monitor of Cr and vanco trough for toxicity - Zosun 3.375 g q 12 hours IVPB - 0.9 NS at 75 cc/hr - Await wound culture DM 2, well controlled in the out patient setting, with neuropathy - Increase Levemir to 35 units tonight, conitnue with SSI - continue with jardiance - Metformin, actos, and ozempic (due next Friday) on hold - follow BS - A1C 5.8 - on lisinopril for proteinuria On xarelto - patient is unsure of the indication - will resume Obesity class 3 with BMI 40.3 - outpatient weight loss - outpatient ozempic Hypoglycemia, resolved Hypokalemia, resolved Gout, resolved Imaging: None new Data Review: Vitals reviewed temperature 97.5, pulse 83, respirations 20, blood pressure 127/78, O2 sat 95% on room air Labs reviewed and hemoglobin 10.5, hematocrit 32.2, sodium 136, glucose 223, Blood cultures negative for 48 hours. DVT prophylaxis: SCDs Anticipated discharge date: Pending Clinical Course Anticipated discharge place: Pending Clinical Course This dictation was prepared using [employer] voice recognition software. Though every attempt is made to correct errors during dictation some may still exist. Objective - Vital Signs Vital signs: Vital Signs Temp 98.4 F 10/04/22 11:32 Pulse 85 10/04/22 11:32 Resp 20 10/04/22 11:32 BP 104/67 10/04/22 11:32 Pulse Ox 96 10/04/22 11:32 FiO2 Intake & Output 10/03/22 10/04/22 10/04/22 18:59 06:59 18:59 Intake Total 2550 1590 Output Total 200 Balance 2350 1590 Weight 134.72 kg Intake: IV 1250 Intake, IV Titration 1300 1000 Amount Piperacillin-Tazobactam 3 100 100 .375 gm In Sodium Chloride 0.9% 100 ml @ 25 mls/hr IVPB Q8HR [facility] Rx# :[id number] Potassium Chloride 20 meq 100 In Water For Injection 1 100ml.bag @ 50 mls/hr IVPB ONCE ST[facility] Rx#: [id number] Sodium Chloride 0.9% 1, 600 900 000 ml @ 75 mls/hr IV . [id number] [facility] Rx#:[id number] Vancomycin 2,000 mg In 500 Sodium Chloride 0.9% 500 ml 500 ml @ 167 mls/hr IVPB Q12H [facility] Rx#: [id number] Oral 590 Output: Estimated Blood Loss 200 Other: # Voids 1 - Labs CBC & Chem 7: 10/04/22 05:28 10/04/22 05:28 Labs: Abnormal Lab Results - Last 24 Hours (Table) 10/04/22 10/04/22 10/04/22 Range/Units 02:36 05:28 05:28 RBC 3.40 L (4.30-5.90) m/uL Hgb 10.5 L (13.0-17.5) gm/dL Hct 32.2 L (39.0-53.0) % Sodium 136 L (137-145) mmol/L Glucose 223 H (74-99) mg/dL POC Glucose (mg/dL) 235 H (70-110) mg/dL Calcium 8.0 L (8.4-10.2) mg/dL 10/04/22 10/04/22 10/04/22 Range/Units 07:16 12:30 17:14 RBC (4.30-5.90) m/uL Hgb (13.0-17.5) gm/dL Hct (39.0-53.0) % Sodium (137-145) mmol/L Glucose (74-99) mg/dL POC Glucose (mg/dL) 187 H 196 H 430 H (70-110) mg/dL Calcium (8.4-10.2) mg/dL Microbiology - Last 24 Hours (Table) 10/02/22 11:00 Blood Culture - Preliminary Blood 10/02/22 11:00 Blood Culture - Preliminary Blood 10/02/22 11:00 Gram Stain - Preliminary Foot - Left Wound Culture - Preliminary Beta Hemolytic Strep Group G Gram Neg Bacilli
[2022-10-04 20:08] LABS: Glucose,Whole Blood 273 mg/dL (70-110)
[2022-10-04] MEDS: INSULIN DETEMIR (LEVEMIR) 100 UNIT/ML SYR SQ SCH (20:16)
[2022-10-04] MEDS: ATORVASTATIN 20 MG TAB PO SCH (20:17)
[2022-10-04] MEDS: RIVAROXABAN 2.5 MG TABLET PO SCH (20:17)
[2022-10-04] MEDS: DULoxetine HCL 30 MG CAPSULE.DR PO SCH (20:17)
[2022-10-04] MEDS: AMITRIPTYLINE HCL 10 MG TAB PO SCH (20:17)
[2022-10-04] MEDS: ASPIRIN 81 MG PO SCH (20:17)
[2022-10-04] MEDS: DAPAGLIFLOZIN PROPANEDIOL 5 MG TABLET PO SCH (20:18)
[2022-10-05] MEDS: PIPERACILLIN-TAZOBACTAM 3.375 GM in SODIUM CHLORIDE 0.9% 100 ML IVPB SCH ×3 (01:12→17:25)
[2022-10-05 02:45] LABS: Glucose,Whole Blood 148 mg/dL (70-110)
[2022-10-05 07:45] LABS: Glucose,Whole Blood 111 mg/dL (70-110)
[2022-10-05] MEDS: INSULIN ASPART (NovoLOG) 100 UNIT/ML VIAL SQ SCH ×4 (07:50→20:59)
[2022-10-05] MEDS ORDERED: VANCOMYCIN TROUGH DUE 1 EACH MISC MISCELLANE ONE (08:00)
[2022-10-05 08:18] LABS: HCT 31.1 % (39.0-53.0); HGB 10.5 gm/dL (13.0-17.5); MCH 31.6 pg (25.0-35.0); MCHC 33.7 g/dL (31.0-37.0); MCV 93.7 fL (80.0-100.0); Mean Platelet Volume 7.8; Platelet Count 265 k/uL (150-450); RBC 3.32 m/uL (4.30-5.90); RDW 13.4 % (11.5-15.5); WBC 5.1 k/uL (3.8-10.6)
[2022-10-05 08:30] LABS: African American GFR (CKD) >90 (>60 ml/min/1.73 sqM); Anion Gap 2 mmol/L; Blood Urea Nitrogen 13 mg/dL (9-20); Calcium 7.9 mg/dL (8.4-10.2); Carbon Dioxide 28 mmol/L (22-30); Chloride 107 mmol/L (98-107); Glucose 94 mg/dL (74-99); Magnesium 1.8 mg/dL (1.6-2.3); Non-African American GFR(CKD) >90 (>60 ml/min/1.73 sqM); Potassium 3.6 mmol/L (3.5-5.1); Sodium 137 mmol/L (137-145)
[2022-10-05] MEDS: VANCOMYCIN 2,000 MG in SODIUM CHLORIDE 0.9% 500 ML 500 ML IVPB SCH ×2 (08:30→21:00)
[2022-10-05] MEDS: RIVAROXABAN 2.5 MG TABLET PO SCH ×2 (08:31→21:00)
[2022-10-05] MEDS: FAMOTIDINE 20 MG TAB PO SCH (08:32)
[2022-10-05 12:13] LABS: Glucose,Whole Blood 157 mg/dL (70-110)
[2022-10-05] MEDS: SODIUM CHLORIDE 0.9% 1,000 ML IV SCH (13:20)
--- NOTE | 2022-10-05 13:25 | PN ---
PROGRESS NOTE This is a 62-year-old diabetic male, who came with wet gangrene of the left foot. The patient underwent transmetatarsal amputation, left foot. The skin was left open because of infection and massive edema of the tissue. We put a wound VAC yesterday. The patient is afebrile. Culture came back as a beta-hemolytic and gram-negative bacilli. Patient is on IV antibiotic under the care of Infectious Disease. Continue with IV antibiotic and wound VAC. MMODL / СВЕТЛАНАN: [id number] /
--- NOTE | 2022-10-05 15:34 | P.PN ---
Subjective Progress Note Date: 10/05/22 Hospital course: Patient is a very pleasant 62-year-old male with a past medical history of insulin-dependent diabetes mellitus, diabetic neuropathy, and arthritis. He presented to the hospital on 10/02/22 after being sent by wound care center secondary to large ulcerations/extensive wound of left foot. Patient was found to have large soft tissue ulcer of distal ball of left foot with prominent soft tissue swelling throughout. Labs were completed showing leukocytosis with WBC count of 12.3, normocytic anemia with hemoglobin of 12.6, and hyperglycemia with glucose of 202. Alkaline phosphatase also elevated at 140. Patient was started on IV antibiotics with Zosyn and vancomycin and admitted under our services with consultation to vascular surgeon, Dr. Brian and infectious disease physician, Dr. Leyva. Patient was taken for a transmetatarsal amputation of left foot on 10/04/22. Infectious disease following and recommending continuation of vancomycin and Zosyn at this time. Physical exam: Patient seen and examined at bedside. He currently reports having no pain at this time and denies any other complaints. Patient reports feeling a little tired this morning. Vital signs reviewed General: nontoxic, no distress, appears at stated age Cardiovascular: S1S2 reg, no murmur, positive posterior tibial pulse bilateral, Lungs: CTA bilateral, no rhonchi, no rales , no accessory muscle use Abdominal: soft, nontender to palpation, no guarding, no appreciable organ omegaly Ext: no gross muscle atrophy, 1+ edema bilateral lower extremities, no contractures, wound VAC in place left foot. 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 -Infectious disease following, recommending continuation of vancomycin and Zosyn at this time -Vancomycin troph reviewed this morning and is therapeutic at 16.9. Renal function also stable with BUN 13, creatinine 0.75, and GFR greater than 90 showing no signs of vancomycin-induced renal toxicity at this time. -We will continue to monitor vancomycin troph and renal function closely for any signs of toxicity. -Preliminary wound cultures resulting positive for beta hemolytic strep group G and gram-negative bacilli. Type 2 insulin-dependent diabetes mellitus, well controlled in the out patient setting with hemoglobin A1c of 5.8%. -Continue with glycemic protocol and insulin sliding scale along with Levemir to 35 units nightly. -Continue with jardiance -Metformin, actos, and ozempic (due next Friday) on hold -Blood glucose levels reviewed and ranging from 111-430 over the past 24 hours, since increasing of Levemir to 35 units nightly blood glucose levels have ranged 111-157. -Continue with lisinopril 10 mg nightly for proteinuria On xarelto -Medication resumed, patient is unsure of the indication Obesity class 3 with BMI 40.3 -Recommend supervised outpatient weight management program -Continue with outpatient ozempic Hypoglycemia, resolved Hypokalemia, resolved Gout, resolved Imaging: -No new imaging to review. Data Review: -Vital signs reviewed. Blood pressure 128/80, heart rate 78, respiratory rate 16, SpO2 93% on room air, and temperature 98.5F. -Morning labs reviewed. CBC showing stable normocytic anemia with hemoglobin of 10.5. BMP unremarkable. Morning glucose 111. Vancomycin troph 16.9. -Blood culture showing no growth to date. Wound culture preliminarily resulting positive for beta hemolytic strep group G and gram-negative bacilli. DVT prophylaxis: Xarelto Anticipated discharge date: Pending Clinical Course Anticipated discharge place: Pending Clinical Course Patient was seen independently by Nurse Pracitioner. This document was prepared using [employer] dictation software. Please allow for errors in health and fitness professor, while rare they do occur. I reviewed the documentation as provided by the KANA above, who is the original author of this note. I agree with the documented assessment and plan, with the following changes: none Objective - Vital Signs Vital signs: Vital Signs Temp 98.6 F 10/05/22 02:15 Pulse 85 10/05/22 02:15 Resp 18 10/05/22 02:15 BP 122/81 10/05/22 02:15 Pulse Ox 93 L 10/05/22 02:15 FiO2 Intake & Output 10/04/22 10/05/22 10/05/22 18:59 06:59 18:59 Intake Total 1450 Output Total 900 Balance 550 Intake: Intake, IV Titration 1050 Amount Piperacillin-Tazobactam 3 100 .375 gm In Sodium Chloride 0.9% 100 ml @ 25 mls/hr IVPB Q8HR [facility] Rx# :[id number] Sodium Chloride 0.9% 1, 450 000 ml @ 75 mls/hr IV . [id number] [facility] Rx#:[id number] Vancomycin 2,000 mg In 500 Sodium Chloride 0.9% 500 ml 500 ml @ 167 mls/hr IVPB Q12H [facility] Rx#: [id number] Oral 400 Output: Urine 900 Other: Voiding Method Bedside Commode # Voids 1 1 - Labs CBC & Chem 7: 10/05/22 08:03 10/06/22 07:16 Labs: Abnormal Lab Results - Last 24 Hours (Table) 10/04/22 10/04/22 10/04/22 Range/Units 12:30 17:14 20:04 RBC (4.30-5.90) m/uL Hgb (13.0-17.5) gm/dL Hct (39.0-53.0) % POC Glucose (mg/dL) 196 H 430 H 273 H (70-110) mg/dL 10/05/22 10/05/22 10/05/22 Range/Units 02:43 07:44 08:03 RBC 3.32 L (4.30-5.90) m/uL Hgb 10.5 L (13.0-17.5) gm/dL Hct 31.1 L (39.0-53.0) % POC Glucose (mg/dL) 148 H 111 H (70-110) mg/dL Microbiology - Last 24 Hours (Table) 10/02/22 11:00 Blood Culture - Preliminary Blood 10/02/22 11:00 Blood Culture - Preliminary Blood 10/02/22 11:00 Gram Stain - Preliminary Foot - Left Wound Culture - Preliminary Beta Hemolytic Strep Group G Gram Neg Bacilli
[2022-10-05 17:03] LABS: Glucose,Whole Blood 193 mg/dL (70-110)
[2022-10-05 20:53] LABS: Glucose,Whole Blood 229 mg/dL (70-110)
[2022-10-05] MEDS: INSULIN DETEMIR (LEVEMIR) 100 UNIT/ML SYR SQ SCH (20:59)
[2022-10-05] MEDS: DAPAGLIFLOZIN PROPANEDIOL 5 MG TABLET PO SCH (21:00)
[2022-10-05] MEDS: lisinopriL 10 MG TAB PO SCH (21:00)
[2022-10-05] MEDS ORDERED: lisinopriL 10 MG TAB PO SCH (21:00)
[2022-10-05] MEDS: ASPIRIN 81 MG PO SCH (21:00)
[2022-10-05] MEDS: ATORVASTATIN 20 MG TAB PO SCH (21:00)
[2022-10-05] MEDS: DULoxetine HCL 30 MG CAPSULE.DR PO SCH (21:00)
[2022-10-05] MEDS: AMITRIPTYLINE HCL 10 MG TAB PO SCH (21:00)
[2022-10-06] MEDS: PIPERACILLIN-TAZOBACTAM 3.375 GM in SODIUM CHLORIDE 0.9% 100 ML IVPB SCH ×4 (00:36→23:46)
[2022-10-06] MEDS: SODIUM CHLORIDE 0.9% 1,000 ML IV SCH ×2 (01:31→16:27)
[2022-10-06 03:36] LABS: Glucose,Whole Blood 192 mg/dL (70-110)
[2022-10-06 07:39] LABS: Glucose,Whole Blood 127 mg/dL (70-110)
[2022-10-06] MEDS: INSULIN ASPART (NovoLOG) 100 UNIT/ML VIAL SQ SCH ×4 (07:41→20:49)
[2022-10-06 08:05] LABS: African American GFR (CKD) >90 (>60 ml/min/1.73 sqM); Non-African American GFR(CKD) >90 (>60 ml/min/1.73 sqM)
[2022-10-06] MEDS: FAMOTIDINE 20 MG TAB PO SCH (09:07)
[2022-10-06] MEDS: RIVAROXABAN 2.5 MG TABLET PO SCH ×2 (09:07→20:48)
--- NOTE | 2022-10-06 11:03 | P.PN ---
Subjective Progress Note Date: 10/04/22 Principal diagnosis: L diabetic foot infection Patient is a 62-year-old male with a past medical history significant for diabetes mellitus presenting to the hospital with significant swelling of redness and foul-smelling drainage to the left foot with concern for extensive left diabetic foot infection.Patient is status post left transmetatarsal amputation completed 10/04/2022. On today's evaluation that is 10/04/2022 the patient is afebrile, patient denies having any chest pain shortness of breath no cough no nausea vomiting no abdominal pain or significant pain to the left foot Objective - Vital Signs Vital signs: Vital Signs Temp 98.4 F 10/04/22 11:32 Pulse 85 10/04/22 11:32 Resp 20 10/04/22 11:32 BP 104/67 10/04/22 11:32 Pulse Ox 96 10/04/22 11:32 FiO2 Intake & Output 10/03/22 10/04/22 10/04/22 18:59 06:59 18:59 Intake Total 2550 1590 Output Total 200 Balance 2350 1590 Weight 134.72 kg Intake: IV 1250 Intake, IV Titration 1300 1000 Amount Piperacillin-Tazobactam 3 100 100 .375 gm In Sodium Chloride 0.9% 100 ml @ 25 mls/hr IVPB Q8HR [facility] Rx# :[id number] Potassium Chloride 20 meq 100 In Water For Injection 1 100ml.bag @ 50 mls/hr IVPB ONCE STA Rx#: [id number] Sodium Chloride 0.9% 1, 600 900 000 ml @ 75 mls/hr IV . [id number] [facility] Rx#:[id number] Vancomycin 2,000 mg In 500 Sodium Chloride 0.9% 500 ml 500 ml @ 167 mls/hr IVPB Q12H [facility] Rx#: [id number] Oral 590 Output: Estimated Blood Loss 200 - Exam GENERAL DESCRIPTION: Middle-age male lying in bed in no distress RESPIRATORY SYSTEM: Unlabored breathing , decreased breath sounds at bases HEART: S1 S2 regular rate and rhythm ,no loud murmurs ABDOMEN: Soft , no tenderness EXTREMITIES: Left foot transmetatarsal amputation site is covered with a wound VAC - Labs CBC & Chem 7: 10/05/22 08:03 10/06/22 07:16 Labs: Abnormal Lab Results - Last 24 Hours (Table) 10/03/22 10/04/22 10/04/22 Range/Units 16:03 02:36 05:28 RBC 3.40 L (4.30-5.90) m/uL Hgb 10.5 L (13.0-17.5) gm/dL Hct 32.2 L (39.0-53.0) % Sodium (137-145) mmol/L Glucose (74-99) mg/dL POC Glucose (mg/dL) 67 L 235 H (70-110) mg/dL Calcium (8.4-10.2) mg/dL 10/04/22 10/04/22 10/04/22 Range/Units 05:28 07:16 12:30 RBC (4.30-5.90) m/uL Hgb (13.0-17.5) gm/dL Hct (39.0-53.0) % Sodium 136 L (137-145) mmol/L Glucose 223 H (74-99) mg/dL POC Glucose (mg/dL) 187 H 196 H (70-110) mg/dL Calcium 8.0 L (8.4-10.2) mg/dL Microbiology - Last 24 Hours (Table) 10/02/22 11:00 Blood Culture - Preliminary Blood 10/02/22 11:00 Blood Culture - Preliminary Blood 10/02/22 11:00 Gram Stain - Preliminary Foot - Left Wound Culture - Preliminary Beta Hemolytic Strep Group G Assessment and Plan (1) Diabetic foot ulcer Current Visit: No Status: Acute Code(s): E11.621 - TYPE 2 DIABETES MELLITUS WITH FOOT ULCER; L97.509 - NON-PRESSURE CHRONIC ULCER OTH PRT UNSP FOOT W UNSP SEVERITY SNOMED Code(s): 383587620 (2) Ulcer of foot with necrosis of muscle Current Visit: Yes Status: Acute Code(s): L97.503 - NON-PRS CHRONIC ULCER OTH PRT UNSP FOOT W NECROSIS OF MUSCLE SNOMED Code(s): 87685280 (3) Cellulitis of left foot Current Visit: No Status: Acute Code(s): L03.116 - CELLULITIS OF LEFT LOWER LIMB SNOMED Code(s): 836881037 Plan: 1patient with extensive left diabetic foot infection with evidence of right gangrene and necrotic changes foul-smelling drainage failing outpatient Bactrim DS therapy, we will need to cover for the polymicrobial rayna usually associated diabetic foot infection 2-Pt is s/p transmetatarsal amputation along with deep culture 3-Pt to continue with vancomycin and Zosyn while watching his kidney function closely Time with Patient: Less than 30
--- NOTE | 2022-10-06 11:05 | P.PN ---
Subjective Progress Note Date: 10/05/22 Principal diagnosis: L diabetic foot infection Patient is a 62-year-old male with a past medical history significant for diabetes mellitus presenting to the hospital with significant swelling of redness and foul-smelling drainage to the left foot with concern for extensive left diabetic foot infection.Patient is status post left transmetatarsal amputation completed 10/04/2022. On today's evaluation that is 10/05/2022 patient denies having any fever or any chills patient is breathing comfortably patient denies having any chest pain shortness of the cough no nausea noted no abdominal pain no diarrhea or significant pain to the left foot surgical site Objective - Vital Signs Vital signs: Vital Signs Temp 98.5 F 10/05/22 07:41 Pulse 78 10/05/22 07:41 Resp 16 10/05/22 07:41 BP 128/80 10/05/22 07:41 Pulse Ox 93 L 10/05/22 07:41 FiO2 Intake & Output 10/04/22 10/05/22 10/05/22 18:59 06:59 18:59 Intake Total 1450 Output Total 900 Balance 550 Intake: Intake, IV Titration 1050 Amount Piperacillin-Tazobactam 3 100 .375 gm In Sodium Chloride 0.9% 100 ml @ 25 mls/hr IVPB Q8HR [facility] Rx# :[id number] Sodium Chloride 0.9% 1, 450 000 ml @ 75 mls/hr IV . [id number] [facility] Rx#:[id number] Vancomycin 2,000 mg In 500 Sodium Chloride 0.9% 500 ml 500 ml @ 167 mls/hr IVPB Q12H [facility] Rx#: [id number] Oral 400 Output: Urine 900 Other: Voiding Method Bedside Commode # Voids 1 1 - Exam GENERAL DESCRIPTION: Middle-age male lying in bed in no distress RESPIRATORY SYSTEM: Unlabored breathing , decreased breath sounds at bases HEART: S1 S2 regular rate and rhythm ,no loud murmurs ABDOMEN: Soft , no tenderness EXTREMITIES: Left foot transmetatarsal amputation site is covered with a wound VAC - Labs CBC & Chem 7: 10/05/22 08:03 10/06/22 07:16 Labs: Abnormal Lab Results - Last 24 Hours (Table) 10/04/22 10/04/22 10/05/22 Range/Units 17:14 20:04 02:43 RBC (4.30-5.90) m/uL Hgb (13.0-17.5) gm/dL Hct (39.0-53.0) % POC Glucose (mg/dL) 430 H 273 H 148 H (70-110) mg/dL Calcium (8.4-10.2) mg/dL 10/05/22 10/05/22 10/05/22 Range/Units 07:44 08:03 08:03 RBC 3.32 L (4.30-5.90) m/uL Hgb 10.5 L (13.0-17.5) gm/dL Hct 31.1 L (39.0-53.0) % POC Glucose (mg/dL) 111 H (70-110) mg/dL Calcium 7.9 L (8.4-10.2) mg/dL 10/05/22 Range/Units 12:12 RBC (4.30-5.90) m/uL Hgb (13.0-17.5) gm/dL Hct (39.0-53.0) % POC Glucose (mg/dL) 157 H (70-110) mg/dL Calcium (8.4-10.2) mg/dL Microbiology - Last 24 Hours (Table) 10/03/22 18:42 Gram Stain - Final Foot - Left Wound Culture - Final 10/02/22 11:00 Blood Culture - Preliminary Blood 10/02/22 11:00 Blood Culture - Preliminary Blood 10/02/22 11:00 Gram Stain - Preliminary Foot - Left Wound Culture - Preliminary Beta Hemolytic Strep Group G Gram Neg Bacilli Assessment and Plan (1) Diabetic foot ulcer Current Visit: No Status: Acute Code(s): E11.621 - TYPE 2 DIABETES MELLITUS WITH FOOT ULCER; L97.509 - NON-PRESSURE CHRONIC ULCER OTH PRT UNSP FOOT W UNSP SEVERITY SNOMED Code(s): 340998240 (2) Ulcer of foot with necrosis of muscle Current Visit: Yes Status: Acute Code(s): L97.503 - NON-PRS CHRONIC ULCER OTH PRT UNSP FOOT W NECROSIS OF MUSCLE SNOMED Code(s): 45219511 (3) Cellulitis of left foot Current Visit: No Status: Acute Code(s): L03.116 - CELLULITIS OF LEFT LOWER LIMB SNOMED Code(s): 756627300 Plan: 1patient with extensive left diabetic foot infection with evidence of right gangrene and necrotic changes foul-smelling drainage failing outpatient Bactrim DS therapy, we will need to cover for the polymicrobial rayna usually associated diabetic foot infection 2-Pt is s/p transmetatarsal amputation along with deep culture 3-Patient local cultures currently growing beta-hemolytic strep and gram- negative bacilli we will continue the patient on Zosyn however discontinue v ancomycin and monitor clinical course closely Time with Patient: Less than 30
[2022-10-06 12:26] LABS: Glucose,Whole Blood 124 mg/dL (70-110)
--- NOTE | 2022-10-06 16:28 | P.PN ---
Subjective Progress Note Date: 10/06/22 Hospital course: Patient is a very pleasant 62-year-old male with a past medical history of insulin-dependent diabetes mellitus, diabetic neuropathy, and arthritis. He presented to the hospital on 10/02/22 after being sent by wound care center secondary to large ulcerations/extensive wound of left foot. Patient was found to have large soft tissue ulcer of distal ball of left foot with prominent soft tissue swelling throughout. Labs were completed showing leukocytosis with WBC count of 12.3, normocytic anemia with hemoglobin of 12.6, and hyperglycemia with glucose of 202. Alkaline phosphatase also elevated at 140. Patient was started on IV antibiotics with Zosyn and vancomycin and admitted under our services with consultation to vascular surgeon, Dr. Brian and infectious disease physician, Dr. Leyva. Patient was taken for a transmetatarsal amputation of left foot on 10/04/22. Infectious disease following and recommending continuation of Zosyn at this time. Physical exam: Patient seen and examined at bedside. He currently reports having no pain at this time and denies any other complaints. Wound VAC in place. Vital signs reviewed General: nontoxic, no distress, appears at stated age Cardiovascular: S1S2 reg, no murmur, positive posterior tibial pulse bilateral, Lungs: CTA bilateral, no rhonchi, no rales , no accessory muscle use Abdominal: soft, nontender to palpation, no guarding, no appreciable organomegaly Ext: no gross muscle atrophy, 1+ edema bilateral lower extremities, no contractures, wound VAC in place left foot. 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 -Infectious disease following, discussed plan of care. He recommends discontinuation of vancomycin and continuation of Zosyn at this time. -Wound cultures resulting positive for beta hemolytic strep group G and gram- negative bacilli. Vancomycin has been discontinued and patient to continue with Zosyn 3.375 g every 8 hours per sensitivity report. Type 2 insulin-dependent diabetes mellitus, well controlled in the out patient setting with hemoglobin A1c of 5.8%. -Continue with glycemic protocol and insulin sliding scale along with Levemir to 35 units nightly. -Continue with jardiance -Metformin, actos, and ozempic (due next Friday) on hold -Blood glucose levels reviewed and ranging from 111-229 over the past 24 hours -Continue with lisinopril 10 mg nightly for proteinuria On xarelto -Medication resumed, patient is unsure of the indication Obesity class 3 with BMI 40.3 -Recommend supervised outpatient weight management program -Continue with outpatient ozempic Hypoglycemia, resolved Hypokalemia, resolved Gout, resolved Imaging: -No new imaging to review. Data Review: -Vital signs reviewed. Blood pressure 128/75, heart rate 77, respiratory rate 16, SpO2 94% on room air with temperature of 98.4F. -Morning labs reviewed. Renal function stable with creatinine 0.72 and GFR greater than 90. Vancomycin trough was therapeutic at 16.9 and vancomycin has since been discontinued. -Blood culture showing no growth to date. -Wound culture: Positive for beta hemolytic strep group G and gram-negative bacilli. DVT prophylaxis: Xarelto Anticipated discharge date: Pending Clinical Course Anticipated discharge place: Patient requesting discharge home with home care. Patient understanding he will need IV antibiotics. Patient was seen independently by Nurse Pracitioner. This document was prepared using [email or web address] dictation software. Please allow for errors in bi data modeler, while rare they do occur. I reviewed the documentation as provided by the KANA above, who is the original author of this note. I agree with the documented assessment and plan, with the following changes: none Objective - Vital Signs Vital signs: Vital Signs Temp 98.4 F 10/06/22 07:37 Pulse 77 10/06/22 07:37 Resp 16 10/06/22 07:37 BP 128/75 10/06/22 07:37 Pulse Ox 94 L 10/06/22 07:37 FiO2 Intake & Output 10/05/22 10/06/22 10/06/22 18:59 06:59 18:59 Output Total 200 Balance -200 Output: Urine 200 Other: Voiding Method Bedside Commode # Voids 3 3 # Bowel Movements 1 1 - Labs CBC & Chem 7: 10/05/22 08:03 10/06/22 07:16 Labs: Abnormal Lab Results - Last 24 Hours (Table) 0610/05/22 10/05/22 Range/Units 12:12 17:02 20:51 POC Glucose (mg/dL) 157 H 193 H 229 H (70-110) mg/dL 10/06/22 10/06/22 Range/Units 03:34 07:38 POC Glucose (mg/dL) 192 H 127 H (70-110) mg/dL Microbiology - Last 24 Hours (Table) 10/02/22 11:00 Blood Culture - Preliminary Blood 10/02/22 11:00 Blood Culture - Preliminary Blood 10/03/22 18:42 Gram Stain - Final Foot - Left Wound Culture - Final
[2022-10-06 17:26] LABS: Glucose,Whole Blood 281 mg/dL (70-110)
[2022-10-06 20:13] LABS: Glucose,Whole Blood 186 mg/dL (70-110)
[2022-10-06] MEDS: DAPAGLIFLOZIN PROPANEDIOL 5 MG TABLET PO SCH (20:47)
[2022-10-06] MEDS: INSULIN DETEMIR (LEVEMIR) 100 UNIT/ML SYR SQ SCH (20:48)
[2022-10-06] MEDS: AMITRIPTYLINE HCL 10 MG TAB PO SCH (20:48)
[2022-10-06] MEDS: ATORVASTATIN 20 MG TAB PO SCH (20:48)
[2022-10-06] MEDS: lisinopriL 10 MG TAB PO SCH (20:48)
[2022-10-06] MEDS: DULoxetine HCL 30 MG CAPSULE.DR PO SCH (20:48)
[2022-10-06] MEDS: ASPIRIN 81 MG PO SCH (20:48)
[2022-10-07] MEDS: SODIUM CHLORIDE 0.9% 1,000 ML IV SCH (01:59)
[2022-10-07 07:11] LABS: Glucose,Whole Blood 92 mg/dL (70-110)
[2022-10-07] MEDS: INSULIN ASPART (NovoLOG) 100 UNIT/ML VIAL SQ SCH ×4 (07:36→21:47)
[2022-10-07] MEDS: RIVAROXABAN 2.5 MG TABLET PO SCH ×2 (09:18→21:48)
[2022-10-07] MEDS: FAMOTIDINE 20 MG TAB PO SCH (09:18)
[2022-10-07] MEDS: PIPERACILLIN-TAZOBACTAM 3.375 GM in SODIUM CHLORIDE 0.9% 100 ML IVPB SCH ×2 (09:19→16:53)
[2022-10-07 12:08] LABS: Glucose,Whole Blood 152 mg/dL (70-110)
--- NOTE | 2022-10-07 12:49 | P.PN ---
Subjective Progress Note Date: 10/06/22 Principal diagnosis: L diabetic foot infection Patient is a 62-year-old male with a past medical history significant for diabetes mellitus presenting to the hospital with significant swelling of redness and foul-smelling drainage to the left foot with concern for extensive left diabetic foot infection.Patient is status post left transmetatarsal amputation completed 10/04/2022. On today's evaluation that is 10/06/2022 patient remains to be afebrile, patient is breathing comfortably patient denies having any chest pain shortness of the cough no nausea noted no abdominal pain no diarrhea or significant pain to the left foot surgical site Objective - Vital Signs Vital signs: Vital Signs Temp 97.9 F 10/06/22 12:23 Pulse 73 10/06/22 12:23 Resp 18 10/06/22 12:23 BP 134/81 10/06/22 12:23 Pulse Ox 96 10/06/22 12:23 FiO2 Intake & Output 10/05/22 10/06/22 10/06/22 18:59 06:59 18:59 Output Total 200 Balance -200 Output: Urine 200 Other: Voiding Method Bedside Commode # Voids 3 3 2 # Bowel Movements 1 1 - Exam GENERAL DESCRIPTION: Middle-age male lying in bed in no distress RESPIRATORY SYSTEM: Unlabored breathing , decreased breath sounds at bases HEART: S1 S2 regular rate and rhythm ,no loud murmurs ABDOMEN: Soft , no tenderness EXTREMITIES: Left foot transmetatarsal amputation site is covered with a wound VAC - Labs CBC & Chem 7: 10/05/22 08:03 10/06/22 07:16 Labs: Abnormal Lab Results - Last 24 Hours (Table) 10/05/22 10/05/22 10/06/22 Range/Units 17:02 20:51 03:34 POC Glucose (mg/dL) 193 H 229 H 192 H (70-110) mg/dL 10/06/22 10/06/22 Range/Units 07:38 12:24 POC Glucose (mg/dL) 127 H 124 H (70-110) mg/dL Microbiology - Last 24 Hours (Table) 10/02/22 11:00 Gram Stain - Preliminary Foot - Left Wound Culture - Preliminary Beta Hemolytic Strep Group G Gram Neg Bacilli 10/02/22 11:00 Blood Culture - Preliminary Blood 06/21/23 11:00 Blood Culture - Preliminary Blood Assessment and Plan (1) Diabetic foot ulcer Current Visit: No Status: Acute Code(s): E11.621 - TYPE 2 DIABETES MELLITUS WITH FOOT ULCER; L97.509 - NON-PRESSURE CHRONIC ULCER OTH PRT UNSP FOOT W UNSP SEVERITY SNOMED Code(s): 443992686 (2) Ulcer of foot with necrosis of muscle Current Visit: Yes Status: Acute Code(s): L97.503 - NON-PRS CHRONIC ULCER OTH PRT UNSP FOOT W NECROSIS OF MUSCLE SNOMED Code(s): 97488774 (3) Cellulitis of left foot Current Visit: No Status: Acute Code(s): L03.116 - CELLULITIS OF LEFT LOWER LIMB SNOMED Code(s): 862101348 Plan: 1patient with extensive left diabetic foot infection with evidence of right ga ngrene and necrotic changes foul-smelling drainage failing outpatient Bactrim DS therapy, we will need to cover for the polymicrobial rayna usually associated diabetic foot infection 2-Pt is s/p transmetatarsal amputation along with deep culture 3-Patient local cultures currently growing beta-hemolytic strep and gram- negative bacilli we will continue the patient on Zosyn while waiting for the cul tures to finalize and monitor clinical course closely Time with Patient: Less than 30
--- NOTE | 2022-10-07 15:02 | P.PN ---
Subjective Progress Note Date: 10/07/22 Hospital course: Patient is a very pleasant 62-year-old male with a past medical history of insulin-dependent diabetes mellitus, diabetic neuropathy, and arthritis. He presented to the hospital on 10/02/22 after being sent by wound care center secondary to large ulcerations/extensive wound of left foot. Patient was found to have large soft tissue ulcer of distal ball of left foot with prominent soft tissue swelling throughout. Labs were completed showing leukocytosis with WBC count of 12.3, normocytic anemia with hemoglobin of 12.6, and hyperglycemia with glucose of 202. Alkaline phosphatase also elevated at 140. Patient was started on IV antibiotics with Zosyn and vancomycin and admitted under our services with consultation to vascular surgeon, Dr. Brian and infectious disease physician, Dr. Leyva. Patient was taken for a transmetatarsal amputation of left foot on 10/04/22. Infectious disease following and recommending continuation of Zosyn at this time. Physical exam: Patient seen and examined at bedside. Wound VAC in place. Patient resting comfortably, denies having any complaints or concerns. Vital signs reviewed General: nontoxic, no distress, appears at stated age Cardiovascular: S1S2 reg, no murmur, positive posterior tibial pulse bilateral, Lungs: CTA bilateral, no rhonchi, no rales , no accessory muscle use Abdominal: soft, nontender to palpation, no guarding, no appreciable organomegaly Ext: no gross muscle atrophy, 1+ edema bilateral lower extremities, no contractures, wound VAC in place left foot. 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 -Infectious disease following, discussed plan of care. He recommends continuation of Zosyn at this time. -Wound cultures resulting positive for beta hemolytic strep group G and gram- negative bacilli. Patient to continue with Zosyn 3.375 g every 8 hours per sensitivity report. -Patient requesting to be discharged home with home care, order placed for PICC line insertion as patient will require extended duration of treatment with IV antibiotics. -Discussed with case management/social work for arrangements to be made for home care, IV infusion, wound care. Type 2 insulin-dependent diabetes mellitus, well controlled in the out patient setting with hemoglobin A1c of 5.8%. -Continue with glycemic protocol and insulin sliding scale along with Levemir to 35 units nightly. -Continue with jardiance -Metformin, actos, and ozempic (due next Friday) on hold -Blood glucose levels reviewed and ranging from 92-281 over the past 24 hours -Continue with lisinopril 10 mg nightly for proteinuria On xarelto -Medication resumed, patient is unsure of the indication Obesity class 3 with BMI 40.3 -Recommend supervised outpatient weight management program -Continue with outpatient ozempic Hypoglycemia, resolved Hypokalemia, resolved Gout, resolved Imaging: -No new imaging to review. Data Review: -Vital signs reviewed. Blood pressure 157/78, heart rate 79, respiratory rate 18, SpO2 95% on room air and temperature 98.4F. -Blood culture showing no growth to date. -Wound culture: Positive for beta hemolytic strep group G and gram-negative bacilli. DVT prophylaxis: Xarelto Anticipated discharge date: Pending Clinical Course Anticipated discharge place: Patient requesting discharge home with home care. Patient understanding he will need IV antibiotics. Patient was seen independently by Nurse Pracitioner. This document was prepared using [employer] dictation software. Please allow for errors in radiology assistant, while rare they do occur. I reviewed the documentation as provided by the KANA above, who is the original author of this note. I agree with the documented assessment and plan, with the following changes: none Objective - Vital Signs Vital signs: Vital Signs Temp 98 F 10/07/22 11:32 Pulse 66 10/07/22 11:32 Resp 18 10/07/22 11:32 BP 137/80 10/07/22 11:32 Pulse Ox 94 L 10/07/22 11:32 FiO2 Intake & Output 10/06/22 10/07/22 10/07/22 18:59 06:59 18:59 Intake Total 900 118 Balance 900 118 Weight 134.72 kg Intake: Intake, IV Titration 900 Amount Sodium Chloride 0.9% 1, 900 000 ml @ 75 mls/hr IV . [id number] [facility] Rx#:[id number] Oral 118 Other: Voiding Method Bedside Commode # Voids 2 1 - Labs CBC & Chem 7: 10/05/22 08:03 10/06/22 07:16 Labs: Abnormal Lab Results - Last 24 Hours (Table) 10/06/22 10/06/22 10/07/22 Range/Units 17:26 20:09 12:06 POC Glucose (mg/dL) 281 H 186 H 152 H (70-110) mg/dL Microbiology - Last 24 Hours (Table) 10/03/22 18:42 Anaerobic Culture - Preliminary Foot - Left Anaerobic Gm Negative Bacilli 10/02/22 11:00 Gram Stain - Final Foot - Left Wound Culture - Final Beta Hemolytic Strep Group G Myroides species
--- NOTE | 2022-10-07 15:58 | P.PN ---
Progress Note - Text 62-year-old diabetic male who came with infected gangrene of the left foot patient had a past point amputation patient is an IV antibiotic under care of infectious disease patient also the wound VAC today we have changed the wound VAC and was started using Aquacel silver and wound VAC base of the wound is clean and Eschen will be needing long-term antibiotic we will arrange for catheter placement for long-term antibiotic
[2022-10-07 17:13] LABS: Glucose,Whole Blood 165 mg/dL (70-110)
[2022-10-07 20:42] LABS: Glucose,Whole Blood 231 mg/dL (70-110)
[2022-10-07] MEDS: INSULIN DETEMIR (LEVEMIR) 100 UNIT/ML SYR SQ SCH (21:46)
[2022-10-07] MEDS: DULoxetine HCL 30 MG CAPSULE.DR PO SCH (21:47)
[2022-10-07] MEDS: ATORVASTATIN 20 MG TAB PO SCH (21:47)
[2022-10-07] MEDS: DAPAGLIFLOZIN PROPANEDIOL 5 MG TABLET PO SCH (21:47)
[2022-10-07] MEDS: lisinopriL 10 MG TAB PO SCH (21:47)
--- NOTE | 2022-10-07 21:47 | P.PN ---
Subjective Progress Note Date: 10/07/22 Principal diagnosis: L diabetic foot infection Patient is a 62-year-old male with a past medical history significant for diabetes mellitus presenting to the hospital with significant swelling of redness and foul-smelling drainage to the left foot with concern for extensive left diabetic foot infection.Patient is status post left transmetatarsal amputation completed 10/04/2022. On today's evaluation that is 10/07/2022 patient continues to be afebrile, patient is breathing comfortably on room air, patient denies having any chest pain shortness of the cough no nausea noted no abdominal pain no diarrhea or significant pain to the left foot surgical site Objective - Vital Signs Vital signs: Vital Signs Temp 98 F 10/07/22 11:32 Pulse 66 10/07/22 11:32 Resp 18 10/07/22 11:32 BP 137/80 10/07/22 11:32 Pulse Ox 94 L 10/07/22 11:32 FiO2 Intake & Output 10/06/22 10/07/22 10/07/22 18:59 06:59 18:59 Intake Total 900 118 Balance 900 118 Intake: Intake, IV Titration 900 Amount Sodium Chloride 0.9% 1, 900 000 ml @ 75 mls/hr IV . [id number] [facility] Rx#:[id number] Oral 118 Other: Voiding Method Bedside Commode # Voids 2 1 - Exam GENERAL DESCRIPTION: Middle-age male lying in bed in no distress RESPIRATORY SYSTEM: Unlabored breathing , decreased breath sounds at bases HEART: S1 S2 regular rate and rhythm ,no loud murmurs ABDOMEN: Soft , no tenderness EXTREMITIES: Left foot transmetatarsal amputation site is covered with a wound VAC - Labs CBC & Chem 7: 10/05/22 08:03 10/06/22 07:16 Labs: Abnormal Lab Results - Last 24 Hours (Table) 10/06/22 10/06/22 10/07/22 Range/Units 17:26 20:09 12:06 POC Glucose (mg/dL) 281 H 186 H 152 H (70-110) mg/dL Microbiology - Last 24 Hours (Table) 10/03/22 18:42 Anaerobic Culture - Preliminary Foot - Left Anaerobic Gm Negative Bacilli 10/02/22 11:00 Gram Stain - Final Foot - Left Wound Culture - Final Beta Hemolytic Strep Group G Myroides species Assessment and Plan (1) Diabetic foot ulcer Current Visit: No Status: Acute Code(s): E11.621 - TYPE 2 DIABETES MELLITUS WITH FOOT ULCER; L97.509 - NON-PRESSURE CHRONIC ULCER OTH PRT UNSP FOOT W UNSP SEVERITY SNOMED Code(s): 142455687 (2) Ulcer of foot with necrosis of muscle Current Visit: Yes Status: Acute Code(s): L97.503 - NON-PRS CHRONIC ULCER OTH PRT UNSP FOOT W NECROSIS OF MUSCLE SNOMED Code(s): 22561706 (3) Cellulitis of left foot Current Visit: No Status: Acute Code(s): L03.116 - CELLULITIS OF LEFT LOWER LIMB SNOMED Code(s): 011907208 Plan: 1patient with extensive left diabetic foot infection with evidence of right gangrene and necrotic changes foul-smelling drainage failing outpatient Bactrim DS therapy, we will need to cover for the polymicrobial rayna usually associated diabetic foot infection 2-Pt is s/p transmetatarsal amputation along with deep culture 3-Patient local cultures currently growing beta-hemolytic strep and gram- negative bacilli , the patient will continue the patient on Zosyn , will need a PICC line for outpatient antibiotics Time with Patient: Less than 30
[2022-10-07] MEDS: AMITRIPTYLINE HCL 10 MG TAB PO SCH (21:48)
[2022-10-07] MEDS: ASPIRIN 81 MG PO SCH (21:48)
[2022-10-08] MEDS: PIPERACILLIN-TAZOBACTAM 3.375 GM in SODIUM CHLORIDE 0.9% 100 ML IVPB SCH ×4 (00:40→23:33)
[2022-10-08 07:02] LABS: INR 1.2 (<1.2); Prothrombin Time 12.3 sec (9.0-12.0)
[2022-10-08 07:28] LABS: Glucose,Whole Blood 94 mg/dL (70-110)
[2022-10-08] MEDS: INSULIN ASPART (NovoLOG) 100 UNIT/ML VIAL SQ SCH ×4 (07:31→21:03)
[2022-10-08] MEDS: RIVAROXABAN 2.5 MG TABLET PO SCH ×2 (08:42→21:03)
[2022-10-08] MEDS: FAMOTIDINE 20 MG TAB PO SCH (08:42)
[2022-10-08 12:25] LABS: Glucose,Whole Blood 107 mg/dL (70-110)
--- NOTE | 2022-10-08 12:40 | P.PN ---
Subjective Progress Note Date: 10/08/22 Principal diagnosis: L diabetic foot infection Patient is a 62-year-old male with a past medical history significant for diabetes mellitus presenting to the hospital with significant swelling of redness and foul-smelling drainage to the left foot with concern for extensive left diabetic foot infection.Patient is status post left transmetatarsal amputation completed 10/04/2022. On today's evaluation that is 10/08/2022 patient remains to be afebrile, patient is breathing comfortably on room air, patient denies having any chest pain shortness of the cough, the patient denies any nausea no vomiting no abdominal pain or diarrhea. Pain to left foot is controlled Objective - Vital Signs Vital signs: Vital Signs Temp 98.5 F 10/08/22 07:25 Pulse 79 10/08/22 07:25 Resp 16 10/08/22 07:25 BP 144/89 10/08/22 07:25 Pulse Ox 96 10/08/22 07:44 FiO2 Intake & Output 10/07/22 10/08/22 10/08/22 18:59 06:59 18:59 Weight 134.72 kg Other: Voiding Method Bedside Commode # Voids 3 1 # Bowel Movements 1 - Exam GENERAL DESCRIPTION: Middle-age male lying in bed in no distress RESPIRATORY SYSTEM: Unlabored breathing , decreased breath sounds at bases HEART: S1 S2 regular rate and rhythm ,no loud murmurs ABDOMEN: Soft , no tenderness EXTREMITIES: Left foot transmetatarsal amputation site is covered with a wound VAC - Labs CBC & Chem 7: 10/05/22 08:03 10/06/22 07:16 Labs: Abnormal Lab Results - Last 24 Hours (Table) 10/07/22 10/07/22 10/07/22 Range/Units 12:06 17:12 20:37 PT (9.0-12.0) sec INR (<1.2) POC Glucose (mg/dL) 152 H 165 H 231 H (70-110) mg/dL 10/08/22 Range/Units 06:15 PT 12.3 H (9.0-12.0) sec INR 1.2 H (<1.2) POC Glucose (mg/dL) (70-110) mg/dL Microbiology - Last 24 Hours (Table) 10/02/22 11:00 Blood Culture - Final Blood 10/02/22 11:00 Blood Culture - Final Blood 10/03/22 18:42 Anaerobic Culture - Preliminary Foot - Left Anaerobic Gm Negative Bacilli 10/02/22 11:00 Gram Stain - Final Foot - Left Wound Culture - Final Beta Hemolytic Strep Group G Myroides species Assessment and Plan (1) Diabetic foot ulcer Current Visit: No Status: Acute Code(s): E11.621 - TYPE 2 DIABETES MELLITUS WITH FOOT ULCER; L97.509 - NON-PRESSURE CHRONIC ULCER OTH PRT UNSP FOOT W UNSP SEVERITY SNOMED Code(s): 783518261 (2) Ulcer of foot with necrosis of muscle Current Visit: Yes Status: Acute Code(s): L97.503 - NON-PRS CHRONIC ULCER OTH PRT UNSP FOOT W NECROSIS OF MUSCLE SNOMED Code(s): 05906866 (3) Cellulitis of left foot Current Visit: No Status: Acute Code(s): L03.116 - CELLULITIS OF LEFT LOWER LIMB SNOMED Code(s): 353688401 Plan: 1patient with extensive left diabetic foot infection with evidence of right gangrene and necrotic changes foul-smelling drainage failing outpatient Bactrim DS therapy, we will need to cover for the polymicrobial rayna usually associated diabetic foot infection 2-Pt is s/p transmetatarsal amputation along with deep culture 3-Patient local cultures currently growing beta-hemolytic strep and drug- resistant gram-negative bacilli along with anaerobes, the patient will continue the patient on Zosyn , will need a PICC line for outpatient antibiotics times few weeks Time with Patient: Less than 30
--- NOTE | 2022-10-08 16:40 | P.PN ---
Subjective Progress Note Date: 10/08/22 Hospital course: Patient is a very pleasant 62-year-old male with a past medical history of insulin-dependent diabetes mellitus, diabetic neuropathy, and arthritis. He presented to the hospital on 10/02/22 after being sent by wound care center secondary to large ulcerations/extensive wound of left foot. Patient was found to have large soft tissue ulcer of distal ball of left foot with prominent soft tissue swelling throughout. Labs were completed showing leukocytosis with WBC count of 12.3, normocytic anemia with hemoglobin of 12.6, and hyperglycemia with glucose of 202. Alkaline phosphatase also elevated at 140. Patient was started on IV antibiotics with Zosyn and vancomycin and admitted under our services with consultation to vascular surgeon, Dr. Brian and infectious disease physician, Dr. Leyva. Patient was taken for a transmetatarsal amputation of left foot on 10/04/22. Infectious disease following and recommending continuation of Zosyn at this time. Patient scheduled to undergo PICC line placement on 10/08/22. Physical exam: Patient seen and examined at bedside. Wound VAC in place. Patient resting comfortably, denies having any complaints or concerns. Vital signs reviewed General: nontoxic, no distress, appears at stated age Cardiovascular: S1S2 reg, no murmur, positive posterior tibial pulse bilateral, Lungs: CTA bilateral, no rhonchi, no rales , no accessory muscle use Abdominal: soft, nontender to palpation, no guarding, no appreciable o rganomegaly Ext: no gross muscle atrophy, 1+ edema bilateral lower extremities, no contractures, wound VAC in place left foot. 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 -Infectious disease following, discussed plan of care. He recommends continuation of Zosyn at this time. -Wound cultures resulting positive for beta hemolytic strep group G and gram- negative bacilli. Patient to continue with Zosyn 3.375 g every 8 hours per sensitivity report. -Patient is scheduled to undergo PICC line placement later today with Dr. Brian. -Discussed with case management/social work and arrangements are being made for home care, IV infusion, and wound care. Type 2 insulin-dependent diabetes mellitus, well controlled in the out patient setting with hemoglobin A1c of 5.8%. -Continue with glycemic protocol and insulin sliding scale along with Levemir to 35 units nightly. -Continue with jardiance -Metformin, actos, and ozempic (due next Friday) on hold -Blood glucose levels reviewed and ranging from 92-231 over the past 24 hours -Continue with lisinopril 10 mg nightly for proteinuria On xarelto -Medication resumed, patient is unsure of the indication Obesity class 3 with BMI 40.3 -Recommend supervised outpatient weight management program -Continue with outpatient ozempic Hypoglycemia, resolved Hypokalemia, resolved Gout, resolved Imaging: -No new imaging to review. Data Review: -Vital signs reviewed. Blood pressure 144/89, heart rate 79, respiratory rate 16, SpO2 94% on room air, and temp 98.5F. -Blood culture showing no growth to date. -Wound culture: Positive for beta hemolytic strep group G and gram-negative bacilli. Cachorro Moore, MARKETING PROGRAMS SPECIALIST rendered care for this patient independently, reviewed the findings and plan as documented in the note above. I did not physically speak with or examine the patient on this date. DVT prophylaxis: Xarelto Anticipated discharge date: Pending Clinical Course Anticipated discharge place: Patient requesting discharge home with home care. Patient understanding he will need IV antibiotics. Patient was seen independently by Nurse Pracitioner. This document was prepared using [employer] dictation software. Please allow for errors in nurse case manager, while rare they do occur. Objective - Vital Signs Vital signs: Vital Signs Temp 98.5 F 10/08/22 07:25 Pulse 79 10/08/22 07:25 Resp 16 10/08/22 07:25 BP 144/89 10/08/22 07:25 Pulse Ox 96 10/08/22 07:44 FiO2 Intake & Output 10/07/22 10/08/22 10/08/22 18:59 06:59 18:59 Weight 134.72 kg Other: Voiding Method Bedside Commode # Voids 3 1 # Bowel Movements 1 - Labs CBC & Chem 7: 10/05/22 08:03 10/06/22 07:16 Labs: Abnormal Lab Results - Last 24 Hours (Table) 10/07/22 10/07/22 10/07/22 Range/Units 12:06 17:12 20:37 PT (9.0-12.0) sec INR (<1.2) POC Glucose (mg/dL) 152 H 165 H 231 H (70-110) mg/dL 10/08/22 Range/Units 06:15 PT 12.3 H (9.0-12.0) sec INR 1.2 H (<1.2) POC Glucose (mg/dL) (70-110) mg/dL Microbiology - Last 24 Hours (Table) 10/02/22 11:00 Blood Culture - Final Blood 10/02/22 11:00 Blood Culture - Final Blood 10/03/22 18:42 Anaerobic Culture - Preliminary Foot - Left Anaerobic Gm Negative Bacilli 10/02/22 11:00 Gram Stain - Final Foot - Left Wound Culture - Final Beta Hemolytic Strep Group G Myroides species
[2022-10-08 17:14] LABS: Glucose,Whole Blood 211 mg/dL (70-110)
[2022-10-08 20:25] LABS: Glucose,Whole Blood 176 mg/dL (70-110)
[2022-10-08] MEDS: DAPAGLIFLOZIN PROPANEDIOL 5 MG TABLET PO SCH (21:02)
[2022-10-08] MEDS: INSULIN DETEMIR (LEVEMIR) 100 UNIT/ML SYR SQ SCH (21:02)
[2022-10-08] MEDS: ATORVASTATIN 20 MG TAB PO SCH (21:02)
[2022-10-08] MEDS: AMITRIPTYLINE HCL 10 MG TAB PO SCH (21:03)
[2022-10-08] MEDS: ASPIRIN 81 MG PO SCH (21:03)
[2022-10-08] MEDS: lisinopriL 10 MG TAB PO SCH (21:03)
[2022-10-08] MEDS: DULoxetine HCL 30 MG CAPSULE.DR PO SCH (21:03)
[2022-10-09 07:48] LABS: Glucose,Whole Blood 97 mg/dL (70-110)
[2022-10-09] MEDS: INSULIN ASPART (NovoLOG) 100 UNIT/ML VIAL SQ SCH ×4 (08:53→20:52)
[2022-10-09] MEDS: RIVAROXABAN 2.5 MG TABLET PO SCH ×2 (08:53→20:52)
[2022-10-09] MEDS: PIPERACILLIN-TAZOBACTAM 3.375 GM in SODIUM CHLORIDE 0.9% 100 ML IVPB SCH ×4 (08:53→23:07)
[2022-10-09] MEDS: FAMOTIDINE 20 MG TAB PO SCH (08:53)
[2022-10-09 11:57] LABS: Glucose,Whole Blood 116 mg/dL (70-110)
--- NOTE | 2022-10-09 11:59 | P.PN ---
Subjective Progress Note Date: 10/09/22 Principal diagnosis: L diabetic foot infection Patient is a 62-year-old male with a past medical history significant for diabetes mellitus presenting to the hospital with significant swelling of redness and foul-smelling drainage to the left foot with concern for extensive left diabetic foot infection.Patient is status post left transmetatarsal amputation completed 10/04/2022. On today's evaluation that is 10/09/2022 patient continues to be afebrile, patient is breathing comfortably on room air, patient denies chest pain shortness of breath and no significant cough, the patient denies any nausea no vomiting no abdominal pain or diarrhea. Pain to left foot is controlled Objective - Vital Signs Vital signs: Vital Signs Temp 97.5 F L 10/09/22 08:08 Pulse 108 H 10/09/22 08:08 Resp 16 10/09/22 02:00 BP 134/84 10/09/22 08:08 Pulse Ox 97 10/09/22 08:08 FiO2 Intake & Output 10/08/22 10/09/22 10/09/22 18:59 06:59 18:59 Intake Total 650 Balance 650 Intake: Oral 650 Other: Voiding Method Bedside Commode # Voids 1 - Exam GENERAL DESCRIPTION: Middle-age male lying in bed in no distress RESPIRATORY SYSTEM: Unlabored breathing , decreased breath sounds at bases HEART: S1 S2 regular rate and rhythm ,no loud murmurs ABDOMEN: Soft , no tenderness EXTREMITIES: Left foot transmetatarsal amputation site is covered with a wound VAC - Labs CBC & Chem 7: 10/05/22 08:03 10/06/22 07:16 Labs: Abnormal Lab Results - Last 24 Hours (Table) 10/08/22 10/08/22 Range/Units 17:12 20:17 POC Glucose (mg/dL) 211 H 176 H (70-110) mg/dL Microbiology - Last 24 Hours (Table) 10/03/22 18:42 Anaerobic Culture - Final Foot - Left Anaerobic Gm Negative Bacilli Anaerobic Gm Negative Bacilli#2 Anaerobic Gm Negative Bacilli#3 Assessment and Plan (1) Diabetic foot ulcer Current Visit: No Status: Acute Code(s): E11.621 - TYPE 2 DIABETES MELLITUS WITH FOOT ULCER; L97.509 - NON-PRESSURE CHRONIC ULCER OTH PRT UNSP FOOT W UNSP SEVERITY SNOMED Code(s): 411034685 (2) Ulcer of foot with necrosis of muscle Current Visit: Yes Status: Acute Code(s): L97.503 - NON-PRS CHRONIC ULCER OTH PRT UNSP FOOT W NECROSIS OF MUSCLE SNOMED Code(s): 73495649 (3) Cellulitis of left foot Current Visit: No Status: Acute Code(s): L03.116 - CELLULITIS OF LEFT LOWER LIMB SNOMED Code(s): 719872947 Plan: 1patient with extensive left diabetic foot infection with evidence of right gangrene and necrotic changes foul-smelling drainage failing outpatient Bactrim DS therapy, we will need to cover for the polymicrobial rayna usually associated diabetic foot infection 2-Pt is s/p transmetatarsal amputation along with deep culture 3-Patient local cultures currently growing beta-hemolytic strep and drug- resistant gram-negative bacilli along with anaerobes, 4- the patient will continue the patient on Zosyn , possible Perry catheter placement as no IR service is available prescription was provided to the correctional casework specialist Time with Patient: Less than 30
--- NOTE | 2022-10-09 14:45 | P.PN ---
Subjective Progress Note Date: 10/09/22 Hospital course: Patient is a very pleasant 62-year-old male with a past medical history of insulin-dependent diabetes mellitus, diabetic neuropathy, and arthritis. He presented to the hospital on 10/02/22 after being sent by wound care center secondary to large ulcerations/extensive wound of left foot. Patient was found to have large soft tissue ulcer of distal ball of left foot with prominent soft tissue swelling throughout. Labs were completed showing leukocytosis with WBC count of 12.3, normocytic anemia with hemoglobin of 12.6, and hyperglycemia with glucose of 202. Alkaline phosphatase also elevated at 140. Patient was started on IV antibiotics with Zosyn and vancomycin and admitted under our services with consultation to vascular surgeon, Dr. Brian and infectious disease physician, Dr. Leyva. Patient was taken for a transmetatarsal amputation of left foot on 10/04/22. Infectious disease following and recommending continuation of Zosyn at this time. Patient scheduled to undergo PICC line placement on 10/08/22. Physical exam: Patient seen and examined at bedside. Wound VAC in place. Patient resting comfortably, denies having any complaints or concerns. Vital signs reviewed General: nontoxic, no distress, appears at stated age Cardiovascular: S1S2 reg, no murmur, positive posterior tibial pulse bilateral, Lungs: CTA bilateral, no rhonchi, no rales , no accessory muscle use Abdominal: soft, nontender to palpation, no guarding, no appreciable o rganomegaly Ext: no gross muscle atrophy, 1+ edema bilateral lower extremities, no contractures, wound VAC in place left foot. 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 -Infectious disease following, discussed plan of care. He recommends continuation of Zosyn at this time. -Wound cultures resulting positive for beta hemolytic strep group G and gram- negative bacilli. Patient to continue with Zosyn 3.375 g every 8 hours per sensitivity report. -PICC line was not placed yesterday, re-consulted vascular surgery for PICC line placement. Once PICC line is placed patient to be discharged home with home care and IV antibiotics. -Discussed with vascular surgery team, infectious disease, and case management/social work and arrangements are being made for home care, IV infus ion, and wound care. Type 2 insulin-dependent diabetes mellitus, well controlled in the out patient setting with hemoglobin A1c of 5.8%. -Continue with glycemic protocol and insulin sliding scale along with Levemir to 35 units nightly. -Continue with jardiance -Metformin, actos, and ozempic (due next Friday) on hold -Blood glucose levels reviewed and ranging from 94-211 over the past 24 hours -Continue with lisinopril 10 mg nightly for proteinuria On xarelto -Medication resumed, patient is unsure of the indication Obesity class 3 with BMI 40.3 -Recommend supervised outpatient weight management program -Continue with outpatient ozempic Hypoglycemia, resolved Hypokalemia, resolved Gout, resolved Imaging: -No new imaging to review. Order placed for repeat CBC and BMP tomorrow mo rning. Data Review: -Vital signs reviewed. Blood pressure 134/84, heart rate 108, respiratory rate 18, SpO2 97% on room air, temperature 97.5F. -Blood culture showing no growth to date. -Wound cultures: Positive for beta hemolytic strep group G and anaerobic gram- negative bacilli. DVT prophylaxis: Xarelto Anticipated discharge date: Pending Clinical Course Anticipated discharge place: Patient requesting discharge home with home care. Patient understanding he will need IV antibiotics. Patient was seen independently by Nurse Pracitioner. This document was prepared using [employer] dictation software. Please allow for errors in tunnel mucker, while rare they do occur. I reviewed the documentation as provided by the KANA above, who is the original author of this note. I agree with the documented assessment and plan, with the following changes: none Objective - Vital Signs Vital signs: Vital Signs Temp 97.5 F L 10/09/22 08:08 Pulse 108 H 10/09/22 08:08 Resp 16 10/09/22 02:00 BP 134/84 10/09/22 08:08 Pulse Ox 97 10/09/22 08:08 FiO2 Intake & Output 10/08/22 10/09/22 10/09/22 18:59 06:59 18:59 Intake Total 650 Balance 650 Intake: Oral 650 Other: Voiding Method Bedside Commode # Voids 1 - Labs CBC & Chem 7: 10/10/22 07:07 10/10/22 07:07 Labs: Abnormal Lab Results - Last 24 Hours (Table) 10/08/22 10/08/22 Range/Units 17:12 20:17 POC Glucose (mg/dL) 211 H 176 H (70-110) mg/dL Microbiology - Last 24 Hours (Table) 10/03/22 18:42 Anaerobic Culture - Final Foot - Left Anaerobic Gm Negative Bacilli Anaerobic Gm Negative Bacilli#2 Anaerobic Gm Negative Bacilli#3
--- NOTE | 2022-10-09 15:17 | CDI ---
Documentation Clarification Form Date: 10/09/2022 02:56:14 PM From: Kiki Cano RN CCDS Phone: [phone] Admit Date: 10/02/2022 01:28:00 PM Patient Name: Maynor Jain Visit Number: [id number] Discharge Date: ATTENTION: The Clinical Documentation Specialists (CDI) and [facility] Coding Staff appreciate your assistance in clarifying documentation. Please respond to the clarification below the line at the bottom and electronically sign. The CDI & [facility] Coding staff will review the response and follow-up if needed. Please note: Queries are made part of the Legal Health Record. If you have any questions, please contact the author of this message via ITS. Dr. Kristal Yap The Registered Dietitian assessment on 10/07 indicates the patient has increased nutrient needs calories, protein, zinc and vitamin C. Based on this information and the findings below, is there an additional diagnosis that is clinically appropriate for this patient? History/Risk Factors: 62-year-old male sent to ED from Wound care center due to severity of the wound. Medical History: DM and Infected diabetic wound left foot with exposure of bone. Clinical Indicators: RD Consult Assessment: Current BMI: 40.2; Hgt 6ft; Wgt 134.72 kg Insufficient energy intake: Weight Change: Usual Wgt 149.685kg Intentional weight change. Nutrition Intake: Good 75-100% PO adequate to meet needs Physical Findings: Overweight; Diabetic ulcer to left ankle. Estimated Protein needs: Estimated Protein range 1.2 grams/kg related to healing. Estimated protein needs 97 grams/day. Estimated fluid needs: 1 ml/Kcal Estimated Fluid needs 2766 mls/day. Nutrition Diagnosis: Intake Increased nutrient needs, calories, protein, zinc and vit c Related to: Wound healing, As evidenced by; Diabetic foot ulcer. Treatment: Diet Education relationship to health / disease; Encourage adequate PO; Consistent CHO diet Dietary Consult: See above Supplements: Paco BID Is there an additional diagnosis that is clinically appropriate for this patient? [ ] Moderate Protein-Calorie Malnutrition [ ] Severe Protein-Calorie Malnutrition [ X ] No additional diagnosis/Not clinically significant [ ] Other condition, please specify [ ] Unable to Determine (Template Last Revised: June 2020) MTDD
[2022-10-09 17:49] LABS: Glucose,Whole Blood 146 mg/dL (70-110)
[2022-10-09 19:59] LABS: Glucose,Whole Blood 264 mg/dL (70-110)
[2022-10-09] MEDS: ATORVASTATIN 20 MG TAB PO SCH (20:52)
[2022-10-09] MEDS: lisinopriL 10 MG TAB PO SCH (20:52)
[2022-10-09] MEDS: INSULIN DETEMIR (LEVEMIR) 100 UNIT/ML SYR SQ SCH (20:52)
[2022-10-09] MEDS: ASPIRIN 81 MG PO SCH (20:52)
[2022-10-09] MEDS: DULoxetine HCL 30 MG CAPSULE.DR PO SCH (20:52)
[2022-10-09] MEDS: DAPAGLIFLOZIN PROPANEDIOL 5 MG TABLET PO SCH (20:52)
[2022-10-09] MEDS: AMITRIPTYLINE HCL 10 MG TAB PO SCH (20:53)
--- NOTE | 2022-10-10 07:18 | P.PN ---
Progress Note - Text 62-year-old gentleman who came with wet gangrene of the left foot patient went for aspect amputation Felipeирина has been under care of infectious disease IV antibiotic. Patient to has a wound VAC placed will be changing of the times a week week patient also going for PICC line for long-term antibiotic we will continue with local wound care and IV antibiotic we'll follow up in the wound clinic for further management
[2022-10-10 07:20] LABS: Glucose,Whole Blood 104 mg/dL (70-110)
[2022-10-10] MEDS: PIPERACILLIN-TAZOBACTAM 3.375 GM in SODIUM CHLORIDE 0.9% 100 ML IVPB SCH ×2 (07:24→15:59)
[2022-10-10] MEDS: RIVAROXABAN 2.5 MG TABLET PO SCH (07:24)
[2022-10-10] MEDS: FAMOTIDINE 20 MG TAB PO SCH (07:24)
[2022-10-10] MEDS: INSULIN ASPART (NovoLOG) 100 UNIT/ML VIAL SQ SCH ×3 (07:27→17:55)
[2022-10-10 07:47] LABS: HCT 35.2 % (39.0-53.0); HGB 11.8 gm/dL (13.0-17.5); MCH 30.6 pg (25.0-35.0); MCHC 33.4 g/dL (31.0-37.0); MCV 91.6 fL (80.0-100.0); Mean Platelet Volume 8.1; Platelet Count 300 k/uL (150-450); Poikilocytosis Slight; RBC 3.85 m/uL (4.30-5.90); RDW 14.8 % (11.5-15.5); WBC 6.3 k/uL (3.8-10.6)
[2022-10-10 07:57] LABS: African American GFR (CKD) >90 (>60 ml/min/1.73 sqM); Anion Gap 5 mmol/L; Blood Urea Nitrogen 19 mg/dL (9-20); Calcium 8.6 mg/dL (8.4-10.2); Carbon Dioxide 27 mmol/L (22-30); Chloride 104 mmol/L (98-107); Glucose 102 mg/dL (74-99); Non-African American GFR(CKD) 83 (>60 ml/min/1.73 sqM); Potassium 4.1 mmol/L (3.5-5.1); Sodium 136 mmol/L (137-145)
--- NOTE | 2022-10-10 07:57 | P.GSCN ---
History of Present Illness Consult date: 10/10/22 Reason for Consult: PICC line placement Requesting physician: Cachorro Moore History of present illness: 62-year-old male admitted 10/02/2022 for infected diabetic wound who has been under the care of Dr. Brian and underwent transmetatarsal amputation of the left foot for wet gangrene. Wound cultures coming back as anaerobic gram negative bacilli, beta-hemolytic strep group G myroides species. Infectious disease has been following patient is currently on IV Zosyn and is getting ready for discharge and will need long-term IV antibiotics, vascular surgery consulted for PICC line placement. Patient is without any complaints. He is afebrile. Review of Systems A 14 point review systems was completed all pertinent positives and negatives as stated in the HPI. Past Medical History Past Medical History: Diabetes Mellitus, Osteoarthritis (OA), Skin Disorder Additional Past Medical History / Comment(s): wound L foot(has wound vac), varicose veins, arthritis left knee, diabetic neuropathy History of Any Multi-Drug Resistant Organisms: MRSA Year Discovered:: 2012 MDRO Source:: L Leg Past Surgical History: Orthopedic Surgery Additional Past Surgical History / Comment(s): julio carpel tunnel, left knee arthroscopy, PICC, debridement left foot, laser surgery left leg Past Anesthesia/Blood Transfusion Reactions: No Reported Reaction Past Psychological History: No Psychological Hx Reported Smoking Status: Former smoker Past Alcohol Use History: Occasional Additional Past Alcohol Use History / Comment(s): Patient was a smoker 3 packs per day on and off for 20 years and quit 25 years ago. workingas a fuel oil truck driver Past Drug Use History: Marijuana Additional Drug Use History / Comment(s): rare use, has not smoked marijuana in 3 months - Past Family History Mother Family Medical History: No Reported History Medications and Allergies Home Medications Medication Instructions Recorded Confirmed Type Simvastatin [Zocor] 40 mg PO HS 03/13/14 10/02/22 History Aspirin [Adult Low Dose Aspirin EC] 81 mg PO HS 11/27/16 10/02/22 History metFORMIN HCL [Glucophage] 1,000 mg PO AC-BID 11/17/17 10/02/22 History Insulin Glargine,Hum.rec.anlog 40 units SQ HS 12/23/17 10/02/22 History [Lantus Solostar] Pioglitazone [Actos] 15 mg PO DAILY 08/03/18 10/02/22 History Acetaminophen [Tylenol Arthritis] 1,300 mg PO BID 10/02/22 10/02/22 History Amitriptyline HCl [Elavil] 10 mg PO HS 10/02/22 10/02/22 History Colchicine [Colcrys] 0.6 mg PO HS 10/02/22 10/02/22 History DULoxetine HCL [Cymbalta] 30 mg PO HS 10/02/22 10/02/22 History Empagliflozin [Jardiance] 10 mg PO HS 10/02/22 10/02/22 History Famotidine [Pepcid] 20 mg PO DAILY 10/02/22 10/02/22 History Furosemide [Lasix] 20 mg PO DAILY 10/02/22 10/02/22 History Rivaroxaban [Xarelto] 2.5 mg PO BID 10/02/22 10/02/22 History Semaglutide [Ozempic] 2 mg SQ MO 10/02/22 10/02/22 History lisinopriL [Zestril] 10 mg PO HS 10/02/22 10/02/22 History Allergies Allergy/AdvReac Type Severity Reaction Status Date / Time cefuroxime [From Ceftin] Allergy Rash/Hives Verified 10/02/22 14:41 Surgical - Exam Vital Signs Temp Pulse Resp BP Pulse Ox 99 F 111 H 20 130/67 95 10/02/22 10:42 10/02/22 10:42 10/02/22 10:42 10/02/22 10:42 10/02/22 10:42 General appearance: The patient is alert, oriented, appears in no acute distress. HET: Head is normocephalic and atraumatic. Pupils are equal and reactive. Neck: Supple. Heart: Regular. Lungs: Equal expansion, normal respiratory effort. Abdomen: Soft, nontender, nondistended. Extremities: Left TMA with wound VAC in place Neurological: No focal deficits. Strength and sensation are grossly intact. Results - Labs 10/10/22 07:07 10/10/22 07:07 Abnormal Lab Results - Last 24 Hours (Table) 10/09/22 10/09/22 10/09/22 Range/Units 11:55 17:41 19:58 RBC (4.30-5.90) m/uL Hgb (13.0-17.5) gm/dL Hct (39.0-53.0) % POC Glucose (mg/dL) 116 H 146 H 264 H (70-110) mg/dL 10/10/22 Range/Units 07:07 RBC 3.85 L (4.30-5.90) m/uL Hgb 11.8 L (13.0-17.5) gm/dL Hct 35.2 L (39.0-53.0) % POC Glucose (mg/dL) (70-110) mg/dL Assessment and Plan Assessment: 1. Left foot with infected diabetic wound, wet gangrene status post transmetatarsal amputation 2. Need for long-term IV antibiotics, requires PICC line placement Plan: The patient will be scheduled for PICC line placement today and is cleared by vascular surgeon as patient had Xarelto this morning. Continue with antibiotic recommendations from infectious disease. Thank you for this consultation. The impression and plan of care has been dictated as directed. I performed a history and examination of this patient, discussed the same with the dictator. I agree with the dictator's note ,documented as a scribe. Any additional findings or plans will be noted.
[2022-10-10 12:13] LABS: Glucose,Whole Blood 129 mg/dL (70-110)
[2022-10-10] MEDS ORDERED: LIDOCAINE 1% INJ 10MG/ML (5 ML VIAL-PF) SQ ONE (13:30)
--- NOTE | 2022-10-10 14:02 | P.OP ---
Date of Procedure: 10/10/22 Description of Procedure: Date of Procedure: 10/10/22 Preoperative Diagnosis: Need for long-term IV antibiotic access. Postoperative Diagnosis: Same. Procedure(s) Performed: Ultrasound-guided cannulation left basilic vein. Insertion of peripherally inserted central catheter under fluoroscopic guidance. Anesthesia: local (1% Xylocaine.) Surgeon: Chandrika Estimated Blood Loss (ml): 5 IV fluids (ml): 0 Urine output (ml): 0 Pathology: none sent Condition: stable Disposition: no change Indications for Procedure: Patient is a 62-year-old male with foot infection and amputation.. Patient will require long-term IV antibiotics as an outpatient patient is offered a PICC line to allow for intravenous administration of antibiotics. Description of Procedure: Patient was brought to the special procedure suite. The left upper extremity sterilely prepped and draped in usual manner. Ultrasound was utilized to identify the basilic vein which was normally compressible free of visible thrombus. 1% Xylocaine was utilized for local anesthesia tissues overlying the basilic vein. Through this anesthetized area and with the aid of ultrasound a micropuncture needle was utilized to cannulate the vein. Once cannulated Softip guidewire was advanced into the vein. The needle was withdrawn and a micropuncture sheath and dilator advanced over the guidewire. The guidewire was withdrawn and exchanged for the PICC guidewire and measured 50 cm to the cavoatrial junction. The catheter was cut to 50 cm and the guidewire was advanced over the wire. The sheath was peeled away the wire was withdrawn. Blood was easily withdrawn through the catheter and the catheter was then flushed with heparinized saline solution and secured to the skin. Patient tolerated procedure well and was returned to her room in satisfactory and stable condition.
[2022-10-10 14:06] VITALS: TEMP 97.9
[2022-10-10 14:37] VITALS: RESP 14
[2022-10-10 14:39] VITALS: BP 113/75; PULSE 81
[2022-10-10 17:24] LABS: Glucose,Whole Blood 182 mg/dL (70-110)
--- NOTE | 2022-10-10 17:34 | P.DS ---
Providers Date of admission: 10/02/22 13:28 Expected date of discharge: 10/10/22 Attending physician: Kristal Yap DO Consults: 10/02/22 14:14 Consult Physician Routine Consulting Provider: Roberto Brian Consult Reason/Comments: Diabetic foot ulcer, non healing, failed outpt tx Do you want consulting provider notified?: Yes 10/02/22 15:52 Consult Physician Routine Consulting Provider: Thanh Leyva Consult Reason/Comments: clinical osteomyelitis left foot Do you want consulting provider notified?: Yes 10/09/22 12:30 Consult Physician Routine Consulting Provider: Amaris Cobos Consult Reason/Comments: PICC line placement Do you want consulting provider notified?: Yes Primary care physician: El Carias MD Hospital Course: Discharge Diagnosis: Beta-hemolytic 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 Wound VAC in place. Patient being discharged home on IV antibiotics with Zosyn. Patient being discharged home with [facility], and [facility]. Diabetic neuropathy Type 2 insulin-dependent diabetes mellitus, well controlled in the out patient setting with hemoglobin A1c of 5.8%. On xarelto. Medication resumed, patient is unsure of the indication Obesity class 3 with BMI 40.3. Recommend structured outpatient weight management program, Continue with outpatient ozempic Hypoglycemia, resolved Hypokalemia, resolved Gout, resolved Hospital Course: Patient is a very pleasant 62-year-old male with a past medical history of insulin-dependent diabetes mellitus, diabetic neuropathy, and arthritis. He presented to the hospital on 10/02/22 after being sent by wound care center secondary to large ulcerations/extensive wound of left foot. Patient was found to have large soft tissue ulcer of distal ball of left foot with prominent soft tissue swelling throughout. Labs were completed showing leukocytosis with WBC count of 12.3, normocytic anemia with hemoglobin of 12.6, and hyperglycemia with glucose of 202. Alkaline phosphatase also elevated at 140. Patient was started on IV antibiotics with Zosyn and vancomycin and admitted under our services with consultation to vascular surgeon, Dr. Brian and infectious disease physician, Dr. Leyva. Patient was taken for a transmetatarsal amputation of left foot on 10/04/22. Infectious disease following and recommending continuation of Zosyn at this time. PICC line was placed on 10/10/22. Home care, wound care, IV infusion center, have all been set up for patient to return home. Patient is medically stable at this time and free from any complaints. Patient being discharged home with wound VAC in place on home IV antibiotics. Physical exam: Patient seen and examined at bedside. Wound VAC in place. Patient resting comfortably, denies having any complaints or concerns. Vital signs reviewed General: nontoxic, no distress, appears at stated age Cardiovascular: S1S2 reg, no murmur, positive posterior tibial pulse bilateral, Lungs: CTA bilateral, no rhonchi, no rales , no accessory muscle use Abdominal: soft, nontender to palpation, no guarding, no appreciable organomegaly Ext: no gross muscle atrophy, 1+ edema bilateral lower extremities, no contractures, wound VAC in place left foot. Neuro: CN II-XI grossly intact, no focal neuro deficits Psych: Alert, oriented, appropriate affect A total of 35 minutes of time were spent preparing this complex discharge summary. Pt was discharged on 10/10/22 at 5:05 PM. Patient was seen independently by Nurse Practitioner. This document was prepared using [employer] dictation software. Please allow for errors in soap grinder while rare they do occur. Cachorro Moore NP rendered care for this patient independently, reviewed the findings and plan as documented in the note above. I did not physically speak with or examine the patient on this date. Patient Condition at Discharge: Stable Plan - Discharge Summary Discharge Rx Participant: Yes New Discharge Prescriptions: Continue Simvastatin [Zocor] 40 mg PO HS Aspirin [Adult Low Dose Aspirin EC] 81 mg PO HS metFORMIN HCL [Glucophage] 1,000 mg PO AC-BID Insulin Glargine,Hum.rec.anlog [Lantus Solostar Pen] 40 units SQ HS Pioglitazone [Actos] 15 mg PO DAILY Empagliflozin [Jardiance] 10 mg PO HS Amitriptyline HCl [Elavil] 10 mg PO HS Furosemide [Lasix] 20 mg PO DAILY Colchicine [Colcrys] 0.6 mg PO HS Famotidine [Pepcid] 20 mg PO DAILY Acetaminophen [Tylenol Arthritis] 1,300 mg PO BID lisinopriL [Zestril] 10 mg PO HS Semaglutide [Ozempic] 2 mg SQ MO Rivaroxaban [Xarelto] 2.5 mg PO BID DULoxetine HCL [Cymbalta] 30 mg PO HS Discharge Medication List Simvastatin [Zocor] 40 mg PO HS 03/13/14 [History] Aspirin [Adult Low Dose Aspirin EC] 81 mg PO HS 11/27/16 [History] metFORMIN HCL [Glucophage] 1,000 mg PO AC-BID 11/17/17 [History] Insulin Glargine,Hum.rec.anlog [Lantus Solostar Pen] 40 units SQ HS 12/23/17 [History] Pioglitazone [Actos] 15 mg PO DAILY 08/03/18 [History] Acetaminophen [Tylenol Arthritis] 1,300 mg PO BID 10/02/22 [History] Amitriptyline HCl [Elavil] 10 mg PO HS 10/02/22 [History] Colchicine [Colcrys] 0.6 mg PO HS 10/02/22 [History] DULoxetine HCL [Cymbalta] 30 mg PO HS 10/02/22 [History] Empagliflozin [Jardiance] 10 mg PO HS 10/02/22 [History] Famotidine [Pepcid] 20 mg PO DAILY 10/02/22 [History] Furosemide [Lasix] 20 mg PO DAILY 10/02/22 [History] Rivaroxaban [Xarelto] 2.5 mg PO BID 10/02/22 [History] Semaglutide [Ozempic] 2 mg SQ MO 10/02/22 [History] lisinopriL [Zestril] 10 mg PO HS 10/02/22 [History] Follow up Appointment(s)/Referral(s): [facility], [NON-STAFF] - 1 Week El Carias MD [Primary Care Provider] - 1-2 days [facility], [REFERRING] - 1 Week Roberto Brian MD [STAFF PHYSICIAN] - 1 Week Thanh Leyva MD [STAFF PHYSICIAN] - 1 Week Patient Instructions/Handouts: Osteomyelitis (DC) Activity/Diet/Wound Care/Special Instructions: Activity: As tolerated. Take breaks as needed. Diet: Heart healthy and carb consistent diet. Avoid salts, or foods with hidden salts such as canned or boxed foods and frozen dinners. Extra salt makes your heart work harder and traps the fluid in your body for longer. Special Instructions: Take all of your medications as directed and remember to keep all of your doctor's appointments and follow-up as needed. correctional counselor/case manager confirmed with [employer] that they will deliver tonight around 6-8pm, and [facility] will be out to teach the pt and his daughter in law tomorrow morning. [facility] is going to call the pt to set up a appt time. pt wound vac delivered to the pt room. contract signed and faxed to . Thank you for allowing us to participate in your care, it was truly a pleasure having you for our patient!!! Discharge Disposition: HOME WITH HOME HEALTH SERVICES
== END 2022-10-10 20:30 | disposition home health service (06) | DRG 617 ==
LOC: EC 10:36 → 5NMEDONC 13:28
PROVIDERS: ADMIT Internal Medicine; ATTEND Internal Medicine
PROC: 0Y6N0Z0 Detachment at Left Foot, Complete, Open Approach (ICD-10-PCS; principal; 2022-10-04)
PROC: 02HV33Z Insertion of Infusion Device into Superior Vena Cava, Percutaneous Approach (ICD-10-PCS; 2022-10-10)
DX: E11.621 Type 2 diabetes mellitus with foot ulcer (principal); E11.52 Type 2 diabetes mellitus with diabetic peripheral angiopathy with gangrene; L03.116 Cellulitis of left lower limb; M86.8X7 Other osteomyelitis, ankle and foot; Z16.24 Resistance to multiple antibiotics; Z68.41 Body mass index [BMI] 40.0-44.9, adult; E11.649 Type 2 diabetes mellitus with hypoglycemia without coma; E11.69 Type 2 diabetes mellitus with other specified complication; E11.628 Type 2 diabetes mellitus with other skin complications; E11.40 Type 2 diabetes mellitus with diabetic neuropathy, unspecified; E66.01 Morbid (severe) obesity due to excess calories; I10 Essential (primary) hypertension; E11.65 Type 2 diabetes mellitus with hyperglycemia; D64.9 Anemia, unspecified; B95.4 Other streptococcus as the cause of diseases classified elsewhere; L97.523 Non-pressure chronic ulcer of other part of left foot with necrosis of muscle; R00.0 Tachycardia, unspecified; M17.12 Unilateral primary osteoarthritis, left knee; M10.9 Gout, unspecified; E87.6 Hypokalemia; I83.90 Asymptomatic varicose veins of unspecified lower extremity; B96.89 Other specified bacterial agents as the cause of diseases classified elsewhere; W25.XXXA Contact with sharp glass, initial encounter; Z79.4 Long term (current) use of insulin; Z86.14 Personal history of Methicillin resistant Staphylococcus aureus infection; Z87.891 Personal history of nicotine dependence; Z79.85 Long-term (current) use of injectable non-insulin antidiabetic drugs; Z79.84 Long term (current) use of oral hypoglycemic drugs; Z79.82 Long term (current) use of aspirin; Z79.01 Long term (current) use of anticoagulants; Z88.8 Allergy status to other drugs, medicaments and biological substances; Z79.899 Other long term (current) drug therapy
CPT/HCPCS: 36415; 36573; 80048; 80053; 80202; 82565; 83036; 83605; 83735; 85025; 85027; 85610; 85730; 87040; 87070; 87075; 87077; 87186; 87205; 93005; 94760; 96365; 96366; 96368; 99284

== ENCOUNTER → 2022-12-05 | Outpatient (CLI) | payer MEDICARE ==
--- NOTE | 2022-12-19 19:14 | MR ---
EXAMINATION TYPE: MR wrist LT wo con DATE OF EXAM: 12/05/2022 COMPARISON: Radiograph 09/12/2022 HISTORY: 62-year-old male M25.532, Left wrist pain, swelling and limited movement TECHNIQUE: Multiplanar, multisequence images of the left wrist were obtained without IV contrast. FINDINGS: Generalized soft tissue swelling. Subchondral geode versus focal erosion at the proximal aspect of the triquetrum. Possible subtle tiny erosion of the ulnar styloid process. Mild osteoarthritic change at the first CMC and triscaphe joints. Some minimal scattered periarticular edema within the mid carpal compartment. The central disc of the TFC shows a through thickness defect with mild effusion in the distal radioul sarah joint. Mild to moderate fluid along the flexor tendons at both the distal wrist and distal carpus. Dorsal and volar flexor tendons otherwise appear intact. No acute or healing fracture is seen. The scapholunate ligament and lunotriquetral ligaments appear intact. IMPRESSION: 1. Some generalized soft tissue swelling. Minimal scattered periarticular osseous edema within the mi dcarpal compartment. Possible focal erosion proximal triquetrum and possible tiny erosion at the ulna r styloid process. Scattered [id number] tenosynovitis along the volar flexor tendons. Given the constellation of these findings, correlate for possible early development of an inflammatory arthrop athy such as RA. 2. Suggestion of a small through thickness tear involving the central disc of the TFC.
== END | disposition home or self-care (01) ==
LOC: RADMRIMAIN 14:57
PROVIDERS: ATTEND Internal Medicine
DX: M65.842 Other synovitis and tenosynovitis, left hand (principal)

== ENCOUNTER 2023-08-01 15:30 | Emergency (ER) | payer MEDICARE ==
--- NOTE | 2023-08-01 16:19 | ED ---
Animal Bite HPI - General Chief Complaint: Animal Bite Stated Complaint: L arm dog bite Time Seen by Provider: 08/01/23 15:45 Source: patient, RN notes reviewed Mode of arrival: ambulatory Limitations: no limitations - History of Present Illness Initial Comments: This is a 63-year-old male presents emergency department chief complaint of a dog bite that happened on Friday. Patient states that his daughter's dog bit him in the left elbow over the weekend. Patient states that he would like the area to be evaluated for potential infection in addition to receiving a tetanus vaccine since he has not received 1 in over 10+ years. He denies fevers, chills, nausea, vomiting, abdominal pain, headaches, confusion. He states that the dog is able to be watched since it at his daughters, is unaware of the dog's vaccination status. Denies use of oral antibiotics since time of the bite. Denies use of blood thinners. - Related Data Home Medications Medication Instructions Recorded Confirmed Simvastatin [Zocor] 40 mg PO HS 03/13/14 10/02/22 Aspirin [Adult Low Dose Aspirin EC] 81 mg PO HS 11/27/16 10/02/22 metFORMIN HCL [Glucophage] 1,000 mg PO AC-BID 11/17/17 10/02/22 Insulin Glargine,Hum.rec.anlog 40 units SQ HS 12/23/17 10/02/22 [Lantus Solostar Pen] Pioglitazone [Actos] 15 mg PO DAILY 08/03/18 10/02/22 Acetaminophen [Tylenol Arthritis] 1,300 mg PO BID 10/02/22 10/02/22 Amitriptyline HCl [Elavil] 10 mg PO HS 10/02/22 10/02/22 Colchicine [Colcrys] 0.6 mg PO HS 10/02/22 10/02/22 DULoxetine HCL [Cymbalta] 30 mg PO HS 10/02/22 10/02/22 Empagliflozin [Jardiance] 10 mg PO HS 10/02/22 10/02/22 Famotidine [Pepcid] 20 mg PO DAILY 10/02/22 10/02/22 Furosemide [Lasix] 20 mg PO DAILY 10/02/22 10/02/22 Rivaroxaban [Xarelto] 2.5 mg PO BID 10/02/22 10/02/22 Semaglutide [Ozempic] 2 mg SQ MO 10/02/22 10/02/22 lisinopriL [Zestril] 10 mg PO HS 10/02/22 10/02/22 Previous Rx's Medication Instructions Recorded Amoxic-Pot Clav 875-125Mg 1 tab PO Q12HR #20 tab 08/01/23 [Augmentin 875-125] Allergies Allergy/AdvReac Type Severity Reaction Status Date / Time cefuroxime [From Ceftin] Allergy Rash/Hives Verified 08/01/23 15:37 Review of Systems ROS Statement: Those systems with pertinent positive or pertinent negative responses have been documented in the HPI. ROS Other: All systems not noted in ROS Statement are negative. Past Medical History Past Medical History: Diabetes Mellitus, Osteoarthritis (OA), Skin Disorder Additional Past Medical History / Comment(s): wound L foot(has wound vac), varicose veins, arthritis left knee, diabetic neuropathy History of Any Multi-Drug Resistant Organisms: MRSA Date of last positivie culture/infection: 2012 MDRO Source:: L Leg Past Surgical History: Orthopedic Surgery Additional Past Surgical History / Comment(s): julio carpel tunnel, left knee arthroscopy, PICC, debridement left foot, laser surgery left leg Past Anesthesia/Blood Transfusion Reactions: No Reported Reaction Past Psychological History: No Psychological Hx Reported Smoking Status: Former smoker Past Alcohol Use History: Occasional Past Drug Use History: Marijuana - Past Family History Mother Family Medical History: No Reported History General Exam Limitations: no limitations General appearance: alert, in no apparent distress Head exam: Present: atraumatic, normocephalic, normal inspection Eye exam: Present: normal appearance, PERRL, EOMI. Absent: scleral icterus, conjunctival injection, periorbital swelling ENT exam: Present: normal exam, mucous membranes moist Neck exam: Present: normal inspection. Absent: tenderness, meningismus, lymphadenopathy Respiratory exam: Present: normal lung sounds bilaterally. Absent: respiratory distress, wheezes, rales, rhonchi, stridor Cardiovascular Exam: Present: regular rate, normal rhythm, normal heart sounds. Absent: systolic murmur, diastolic murmur, rubs, gallop, clicks GI/Abdominal exam: Present: soft, normal bowel sounds. Absent: distended, tenderness, guarding, rebound, rigid Left Upper Arm exam: Present: tenderness, laceration, ecchymosis, erythema, other (5 cm area over the interior forearm overlying the olecranon with puncture wounds that are slightly erythematous, no signs of purulence. ecchymosis yellow and blue in color overlying wounds, no open skin noted). Absent: normal inspection, full ROM, crepidus, dislocation Elbow exam: Present: full ROM, tenderness, laceration, ecchymosis. Absent: normal inspection Neuro motor exam: Present: wrist extension intact Vascular: Present: normal capillary refill. Absent: vascular compromise Back exam: Present: normal inspection Neurological exam: Present: alert, oriented X3, CN II-XII intact Psychiatric exam: Present: normal affect, normal mood Skin exam: Present: warm, dry, intact, normal color. Absent: rash Course Vital Signs 08/01/23 08/01/23 15:35 16:51 Temperature 98 F 98.1 F Pulse Rate 78 82 Respiratory 18 16 Rate Blood Pressure 164/80 150/78 O2 Sat by Pulse 98 98 Oximetry Medical Decision Making - Medical Decision Making Was pt. sent in by a medical professional or institution (Dr. PA, SCOWMAN, urgent care, hospital, or snf...) When possible be specific @ -No Did you speak to anyone other than the patient for history (EMS, parent, family, police, friend...)? What history was obtained from this source @ -No Did you review nursing and triage notes (agree or disagree)? Why? @ -I reviewed and agree with nursing and triage notes Were old charts reviewed (outside hosp., previous admission, EMS record, old EKG, old radiological studies, urgent care reports/EKG's, snf records)? Report findings @ -No old charts were reviewed Differential Diagnosis (chest pain, altered mental status, abdominal pain women, abdominal pain men, vaginal bleeding, weakness, fever, dyspnea, syncope, headache, dizziness, GI bleed, back pain, seizure, CVA, palpatations, mental health, musculoskeletal)? @ -Animal bite, cellulitis, ecchymosis, hematoma EKG interpreted by me (3pts min.). @ -none X-rays interpreted by me (1pt min.). @ -None done CT interpreted by me (1pt min.). @ -None done U/S interpreted by me (1pt. min.). @ -None done What testing was considered but not performed or refused? (CT, X-rays, U/S, labs)? Why? @ -X-ray of the wound was considered but not performed due to patient not being concerned of foreign body in the wound as this event occurred last week. What meds were considered but not given or refused? Why? @ -None Did you discuss the management of the patient with other professionals (professionals i.e. , PA, SCOWMAN, lab, RT, psych nurse, social science manager, seat cover cutter, teacher, bank operations officer, bilingual case manager)? Give summary @ -No Was smoking cessation discussed for >3mins.? @ -No Was critical care preformed (if so, how long)? @ -No Were there social determinants of health that impacted care today? How? (Homelessness, low income, unemployed, alcoholism, drug addiction, transportation, low edu. Level, literacy, decrease access to med. care, [facility], rehab)? @ -No Was there de-escalation of care discussed even if they declined (Discuss DNR or withdrawal of care, Hospice)? DNR status @ -No What co-morbidities impacted this encounter? (DM, HTN, Smoking, COPD, CAD, Cancer, CVA, ARF, Chemo, Hep., AIDS, mental health diagnosis, sleep apnea, morbid obesity)? @ -None Was patient admitted / discharged? Hospital course, mention meds given and route, prescriptions, significant lab abnormalities, going to OR and other pertinent info. @ -Discharge. 63-year-old male with a dog bite. On physical examination patient is noted to have puncture wounds over his left anterior forearm over his medial olecranon. There are no open areas of skin. Additionally, mild to moderate ecchymosis ranging in color of yellow and blue. Area is moderately painful to the touch. Area is not warm to the touch, and redness does not extend from sites of wound. Little clinical suspicion for cellulitis. Patient's last tetanus vaccination was over 10 years ago. Patient provided with tetanus vaccination in addition to outpatient prescription for Augmentin. Wound was not cleaned at this time due to there being no open skin in the bite occurring last Friday. Patient is in agreement with this. Discussed with Dr. Chi Undiagnosed new problem with uncertain prognosis? @ -No Drug Therapy requiring intensive monitoring for toxicity (Heparin, Nitro, Insulin, Cardizem)? @ -No Were any procedures done? @ -No Diagnosis/symptom? @ -dog bite, ecchymosis Acute, or Chronic, or Acute on Chronic? @ acute Uncomplicated (without systemic symptoms) or Complicated (systemic symptoms)? @ -uncomplicated Side effects of treatment? @ -No Exacerbation, Progression, or Severe Exacerbation? @ -No Poses a threat to life or bodily function? How? (Chest pain, [place], [place], pneumonia, PE, COPD, DKA, ARF, appy, cholecystitis, CVA, Diverticulitis, Homicidal, Suicidal, threat to staff... and all critical care pts) @ -No Disposition Clinical Impression: Dog bite Narrative: Please return to the Emergency Department if symptoms worsen or any other concerns. Complete full course of Augmentin. Follow-up with your primary care provider as scheduled on Friday. Disposition: HOME SELF-CARE Condition: Good Instructions (If sedation given, give patient instructions): Animal Bite (ED) Prescriptions: Amoxic-Pot Clav 875-125Mg [Augmentin 875-125] 1 tab PO Q12HR #20 tab Is patient prescribed a controlled substance at d/c from ED?: No Referrals: El Carias DO [Primary Care Provider] - 1-2 days Time of Disposition: 16:32
[2023-08-01] MEDS: DIPH,PERTUS(ACELL)TETVAC-LF 0.5 ML VIAL IM ONE (16:35)
[2023-08-01 17:05] VITALS: BP 150/78; PULSE 82; RESP 16; TEMP 98.1
== END 2023-08-01 16:52 | disposition home or self-care (01) ==
LOC: EC 15:30
DX: S51.852A Open bite of left forearm, initial encounter (principal); Z23 Encounter for immunization; Z88.1 Allergy status to other antibiotic agents; Z87.891 Personal history of nicotine dependence; W54.0XXA Bitten by dog, initial encounter
CPT/HCPCS: 90471; 90715; 99283

== ENCOUNTER 2024-06-27 15:00 | Inpatient (IN) | payer MEDICARE ==
--- NOTE | 2024-06-27 15:47 | ED ---
Upper Extremity HPI - General Chief Complaint: Extremity Injury, Upper Stated Complaint: skin infection Time Seen by Provider: 06/27/24 15:34 Source: patient, RN notes reviewed Mode of arrival: ambulatory Limitations: no limitations - History of Present Illness Initial Comments: 64-year-old male with history of diabetes, MRSA infection, gangrene with sub sequent amputation presenting to emergency department with complaints of left hand skin infection. Patient states that on Friday he was assisting his daughter moving a dog cage when he had a laceration to the left third digit over the posterior mid finger. States when he woke up this morning there was intense pain in addition to erythema spreading up his hand and edema. Patient endorses pain with range of motion of the digit. He denies fevers, chills, nausea, vomiting, recent antibiotic use. Additionally, patient has been following with application specialist every 3 weeks after a amputation to the left foot last summer. He is concerned as there is increasing discharge of the area. He is scheduled for outpatient wound care appointment tomorrow. - Related Data Home Medications Medication Instructions Recorded Confirmed Simvastatin [Zocor] 40 mg PO HS 03/13/14 10/02/22 Aspirin [Adult Low Dose Aspirin EC] 81 mg PO HS 11/27/16 10/02/22 metFORMIN HCL [Glucophage] 1,000 mg PO AC-BID 11/17/17 10/02/22 Insulin Glargine,Hum.rec.anlog 40 units SQ HS 12/23/17 10/02/22 [Lantus Solostar Pen] Pioglitazone [Actos] 15 mg PO DAILY 08/03/18 10/02/22 Acetaminophen [Tylenol Arthritis] 1,300 mg PO BID 10/02/22 10/02/22 Amitriptyline HCl [Elavil] 10 mg PO HS 10/02/22 10/02/22 Colchicine [Colcrys] 0.6 mg PO HS 10/02/22 10/02/22 DULoxetine HCL [Cymbalta] 30 mg PO HS 10/02/22 10/02/22 Empagliflozin [Jardiance] 10 mg PO HS 10/02/22 10/02/22 Famotidine [Pepcid] 20 mg PO DAILY 10/02/22 10/02/22 Furosemide [Lasix] 20 mg PO DAILY 10/02/22 10/02/22 Rivaroxaban [Xarelto] 2.5 mg PO BID 10/02/22 10/02/22 Semaglutide [Ozempic] 2 mg SQ MO 10/02/22 10/02/22 lisinopriL [Zestril] 10 mg PO HS 10/02/22 10/02/22 Previous Rx's Medication Instructions Recorded Amoxic-Pot Clav 875-125Mg 1 tab PO Q12HR #20 tab 08/01/23 [Augmentin 875-125] Allergies Allergy/AdvReac Type Severity Reaction Status Date / Time cefuroxime [From Ceftin] Allergy Rash/Hives Verified 08/01/23 15:37 Review of Systems ROS Statement: Those systems with pertinent positive or pertinent negative responses have been documented in the HPI. ROS Other: All systems not noted in ROS Statement are negative. Past Medical History Past Medical History: Diabetes Mellitus, Osteoarthritis (OA), Skin Disorder Additional Past Medical History / Comment(s): wound L foot(has wound vac), varicose veins, arthritis left knee, diabetic neuropathy History of Any Multi-Drug Resistant Organisms: MRSA Date of last positivie culture/infection: 2012 MDRO Source:: L Leg Past Surgical History: Orthopedic Surgery Additional Past Surgical History / Comment(s): julio carpel tunnel, left knee arthroscopy, PICC, debridement left foot, laser surgery left leg Past Anesthesia/Blood Transfusion Reactions: No Reported Reaction Past Psychological History: No Psychological Hx Reported Smoking Status: Former smoker Past Alcohol Use History: Occasional Past Drug Use History: Marijuana - Past Family History Mother Family Medical History: No Reported History General Exam Limitations: no limitations General appearance: alert, in no apparent distress Neck exam: Present: normal inspection. Absent: tenderness, meningismus, lymphadenopathy Respiratory exam: Present: normal lung sounds bilaterally. Absent: respiratory distress, wheezes, rales, rhonchi, stridor Cardiovascular Exam: Present: regular rate, normal rhythm, normal heart sounds. Absent: systolic murmur, diastolic murmur, rubs, gallop, clicks GI/Abdominal exam: Present: soft, normal bowel sounds. Absent: distended, tenderness, guarding, rebound, rigid Left Hand Wrist exam: Present: tenderness, swelling, other (3rd digit posterior laceration with purulence, noted erythema with redness streaking up hand and edema). Absent: full ROM, crepitus Neuro motor exam: Present: wrist extension intact, thumb opposition intact Vascular: Present: normal capillary refill, radial pulse (2+). Absent: vascular compromise Left Foot/Toe exam: Present: tenderness (distal amputation site wound with serous drainage and malodorous), amputation (5 digit amputation) Neurovascular tendon exam: Present: no vascular compromise Back exam: Present: normal inspection Course Vital Signs 06/27/24 15:28 Temperature 98.2 F Pulse Rate 85 Respiratory 20 Rate Blood Pressure 118/68 O2 Sat by Pulse 99 Oximetry Medical Decision Making - Medical Decision Making Was pt. sent in by a medical professional or institution (, PA, BARREL LATHE OPERATOR, urgent care, hospital, or shelter...) When possible be specific @ -No Did you speak to anyone other than the patient for history (EMS, parent, family, police, friend...)? What history was obtained from this source @ -No Did you review nursing and triage notes (agree or disagree)? Why? @ -I reviewed and agree with nursing and triage notes Were old charts reviewed (outside hosp., previous admission, EMS record, old EKG, old radiological studies, urgent care reports/EKG's, shelter records)? Report findings @ -No old charts were reviewed Differential Diagnosis (chest pain, altered mental status, abdominal pain women, abdominal pain men, vaginal bleeding, weakness, fever, dyspnea, syncope, headache, dizziness, GI bleed, back pain, seizure, CVA, palpatations, mental health, musculoskeletal)? @ -Cellulitis, osteomyelitis, thrombophlebitis, gangrene, this list is not all inclusive EKG interpreted by me (3pts min.). @ -None X-rays interpreted by me (1pt min.). @ -xray of the left hand mild soft tissue swelling noted to the second digit with no evidence of fracture or dislocation X-ray of the left foot remarkable for ulceration adjacent to the fourth metatarsal without definite bone destruction, soft tissue air surrounding the r emnant of the first metatarsal, no definitive bone destruction CT interpreted by me (1pt min.). @ -None done U/S interpreted by me (1pt. min.). @ -None done What testing was considered but not performed or refused? (CT, X-rays, U/S, labs)? Why? @ -None What meds were considered but not given or refused? Why? @ -None Did you discuss the management of the patient with other professionals (professionals i.e. , PA, BARREL LATHE OPERATOR, lab, RT, psych nurse, health social work professor, cytogenetic technician, teacher, training officer, case mgr)? Give summary @ -[facility] medicine physicians in regard to admission who was agreed to accept. Recommend consult to orthopedic hand specialist. Was smoking cessation discussed for >3mins.? @ -No Was critical care preformed (if so, how long)? @ -No Were there social determinants of health that impacted care today? How? (Homelessness, low income, unemployed, alcoholism, drug addiction, transportation, low edu. Level, literacy, decrease access to med. care, halfway, rehab)? @ -No Was there de-escalation of care discussed even if they declined (Discuss DNR or withdrawal of care, Hospice)? DNR status @ -No What co-morbidities impacted this encounter? (DM, HTN, Smoking, COPD, CAD, Can cer, CVA, ARF, Chemo, Hep., AIDS, mental health diagnosis, sleep apnea, morbid obesity)? @ -None Was patient admitted / discharged? Hospital course, mention meds given and route, prescriptions, significant lab abnormalities, going to OR and other pertinent info. @ -Admitted. 64-year-old male presenting with left upper extremity infection and left lower extremity pain. Patient was offered pain medication however was declined. Neurovascularly intact of bilateral upper and lower extremities no evidence of pulse defect. Labs remarkable for elevated lactic acid of 2.4. X- ray of the left hand mild soft tissue swelling however x-ray of the left foot concerning for infection with no definitive bone destruction noted. Concern for severity of cellulitis patient will be admitted and started on IV vancomycin and Bactrim with orthopedic hand and infectious disease consult placed. Patient is admitted to internal medicine. Case discussed with Dr. Chi Undiagnosed new problem with uncertain prognosis? @ -No Drug Therapy requiring intensive monitoring for toxicity (Heparin, Nitro, Insulin, Cardizem)? @ -No Were any procedures done? @ -No Diagnosis/symptom? @ -Left hand cellulitis, left foot cellulitis Acute, or Chronic, or Acute on Chronic? @ -Acute Uncomplicated (without systemic symptoms) or Complicated (systemic symptoms)? @ -Complicated Side effects of treatment? @ -No Exacerbation, Progression, or Severe Exacerbation? @ -No Poses a threat to life or bodily function? How? (Chest pain, [place], [place], pneumonia, PE, COPD, DKA, ARF, appy, cholecystitis, CVA, Diverticulitis, Homicidal, Suicidal, threat to staff... and all critical care pts) @ -No - Lab Data Result diagrams: 06/27/24 16:35 06/27/24 16:35 Lab Results 06/27/24 06/27/24 06/27/24 Range/Units 16:35 16:35 16:35 WBC 7.3 (3.8-10.6) k/uL RBC 4.89 (4.30-5.90) m/uL Hgb 13.4 (13.0-17.5) gm/dL Hct 42.4 (39.0-53.0) % MCV 86.8 (80.0-100.0) fL MCH 27.4 (25.0-35.0) pg MCHC 31.5 (31.0-37.0) g/dL RDW 15.2 (11.5-15.5) % Plt Count 146 L (150-450) k/uL MPV 8.7 Neutrophils % 76 % Lymphocytes % 15 % Monocytes % 6 % Eosinophils % 2 % Basophils % 0 % Neutrophils # 5.5 (1.3-7.7) k/uL Lymphocytes # 1.1 (1.0-4.8) k/uL Monocytes # 0.5 (0-1.0) k/uL Eosinophils # 0.1 (0-0.7) k/uL Basophils # 0.0 (0-0.2) k/uL Sodium 134 L (137-145) mmol/L Potassium 4.2 (3.5-5.1) mmol/L Chloride 100 (98-107) mmol/L Carbon Dioxide 24 (22-30) mmol/L Anion Gap 10 mmol/L BUN 17 (9-20) mg/dL Creatinine 0.68 (0.66-1.25) mg/dL Est GFR (CKD-EPI)AfAm >90 (>60 ml/min/1.73 sqM) Est GFR (CKD-EPI)NonAf >90 (>60 ml/min/1.73 sqM) Glucose 175 H (74-99) mg/dL Plasma Lactic Acid Miky 2.4 H* (0.7-2.0) mmol/L Calcium 9.2 (8.4-10.2) mg/dL Total Bilirubin 0.9 (0.2-1.3) mg/dL AST 31 (17-59) U/L ALT 16 (4-49) U/L Alkaline Phosphatase 123 (38-126) U/L C-Reactive Protein 0.7 (<1.0) mg/dL Total Protein 7.2 (6.3-8.2) g/dL Albumin 3.8 (3.5-5.0) g/dL Disposition Clinical Impression: Cellulitis Disposition: ADMITTED IP TO THIS [facility] Condition: Serious Referrals: El Carias DO [Primary Care Provider] - 1-2 days Decision to Admit Reason: Admit from EC Decision Date: 06/27/24 Decision Time: 17:15
[2024-06-27 16:43] LABS: Basophils % (A) 0 %; Eosinophils # (A) 0.1 k/uL (0-0.7); Eosinophils % (A) 2 %; HCT 42.4 % (39.0-53.0); HGB 13.4 gm/dL (13.0-17.5); Lymphocytes # (A) 1.1 k/uL (1.0-4.8); Lymphocytes % (A) 15 %; MCH 27.4 pg (25.0-35.0); MCHC 31.5 g/dL (31.0-37.0); MCV 86.8 fL (80.0-100.0); Mean Platelet Volume 8.7; Monocytes # (A) 0.5 k/uL (0-1.0); Monocytes % (A) 6 %; Neutrophils # (A) 5.5 k/uL (1.3-7.7); Neutrophils % (A) 76 %; Platelet Count 146 k/uL (150-450); RBC 4.89 m/uL (4.30-5.90); RDW 15.2 % (11.5-15.5); WBC 7.3 k/uL (3.8-10.6)
--- NOTE | 2024-06-27 16:52 | XR ---
EXAMINATION TYPE: XR foot complete LT DATE OF EXAM: 06/27/2024 4:46 PM COMPARISON: 10/02/2022 CLINICAL INDICATION: Male, 64 years old with history of diabetic wound, hx amputation, discharge, delmi n TECHNIQUE: Frontal, lateral, and oblique images of the left foot are obtained. FINDINGS: There is amputation noted of all 5 digits to the base of the metatarsals. There is ulcerati on noted adjacent to the fourth metatarsal remnant without definite bone destruction. There is soft t issue air seen surrounding the remnant of the first metatarsal which could reflect air producing infe ction. Soft tissue edema noted at the amputation stump. No definite bone destruction seen however cor relate with WBC scan to exclude underlying osteomyelitis. Degenerative change of the intertarsal joints could reflect changes of Charcot joint. Plantar and duy mary calcaneal spurs are small. IMPRESSION: As above [facility], , 06/27/2024 4:50 PM
[2024-06-27 16:54] LABS: ALT 16 U/L (4-49); African American GFR (CKD) >90 (>60 ml/min/1.73 sqM); Albumin 3.8 g/dL (3.5-5.0); Anion Gap 10 mmol/L; Blood Urea Nitrogen 17 mg/dL (9-20); C Reactive Protein 0.7 mg/dL (<1.0); Calcium 9.2 mg/dL (8.4-10.2); Carbon Dioxide 24 mmol/L (22-30); Chloride 100 mmol/L (98-107); Glucose 175 mg/dL (74-99); Non-African American GFR(CKD) >90 (>60 ml/min/1.73 sqM); Potassium 4.2 mmol/L (3.5-5.1); Sodium 134 mmol/L (137-145); Total Bilirubin 0.9 mg/dL (0.2-1.3); Total Protein 7.2 g/dL (6.3-8.2)
[2024-06-27 16:55] LABS: AST 31 U/L (17-59); Alkaline Phosphatase 123 U/L (38-126)
--- NOTE | 2024-06-27 16:56 | XR ---
EXAMINATION TYPE: XR hand complete LT DATE OF EXAM: 06/27/2024 4:46 PM COMPARISON: 09/12/2022 CLINICAL INDICATION: Male, 64 years old with history of 2nd digit infection, erythema, edema, red str eak, pain TECHNIQUE: XR hand complete LT XX views were obtained. FINDINGS: There is no acute fracture/dislocation evident. The joint spaces appear within normal limits. Vascula r calcifications are noted. Mild soft tissue swelling noted second digit. IMPRESSION: No acute fracture or dislocation. [facility], , 06/27/2024 4:54 PM
[2024-06-27] MEDS: LACTATED RINGERS 1,000 ML IV ONE (17:08)
[2024-06-27] MEDS ORDERED: VANCOMYCIN IV PER PHARMACY 1 EACH MISC MISCELLANE PRN (17:14)
[2024-06-27] MEDS ORDERED: IBUPROFEN 400 MG TAB PO PRN (17:17)
[2024-06-27] MEDS ORDERED: NALOXONE 0.4 MG/ML 1 ML VIAL IV PRN (17:17)
[2024-06-27] MEDS: DEXTROSE 5% IVPB SCH (17:58)
[2024-06-27] MEDS: WATER IVPB SCH (17:58)
[2024-06-27] MEDS: SULFAMETHOX TMP IVPB SCH (17:58)
[2024-06-27 20:35] LABS: HCT 39.7 % (39.0-53.0); Hypochromasia Marked; MCH 27.4 pg (25.0-35.0); MCHC 25.6 g/dL (31.0-37.0); Macrocytosis Marked; Mean Platelet Volume 9.3; Platelet Count 109 k/uL (150-450); RDW 14.9 % (11.5-15.5); WBC 4.5 k/uL (3.8-10.6)
[2024-06-27 20:40] LABS: HGB 10.2 gm/dL (13.0-17.5); MCV 107.3 fL (80.0-100.0)
[2024-06-27 21:01] LABS: Band Neutrophils % 1 %; Eosinophils # (M) 0.09 k/uL (0-0.7); Lymphocytes # (M) 0.81 k/uL (1.0-4.8); Monocytes # (M) 0.45 k/uL (0-1.0); Neutrophils % (M) 69 %; Nucleated Red Blood Cells 0 /100 WBC (0-0); Total Cells Counted 100
[2024-06-27] MEDS: VANCOMYCIN 1,750 MG in SODIUM CHLORIDE 0.9% 500 ML 500 ML IVPB STA (21:41)
[2024-06-27] MEDS: ASPIRIN 81 MG PO SCH (21:47)
[2024-06-27] MEDS: ATORVASTATIN 20 MG TAB PO SCH (21:47)
[2024-06-27 22:05] LABS: MCH 27.5 pg (25.0-35.0); MCHC 31.6 g/dL (31.0-37.0); Platelet Count 133 k/uL (150-450); RBC 5.05 m/uL (4.30-5.90); RDW 15.2 % (11.5-15.5); WBC 6.9 k/uL (3.8-10.6)
[2024-06-27 22:43] LABS: HGB 13.9 gm/dL (13.0-17.5); MCV 87.1 fL (80.0-100.0)
[2024-06-27 22:48] LABS: ALT 15 U/L (4-49); AST 27 U/L (17-59); African American GFR (CKD) >90 (>60 ml/min/1.73 sqM); Albumin 3.7 g/dL (3.5-5.0); Albumin/Globulin Ratio 1.1; Alkaline Phosphatase 111 U/L (38-126); Anion Gap 6 mmol/L; Blood Urea Nitrogen 15 mg/dL (9-20); Carbon Dioxide 28 mmol/L (22-30); Chloride 101 mmol/L (98-107); Globulin 3.4 g/dL; Glucose 101 mg/dL (74-99); Non-African American GFR(CKD) >90 (>60 ml/min/1.73 sqM); Potassium 4.2 mmol/L (3.5-5.1); Sodium 135 mmol/L (137-145); Total Bilirubin 1.1 mg/dL (0.2-1.3); Total Protein 7.1 g/dL (6.3-8.2)
--- NOTE | 2024-06-28 00:05 | P.HPIM ---
History of Present Illness H&P Date: 06/27/24 Chief Complaint: left hand injury 64 year old male with DM ,hypertension coming in for swelling, redness due to a wound on the dorsum aspect of the middle finger of the left hand which started a week ago while trying to build a dog cage and got injured with that, he did not take anything for that, but ended up having a small open wound , that gradually got worse with redness and swelling, however today pain got worse and was having limited range of motion due to pain and swelling , denies any fever ,chills, IV drugs, chest pain , trouble breathing denies tobacco smoking or heavy alcohol review of systems Pertinent positives as noted in HPI. All other systems were reviewed and are negative on exam Constitutional: No acute distress, conversant, pleasant Eyes: Anicteric sclerae, moist conjunctiva, Pupils equal round reactive to light ENMT: NC/AT Oropharynx clear, no erythema, or exudates Neck: Supple, no masses, or JVD No carotid bruits No thyromegaly Lungs: Clear to auscultation Clear to percussion Normal respiratory effort, no accessory muscle use Cardiovascular: Heart regular in rate and rhythm, No murmurs, gallops, or rubs No peripheral edema Abdominal: Soft Nontender, no guarding, rebound or rigidity Abdomen moving with respiration Normoactive bowel sounds Extremities: dorsum aspect of left middle finger with open wound , and surrounding erythema warmth and tenderness , with limited range of motion of the left fingers due to swelling No digital cyanosis No clubbing Pedal pulses intact and symmetrical Radial pulses intact and symmetrical No calf tenderness Psychiatric: Alert and oriented to person, place and time Appropriate affect fair judgement Neuro Muscles Strength 5/5 in all 4 extremities Sensation to light touch grossly present throughout Cranial nerves II-XII grossly intact Past Medical History Past Medical History: Diabetes Mellitus, Osteoarthritis (OA), Skin Disorder Additional Past Medical History / Comment(s): varicose veins, arthritis left knee, diabetic neuropathy History of Any Multi-Drug Resistant Organisms: MRSA Date of last positivie culture/infection: 2012 MDRO Source:: L Leg Past Surgical History: Orthopedic Surgery Additional Past Surgical History / Comment(s): julio carpel tunnel, left knee arthroscopy, PICC, debridement left foot, laser surgery right leg, amputation left foot all toes 2022. Past Anesthesia/Blood Transfusion Reactions: No Reported Reaction Past Psychological History: No Psychological Hx Reported Smoking Status: Former smoker Past Alcohol Use History: Occasional Additional Past Alcohol Use History / Comment(s): Patient was a smoker 3 packs per day on and off for 20 years and quit 25 years ago. 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 Past Drug Use History: Marijuana Additional Drug Use History / Comment(s): rare use, has not smoked marijuana in 3 weeks - Past Family History Mother Family Medical History: No Reported History Medications and Allergies Home Medications Medication Instructions Recorded Confirmed Type Simvastatin [Zocor] 40 mg PO HS 03/13/14 06/27/24 History Aspirin [Adult Low Dose Aspirin EC] 81 mg PO HS 11/27/16 06/27/24 History metFORMIN HCL [Glucophage] 1,000 mg PO BID 11/17/17 06/27/24 History Insulin Glargine,Hum.rec.anlog 35 units SQ DAILY 12/23/17 06/27/24 History [Lantus Solostar Pen] DULoxetine HCL [Cymbalta] 30 mg PO DAILY 10/02/22 06/27/24 History Empagliflozin [Jardiance] 10 mg PO DAILY 10/02/22 06/27/24 History Famotidine [Pepcid] 20 mg PO DAILY 10/02/22 06/27/24 History Rivaroxaban [Xarelto] 2.5 mg PO BID 10/02/22 06/27/24 History Semaglutide [Ozempic] 2 mg SQ WE 10/02/22 06/27/24 History lisinopriL [Zestril] 10 mg PO DAILY 10/02/22 06/27/24 History Allergies Allergy/AdvReac Type Severity Reaction Status Date / Time cefuroxime [From Ceftin] Allergy Rash/Hives Verified 08/01/23 15:37 Physical Exam Vitals: Vital Signs Temp Pulse Resp BP Pulse Ox 06/27/24 20:06 98.1 F 72 18 127/77 100 06/27/24 15:28 98.2 F 85 20 118/68 99 Intake and Output 06/27/24 06/27/24 06/28/24 14:59 22:59 06:59 Other: Weight 102.058 kg Results CBC & Chem 7: 06/27/24 21:50 06/27/24 21:50 Labs: Abnormal Lab Results - Last 24 Hours (Table) 06/27/24 06/27/24 06/27/24 Range/Units 16:35 16:35 16:35 RBC (4.30-5.90) m/uL Hgb (13.0-17.5) gm/dL MCV (80.0-100.0) fL MCHC (31.0-37.0) g/dL Plt Count 146 L (150-450) k/uL Lymphocytes # (Manual) (1.0-4.8) k/uL Macrocytosis Sodium 134 L (137-145) mmol/L Creatinine (0.66-1.25) mg/dL Glucose 175 H (74-99) mg/dL Plasma Lactic Acid Miky 2.4 H* (0.7-2.0) mmol/L 06/27/24 06/27/24 06/27/24 Range/Units 20:06 21:50 21:50 RBC 3.70 L (4.30-5.90) m/uL Hgb 10.2 L D (13.0-17.5) gm/dL MCV 107.3 H D (80.0-100.0) fL MCHC 25.6 L (31.0-37.0) g/dL Plt Count 109 L 133 L (150-450) k/uL Lymphocytes # (Manual) 0.81 L (1.0-4.8) k/uL Macrocytosis Marked A Sodium 135 L (137-145) mmol/L Creatinine 0.64 L (0.66-1.25) mg/dL Glucose 101 H (74-99) mg/dL Plasma Lactic Acid Miky (0.7-2.0) mmol/L 06/27/24 Range/Units 21:50 RBC (4.30-5.90) m/uL Hgb (13.0-17.5) gm/dL MCV (80.0-100.0) fL MCHC (31.0-37.0) g/dL Plt Count (150-450) k/uL Lymphocytes # (Manual) (1.0-4.8) k/uL Macrocytosis Sodium (137-145) mmol/L Creatinine (0.66-1.25) mg/dL Glucose (74-99) mg/dL Plasma Lactic Acid Miky 2.1 H* (0.7-2.0) mmol/L Assessment and Plan Assessment: 64 year old male with DM and Hypertension coming in for left hand pain , swelling I discussed the case with ED doc and I accepted the admission for left hand cellulitis with anticipated length of stay > 2 midnights left hand cellulitis follow up cultures vancomycin dosing by pharmacy hand surgery consult tylenol for fever prn pain control with opioids xray left hand no acute bone injury or fracture no leukocytosis , WBC 6.9 LA 2.4 elevated continue with IVF hydration with normal saline 100 cc per hour DM resume home dosing of insulin insulin sliding scale hypertension resume lisinopril renal function unremarkable Cr 0.68 BUN 17 hyperlipidemia resume statin and aspirin full code DVT PPX continue with xarelto 2.5 mg po bid
[2024-06-28] MEDS ORDERED: DEXTROSE 50% SYRINGE 50 ML IVP PRN ×2 (00:39)
[2024-06-28 02:00] LABS: Glucose,Whole Blood 138 mg/dL (70-110)
[2024-06-28] MEDS: SODIUM CHLORIDE 0.9% 1,000 ML IV SCH (02:33)
[2024-06-28] MEDS: ACETAMINOPHEN TAB 325 MG TAB PO PRN (05:01)
[2024-06-28] MEDS: DEXTROSE 5% IVPB SCH (05:32)
[2024-06-28] MEDS: SODIUM CHLORIDE 0.9% 1,000 ML IV ONE (05:32)
[2024-06-28] MEDS: SULFAMETHOX TMP IVPB SCH (05:32)
[2024-06-28] MEDS: WATER IVPB SCH (05:32)
[2024-06-28 08:16] LABS: Basophils % (A) 0 %; Eosinophils # (A) 0.1 k/uL (0-0.7); Eosinophils % (A) 1 %; HCT 42.3 % (39.0-53.0); HGB 13.2 gm/dL (13.0-17.5); Lymphocytes # (A) 0.3 k/uL (1.0-4.8); Lymphocytes % (A) 6 %; MCH 27.1 pg (25.0-35.0); MCHC 31.1 g/dL (31.0-37.0); MCV 86.9 fL (80.0-100.0); Mean Platelet Volume 8.8; Monocytes # (A) 0.2 k/uL (0-1.0); Monocytes % (A) 4 %; Neutrophils # (A) 4.8 k/uL (1.3-7.7); Neutrophils % (A) 88 %; Platelet Count 127 k/uL (150-450); RBC 4.87 m/uL (4.30-5.90); RDW 15.3 % (11.5-15.5); WBC 5.5 k/uL (3.8-10.6)
[2024-06-28 08:28] LABS: African American GFR (CKD) >90 (>60 ml/min/1.73 sqM); Anion Gap 7 mmol/L; Blood Urea Nitrogen 14 mg/dL (9-20); Calcium 8.5 mg/dL (8.4-10.2); Carbon Dioxide 23 mmol/L (22-30); Chloride 106 mmol/L (98-107); Glucose 156 mg/dL (74-99); Non-African American GFR(CKD) >90 (>60 ml/min/1.73 sqM); Potassium 3.9 mmol/L (3.5-5.1); Sodium 136 mmol/L (137-145)
[2024-06-28] MEDS: DULoxetine HCL 30 MG CAPSULE.DR PO SCH (09:40)
[2024-06-28] MEDS: FAMOTIDINE 20 MG TAB PO SCH (09:40)
[2024-06-28] MEDS: lisinopriL 10 MG TAB PO SCH (09:40)
[2024-06-28 09:43] LABS: Glucose,Whole Blood 135 mg/dL (70-110)
[2024-06-28] MEDS: INSULIN LISPRO (HumaLOG) 100 UNIT/ML 10 mL VL SQ SCH (09:44)
--- NOTE | 2024-06-28 10:02 | P.CNOR ---
History of Present Illness - [facility] Consult date: 06/28/24 Consult reason: other (Left ring finger cellulitis) History of present illness: Patient is a pleasant 64-year-old male with a history of diabetes and vascular disease. Last week on Friday the patient was helping his daughter put together a dog kennel and had an injury and a scrape at his left ring finger. It had been doing okay and apparently healing until yesterday he noticed significant swelling and redness around the area. He denies any fevers or chills. Denies any significant problems with his hand or his fingers in the past. He denies any new weakness or changes in his arm wrist or hand. Denies any chest pain shortness of breath. He admits to issues at his left foot where he developed an infection of his foot after stepping on some glass. He ultimately had to have a partial amputation at his left foot with vascular surgery with Dr. Brian and is currently in wound care being actively managed for continued treatment of the left foot. The patient is feels that his left hand is doing significant better since presenting to the emergency room and starting antibiotics. He is currently co mfortable and still has soreness around his left ring finger but he says he definitely feels better than he did last night. Review of Systems Primary issues are associated with his left ring finger currently. He has chronic wound care problems at his left foot and had to undergo a partial amputation of his left foot within the last year but continues to have active management with wound care for that. History of chronic diabetes and neuropathy Past Medical History Past Medical History: Diabetes Mellitus, Osteoarthritis (OA), Skin Disorder Additional Past Medical History / Comment(s): varicose veins, arthritis left knee, diabetic neuropathy,. History of partial amputation of the left foot with chronic wound healing issues in active wound care management History of Any Multi-Drug Resistant Organisms: MRSA Year Discovered:: 2012 MDRO Source:: L Leg Past Surgical History: Orthopedic Surgery Additional Past Surgical History / Comment(s): julio carpel tunnel, left knee arthroscopy, PICC, debridement left foot, laser surgery right leg, amputation left foot all toes 2022. Past Anesthesia/Blood Transfusion Reactions: No Reported Reaction Past Psychological History: No Psychological Hx Reported Smoking Status: Former smoker Past Alcohol Use History: Occasional Additional Past Alcohol Use History / Comment(s): Patient was a smoker 3 packs per day on and off for 20 years and quit 25 years ago. 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 Past Drug Use History: Marijuana Additional Drug Use History / Comment(s): rare use, has not smoked marijuana in 3 weeks - Past Family History Mother Family Medical History: No Reported History Medications and Allergies Home Medications Medication Instructions Recorded Confirmed Type Simvastatin [Zocor] 40 mg PO HS 03/13/14 06/27/24 History Aspirin [Adult Low Dose Aspirin EC] 81 mg PO HS 11/27/16 06/27/24 History metFORMIN HCL [Glucophage] 1,000 mg PO BID 11/17/17 06/27/24 History Insulin Glargine,Hum.rec.anlog 35 units SQ DAILY 12/23/17 06/27/24 History [Lantus Solostar Pen] DULoxetine HCL [Cymbalta] 30 mg PO DAILY 10/02/22 06/27/24 History Empagliflozin [Jardiance] 10 mg PO DAILY 10/02/22 06/27/24 History Famotidine [Pepcid] 20 mg PO DAILY 10/02/22 06/27/24 History Rivaroxaban [Xarelto] 2.5 mg PO BID 10/02/22 06/27/24 History Semaglutide [Ozempic] 2 mg SQ WE 10/02/22 06/27/24 History lisinopriL [Zestril] 10 mg PO DAILY 10/02/22 06/27/24 History Allergies Allergy/AdvReac Type Severity Reaction Status Date / Time cefuroxime [From Ceftin] Allergy Rash/Hives Verified 08/01/23 15:37 Physical Examination Osteopathic Statement: *. No significant issues noted on an osteopathic structural exam other than those noted in the History and Physical/Consult. - Wrist & Hand left Location of pain: ring finger (In his left ring finger there is a abrasion approximately 2 cm x 1 cm which appears superficial. There is erythema around the area. There is mild swelling. There is mild soreness to palpation. There is no significant swelling or pain over the flexor tendon. Pain is not out of proportion with ex) Wrist pain modifiers: with motion Ring finger pain modifiers: with motion (Pain is not out of proportion with exam. No significant pain with passive stretch. No streaking at his palm or wrist. No active drainage at the abrasion) Results - Labs Labs: Abnormal Lab Results - Last 24 Hours (Table) 06/27/24 06/27/24 06/27/24 Range/Units 16:35 16:35 16:35 RBC (4.30-5.90) m/uL Hgb (13.0-17.5) gm/dL MCV (80.0-100.0) fL MCHC (31.0-37.0) g/dL Plt Count 146 L (150-450) k/uL Lymphocytes # (1.0-4.8) k/uL Lymphocytes # (Manual) (1.0-4.8) k/uL Macrocytosis Sodium 134 L (137-145) mmol/L Creatinine (0.66-1.25) mg/dL Glucose 175 H (74-99) mg/dL POC Glucose (mg/dL) (70-110) mg/dL Plasma Lactic Acid Miky 2.4 H* (0.7-2.0) mmol/L 06/27/24 06/27/24 06/27/24 Range/Units 20:06 21:50 21:50 RBC 3.70 L (4.30-5.90) m/uL Hgb 10.2 L D (13.0-17.5) gm/dL MCV 107.3 H D (80.0-100.0) fL MCHC 25.6 L (31.0-37.0) g/dL Plt Count 109 L 133 L (150-450) k/uL Lymphocytes # (1.0-4.8) k/uL Lymphocytes # (Manual) 0.81 L (1.0-4.8) k/uL Macrocytosis Marked A Sodium 135 L (137-145) mmol/L Creatinine 0.64 L (0.66-1.25) mg/dL Glucose 101 H (74-99) mg/dL POC Glucose (mg/dL) (70-110) mg/dL Plasma Lactic Acid Miky (0.7-2.0) mmol/L 06/27/24 06/28/24 06/28/24 Range/Units 21:50 01:21 07:53 RBC (4.30-5.90) m/uL Hgb (13.0-17.5) gm/dL MCV (80.0-100.0) fL MCHC (31.0-37.0) g/dL Plt Count 127 L (150-450) k/uL Lymphocytes # 0.3 L (1.0-4.8) k/uL Lymphocytes # (Manual) (1.0-4.8) k/uL Macrocytosis Sodium (137-145) mmol/L Creatinine (0.66-1.25) mg/dL Glucose (74-99) mg/dL POC Glucose (mg/dL) 138 H (70-110) mg/dL Plasma Lactic Acid Miky 2.1 H* (0.7-2.0) mmol/L 06/28/24 06/28/24 Range/Units 07:53 09:42 RBC (4.30-5.90) m/uL Hgb (13.0-17.5) gm/dL MCV (80.0-100.0) fL MCHC (31.0-37.0) g/dL Plt Count (150-450) k/uL Lymphocytes # (1.0-4.8) k/uL Lymphocytes # (Manual) (1.0-4.8) k/uL Macrocytosis Sodium 136 L (137-145) mmol/L Creatinine (0.66-1.25) mg/dL Glucose 156 H (74-99) mg/dL POC Glucose (mg/dL) 135 H (70-110) mg/dL Plasma Lactic Acid Miky (0.7-2.0) mmol/L H & H 06/27/24 06/27/24 06/27/24 Range/Units 16:35 20:06 21:50 Hgb 13.4 10.2 L D 13.9 D (13.0-17.5) gm/dL Hct 42.4 39.7 44.0 (39.0-53.0) % 06/28/24 Range/Units 07:53 Hgb 13.2 (13.0-17.5) gm/dL Hct 42.3 (39.0-53.0) % Result Diagrams: 06/28/24 07:53 06/28/24 07:53 - Diagnostic results Wrist/Hand x-ray: report reviewed, image reviewed (No obvious evidence of fracture or dislocation at the hand wrist or fingers) Assessment and Plan Assessment: Left ring finger cellulitis status post abrasion 1 week ago Long history of diabetes with history of poor wound healing Left foot chronic healing ulcer status post partial amputation with vascular surgery Dr. Brian Plan: Left ring finger cellulitis status post abrasion 1 week ago Long history of diabetes with history of poor wound healing Left foot chronic healing ulcer status post partial amputation with vascular surgery Dr. Brian In terms the patient's hand the abrasion developed cellulitis and infection this past weekend. He had initially suffered the injury about a week ago. He feels he is doing much better with the IV antibiotics starting here in the emergency r oom. His pain and his symptoms are diminishing with the antibiotic treatment. I do not see evidence of acute fluid collection or abscess. And there is no evidence of flexor tendon synovitis. I do not have plans for any surgical intervention for his hand or finger at this point. He should continue with local wound care and antibiotics. Dr. Leyva has been consulted and will make recommendations for the appropriate antibiotic regimen to continue healing. He can follow-up on outpatient basis in terms of his hand and fingers. In terms of patient's left foot. He had surgery with vascular surgery with Dr. Brian and is currently in active wound care for the delayed healing. Dr. Leyva will make recommendations in terms of antibiotics for this regard and he should continue his wound care management for his foot with wound care department as well as vascular surgery and infectious disease. I discussed these issues with him, answered his questions best my ability and he seems agreeable.
[2024-06-28] MEDS: RIVAROXABAN 2.5 MG TABLET PO SCH (10:25)
[2024-06-28] MEDS: VANCOMYCIN 1,500 MG in SODIUM CHLORIDE 0.9% 500 ML 500 ML IVPB SCH ×2 (10:26→22:33)
[2024-06-28] MEDS: INSULIN GLARGINE (LANTUS) 100 UNIT/ML SYR SQ SCH (10:26)
--- NOTE | 2024-06-28 11:25 | P.CRDCN ---
History of Present Illness History of present illness: HISTORY OF PRESENT ILLNESS: This is a 64-year-old male with a past medical history significant for diabetes, neuropathy, arthritis, and lower extremity wounds with previous transmetatarsal amputation. 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 We have been asked to see the patient in consultation for atrial flutter. Patient examined at the bedside in the emergency room. Patient is admitted to the hospital secondary to left upper extremity cellulitis. Patient was noted to be tachycardic. EKG performed was read out by computer as atrial flutter. However EKG is sinus tachycardia. Bedside telemetry also revealed sinus tachycardia. Patient without complaints of chest pain or pressure. Denies shortness of breath. REVIEW OF SYSTEMS: At the time of my exam: CONSTITUTIONAL: Denies fever or chills. HEENT: Denies blurred vision, vision changes, or eye pain. Denies hemoptysis CARDIOVASCULAR: Denies chest pain. Denies orthopnea. Denies PND. Denies palpitations RESPIRATORY: Denies shortness of breath. GASTROINTESTINAL: Denies abdominal pain. Denies nausea or vomiting. HEMATOLOGIC: Denies bleeding disorders. GENITOURINARY: Denies any blood in urine. SKIN: Denies pruitis. Denies rash. PHYSICAL EXAM: VITAL SIGNS: Reviewed. GENERAL: Well-developed in no acute distress. HEENT: Head is normocephalic. Pupils are equal, round. Sclerae anicteric. Mucous membranes of the mouth are moist. Neck supple. No JVD or thyromegaly LUNGS: Respirations even and unlabored. Lungs essentially clear to auscultation bilaterally. HEART: Regular rate and rhythm. S1 and S2 heard. ABDOMEN: Soft. Nondistended. Nontender. EXTREMITIES: Normal range of motion. No clubbing or cyanosis. Peripheral pulses intact. Bilateral lower extremity redness. Cellulitis of left ring finger with wound. NEUROLOGIC: Awake and alert. Oriented x 3. ASSESSMENT: Left ring finger cellulitis Atrial flutter, ruled out, EKG and bedside telemetry reveals sinus tachycardia Diabetes History of lower extremity wound with previous transmetatarsal amputation Diabetes Neuropathy Arthritis PLAN: EKG and bedside telemetry reveals sinus mechanism with no evidence of atrial flutter No further inpatient recommendations from a cardiac standpoint We will sign off. Please reconsult if needed. Nurse practitioner note has been reviewed by physician. Signing provider agrees with the documented findings, assessment, and plan of care documented by CARROT BUNCHER as a scribe. Past Medical History Past Medical History: Diabetes Mellitus, Osteoarthritis (OA), Skin Disorder Additional Past Medical History / Comment(s): varicose veins, arthritis left knee, diabetic neuropathy,. History of partial amputation of the left foot with chronic wound healing issues in active wound care management History of Any Multi-Drug Resistant Organisms: MRSA Date of last positivie culture/infection: 2012 MDRO Source:: L Leg Past Surgical History: Orthopedic Surgery Additional Past Surgical History / Comment(s): julio carpel tunnel, left knee arthroscopy, PICC, debridement left foot, laser surgery right leg, amputation left foot all toes 2022. Past Anesthesia/Blood Transfusion Reactions: No Reported Reaction Past Psychological History: No Psychological Hx Reported Smoking Status: Former smoker Past Alcohol Use History: Occasional Additional Past Alcohol Use History / Comment(s): Patient was a smoker 3 packs per day on and off for 20 years and quit 25 years ago. 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 Past Drug Use History: Marijuana Additional Drug Use History / Comment(s): rare use, has not smoked marijuana in 3 weeks - Past Family History Mother Family Medical History: No Reported History Medications and Allergies Home Medications Medication Instructions Recorded Confirmed Type Simvastatin [Zocor] 40 mg PO HS 03/13/14 06/27/24 History Aspirin [Adult Low Dose Aspirin EC] 81 mg PO HS 11/27/16 06/27/24 History metFORMIN HCL [Glucophage] 1,000 mg PO BID 11/17/17 06/27/24 History Insulin Glargine,Hum.rec.anlog 35 units SQ DAILY 12/23/17 06/27/24 History [Lantus Solostar Pen] DULoxetine HCL [Cymbalta] 30 mg PO DAILY 10/02/22 06/27/24 History Empagliflozin [Jardiance] 10 mg PO DAILY 10/02/22 06/27/24 History Famotidine [Pepcid] 20 mg PO DAILY 10/02/22 06/27/24 History Rivaroxaban [Xarelto] 2.5 mg PO BID 10/02/22 06/27/24 History Semaglutide [Ozempic] 2 mg SQ WE 10/02/22 06/27/24 History lisinopriL [Zestril] 10 mg PO DAILY 10/02/22 06/27/24 History Allergies Allergy/AdvReac Type Severity Reaction Status Date / Time cefuroxime [From Ceftin] Allergy Rash/Hives Verified 08/01/23 15:37 Physical Exam Vitals: Vital Signs Temp Pulse Pulse Resp BP Pulse Ox 06/28/24 10:49 99.5 F 113 H 17 89/55 97 06/28/24 10:32 115 H 18 98 06/28/24 09:38 98.4 F 118 H 18 99/54 99 06/28/24 09:35 120 H 06/28/24 06:58 98.6 F 118 H 18 104/60 100 06/28/24 05:16 99.3 F 122 H 17 153/81 95 06/28/24 04:34 100.7 F H 124 H 22 120/60 95 06/28/24 01:18 110 H 18 124/72 97 06/27/24 20:06 98.1 F 72 18 127/77 100 06/27/24 15:28 98.2 F 85 20 118/68 99 Intake and Output 06/27/24 06/28/24 06/28/24 22:59 06:59 14:59 Other: Weight 102.058 kg Results 06/28/24 07:53 06/28/24 07:53 Cardiac Enzymes 06/27/24 06/27/24 Range/Units 16:35 21:50 AST 31 27 (17-59) U/L CBC 06/27/24 06/27/24 06/27/24 Range/Units 16:35 20:06 21:50 WBC 7.3 4.5 6.9 (3.8-10.6) k/uL RBC 4.89 3.70 L 5.05 (4.30-5.90) m/uL Hgb 13.4 10.2 L D 13.9 D (13.0-17.5) gm/dL Hct 42.4 39.7 44.0 (39.0-53.0) % Plt Count 146 L 109 L 133 L (150-450) k/uL 06/28/24 Range/Units 07:53 WBC 5.5 (3.8-10.6) k/uL RBC 4.87 (4.30-5.90) m/uL Hgb 13.2 (13.0-17.5) gm/dL Hct 42.3 (39.0-53.0) % Plt Count 127 L (150-450) k/uL Comprehensive Metabolic Panel 06/27/24 06/27/24 06/28/24 Range/Units 16:35 21:50 07:53 Sodium 134 L 135 L 136 L (137-145) mmol/L Potassium 4.2 4.2 3.9 (3.5-5.1) mmol/L Chloride 100 101 106 (98-107) mmol/L Carbon Dioxide 24 28 23 (22-30) mmol/L BUN 17 15 14 (9-20) mg/dL Creatinine 0.68 0.64 L 0.70 (0.66-1.25) mg/dL Glucose 175 H 101 H 156 H (74-99) mg/dL Calcium 9.2 9.0 8.5 (8.4-10.2) mg/dL AST 31 27 (17-59) U/L ALT 16 15 (4-49) U/L Alkaline Phosphatase 123 111 (38-126) U/L Total Protein 7.2 7.1 (6.3-8.2) g/dL Albumin 3.8 3.7 (3.5-5.0) g/dL Current Medications Generic Name Dose Route Start Last Admin Trade Name Freq PRN Reason Stop Dose Admin Acetaminophen 650 mg 06/27/24 17:17 06/28/24 05:01 Acetaminophen Tab 325 Mg Tab PO 650 mg Q6HR PRN Administration Mild Pain or Fever > 100.5 Aspirin 81 mg 06/27/24 21:00 06/27/24 21:47 Aspirin 81 Mg PO 81 mg HS KASSY Administration Atorvastatin Calcium 20 mg 06/27/24 21:00 06/27/24 21:47 Atorvastatin 20 Mg Tab PO 20 mg HS KASSY Administration Dextrose/Water 25 ml 06/28/24 00:39 Dextrose 50% Syringe 50 Ml IVP PER PROTOCOL PRN Hypoglycemia Protocol Dextrose/Water 50 ml 06/28/24 00:39 Dextrose 50% Syringe 50 Ml IVP PER PROTOCOL PRN Hypoglycemia Protocol Duloxetine HCl 30 mg 06/28/24 09:00 06/28/24 09:40 Duloxetine Hcl 30 Mg Capsule.Dr PO 30 mg DAILY KASSY Administration Famotidine 20 mg 06/28/24 09:00 06/28/24 09:40 Famotidine 20 Mg Tab PO 20 mg DAILY KASSY Administration Sodium Chloride 1,000 mls @ 100 mls/hr 06/28/24 00:45 06/28/24 11:02 Saline 0.9% IV 100 mls/hr .Q10H KASSY Administration Cefazolin Sodium 3 gm/ Sodium 100 mls @ 200 mls/hr 06/28/24 11:00 Chloride IVPB Q8H [facility] Protocol Ibuprofen 400 mg 06/27/24 17:17 Ibuprofen 400 Mg Tab PO Q6HR PRN Mild Pain or Fever > 100.5 Insulin Glargine 35 unit 06/28/24 09:00 06/28/24 10:26 Insulin Glargine (Lantus) 100 Unit/Ml Syr SQ 35 unit DAILY KASSY Administration Insulin Human Lispro 0 unit 06/28/24 07:30 06/28/24 09:44 Insulin Lispro (Humalog) 100 Unit/Ml 10 Ml Vl SQ Not Given ACHS [facility] Protocol Lisinopril 10 mg 06/28/24 09:00 06/28/24 09:49 Lisinopril 10 Mg Tab PO Not Given DAILY KASSY Naloxone HCl 0.2 mg 06/27/24 17:17 Naloxone 0.4 Mg/Ml 1 Ml Vial IV Q2M PRN Opioid Reversal Rivaroxaban 2.5 mg 06/28/24 09:00 06/28/24 10:25 Rivaroxaban 2.5 Mg Tablet PO 2.5 mg BID KASSY Administration Protocol Intake and Output 06/27/24 06/28/24 06/28/24 22:59 06:59 14:59 Other: Weight 102.058 kg 06/28/24 07:53 06/28/24 07:53
[2024-06-28 12:43] LABS: Glucose,Whole Blood 149 mg/dL (70-110)
[2024-06-28] MEDS: ceFAZolin 3 GM in SODIUM CHLORIDE 0.9% 100 ML IVPB SCH (12:43)
--- NOTE | 2024-06-28 12:55 | P.PN ---
Subjective Progress Note Date: 06/28/24 06/28/2024 patient seen and examined at bedside. No acute events overnight. No new complaints. Labs today: WBC 5.5, hemoglobin 13.2, platelet count 1 27,000, sodium 136, potassium 3.9, bicarb 23, BUN 14, creatinine 0.7, glucose 156, calcium 8.5 Review of systems: Pertinent positives and negatives as discussed in HPI, a complete review of systems was performed and all other systems are negative. Physical examination: Vital signs reviewed General: non toxic, no distress, appears at stated age Derm: no unusual rashes/lesions, warm Head: atraumatic, normocephalic, symmetric Eyes: EOMI, anicteric sclera, pupils equal round reactive to light ENT: Nose and ears atraumatic Neck: No cervical lymphadenopathy, trachea midline, supple Mouth: no lip lesion, mucus membranes moist Cardiovascular: S1S2 reg, no murmur Lungs: CTA bilateral, no rhonchi, no rales, no accessory muscle use Abdominal: soft, nontender to palpation, no guarding Ext: muscle strength 5 out of 5 in all 4 extremities grossly, no gross muscle atrophy, no contractures, positive dorsalis pedis pulse bilateral, no edema, noted open wound that has crusted on dorsal aspect of left middle finger, has surrounding erythema warmth and tenderness up to distal wrist, with limited range of motion of the left fingers due to swelling Neuro: CN II-XI grossly intact, no gross focal neuro deficits Psych: Alert and oriented x3, appropriate affect and mood Assessment/Plan: 64 year old male with DM and Hypertension coming in for left hand pain found to have cellulitis from puncture wound Accepted admission to internal medicine service for Left hand cellulitis with anticipated length of stay > 2 midnights #. Left hand cellulitis #. Sepsis secondary to above, improving -HR 110s, 100.7F -LA 2.4 -> 1.8 -no leukocytosis , WBC 6.9 -follow up cultures -Xray left hand no acute bone injury or fracture -D/c vancomycin dosing by pharmacy -Switch IV antibiotics to cefazolin 3 g IVPB every 8 hours, given most likely gram-positive bacterial infection -Tylenol for fever prn -Pain control with opioids -Continue with IVF hydration with normal saline 130 cc per hour -Consulted ortho. Recommended no surgical intervention -Need to confirm last tetanus immunization Chronic: #. DM -Resume home dosing of insulin -Insulin sliding scale ACHS #. Hypertension -Resume lisinopril #. Hyperlipidemia resume statin and aspirin F: Normal saline 130 cc/h E: None for now N: Consistent carbohydrate diet A: Can self ambulate DVT prophylaxis: xarelto 2.5 mg po bid Code status: full code Claire Sheth MD PGY-1/[employer] Dictation was produced using [employer] dictation software. please excuse any grammatical, word or spelling errors. I have seen and evaluated the patient today. Discussed with the resident and agree with the residents finding and plan as documented in the resident's note. Changes highlighted in blue font. Objective - Vital Signs Vital signs: Vital Signs Temp 98.6 F 06/28/24 06:58 Pulse 118 H 06/28/24 06:58 Resp 18 06/28/24 06:58 BP 104/60 06/28/24 06:58 Pulse Ox 100 06/28/24 06:58 FiO2 Intake & Output 06/27/24 06/28/24 06/28/24 18:59 06:59 18:59 Weight 102.058 kg 102.058 kg - Labs CBC & Chem 7: 06/28/24 07:53 06/28/24 07:53 Labs: Abnormal Lab Results - Last 24 Hours (Table) 06/27/24 06/27/24 06/27/24 Range/Units 16:35 16:35 16:35 RBC (4.30-5.90) m/uL Hgb (13.0-17.5) gm/dL MCV (80.0-100.0) fL MCHC (31.0-37.0) g/dL Plt Count 146 L (150-450) k/uL Lymphocytes # (Manual) (1.0-4.8) k/uL Macrocytosis Sodium 134 L (137-145) mmol/L Creatinine (0.66-1.25) mg/dL Glucose 175 H (74-99) mg/dL POC Glucose (mg/dL) (70-110) mg/dL Plasma Lactic Acid Miky 2.4 H* (0.7-2.0) mmol/L 06/27/24 06/27/24 06/27/24 Range/Units 20:06 21:50 21:50 RBC 3.70 L (4.30-5.90) m/uL Hgb 10.2 L D (13.0-17.5) gm/dL MCV 107.3 H D (80.0-100.0) fL MCHC 25.6 L (31.0-37.0) g/dL Plt Count 109 L 133 L (150-450) k/uL Lymphocytes # (Manual) 0.81 L (1.0-4.8) k/uL Macrocytosis Marked A Sodium 135 L (137-145) mmol/L Creatinine 0.64 L (0.66-1.25) mg/dL Glucose 101 H (74-99) mg/dL POC Glucose (mg/dL) (70-110) mg/dL Plasma Lactic Acid Miky (0.7-2.0) mmol/L 06/27/24/ Range/Units 21:50 01:21 RBC (4.30-5.90) m/uL Hgb (13.0-17.5) gm/dL MCV (80.0-100.0) fL MCHC (31.0-37.0) g/dL Plt Count (150-450) k/uL Lymphocytes # (Manual) (1.0-4.8) k/uL Macrocytosis Sodium (137-145) mmol/L Creatinine (0.66-1.25) mg/dL Glucose (74-99) mg/dL POC Glucose (mg/dL) 138 H (70-110) mg/dL Plasma Lactic Acid Miky 2.1 H* (0.7-2.0) mmol/L
[2024-06-28] MEDS ORDERED: VANCOMYCIN IV PER PHARMACY 1 EACH MISC MISCELLANE PRN (14:07)
[2024-06-28 18:04] LABS: Glucose,Whole Blood 154 mg/dL (70-110)
[2024-06-28 21:22] LABS: Glucose,Whole Blood 137 mg/dL (70-110)
--- NOTE | 2024-06-28 23:16 | P.CONS ---
History of Present Illness - Reason for Consult Consult date: 06/28/24 Left hand cellulitis left foot also Requesting physician: Lynn Mitchell - Chief Complaint Left middle finger pain and swelling x days - History of Present Illness Patient is a 64-year-old male with a past medical history significant for diabetes mellitus osteoarthritis history of diabetic foot infection status post left transmetatarsal amputation currently dealing with nonhealing wound to the left transmetatarsal amputation stump and follow with Dr. mares seen in the wound care, patient presenting to the hospital for evaluation of left middle finger infection patient mentioned that he was moving his daughter dog cage and did have a laceration from the metal about week prior to that for the last day or 2 patient noted to have increasing swelling redness and drainage patient described the pain to be sharp moderate intensity without radiation with ass ociated swelling redness but no foul-smelling drainage denies high-grade fever however he did have a temperature of 100.7 F this morning patient was tachycardic but not hypotensive or hypoxic no need for supplemental oxygen white count is 5.5 creatinine 0.70 electrolytes has been normal patient did have an x- ray did not show any fracture or dislocation foot x-ray Charcot joint patient was given dose of vancomycin received antibiotic switched to cefazolin infectious disease was consulted for further management of antibiotic therapy Review of Systems Positive point and negatives has been mentioned in the HPI, complete review of systems was performed and all other systems are negative Past Medical History Past Medical History: Diabetes Mellitus, Osteoarthritis (OA), Skin Disorder Additional Past Medical History / Comment(s): varicose veins, arthritis left knee, diabetic neuropathy,. History of partial amputation of the left foot with chronic wound healing issues in active wound care management History of Any Multi-Drug Resistant Organisms: MRSA Year Discovered:: 2012 MDRO Source:: L Leg Past Surgical History: Orthopedic Surgery Additional Past Surgical History / Comment(s): julio carpel tunnel, left knee arthroscopy, PICC, debridement left foot, laser surgery right leg, amputation left foot all toes 2022. Past Anesthesia/Blood Transfusion Reactions: No Reported Reaction Past Psychological History: No Psychological Hx Reported Smoking Status: Former smoker Past Alcohol Use History: Occasional Additional Past Alcohol Use History / Comment(s): Patient was a smoker 3 packs per day on and off for 20 years and quit 25 years ago. 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 Past Drug Use History: Marijuana Additional Drug Use History / Comment(s): rare use, has not smoked marijuana in 3 weeks - Past Family History Mother Family Medical History: No Reported History Medications and Allergies Home Medications Medication Instructions Recorded Confirmed Type Simvastatin [Zocor] 40 mg PO HS 03/13/14 06/27/24 History Aspirin [Adult Low Dose Aspirin EC] 81 mg PO HS 11/27/16 06/27/24 History metFORMIN HCL [Glucophage] 1,000 mg PO BID 11/17/17 06/27/24 History Insulin Glargine,Hum.rec.anlog 35 units SQ DAILY 12/23/17 06/27/24 History [Lantus Solostar Pen] DULoxetine HCL [Cymbalta] 30 mg PO DAILY 10/02/22 06/27/24 History Empagliflozin [Jardiance] 10 mg PO DAILY 10/02/22 06/27/24 History Famotidine [Pepcid] 20 mg PO DAILY 10/02/22 06/27/24 History Rivaroxaban [Xarelto] 2.5 mg PO BID 10/02/22 06/27/24 History Semaglutide [Ozempic] 2 mg SQ WE 10/02/22 06/27/24 History lisinopriL [Zestril] 10 mg PO DAILY 10/02/22 06/27/24 History Allergies Allergy/AdvReac Type Severity Reaction Status Date / Time cefuroxime [From Ceftin] Allergy Rash/Hives Verified 08/01/23 15:37 Physical Exam Vitals: Vital Signs Temp Pulse Pulse Resp BP Pulse Ox 06/28/24 10:49 99.5 F 113 H 17 89/55 97 06/28/24 10:32 115 H 18 98 06/28/24 09:38 98.4 F 118 H 18 99/54 99 06/28/24 09:35 120 H 06/28/24 06:58 98.6 F 118 H 18 104/60 100 06/28/24 05:16 99.3 F 122 H 17 153/81 95 06/28/24 04:34 100.7 F H 124 H 22 120/60 95 06/28/24 01:18 110 H 18 124/72 97 06/27/24 20:06 98.1 F 72 18 127/77 100 06/27/24 15:28 98.2 F 85 20 118/68 99 Intake and Output 06/27/24 06/28/24 06/28/24 22:59 06:59 14:59 Other: Weight 102.058 kg GENERAL DESCRIPTION: Elderly male lying in bed, no distress. No tachypnea or accessory muscle of respiration use. HEENT: Shows Pallor , no scleral icterus. Oral mucous membrane is dry. No pharyngeal erythema or thrush NECK: Trachea central, no thyromegaly. LUNGS: Unlabored breathing. Clear to auscultation anteriorly. No wheeze or crackle. HEART: S1, S2, regular rate and rhythm. No loud murmur ABDOMEN: Soft, no tenderness , guarding or rigidity, no organomegaly EXTREMITIES: Left middle finger on the dorsum aspect did have a wound with purulent drainage was cultured left foot transmetatarsal potation site wound with some surrounding callus but no slough tissue SKIN: No rash, no masses palpable. NEUROLOGICAL: The patient is awake, alert, oriented x3, mood and affect normal. Results CBC & Chem 7: 06/28/24 07:53 06/28/24 07:53 Labs: Abnormal Lab Results - Last 24 Hours (Table) 06/27/24 06/27/24 06/27/24 Range/Units 16:35 16:35 16:35 RBC (4.30-5.90) m/uL Hgb (13.0-17.5) gm/dL MCV (80.0-100.0) fL MCHC (31.0-37.0) g/dL Plt Count 146 L (150-450) k/uL Lymphocytes # (1.0-4.8) k/uL Lymphocytes # (Manual) (1.0-4.8) k/uL Macrocytosis Sodium 134 L (137-145) mmol/L Creatinine (0.66-1.25) mg/dL Glucose 175 H (74-99) mg/dL POC Glucose (mg/dL) (70-110) mg/dL Plasma Lactic Acid Miky 2.4 H* (0.7-2.0) mmol/L 06/27/24 06/27/24 06/27/24 Range/Units 20:06 21:50 21:50 RBC 3.70 L (4.30-5.90) m/uL Hgb 10.2 L D (13.0-17.5) gm/dL MCV 107.3 H D (80.0-100.0) fL MCHC 25.6 L (31.0-37.0) g/dL Plt Count 109 L 133 L (150-450) k/uL Lymphocytes # (1.0-4.8) k/uL Lymphocytes # (Manual) 0.81 L (1.0-4.8) k/uL Macrocytosis Marked A Sodium 135 L (137-145) mmol/L Creatinine 0.64 L (0.66-1.25) mg/dL Glucose 101 H (74-99) mg/dL POC Glucose (mg/dL) (70-110) mg/dL Plasma Lactic Acid Miky (0.7-2.0) mmol/L 06/27/24 06/28/24 06/28/24 Range/Units 21:50 01:21 07:53 RBC (4.30-5.90) m/uL Hgb (13.0-17.5) gm/dL MCV (80.0-100.0) fL MCHC (31.0-37.0) g/dL Plt Count 127 L (150-450) k/uL Lymphocytes # 0.3 L (1.0-4.8) k/uL Lymphocytes # (Manual) (1.0-4.8) k/uL Macrocytosis Sodium (137-145) mmol/L Creatinine (0.66-1.25) mg/dL Glucose (74-99) mg/dL POC Glucose (mg/dL) 138 H (70-110) mg/dL Plasma Lactic Acid Miky 2.1 H* (0.7-2.0) mmol/L 06/28/24 06/28/24 Range/Units 07:53 09:42 RBC (4.30-5.90) m/uL Hgb (13.0-17.5) gm/dL MCV (80.0-100.0) fL MCHC (31.0-37.0) g/dL Plt Count (150-450) k/uL Lymphocytes # (1.0-4.8) k/uL Lymphocytes # (Manual) (1.0-4.8) k/uL Macrocytosis Sodium 136 L (137-145) mmol/L Creatinine (0.66-1.25) mg/dL Glucose 156 H (74-99) mg/dL POC Glucose (mg/dL) 135 H (70-110) mg/dL Plasma Lactic Acid Miky (0.7-2.0) mmol/L Assessment and Plan (1) Cellulitis of left middle finger Current Visit: Yes Status: Acute Code(s): L03.012 - CELLULITIS OF LEFT FINGER SNOMED Code(s): 24263690049999 (2) Leg ulcer, left Current Visit: No Status: Acute Code(s): L97.929 - NON-PRS CHRONIC ULC UNSP PRT OF L LOW LEG W UNSP SEVERITY SNOMED Code(s): 83631111 (3) Sepsis Current Visit: No Status: Acute Code(s): A41.9 - SEPSIS, UNSPECIFIED ORGANIS M SNOMED Code(s): 43221152 Plan: 1patient presented to hospital with increasing pain swelling redness to the left middle finger on the dorsum aspect in this patient who did have sustained an injury from a dog cage now with some purulent drainage concerning for cellulitis sepsis likely from gram-positive skin rayna 2-left foot ulcer but no evidence of any cellulitis 3-local culture has been obtained to guide further antibiotic therapy 4-cefuroxime allergy that will limit the number of antibiotics safe to use 5-discontinue cefazolin 6-vancomycin pharmacy to dose target trough of 15 while watching kidney function and Vanco trough closely 7-local wound care to the left foot with dry Aquacel silver dressing change q. 48-hour We will follow on clinical condition and cultures to further adjust medication if needed Thank you for this consultation we will follow the patient along with you Dictation was produced using [employer] dictation software. please excuse any grammatical, word or spelling errors. Time with Patient: Greater than 30
[2024-06-29 07:43] LABS: Glucose,Whole Blood 80 mg/dL (70-110)
[2024-06-29] MEDS: VANCOMYCIN TROUGH DUE 1 EACH MISC MISCELLANE ONE (08:20)
[2024-06-29 08:41] LABS: African American GFR (CKD) >90 (>60 ml/min/1.73 sqM); Non-African American GFR(CKD) >90 (>60 ml/min/1.73 sqM)
[2024-06-29 08:43] LABS: African American GFR (CKD) >90 (>60 ml/min/1.73 sqM); Anion Gap 5 mmol/L; Blood Urea Nitrogen 13 mg/dL (9-20); Calcium 8.7 mg/dL (8.4-10.2); Carbon Dioxide 27 mmol/L (22-30); Chloride 105 mmol/L (98-107); Glucose 96 mg/dL (74-99); Non-African American GFR(CKD) >90 (>60 ml/min/1.73 sqM); Sodium 137 mmol/L (137-145)
[2024-06-29] MEDS ORDERED: VANCOMYCIN TROUGH DUE 1 EACH MISC MISCELLANE ONE (09:00)
[2024-06-29 10:05] LABS: Basophils % (A) 0 %; Eosinophils # (A) 0.2 k/uL (0-0.7); Eosinophils % (A) 5 %; HCT 43.2 % (39.0-53.0); HGB 13.2 gm/dL (13.0-17.5); Hypochromasia Slight; Lymphocytes # (A) 0.8 k/uL (1.0-4.8); Lymphocytes % (A) 21 %; MCH 27.1 pg (25.0-35.0); MCHC 30.5 g/dL (31.0-37.0); MCV 88.9 fL (80.0-100.0); Monocytes # (A) 0.2 k/uL (0-1.0); Monocytes % (A) 6 %; Neutrophils # (A) 2.5 k/uL (1.3-7.7); Neutrophils % (A) 66 %; Platelet Count 133 k/uL (150-450); RBC 4.87 m/uL (4.30-5.90); RDW 15.3 % (11.5-15.5); WBC 3.8 k/uL (3.8-10.6)
--- NOTE | 2024-06-29 10:53 | P.CONS ---
History of Present Illness - Reason for Consult Consult date: 06/29/24 wound care - History of Present Illness This is a 64-year-old patient known to the wound care center however he has not been seen since 2020. Patient follows with Dr. Brian at [facility] wound care center. Patient underwent a left trans met amputation 18 months ago. Patient developed an open ulceration that he has been following with Dr. Brian.He has been utilizing Hydrofera Blue and Santyl to the site. Ulceration measures approximately 2.5 x 1.5 x 0.2 cm wound edges are not attached to the wound base callus slough and nonviable tissue present to the site. Minimal granulation noted with serosanguineous drainage present. Patient has history of diabetes. Review Of Systems: Constitutional: No fever, no chills, no night sweats. No weight change. No weakness, fatigue or lethargy. No daytime sleepiness. Integumentary:reports wounds, no lesions. No rash or pruritus. No unusual bruising. No change in hair or nails. Physical exam: General Appearance: Alert, cooperative, no distress, appears stated age. Skin: See HPI all other Skin color, texture, tugor normal, no rashes or lesions. Neurologic: Alert oriented x3 Assessment: 1. Nonhealing ulceration left foot with fat layer exposure 2. Diabetic foot ulcer Plan: 1. Apply Santyl saline moist gauze dry gauze rolled gauze secure with paper tape. Change daily. Nonweightbearing to the left forefoot. Patient can continue to follow-up with Dr. Brian upon discharge. Thank you for the consult any questions please contact the wound care center DNP note has been reviewed and discussed with Dr. Conrad and the impression and plan of care has been directed as dictated. Past Medical History Past Medical History: Diabetes Mellitus, Osteoarthritis (OA), Skin Disorder Additional Past Medical History / Comment(s): varicose veins, arthritis left knee, diabetic neuropathy,. History of partial amputation of the left foot with chronic wound healing issues in active wound care management History of Any Multi-Drug Resistant Organisms: MRSA Year Discovered:: 2012 MDRO Source:: L Leg Past Surgical History: Orthopedic Surgery Additional Past Surgical History / Comment(s): julio carpel tunnel, left knee arthroscopy, PICC, debridement left foot, laser surgery right leg, amputation left foot all toes 2022. Past Anesthesia/Blood Transfusion Reactions: No Reported Reaction Past Psychological History: No Psychological Hx Reported Smoking Status: Former smoker Past Alcohol Use History: Occasional Additional Past Alcohol Use History / Comment(s): Patient was a smoker 3 packs per day on and off for 20 years and quit 25 years ago. 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 Past Drug Use History: Marijuana Additional Drug Use History / Comment(s): rare use, has not smoked marijuana in 3 weeks - Past Family History Mother Family Medical History: No Reported History Medications and Allergies Home Medications Medication Instructions Recorded Confirmed Type Simvastatin [Zocor] 40 mg PO HS 03/13/14 06/27/24 History Aspirin [Adult Low Dose Aspirin EC] 81 mg PO HS 11/27/16 06/27/24 History metFORMIN HCL [Glucophage] 1,000 mg PO BID 11/17/17 06/27/24 History Insulin Glargine,Hum.rec.anlog 35 units SQ DAILY 12/23/17 06/27/24 History [Lantus Solostar Pen] DULoxetine HCL [Cymbalta] 30 mg PO DAILY 10/02/22 06/27/24 History Empagliflozin [Jardiance] 10 mg PO DAILY 10/02/22 06/27/24 History Famotidine [Pepcid] 20 mg PO DAILY 10/02/22 06/27/24 History Rivaroxaban [Xarelto] 2.5 mg PO BID 10/02/22 06/27/24 History Semaglutide [Ozempic] 2 mg SQ WE 10/02/22 06/27/24 History lisinopriL [Zestril] 10 mg PO DAILY 10/02/22 06/27/24 History Allergies Allergy/AdvReac Type Severity Reaction Status Date / Time cefuroxime [From Ceftin] Allergy Rash/Hives Verified 08/01/23 15:37 Physical Exam Vitals: Vital Signs Temp Pulse Resp BP Pulse Ox 06/29/24 08:00 70 16 142/84 99 06/29/24 06:22 63 16 123/66 100 06/29/24 04:20 66 18 128/64 97 06/28/24 22:40 84 18 121/89 99 06/28/24 18:45 98.7 F 06/28/24 18:35 84 12 123/71 98 06/28/24 16:11 98 18 06/28/24 15:30 80 19 113/81 98 Results CBC & Chem 7: 06/29/24 08:09 06/29/24 08:09 Labs: Abnormal Lab Results - Last 24 Hours (Table) 06/28/24 06/28/24 06/28/24 Range/Units 12:42 18:03 21:20 MCHC (31.0-37.0) g/dL Plt Count (150-450) k/uL Lymphocytes # (1.0-4.8) k/uL POC Glucose (mg/dL) 149 H 154 H 137 H (70-110) mg/dL 06/29/24 Range/Units 08:09 MCHC 30.5 L (31.0-37.0) g/dL Plt Count 133 L (150-450) k/uL Lymphocytes # 0.8 L (1.0-4.8) k/uL POC Glucose (mg/dL) (70-110) mg/dL Microbiology - Last 24 Hours (Table) 06/27/24 18:30 Blood Culture - Preliminary Blood Assessment and Plan (1) Non-pressure chronic ulcer of other part of left foot with fat layer exposed Current Visit: Yes Status: Acute Code(s): L97.522 - NON-PRS CHRONIC ULCER OTH PRT LEFT FOOT W FAT LAYER EXPOSED SNOMED Code(s): 83100275917173321 (2) Diabetic foot ulcer Current Visit: No Status: Acute Code(s): E11.621 - TYPE 2 DIABETES MELLITUS WITH FOOT ULCER; L97.509 - NON-PRESSURE CHRONIC ULCER OTH PRT UNSP FOOT W UNSP SEVERITY SNOMED Code(s): 301838496
[2024-06-29 11:36] LABS: Glucose,Whole Blood 111 mg/dL (70-110)
[2024-06-29] MEDS: COLLAGENASE 250 UNIT/GM OINTMENT 30 GM TUBE TOPICAL SCH (11:47)
--- NOTE | 2024-06-29 13:32 | P.PN ---
Subjective Progress Note Date: 06/29/24 06/28/2024 patient seen and examined at bedside. No acute events overnight. No new complaints. Labs today: WBC 5.5, hemoglobin 13.2, platelet count 1 27,000, sodium 136, potassium 3.9, bicarb 23, BUN 14, creatinine 0.7, glucose 156, calcium 8.5 06/29/2024 patient seen and examined at bedside. No acute events overnight. No new complaints. Labs: WBC 3.8, hemoglobin 13.2, platelet count 1 33,000, sodium 137, potassium 4, chloride 105, bicarb 27, BUN 13, creatinine 0.77, glucose 96, calcium 8.7 Review of systems: Pertinent positives and negatives as discussed in HPI, a complete review of systems was performed and all other systems are negative. Physical examination: Vital signs reviewed General: non toxic, no distress, appears at stated age Derm: no unusual rashes/lesions, warm Head: atraumatic, normocephalic, symmetric Eyes: EOMI, anicteric sclera, pupils equal round reactive to light ENT: Nose and ears atraumatic Neck: No cervical lymphadenopathy, trachea midline, supple Mouth: no lip lesion, mucus membranes moist Cardiovascular: S1S2 reg, no murmur Lungs: CTA bilateral, no rhonchi, no rales, no accessory muscle use Abdominal: soft, nontender to palpation, no guarding Ext: muscle strength 5 out of 5 in all 4 extremities grossly, no gross muscle atrophy, no contractures, positive dorsalis pedis pulse bilateral, no edema, noted open wound that has crusted on dorsal aspect of left middle finger, has improved surrounding erythema warmth and tenderness up to metacarpals, with limited range of motion of the left fingers due to swelling, Right toes amputated, Right foot ulcer clean and dry with no discharge, surrounding skin clean with some erythema, bilateral lower extremity venous statis dermatitis Neuro: CN II-XI grossly intact, no gross focal neuro deficits Psych: Alert and oriented x3, appropriate affect and mood Assessment/Plan: 64 year old male with DM and Hypertension coming in for left hand pain found to have cellulitis from puncture wound Accepted admission to internal medicine service for Left hand cellulitis with anticipated length of stay > 2 midnights #. Left hand cellulitis #. Sepsis secondary to above, improving -HR 110s, 100.7F -LA 2.4 -> 1.8 -no leukocytosis , WBC 6.9 -follow up cultures -Xray left hand no acute bone injury or fracture -Continue IV vancomycin, monitor for toxicity -Discussed with ID, likely oral antibiotics at the time of discharge, pending cultures -D/c IV cefazolin -Tylenol for fever prn -Pain control with opioids -D/c IVF -Consulted ortho. Recommended no surgical intervention Chronic: #. DM -Resume home dosing of insulin -Insulin sliding scale ACHS #. Hypertension -Resume lisinopril #. Hyperlipidemia resume statin and aspirin F: oral intake E: None for now N: Consistent carbohydrate diet A: Can self ambulate DVT prophylaxis: xarelto 2.5 mg po bid Code status: full code Claire Sheth MD PGY-1/It Operations Manager Dictation was produced using [employer] dictation software. please excuse any grammatical, word or spelling errors. I have seen and evaluated the patient today. Discussed with the resident and agree with the residents finding and plan as documented in the resident's note. Changes highlighted in blue font. Objective - Vital Signs Vital signs: Vital Signs Temp 98.7 F 06/28/24 18:45 Pulse 63 06/29/24 06:22 Resp 16 06/29/24 06:22 BP 123/66 06/29/24 06:22 Pulse Ox 100 06/29/24 06:22 FiO2 - Labs CBC & Chem 7: 06/29/24 08:09 06/29/24 08:09 Labs: Abnormal Lab Results - Last 24 Hours (Table) 06/28/24 06/28/24 06/28/24 Range/Units 07:53 07:53 09:42 Plt Count 127 L (150-450) k/uL Lymphocytes # 0.3 L (1.0-4.8) k/uL Sodium 136 L (137-145) mmol/L Glucose 156 H (74-99) mg/dL POC Glucose (mg/dL) 135 H (70-110) mg/dL 06/28/24 06/28/24 06/28/24 Range/Units 12:42 18:03 21:20 Plt Count (150-450) k/uL Lymphocytes # (1.0-4.8) k/uL Sodium (137-145) mmol/L Glucose (74-99) mg/dL POC Glucose (mg/dL) 149 H 154 H 137 H (70-110) mg/dL Microbiology - Last 24 Hours (Table) 06/27/24 18:30 Blood Culture - Preliminary Blood
--- NOTE | 2024-06-29 15:04 | P.PN ---
Subjective Progress Note Date: 06/29/24 Principal diagnosis: Reason for follow-up is left middle finger abscess cellulitis Patient is a 64-year-old male with a past medical history significant for diabetes mellitus osteoarthritis history of diabetic foot infection status post left transmetatarsal amputation currently dealing with nonhealing wound now presented to hospital with left middle finger abscess cellulitis. On today's evaluation that is 06/29/2024, Patient is afebrile this morning patient denies having any chest pain shortness of breath or cough, the patient is currently on room air, patient denies any abdominal pain no diarrhea no nausea no vomiting pain to the left middle finger has slightly decreased in intensity. Patient white count is 3.8 creatinine 0.77 Vanco trough is 13.3 cultures c urrently pending Objective - Vital Signs Vital signs: Vital Signs Temp 98.7 F 06/28/24 18:45 Pulse 65 06/29/24 11:24 Resp 16 06/29/24 11:24 BP 120/68 06/29/24 11:24 Pulse Ox 100 06/29/24 11:24 FiO2 - Exam GENERAL DESCRIPTION: An elderly male lying in bed in no distress RESPIRATORY SYSTEM: Unlabored breathing , decreased breath sounds at bases HEART: S1 S2 regular rate and rhythm , ABDOMEN: Soft , no tenderness EXTREMITIES: Left middle finger is currently dressed redness decreased - Labs CBC & Chem 7: 06/29/24 08:09 06/29/24 08:09 Labs: Abnormal Lab Results - Last 24 Hours (Table) 06/28/24 06/28/24 06/28/24 Range/Units 12:42 18:03 21:20 MCHC (31.0-37.0) g/dL Plt Count (150-450) k/uL Lymphocytes # (1.0-4.8) k/uL POC Glucose (mg/dL) 149 H 154 H 137 H (70-110) mg/dL 06/29/24 06/29/24 Range/Units 08:09 11:35 MCHC 30.5 L (31.0-37.0) g/dL Plt Count 133 L (150-450) k/uL Lymphocytes # 0.8 L (1.0-4.8) k/uL POC Glucose (mg/dL) 111 H (70-110) mg/dL Microbiology - Last 24 Hours (Table) 06/27/24 18:30 Blood Culture - Preliminary Blood Assessment and Plan (1) Cellulitis of left middle finger Current Visit: Yes Status: Acute Code(s): L03.012 - CELLULITIS OF LEFT FINGER SNOMED Code(s): 99537920969465 (2) Leg ulcer, left Current Visit: No Status: Acute Code(s): L97.929 - NON-PRS CHRONIC ULC UNSP PRT OF L LOW LEG W UNSP SEVERITY SNOMED Code(s): 12235219 (3) Sepsis Current Visit: No Status: Acute Code(s): A41.9 - SEPSIS, UNSPECIFIED ORGANISM SNOMED Code(s): 88057247 Plan: 1patient presented to hospital with increasing pain swelling redness to the left middle finger on the dorsum aspect in this patient who did have sustained an injury from a dog cage now with some purulent drainage concerning for cellulitis sepsis likely from gram-positive skin rayna 2-left foot ulcer but no evidence of any cellulitis wound care has been consulted continue local wound care per wound care team 3-left finger swelling redness slightly decreased cultures currently pending will continue vancomycin discharge antibiotic on the basis of culture discussed with resident physician Dictation was produced using [employer] dictation software. please excuse any grammatical, word or spelling errors. Time with Patient: Less than 30
[2024-06-29 20:30] LABS: Glucose,Whole Blood 183 mg/dL (70-110)
[2024-06-30 03:51] LABS: African American GFR (CKD) >90 (>60 ml/min/1.73 sqM); Non-African American GFR(CKD) >90 (>60 ml/min/1.73 sqM)
[2024-06-30 06:18] LABS: Glucose,Whole Blood 102 mg/dL (70-110)
[2024-06-30 11:10] LABS: Glucose,Whole Blood 142 mg/dL (70-110)
[2024-06-30 12:53] VITALS: BP 150/83; PULSE 70; RESP 16; TEMP 98.3
--- NOTE | 2024-06-30 17:37 | P.DS ---
Providers Date of admission: 06/27/24 17:09 Expected date of discharge: 06/30/24 Attending physician: Angela Demarco MD Consults: 06/27/24 17:17 Consult Physician Routine Consulting Provider: Thanh Leyva Consult Reason/Comments: cellulitis, L hand and L foot Do you want consulting provider notified?: Yes, Notify in am 06/27/24 17:19 Consult Physician Routine Consulting Provider: Federica Espinoza Consult Reason/Comments: left hand cellulitis Do you want consulting provider notified?: Yes, Notify in am Primary care physician: [facility] Hospital Course: Hospital Course: 64 year old male with diabetes ,hypertension coming in for swelling, redness due to a wound on the dorsum aspect of the middle finger of the left hand. On admission, WBC 7.3, hemoglobin 13.4, platelet count 146,000, creatinine 0.68, BUN 17 lactic acid 2.4 xray left hand no acute bone injury or fracture. Left foot x-ray showed amputation noted of all 5 digits at the base of metatarsals with ulceration noted adjacent to the fourth metatarsal remnant without definite bone destruction. EKG showed sinus tachycardia with a rate of 121, left axis deviation, no ST-T changes, QTc 388 MS Patient was admitted for evaluation of left hand cellulitis with sepsis. Ordered IV antibiotics, IV fluids, and pain control. Ortho consulted. Infectious disease consulted. Patient had sustained tachycardia and cardiology was consulted. Repeat EKG showed sinus tachycardia with first-degree block VT interval 244 MS, no ST-T changes, QTc 413 MS. No further cardiac intervention management was done. No surgical management was recommended by Ortho. Patient symptoms improved throughout hospital stay. Cultures positive for strep. Patient is cleared for discharge today on Keflex for 10 days. Advised to follow-up with infectious disease and PCP on outpatient basis Final Diagnosis: #. Left hand cellulitis #. Sepsis secondary to above, resolved #. Diabetes mellitus, Type II #. Hypertension #. Hyperlipidemia #. First-degree AV block Physical examination: Vital signs reviewed General: non toxic, no distress Derm: no unusual rashes/lesions, warm Head: atraumatic, normocephalic, symmetric Eyes: EOMI, anicteric sclera, pupils equal round reactive to light ENT: Nose and ears atraumatic Neck: No cervical lymphadenopathy, trachea midline, supple Mouth: no lip lesion, mucus membranes moist Cardiovascular: S1S2 reg, no murmur Lungs: CTA bilateral, no rhonchi, no rales, no accessory muscle use Abdominal: soft, nondistended, nontender to palpation, no guarding Ext: muscle strength 5 out of 5 in all 4 extremities grossly, no gross muscle atrophy, no contractures, positive dorsalis pedis pulse bilateral, no edema, noted open wound that has crusted on dorsal aspect of left middle finger, has improved erythema and swelling, with improved range of motion of the left fingers due to swelling, Right toes amputated, Right foot ulcer clean and dry with no discharge, surrounding skin clean with some erythema, bilateral lower extremity venous statis dermatitis Neuro: CN II-XI grossly intact, no gross focal neuro deficits Psych: Alert, oriented, appropriate affect and mood A total of 33 minutes of time were spent preparing this complex discharge summary. Patient was discharged on 06/30/2024 at 1040. I have seen and evaluated the patient today. Discussed with the resident and agree with the residents finding and plan as documented in the resident's note. Changes highlighted in blue font. Patient Condition at Discharge: Stable Plan - Discharge Summary Discharge Rx Participant: No New Discharge Prescriptions: New Cephalexin [Keflex] 500 mg PO Q8HR 10 Days #30 cap Continue Simvastatin [Zocor] 40 mg PO HS Aspirin [Adult Low Dose Aspirin EC] 81 mg PO HS metFORMIN HCL [Glucophage] 1,000 mg PO BID Insulin Glargine,Hum.rec.anlog [Lantus Solostar Pen] 35 units SQ DAILY Empagliflozin [Jardiance] 10 mg PO DAILY Famotidine [Pepcid] 20 mg PO DAILY lisinopriL [Zestril] 10 mg PO DAILY Semaglutide [Ozempic] 2 mg SQ WE Rivaroxaban [Xarelto] 2.5 mg PO BID DULoxetine HCL [Cymbalta] 30 mg PO DAILY Discharge Medication List Simvastatin [Zocor] 40 mg PO HS 03/13/14 [History] Aspirin [Adult Low Dose Aspirin EC] 81 mg PO HS 11/27/16 [History] metFORMIN HCL [Glucophage] 1,000 mg PO BID 11/17/17 [History] Insulin Glargine,Hum.rec.anlog [Lantus Solostar Pen] 35 units SQ DAILY 12/23/17 [History] DULoxetine HCL [Cymbalta] 30 mg PO DAILY 10/02/22 [History] Empagliflozin [Jardiance] 10 mg PO DAILY 10/02/22 [History] Famotidine [Pepcid] 20 mg PO DAILY 10/02/22 [History] Rivaroxaban [Xarelto] 2.5 mg PO BID 10/02/22 [History] Semaglutide [Ozempic] 2 mg SQ WE 10/02/22 [History] lisinopriL [Zestril] 10 mg PO DAILY 10/02/22 [History] Cephalexin [Keflex] 500 mg PO Q8HR 10 Days #30 cap 06/30/24 [Rx] Follow up Appointment(s)/Referral(s): El Carias DO [Primary Care Provider] - 07/06/24 1:00 pm Thanh Leyva MD [STAFF PHYSICIAN] - 1 Week Patient Instructions/Handouts: Cellulitis (GEN) Activity/Diet/Wound Care/Special Instructions: Please see your PCP for follow up Daily dressing change to left foot: Santyl with saline moist gauze, dry gauze, rolled gauze, secure with tape. Discharge Disposition: HOME SELF-CARE
--- NOTE | 2024-06-30 17:49 | P.PN ---
Subjective Progress Note Date: 06/30/24 Principal diagnosis: Reason for follow-up is left middle finger abscess cellulitis Patient is a 64-year-old male with a past medical history significant for diabetes mellitus osteoarthritis history of diabetic foot infection status post left transmetatarsal amputation currently dealing with nonhealing wound now presented to hospital with left middle finger abscess cellulitis. On today's evaluation that is 06/30/2024,the patient denies any fever or any chills, patient is breathing comfortably on room air, the patient denies chest pain shortness of breath and no significant cough, patient denies abdominal pain, no nausea vomiting or diarrhea. Pain to the left middle finger has decreased in intensity. Patient did have creatinine 0.68 cultures finalized with strep today Objective - Vital Signs Vital signs: Vital Signs Temp 98.2 F 06/30/24 07:26 Pulse 68 06/30/24 07:26 Resp 18 06/30/24 07:26 BP 145/89 06/30/24 07:26 Pulse Ox 100 06/30/24 07:26 FiO2 Intake & Output 06/29/24 06/30/24 06/30/24 18:59 06:59 18:59 Other: # Voids 3 - Exam GENERAL DESCRIPTION: An elderly male lying in bed in no distress RESPIRATORY SYSTEM: Unlabored breathing , decreased breath sounds at bases HEART: S1 S2 regular rate and rhythm , ABDOMEN: Soft , no tenderness EXTREMITIES: Left middle finger is currently dressed redness decreased - Labs CBC & Chem 7: 06/29/24 08:09 06/30/24 02:52 Labs: Abnormal Lab Results - Last 24 Hours (Table) 06/29/24 06/29/24 06/30/24 Range/Units 11:35 20:29 11:09 POC Glucose (mg/dL) 111 H 183 H 142 H (70-110) mg/dL Microbiology - Last 24 Hours (Table) 06/27/24 18:30 Blood Culture - Preliminary Blood 06/28/24 12:55 Gram Stain - Preliminary Finger - Left Third Wound Culture - Preliminary Strep A Assessment and Plan (1) Cellulitis of left middle finger Status: Acute Code(s): L03.012 - CELLULITIS OF LEFT FINGER SNOMED Code(s): 54406721697228 (2) Leg ulcer, left Status: Acute Code(s): L97.929 - NON-PRS CHRONIC ULC UNSP PRT OF L LOW LEG W UNSP SEVERITY SNOMED Code(s): 39575739 (3) Sepsis Status: Acute Code(s): A41.9 - SEPSIS, UNSPECIFIED ORGANISM SNOMED Code(s): 50086122 Plan: 1patient presented to hospital with increasing pain swelling redness to the left middle finger on the dorsum aspect in this patient who did have sustained an injury from a dog cage now with some purulent drainage concerning for cellulitis sepsis likely from gram-positive skin rayna 2-left foot ulcer but no evidence of any cellulitis wound care has been consulted continue local wound care per wound care team 3-left finger swelling redness has decreased in intensity culture with strep today patient did receive a dose of cefazolin during this admission without a problem he will finish therapy with oral Keflex and a close outpatient follow-up discussed with admitting physician Dictation was produced using [employer] dictation software. please excuse any grammatical, word or spelling errors. Time with Patient: Less than 30
== END 2024-06-30 15:16 | disposition home or self-care (01) | DRG 602 ==
LOC: EC 15:00 → 4SSUR 17:09 → 5NMEDONC 22:21 → 3SCARD 06-28 06:55 → 4SSUR 06-29 13:00
PROVIDERS: ADMIT Internal Medicine; ATTEND Internal Medicine
DX: L03.114 Cellulitis of left upper limb (principal); A40.0 Sepsis due to streptococcus, group A; I48.92 Unspecified atrial flutter; I83.219 Varicose veins of right lower extremity with both ulcer of unspecified site and inflammation; E11.40 Type 2 diabetes mellitus with diabetic neuropathy, unspecified; B95.0 Streptococcus, group A, as the cause of diseases classified elsewhere; I10 Essential (primary) hypertension; T87.44 Infection of amputation stump, left lower extremity; L03.116 Cellulitis of left lower limb; L02.512 Cutaneous abscess of left hand; E11.621 Type 2 diabetes mellitus with foot ulcer; L97.522 Non-pressure chronic ulcer of other part of left foot with fat layer exposed; Z89.432 Acquired absence of left foot; Z79.4 Long term (current) use of insulin; L97.519 Non-pressure chronic ulcer of other part of right foot with unspecified severity; S61.212A Laceration without foreign body of right middle finger without damage to nail, initial encounter; E78.5 Hyperlipidemia, unspecified; I44.0 Atrioventricular block, first degree; L03.012 Cellulitis of left finger; W26.8XXA Contact with other sharp object(s), not elsewhere classified, initial encounter; Y83.5 Amputation of limb(s) as the cause of abnormal reaction of the patient, or of later complication, without mention of misadventure at the time of the procedure; Z89.421 Acquired absence of other right toe(s); Z79.01 Long term (current) use of anticoagulants; Z79.85 Long-term (current) use of injectable non-insulin antidiabetic drugs; Z86.14 Personal history of Methicillin resistant Staphylococcus aureus infection; Z79.82 Long term (current) use of aspirin; Z79.84 Long term (current) use of oral hypoglycemic drugs; Z79.899 Other long term (current) drug therapy; Z87.891 Personal history of nicotine dependence
CPT/HCPCS: 36415; 80048; 80053; 80202; 82565; 83036; 83605; 85025; 85027; 86140; 87040; 87070; 87077; 87186; 87205; 96361; 96365; 96366; 96367; 96368; 99285